=== PATIENT | male | born 1940 | race Caucasian/White ===

== ENCOUNTER → 2016-07-16 | Outpatient (CLI) | payer MEDICARE, BC ==
--- NOTE | 2016-07-16 12:25 | MR ---
MR lumbar spine wo con Low back pain Multiplanar, multiecho imaging of the lumbar spine was obtained without contrast on a 3 Nikky magnet. REFERENCE:None. FINDINGS: There is a 1 cm cystic lesion in the mid polar region of the left kidney. Paraspinal soft tissues are otherwise normal. There are mild retrolisthesis of L4 on L5 and L3 on L4. Vertebral body height and alignment are other fuller maintained. Cord signal is maintained. The conus ends normally at the level of the mid body of L1. There is hypertrophic spondylosis at L1-2 and L4-5. At T12-L1, no definite abnormality is seen. At L1-2, the intervertebral foramina are well maintained. There is a diffuse disc displacement. There is minimal capsulitis within the left facet. At L2-3, the intervertebral foramina are well maintained. There is a diffuse disc displacement. There is hypertrophic change and capsulitis in the facets. At L3-4, there is disc space loss and disc desiccation. There is a broad-based disc protrusion extend ing into both intervertebral foramina causing bilateral intervertebral foraminal narrowing. There is fairly marked hypertrophic change and capsulitis within the facets. There is mild true following of t he thecal sac. At L4-5, there is disc space loss and disc desiccation. There is a broad-based disc protrusion extend ing into both intervertebral foramina causing bilateral intervertebral foraminal narrowing. There are fairly marked hypertrophic changes within the facets. There is moderate to severe central canal sten osis as well as bilateral lateral recess stenosis. At L5-S1, there is disc space loss and disc desiccation. There is a broad-based disc protrusion exten ding into both intervertebral foramina causing bilateral intervertebral foraminal narrowing. There ar e hypertrophic changes in the facets. IMPRESSION: 1. DIFFUSE DEGENERATIVE DISC DISEASE AND FACET ARTHROPATHY. 2. BILATERAL INTERVERTEBRAL FORAMINAL NARROWING AT L3-4, L4-5 AND L5-S1. 3. VARYING DEGREES OF CENTRAL CANAL COMPROMISE MOST MARKED AT L4-5.
== END | disposition home or self-care (01) ==
LOC: RADMRIMAIN 11:40
PROVIDERS: ATTEND Family Medicine
DX: M51.16 Intervertebral disc disorders with radiculopathy, lumbar region (principal); M99.74 Connective tissue and disc stenosis of intervertebral foramina of sacral region
CPT/HCPCS: 72148

== ENCOUNTER 2016-09-02 04:12 | Emergency (ER) | payer MEDICARE, BC ==
[2016-09-02] MEDS ORDERED: KETOROLAC 30 MG/ML 1 ML VIAL IVP STA (04:30)
[2016-09-02] MEDS ORDERED: SODIUM CHLORIDE 0.9% 1,000 ML IV STA (04:30)
--- NOTE | 2016-09-02 04:33 | ED ---
General Adult HPI - General Chief complaint: Abdominal Pain Stated complaint: Flank/Back Pain Time Seen by Provider: 09/02/16 04:27 Source: patient, RN notes reviewed Mode of arrival: ambulatory Limitations: no limitations - History of Present Illness Initial comments: Patient is a pleasant 76-year-old male presenting to the emergency department complaining of right flank pain. Onset of symptoms was a minute. Some onset of symptoms are similar to previous kidney stones. Patient was nauseated however that has resolved. Discomfort is right flank. No dysuria or hematuria. Discomfort still remains severe. - Related Data Home Medications Medication Instructions Recorded Confirmed Albuterol Inhaler [Ventolin Hfa 1 - 2 puff INHALATION Q6HR PRN 09/02/16 09/02/16 Inhaler] Aspirin 81 mg PO DAILY 09/02/16 09/02/16 Atorvastatin [Lipitor] 40 mg PO DAILY 09/02/16 09/02/16 Ergocalciferol [Vitamin D2] 50,000 unit PO Q7D 09/02/16 09/02/16 Lisinopril [Zestril] 5 mg PO DAILY 09/02/16 09/02/16 Tamsulosin HCl [Flomax] 0.4 mg PO DAILY 09/02/16 09/02/16 amLODIPine BESYLATE [Norvasc] 5 mg PO DAILY 09/02/16 09/02/16 metFORMIN HCL [metFORMIN HCL ER] 1,000 mg PO AC-SUPPER 09/02/16 09/02/16 Previous Rx's Medication Instructions Recorded Ketorolac [Toradol] 10 mg PO Q6HR PRN #15 tab 09/02/16 Allergies Allergy/AdvReac Type Severity Reaction Status Date / Time No Known Allergies Allergy Verified 09/02/16 04:18 Review of Systems ROS Statement: Those systems with pertinent positive or pertinent negative responses have been documented in the HPI. ROS Other: All systems not noted in ROS Statement are negative. Constitutional: Denies: fever Eyes: Denies: eye pain ENT: Denies: ear pain Respiratory: Denies: cough Cardiovascular: Denies: chest pain Endocrine: Denies: fatigue Gastrointestinal: Reports: abdominal pain (Right flank), nausea (Resolved). Denies: vomiting, diarrhea, constipation Genitourinary: Denies: dysuria, hematuria Musculoskeletal: Denies: back pain Skin: Denies: rash Neurological: Denies: headache Past Medical History Past Medical History: Diabetes Mellitus History of Any Multi-Drug Resistant Organisms: None Reported Additional Past Surgical History / Comment(s): Shoulder, kidney Past Psychological History: No Psychological Hx Reported Smoking Status: Current some day smoker Past Alcohol Use History: Occasional Past Drug Use History: None Reported General Exam Limitations: no limitations General appearance: alert, in no apparent distress Head exam: Present: atraumatic Eye exam: Present: normal appearance ENT exam: Present: normal oropharynx Neck exam: Present: normal inspection Respiratory exam: Present: normal lung sounds bilaterally Cardiovascular Exam: Present: regular rate, normal rhythm GI/Abdominal exam: Present: soft, normal bowel sounds. Absent: distended, tenderness, guarding, rebound, rigid Extremities exam: Present: normal inspection Back exam: Present: normal inspection. Absent: tenderness, CVA tenderness (R) Neurological exam: Present: alert Psychiatric exam: Present: normal affect, normal mood Skin exam: Absent: rash Course Vital Signs 09/02/16 04:16 Temperature 97.3 F L Pulse Rate 78 Respiratory 20 Rate Blood Pressure 180/84 O2 Sat by Pulse 99 Oximetry Medical Decision Making - Medical Decision Making Patient reexamined and symptom-free. Patient and family updated on results and need for follow-up. - Lab Data Result diagrams: 09/02/16 04:30 09/02/16 04:30 Lab Results 09/02/16 09/02/16 09/02/16 Range/Units 04:30 04:30 04:30 WBC 8.1 (3.8-10.6) k/uL RBC 4.89 (4.30-5.90) m/uL Hgb 15.4 (13.0-17.5) gm/dL Hct 46.1 (39.0-53.0) % MCV 94.4 (80.0-100.0) fL MCH 31.6 (25.0-35.0) pg MCHC 33.5 (31.0-37.0) g/dL RDW 13.1 (11.5-15.5) % Plt Count 288 (150-450) k/uL Neutrophils % 70 % Lymphocytes % 18 % Monocytes % 5 % Eosinophils % 3 % Basophils % 1 % Neutrophils # 5.6 (1.3-7.7) k/uL Lymphocytes # 1.4 (1.0-4.8) k/uL Monocytes # 0.4 (0-1.0) k/uL Eosinophils # 0.3 (0-0.7) k/uL Basophils # 0.0 (0-0.2) k/uL PT 11.4 (9.0-12.0) sec INR 1.1 (<1.1) APTT 25.6 (22.0-30.0) sec Sodium 140 (137-145) mmol/L Potassium 4.5 (3.5-5.1) mmol/L Chloride 105 (98-107) mmol/L Carbon Dioxide 23 (22-30) mmol/L Anion Gap 12 mmol/L BUN 20 (9-20) mg/dL Creatinine 1.30 H (0.66-1.25) mg/dL Est GFR (MDRD) Af Amer >60 (>60 ml/min/1.73 sqM) Est GFR (MDRD) Non-Af 53 (>60 ml/min/1.73 sqM) Glucose 171 H (74-99) mg/dL Calcium 9.4 (8.4-10.2) mg/dL Total Bilirubin 1.0 (0.2-1.3) mg/dL AST 16 L (17-59) U/L ALT 38 (21-72) U/L Alkaline Phosphatase 87 (38-126) U/L Total Protein 6.8 (6.3-8.2) g/dL Albumin 4.1 (3.5-5.0) g/dL Amylase 33 (30-110) U/L Lipase 69 (23-300) U/L Urine Color Urine Appearance (Clear) Urine pH (5.0-8.0) Ur Specific [place] (1.001-1.035) Urine Protein (Negative) Urine Glucose (UA) (Negative) Urine Ketones (Negative) Urine Blood (Negative) Urine Nitrate (Negative) Urine Bilirubin (Negative) Urine Urobilinogen (<2.0) mg/dL Ur Leukocyte Esterase (Negative) Urine RBC (0-5) /hpf Urine WBC (0-5) /hpf Urine Mucus (None) /hpf 09/02/16 Range/Units 04:50 WBC (3.8-10.6) k/uL RBC (4.30-5.90) m/uL Hgb (13.0-17.5) gm/dL Hct (39.0-53.0) % MCV (80.0-100.0) fL MCH (25.0-35.0) pg MCHC (31.0-37.0) g/dL RDW (11.5-15.5) % Plt Count (150-450) k/uL Neutrophils % % Lymphocytes % % Monocytes % % Eosinophils % % Basophils % % Neutrophils # (1.3-7.7) k/uL Lymphocytes # (1.0-4.8) k/uL Monocytes # (0-1.0) k/uL Eosinophils # (0-0.7) k/uL Basophils # (0-0.2) k/uL PT (9.0-12.0) sec INR (<1.1) APTT (22.0-30.0) sec Sodium (137-145) mmol/L Potassium (3.5-5.1) mmol/L Chloride (98-107) mmol/L Carbon Dioxide (22-30) mmol/L Anion Gap mmol/L BUN (9-20) mg/dL Creatinine (0.66-1.25) mg/dL Est GFR (MDRD) Af Amer (>60 ml/min/1.73 sqM) Est GFR (MDRD) Non-Af (>60 ml/min/1.73 sqM) Glucose (74-99) mg/dL Calcium (8.4-10.2) mg/dL Total Bilirubin (0.2-1.3) mg/dL AST (17-59) U/L ALT (21-72) U/L Alkaline Phosphatase (38-126) U/L Total Protein (6.3-8.2) g/dL Albumin (3.5-5.0) g/dL Amylase (30-110) U/L Lipase (23-300) U/L Urine Color Yellow Urine Appearance Clear (Clear) Urine pH 6.5 (5.0-8.0) Ur Specific [place] 1.013 (1.001-1.035) Urine Protein 1+ H (Negative) Urine Glucose (UA) Negative (Negative) Urine Ketones Negative (Negative) Urine Blood Small H (Negative) Urine Nitrate Negative (Negative) Urine Bilirubin Negative (Negative) Urine Urobilinogen <2.0 (<2.0) mg/dL Ur Leukocyte Esterase Small H (Negative) Urine RBC 15 H (0-5) /hpf Urine WBC 7 H (0-5) /hpf Urine Mucus Rare H (None) /hpf - Radiology Data Radiology results: image reviewed (Computed tomography scan of the abdomen and pelvis shows multiple calculi in the posterior urinary bladder/UVJ. On the right 8.5 mm and left 5.5 mm. Additional nonobstructing calculi both kidneys.) Disposition Clinical Impression: Ureterolithiasis Disposition: HOME SELF-CARE Condition: Stable Instructions: Kidney Stones (ED) Additional Instructions: Please follow-up with primary care physician and urologist this week. Return for uncontrolled pain, fevers, vomiting, worsening symptoms or other concerns. Prescriptions: Ketorolac [Toradol] 10 mg PO Q6HR PRN #15 tab PRN Reason: Pain Referrals: Chris Lynn Jr, DO [Primary Care Provider] - 1-2 days Douglas Foss MD [STAFF PHYSICIAN] - 1-2 days
[2016-09-02 04:42] LABS: Basophils % (A) 1 %; CHCM 35.1; Eosinophils # (A) 0.3 k/uL (0-0.7); Eosinophils % (A) 3 %; HCT 46.1 % (39.0-53.0); HDW 2.58; HGB 15.4 gm/dL (13.0-17.5); Luc # (Auto) 0.31; Luc % (Auto) 4; Lymphocytes # (A) 1.4 k/uL (1.0-4.8); Lymphocytes % (A) 18 %; MCH 31.6 pg (25.0-35.0); MCHC 33.5 g/dL (31.0-37.0); MCV 94.4 fL (80.0-100.0); Monocytes # (A) 0.4 k/uL (0-1.0); Monocytes % (A) 5 %; Neutrophils # (A) 5.6 k/uL (1.3-7.7); Neutrophils % (A) 70 %; RBC 4.89 m/uL (4.30-5.90); RDW 13.1 % (11.5-15.5); WBC 8.1 k/uL (3.8-10.6); WBC (Perox) 7.75
[2016-09-02 04:52] LABS: ALT 38 U/L (21-72); AST 16 U/L (17-59); Alkaline Phosphatase 87 U/L (38-126); Amylase 33 U/L (30-110); Anion Gap 12 mmol/L; Blood Urea Nitrogen 20 mg/dL (9-20); Calcium 9.4 mg/dL (8.4-10.2); Carbon Dioxide 23 mmol/L (22-30); Chloride 105 mmol/L (98-107); Glucose 171 mg/dL (74-99); INR 1.1 (<1.1); Non-African American GFR(MDRD) 53 (>60 ml/min/1.73 sqM); Partial Thromboplastin Time 25.6 sec (22.0-30.0); Potassium 4.5 mmol/L (3.5-5.1); Prothrombin Time 11.4 sec (9.0-12.0); Sodium 140 mmol/L (137-145); Total Protein 6.8 g/dL (6.3-8.2)
[2016-09-02 05:05] LABS: Appearance,Urine Clear (Clear); Bilirubin,Urine Negative (Negative); Glucose,Urine (UA) Negative (Negative); Ketones,Urine Negative (Negative); Leukocyte Esterase,Urine Small (Negative); Mucus,Urine Rare /hpf; Nitrite,Urine Negative (Negative); PH, Urine 6.5 (5.0-8.0); Particle Count 1360; Protein,Urine 1+ (Negative); RBC,Urine 15 /hpf (0-5); Specific Gravity,Urine 1.013 (1.001-1.035); UA Billing (MACRO vs. MICRO) MICRO; Urobilinogen,Urine <2.0 mg/dL (<2.0); WBC,Urine 7 /hpf (0-5)
[2016-09-02 06:03] VITALS: BP 168/77; PULSE 71; RESP 18; TEMP 97.7
--- NOTE | 2016-09-02 14:18 | CT ---
EXAM: CT Abdomen and Pelvis Without Intravenous Contrast. CLINICAL HISTORY: Reason: abdominal pain TECHNIQUE: Axial computed tomography images of the abdomen and pelvis without intravenous contrast. CTDI is 15.8 mGy and DLP is 835.8 mGy-cm COMPARISON: No relevant prior studies available. FINDINGS: Lower thorax: Probable scarring within the lingula. Small hiatal hernia. ABDOMEN: Liver: Unremarkable. Gallbladder and bile ducts: Cholelithiasis without CT evidence of acute cholecystitis. Pancreas: Unremarkable. Spleen: Unremarkable. Adrenals: Unremarkable. Kidneys and ureters: Multiple large calculi seen within the posterior urinary bladder/UVJ with the one on the right measuring 8.5 mm and the largest on the left measuring up to 5.5 mm (3-145). There are additional non-obstructing calculi within both kidneys. No significant hydronephrosis. There is either perirenal senescent changes versus small amount of edema. Stomach and bowel: Noninflamed colonic diverticulosis. Appendix: The appendix is unremarkable. PELVIS: Bladder: Unremarkable. Reproductive: Unremarkable as visualized. ABDOMEN and PELVIS: Intraperitoneal space: Unremarkable. Bones/joints: Degenerative changes of the osseous structures. No acute fracture. No dislocation. Soft tissues: Small fat containing umbilical hernia. Vasculature: Vascular calcifications. Lymph nodes: Unremarkable. IMPRESSION: Multiple large calculi seen within the posterior urinary bladder/UVJ with the one on the right measuring 8.5 mm and the largest on the left measuring up to 5.5 mm (3-145). There are additional non-obstructing calculi within both kidneys. No significant hydronephrosis. There is either perirenal senescent changes versus small amount of edema.
== END 2016-09-02 06:02 | disposition home or self-care (01) ==
LOC: EC 04:12
DX: N20.2 Calculus of kidney with calculus of ureter (principal); E11.9 Type 2 diabetes mellitus without complications; F17.200 Nicotine dependence, unspecified, uncomplicated; Z79.82 Long term (current) use of aspirin; Z79.84 Long term (current) use of oral hypoglycemic drugs; Z79.899 Other long term (current) drug therapy
CPT/HCPCS: 99284; 96374; 96361; 36415; 80053; 82150; 83690; 85025; 85610; 85730; 81001; 74176; J1885

== ENCOUNTER 2016-09-05 19:07 | Emergency (ER) | payer MEDICARE, BC ==
[2016-09-05] MEDS ORDERED: SODIUM CHLORIDE 0.9% 1,000 ML IV ONE (19:43)
[2016-09-05] MEDS ORDERED: KETOROLAC 30 MG/ML 1 ML VIAL IVP STA (19:52)
[2016-09-05] MEDS ORDERED: ONDANSETRON 4 MG/2 ML VIAL IVP STA (19:53)
--- NOTE | 2016-09-05 19:58 | ED ---
General Adult HPI - General Chief complaint: Abdominal Pain Stated complaint: Abd Pain/Poss kidney stone Time Seen by Provider: 09/05/16 19:25 Source: patient, RN notes reviewed Mode of arrival: wheelchair Limitations: no limitations - History of Present Illness Initial comments: Patient is a 76-year-old male presents to the emergency room for evaluation of right flank pain. Patient states he was here a few days ago for the same issue. Patient states he was told he had multiple kidney stones. Patient states he can'y get an appointment with Dr. Hernandez until next week. Patient states he has a history of kidney stones. Patient states he has a history of lithotripsy and stent placement. Patient states he was sent home with Toradol. Patient states he's been having worsening pain over the last few hours. Patient states the Toradol is no longer helping. Patient states he has had blood in his urine. Patient denies fevers or chills. Denies chest pain or shortness of breath. - Related Data Home Medications Medication Instructions Recorded Confirmed Albuterol Inhaler [Ventolin Hfa 1 - 2 puff INHALATION RT-Q6H PRN 09/02/16 Inhaler] Aspirin 81 mg PO DAILY 09/02/16 09/05/16 Atorvastatin [Lipitor] 40 mg PO HS 09/02/16 09/05/16 Ergocalciferol [Vitamin D2] 50,000 unit PO Q14D 09/02/16 09/05/16 Lisinopril [Zestril] 5 mg PO DAILY 09/02/16 09/05/16 Tamsulosin HCl [Flomax] 0.4 mg PO DAILY 09/02/16 09/05/16 amLODIPine BESYLATE [Norvasc] 5 mg PO DAILY 09/02/16 09/05/16 Cholecalciferol [Vitamin D3] 1,000 unit PO DAILY 09/05/16 09/05/16 metFORMIN HCL 1,000 mg PO DAILY 09/05/16 09/05/16 Previous Rx's Medication Instructions Recorded Ketorolac [Toradol] 10 mg PO Q6HR PRN #15 tab 09/02/16 HYDROcodone/APAP 5-325MG [[place] 1 tab PO Q6HR PRN #15 tab 09/05/16 5-325] Ondansetron Odt [Zofran Odt] 4 mg PO Q8HR PRN #12 tab 09/05/16 Allergies Allergy/AdvReac Type Severity Reaction Status Date / Time No Known Allergies Allergy Verified 09/05/16 19:55 Review of Systems ROS Statement: Those systems with pertinent positive or pertinent negative responses have been documented in the HPI. ROS Other: All systems not noted in ROS Statement are negative. Past Medical History Past Medical History: Diabetes Mellitus, Hyperlipidemia, Hypertension History of Any Multi-Drug Resistant Organisms: None Reported Additional Past Surgical History / Comment(s): Shoulder, kidney Past Psychological History: No Psychological Hx Reported Smoking Status: Current some day smoker Past Alcohol Use History: Rare Past Drug Use History: None Reported General Exam - General Exam Comments Initial Comments: Pacing around in exam room, uncomfortable secondary to pain Limitations: no limitations General appearance: alert, in no apparent distress Head exam: Present: atraumatic, normocephalic, normal inspection Eye exam: Present: normal appearance ENT exam: Present: normal exam Neck exam: Present: normal inspection Respiratory exam: Present: normal lung sounds bilaterally. Absent: respiratory distress Cardiovascular Exam: Present: regular rate, normal rhythm, normal heart sounds GI/Abdominal exam: Present: soft, normal bowel sounds. Absent: distended, tenderness, guarding, rebound, rigid Extremities exam: Present: normal inspection Back exam: Present: normal inspection, CVA tenderness (R). Absent: CVA tenderness (L) Neurological exam: Present: alert, oriented X3, CN II-XII intact, normal gait Psychiatric exam: Present: normal affect, normal mood Skin exam: Present: warm, dry, intact, normal color. Absent: rash Course Vital Signs 09/05/16 09/05/16 19:12 21:48 Temperature 98.4 F 98.2 F Pulse Rate 81 77 Respiratory 16 18 Rate Blood Pressure 165/84 146/67 O2 Sat by Pulse 98 94 L Oximetry Medical Decision Making - Medical Decision Making Patient is a 76-year-old male presents emergency room for evaluation of flank pain. Patient was diagnosed with kidney stones a few days ago. Patient states he is feeling better after medications given. Will add [place] and Zofran onto his home medications. Patient states he'll follow up with urologist next week. Patient states he understands everything that was discussed with him. Return parameters discussed. Case discussed Dr. Johnson. - Lab Data Result diagrams: 09/05/16 19:45 02/24/17 19:45 Lab Results 09/05/16 09/05/16 09/05/16 Range/Units 19:45 19:45 20:10 WBC 7.7 (3.8-10.6) k/uL RBC 4.48 (4.30-5.90) m/uL Hgb 14.6 (13.0-17.5) gm/dL Hct 41.8 (39.0-53.0) % MCV 93.3 (80.0-100.0) fL MCH 32.5 (25.0-35.0) pg MCHC 34.8 (31.0-37.0) g/dL RDW 12.9 (11.5-15.5) % Plt Count 247 (150-450) k/uL Neutrophils % 68 % Lymphocytes % 16 % Monocytes % 8 % Eosinophils % 4 % Basophils % 1 % Neutrophils # 5.2 (1.3-7.7) k/uL Lymphocytes # 1.2 (1.0-4.8) k/uL Monocytes # 0.6 (0-1.0) k/uL Eosinophils # 0.3 (0-0.7) k/uL Basophils # 0.1 (0-0.2) k/uL Sodium 141 (137-145) mmol/L Potassium 4.4 (3.5-5.1) mmol/L Chloride 104 (98-107) mmol/L Carbon Dioxide 25 (22-30) mmol/L Anion Gap 12 mmol/L BUN 30 H (9-20) mg/dL Creatinine 1.67 H (0.66-1.25) mg/dL Est GFR (MDRD) Af Amer 48 (>60 ml/min/1.73 sqM) Est GFR (MDRD) Non-Af 40 (>60 ml/min/1.73 sqM) Glucose 160 H (74-99) mg/dL Calcium 9.3 (8.4-10.2) mg/dL Total Bilirubin 0.9 (0.2-1.3) mg/dL AST 12 L (17-59) U/L ALT 21 (21-72) U/L Alkaline Phosphatase 81 (38-126) U/L Total Protein 6.5 (6.3-8.2) g/dL Albumin 3.9 (3.5-5.0) g/dL Urine Color Yellow Urine Appearance Clear (Clear) Urine pH 6.5 (5.0-8.0) Ur Specific [place] 1.015 (1.001-1.035) Urine Protein 1+ H (Negative) Urine Glucose (UA) Negative (Negative) Urine Ketones Negative (Negative) Urine Blood Large H (Negative) Urine Nitrate Negative (Negative) Urine Bilirubin Negative (Negative) Urine Urobilinogen <2.0 (<2.0) mg/dL Ur Leukocyte Esterase Small H (Negative) Urine RBC 52 H (0-5) /hpf Urine WBC 12 H (0-5) /hpf Amorphous Sediment Rare H (None) /hpf Urine Bacteria Rare H (None) /hpf Urine Mucus Rare H (None) /hpf - Radiology Data Radiology results: report reviewed, image reviewed Disposition Clinical Impression: Flank pain, Hematuria, Kidney stones Disposition: HOME SELF-CARE Condition: Good Instructions: Flank Pain (ED), Kidney Stones (ED) Additional Instructions: Drink plenty of water. Continue taking ketorolac as needed for pain. Take [place] as needed for severe pain. Take Zofran as needed for nausea. Please follow-up with urologist. If any new symptom arises or symptoms worsen, return to ER as soon as possible. Prescriptions: HYDROcodone/APAP 5-325MG [[place] 5-325] 1 tab PO Q6HR PRN #15 tab PRN Reason: Pain Ondansetron Odt [Zofran Odt] 4 mg PO Q8HR PRN #12 tab PRN Reason: Nausea Referrals: Chris Lynn Jr, DO [Primary Care Provider] - 1-2 days Noe Hernandez MD [STAFF PHYSICIAN] - 1-2 days Time of Disposition: 21:48
[2016-09-05 19:59] LABS: Basophils # (A) 0.1 k/uL (0-0.2); Basophils % (A) 1 %; CH 32.7; CHCM 35.2; Eosinophils # (A) 0.3 k/uL (0-0.7); Eosinophils % (A) 4 %; HCT 41.8 % (39.0-53.0); HGB 14.6 gm/dL (13.0-17.5); Luc # (Auto) 0.28; Luc % (Auto) 4; Lymphocytes # (A) 1.2 k/uL (1.0-4.8); Lymphocytes % (A) 16 %; MCH 32.5 pg (25.0-35.0); MCHC 34.8 g/dL (31.0-37.0); MCV 93.3 fL (80.0-100.0); Mean Platelet Volume 8.6; Monocytes # (A) 0.6 k/uL (0-1.0); Monocytes % (A) 8 %; Neutrophils # (A) 5.2 k/uL (1.3-7.7); Neutrophils % (A) 68 %; RBC 4.48 m/uL (4.30-5.90); RDW 12.9 % (11.5-15.5); WBC 7.7 k/uL (3.8-10.6); WBC (Perox) 7.56
[2016-09-05 20:09] LABS: Calcium 9.3 mg/dL (8.4-10.2); Potassium 4.4 mmol/L (3.5-5.1); Total Bilirubin 0.9 mg/dL (0.2-1.3); Total Protein 6.5 g/dL (6.3-8.2)
[2016-09-05 20:44] LABS: Amorphous Sediment,Urine Rare /hpf; Appearance,Urine Clear (Clear); Bacteria,Urine Rare /hpf; Bilirubin,Urine Negative (Negative); Glucose,Urine (UA) Negative (Negative); Ketones,Urine Negative (Negative); Leukocyte Esterase,Urine Small (Negative); Mucus,Urine Rare /hpf; Nitrite,Urine Negative (Negative); PH, Urine 6.5 (5.0-8.0); Particle Count 2205; Protein,Urine 1+ (Negative); RBC,Urine 52 /hpf (0-5); Specific Gravity,Urine 1.015 (1.001-1.035); UA Billing (MACRO vs. MICRO) MICRO; Urobilinogen,Urine <2.0 mg/dL (<2.0); WBC,Urine 12 /hpf (0-5)
--- NOTE | 2016-09-05 20:53 | XR ---
EXAMINATION TYPE: XR KUB DATE OF EXAM: 09/05/2016 8:40 PM COMPARISON: 02/25/2013 HISTORY: Right flank pain TECHNIQUE: 2 views FINDINGS: Bowel gas pattern is normal. There is no sign of intestinal obstruction or pneumoperitoneum . Fecal pattern is normal. There is no evidence of a mass. There are faint calcifications over the le ft kidney. Lung bases are clear. There is spurring in the lumbar spine. IMPRESSION: There are probably small left renal calculi. Nonacute abdomen. There is clearing of a 1 c m calcification over the left renal pelvis compared to old exam.
[2016-09-05] MEDS ORDERED: HYDROmorphone 1 MG/ML 1 ML SYRINGE IVP STA ×2 (20:55→22:03)
[2016-09-05 21:49] VITALS: BP 146/67; PULSE 77; RESP 18; TEMP 98.2
== END 2016-09-05 22:41 | disposition home or self-care (01) ==
LOC: EC 19:07
DX: N20.0 Calculus of kidney (principal); E78.5 Hyperlipidemia, unspecified; I10 Essential (primary) hypertension; E11.9 Type 2 diabetes mellitus without complications; F17.200 Nicotine dependence, unspecified, uncomplicated; Z79.84 Long term (current) use of oral hypoglycemic drugs; Z79.82 Long term (current) use of aspirin; Z79.899 Other long term (current) drug therapy
CPT/HCPCS: 36415; 80053; 85025; 81001; 74000; 99284; 96374; 96375 ×2; 96376; 96361; J2405; J1885; J1170

== ENCOUNTER → 2017-05-18 | Outpatient (CLI) | payer MEDICARE, BC ==
--- NOTE | 2017-05-18 08:21 | US ---
EXAMINATION TYPE: US carotid duplex BILAT DATE OF EXAM: 05/18/2017 COMPARISON: US CLINICAL HISTORY: R55 syncope. Pt states headaches EXAM MEASUREMENTS: RIGHT: Peak Systolic Velocity (PSV) cm/sec ----- Right CCA: 60.3 ----- Right ICA: 73.0 ----- Right ECA: 81.7 ICA/CCA ratio: 1.2 RIGHT: End Diastole cm/sec ----- Right CCA: 15.4 ----- Right ICA: 24.1 ----- Right ECA: 12.7 LEFT: Peak Systolic Velocity (PSV) cm/sec ----- Left CCA: 63.4 ----- Left ICA: 58.9 ----- Left ECA: 80.8 ICA/CCA ratio: 0.9 LEFT: End Diastole cm/sec ----- Left CCA: 13.6 ----- Left ICA: 18.2 ----- Left ECA: 11.9 VERTEBRALS (direction of flow): Right Vertebral: Antegrade Left Vertebral: Antegrade IMPRESSION: No significant stenosis seen Criteria for Assigning % of Stenosis / Diameter reduction (Estimation based on the indirect measurements of the internal carotid artery velocities (ICA PSV). 1. Normal (no stenosis)=ICA PSV < 125 cm/s: ratio < 2.0: ICA EDV<40 cm/s. 2. Less than 50% stenosis=ICA PSV < 125 cm/s: ratio < 2.0: ICA EDV<40 cm/s. 3. 50 to 69% stenosis=ICA PSV of 125 to 230 cm/s: ration 2.0 ? 4.0: ICA EDV 40-100 cm/s. 4. Greater than 70% stenosis to near occlusion= ICA PSV > 230 cm/s: ratio > 4.0: ICA EDV > 100 cm/s. 5. Near occlusion= ICA PSV velocities may be low or undetectable: variable ratio and ICA EDV. 6. Total occlusion=unable to detect flow.
--- NOTE | 2017-05-18 08:29 | CT ---
EXAMINATION TYPE: CT brain wo con DATE OF EXAM: 05/18/2017 COMPARISON: NONE HISTORY: Near syncopal episodes, stenosis of neck CT DLP: 1017.9 mGycm. Automated Exposure Control for Dose Reduction was Utilized. TECHNIQUE: CT scan of the head is performed without contrast. FINDINGS: Old lacunar injury of the right external capsule and likely of the left chencho are seen in a ddition to multiple patchy areas of hypoattenuation within the subcortical and periventricular white matter. Ventricles and peripheral sulci are prominent compatible with age-related volume loss and wit hin normal limits for the patient's age. Dystrophic calcifications of the left basal ganglia are note d. No suspicious extra-axial fluid collection is seen. Small amount of mucosal thickening is seen wit hin the right posterior ethmoid sinuses. Remaining paranasal sinuses and mastoid air cells are well a erated. Globes are intact. IMPRESSION: 1. No acute intracranial hemorrhage, mass effect, or midline shift is seen. 2. Old lacunar injuries of the right external capsule and likely of the left chencho. 2. 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
== END | disposition home or self-care (01) ==
LOC: RADCTMAIN 07:30
PROVIDERS: ATTEND Family Medicine
DX: R90.82 White matter disease, unspecified (principal); G93.9 Disorder of brain, unspecified; R51 Headache; R55 Syncope and collapse
CPT/HCPCS: 70450; 93880

== ENCOUNTER 2017-07-15 00:36 | Observation (INO) | payer MEDICARE, BC ==
[2017-07-15] MEDS ORDERED: FAMOTIDINE 20 MG/2 ML VIAL IV STA (01:18)
[2017-07-15 01:31] LABS: Basophils # (A) 0.1 k/uL (0-0.2); Basophils % (A) 1 %; Eosinophils # (A) 0.3 k/uL (0-0.7); Eosinophils % (A) 4 %; HCT 46.5 % (39.0-53.0); HGB 15.1 gm/dL (13.0-17.5); Lymphocytes # (A) 1.9 k/uL (1.0-4.8); Lymphocytes % (A) 24 %; MCH 31.7 pg (25.0-35.0); MCHC 32.5 g/dL (31.0-37.0); MCV 97.5 fL (80.0-100.0); Mean Platelet Volume 8.4; Monocytes # (A) 0.5 k/uL (0-1.0); Monocytes % (A) 6 %; Neutrophils % (A) 62 %; Platelet Count 282 k/uL (150-450); RBC 4.77 m/uL (4.30-5.90); RDW 14.5 % (11.5-15.5)
--- NOTE | 2017-07-15 01:34 | ED ---
General Adult HPI - General Chief complaint: Chest Pain Stated complaint: acid reflux Time Seen by Provider: 07/15/17 00:50 Source: patient, RN notes reviewed Mode of arrival: ambulatory Limitations: no limitations - History of Present Illness Initial comments: 76-year-old male presents for evaluation of burning chest pain and throat pain. 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 Patient states that today he had several comedones , ate some peanut M&Ms prior to going to bed. He had an episode where he awoke with pain and burning sensation in his throat and an episode of nausea and vomiting. Vomiting was very low volume. He does feel like he may have got some of the fluid into his lungs. Symptoms are resolving prior to presenting to the emergency department. They occurred approximately 90 minutes before my evaluation. Patient has no history of coronary artery disease. He denies any central substernal chest pain. Denies any radiating chest pain. No shortness of breath associated with the incident. Patient is very confident this was gastric reflux. He is not currently on any medication for reflux. He does complain of a mild sore throat at this time. - Related Data Home Medications Medication Instructions Recorded Confirmed Albuterol Inhaler [Ventolin Hfa 1 - 2 puff INHALATION RT-Q6H PRN 09/02/16 Inhaler] Aspirin 81 mg PO DAILY 09/02/16 07/15/17 Atorvastatin [Lipitor] 40 mg PO HS 09/02/16 07/15/17 Ergocalciferol [Vitamin D2] 50,000 unit PO Q14D 09/02/16 07/15/17 Lisinopril [Zestril] 5 mg PO DAILY 09/02/16 07/15/17 Tamsulosin HCl [Flomax] 0.4 mg PO DAILY 09/02/16 07/15/17 amLODIPine BESYLATE [Norvasc] 5 mg PO DAILY 09/02/16 07/15/17 Cholecalciferol [Vitamin D3] 1,000 unit PO DAILY 09/05/16 07/15/17 metFORMIN HCL 1,000 mg PO DAILY 09/05/16 07/15/17 Previous Rx's Medication Instructions Recorded Ketorolac [Toradol] 10 mg PO Q6HR PRN #15 tab 09/02/16 HYDROcodone/APAP 5-325MG [[place] 1 tab PO Q6HR PRN #15 tab 09/05/16 5-325] Ondansetron Odt [Zofran Odt] 4 mg PO Q8HR PRN #12 tab 09/05/16 Allergies Allergy/AdvReac Type Severity Reaction Status Date / Time No Known Allergies Allergy Verified 07/15/17 00:45 Review of Systems ROS Statement: Those systems with pertinent positive or pertinent negative responses have been documented in the HPI. ROS Other: All systems not noted in ROS Statement are negative. Past Medical History Past Medical History: Cancer, Diabetes Mellitus, Hyperlipidemia, Hypertension Additional Past Medical History / Comment(s): CA of the larynyx History of Any Multi-Drug Resistant Organisms: None Reported Additional Past Surgical History / Comment(s): Shoulder, kidney Past Psychological History: No Psychological Hx Reported Smoking Status: Current some day smoker Past Alcohol Use History: Rare Past Drug Use History: None Reported General Exam Limitations: no limitations General appearance: alert, in no apparent distress Head exam: Present: atraumatic, normocephalic Eye exam: Present: normal appearance, PERRL ENT exam: Present: normal exam Neck exam: Present: normal inspection. Absent: tenderness, meningismus Respiratory exam: Present: normal lung sounds bilaterally. Absent: respiratory distress, wheezes, rales, rhonchi Cardiovascular Exam: Present: regular rate, normal rhythm GI/Abdominal exam: Present: soft. Absent: distended, tenderness, guarding, rebound Extremities exam: Present: normal inspection, normal capillary refill. Absent: pedal edema Back exam: Present: normal inspection, full ROM. Absent: tenderness Neurological exam: Present: alert, oriented X3, CN II-XII intact. Absent: motor sensory deficit Psychiatric exam: Present: normal affect, normal mood Skin exam: Present: warm, dry, intact. Absent: cyanosis, diaphoretic Course Vital Signs 07/15/17 00:40 Temperature 97.8 F Pulse Rate 83 Respiratory 20 Rate Blood Pressure 155/82 O2 Sat by Pulse 95 Oximetry EKG Findings - EKG Comments: EKG Findings:: EKG obtained at 0103 sinus rhythm with occasional PVC rate 77, MS interval 174, castration 92, QTC 441, no ST segment elevation or depression. Repeat EKG obtained at 0232 shows normal sinus rhythm with occasional PVC, ventricular rate 78, MS interval 180, QRS duration 88, QTC 444 no signs of ischemia Medical Decision Making - Medical Decision Making 76 old male presenting for evaluation of burning chest pain and reflux with nausea vomiting. Patient's symptoms are more consistent with gastric reflux. Although patient did have a component of chest pain. He has no known history of coronary artery disease. EKG is obtained, no signs of acute ischemia. Patient remains chest pain-free while in the emergency department. Repeat EKG is unchanged. He is given Pepcid. Laboratory studies reveal white blood cell count normal, hemoglobin stable 15.1, creatinine 1.3 which is baseline. Magnesium 1.5 which is replaced. Troponin is negative. Patient will be continued on Pepcid. I had a long discussion with the patient and his regarding the low risk for cardiac causes of his pain and the likelihood that this is gastric reflux. Although I cannot be 100% certain without serial cardiac enzymes. The decision to be placed in observation for serial cardiac enzymes and cardiology evaluation is made. Diagnosis: Chest pain, gastric reflux - Lab Data Result diagrams: 07/15/17 01:11 07/15/17 01:11 Lab Results 07/15/17 07/15/17 07/15/17 Range/Units 01:11 01:11 01:11 WBC 8.0 (3.8-10.6) k/uL RBC 4.77 (4.30-5.90) m/uL Hgb 15.1 (13.0-17.5) gm/dL Hct 46.5 (39.0-53.0) % MCV 97.5 (80.0-100.0) fL MCH 31.7 (25.0-35.0) pg MCHC 32.5 (31.0-37.0) g/dL RDW 14.5 (11.5-15.5) % Plt Count 282 (150-450) k/uL Neutrophils % 62 % Lymphocytes % 24 % Monocytes % 6 % Eosinophils % 4 % Basophils % 1 % Neutrophils # 5.0 (1.3-7.7) k/uL Lymphocytes # 1.9 (1.0-4.8) k/uL Monocytes # 0.5 (0-1.0) k/uL Eosinophils # 0.3 (0-0.7) k/uL Basophils # 0.1 (0-0.2) k/uL PT (9.0-12.0) sec INR (<1.2) APTT (22.0-30.0) sec Sodium 139 (137-145) mmol/L Potassium 3.9 (3.5-5.1) mmol/L Chloride 102 (98-107) mmol/L Carbon Dioxide 28 (22-30) mmol/L Anion Gap 9 mmol/L BUN 21 H (9-20) mg/dL Creatinine 1.30 H (0.66-1.25) mg/dL Est GFR (MDRD) Af Amer >60 (>60 ml/min/1.73 sqM) Est GFR (MDRD) Non-Af 53 (>60 ml/min/1.73 sqM) Glucose 129 H (74-99) mg/dL Calcium 9.6 (8.4-10.2) mg/dL Magnesium 1.5 L (1.6-2.3) mg/dL Total Bilirubin 0.5 (0.2-1.3) mg/dL AST 14 L (17-59) U/L ALT 32 (21-72) U/L Alkaline Phosphatase 82 (38-126) U/L Total Creatine Kinase 45 L (55-170) U/L CK-MB (CK-2) 0.9 (0.0-2.4) ng/mL CK-MB (CK-2) Rel Index 2.0 Troponin I <0.012 (0.000-0.034) ng/mL NT-Pro-B Natriuret Pep pg/mL Total Protein 6.4 (6.3-8.2) g/dL Albumin 3.9 (3.5-5.0) g/dL 07/15/17 07/15/17 Range/Units 01:11 01:11 WBC (3.8-10.6) k/uL RBC (4.30-5.90) m/uL Hgb (13.0-17.5) gm/dL Hct (39.0-53.0) % MCV (80.0-100.0) fL MCH (25.0-35.0) pg MCHC (31.0-37.0) g/dL RDW (11.5-15.5) % Plt Count (150-450) k/uL Neutrophils % % Lymphocytes % % Monocytes % % Eosinophils % % Basophils % % Neutrophils # (1.3-7.7) k/uL Lymphocytes # (1.0-4.8) k/uL Monocytes # (0-1.0) k/uL Eosinophils # (0-0.7) k/uL Basophils # (0-0.2) k/uL PT 10.8 (9.0-12.0) sec INR 1.1 (<1.2) APTT 24.7 (22.0-30.0) sec Sodium (137-145) mmol/L Potassium (3.5-5.1) mmol/L Chloride (98-107) mmol/L Carbon Dioxide (22-30) mmol/L Anion Gap mmol/L BUN (9-20) mg/dL Creatinine (0.66-1.25) mg/dL Est GFR (MDRD) Af Amer (>60 ml/min/1.73 sqM) Est GFR (MDRD) Non-Af (>60 ml/min/1.73 sqM) Glucose (74-99) mg/dL Calcium (8.4-10.2) mg/dL Magnesium (1.6-2.3) mg/dL Total Bilirubin (0.2-1.3) mg/dL AST (17-59) U/L ALT (21-72) U/L Alkaline Phosphatase (38-126) U/L Total Creatine Kinase (55-170) U/L CK-MB (CK-2) (0.0-2.4) ng/mL CK-MB (CK-2) Rel Index Troponin I (0.000-0.034) ng/mL NT-Pro-B Natriuret Pep 64 pg/mL Total Protein (6.3-8.2) g/dL Albumin (3.5-5.0) g/dL Disposition Clinical Impression: Chest pain, Gastric reflux Disposition: ADMITTED IP TO THIS [facility] Condition: Stable Referrals: Chris Lynn Jr, [Primary Care Provider] - 1-2 days Decision to Admit Reason: Admit from EC Decision Date: 07/15/17 Decision Time: 03:06
[2017-07-15 01:39] LABS: ALT 32 U/L (21-72); AST 14 U/L (17-59); Albumin 3.9 g/dL (3.5-5.0); Alkaline Phosphatase 82 U/L (38-126); Anion Gap 9 mmol/L; Blood Urea Nitrogen 21 mg/dL (9-20); Calcium 9.6 mg/dL (8.4-10.2); Carbon Dioxide 28 mmol/L (22-30); Chloride 102 mmol/L (98-107); Glucose 129 mg/dL (74-99); Magnesium 1.5 mg/dL (1.6-2.3); Potassium 3.9 mmol/L (3.5-5.1); Sodium 139 mmol/L (137-145); Total Bilirubin 0.5 mg/dL (0.2-1.3); Total Protein 6.4 g/dL (6.3-8.2)
[2017-07-15 01:41] LABS: Partial Thromboplastin Time 24.7 sec (22.0-30.0)
--- NOTE | 2017-07-15 01:42 | XR ---
EXAMINATION TYPE: XR chest 2V DATE OF EXAM: 07/15/2017 COMPARISON: 05/06/2011 HISTORY: Vomiting chest pain TECHNIQUE: Frontal and lateral views of the chest are obtained. FINDINGS: There is some mild linear density at the left lung base. There is no heart failure. Heart size is normal. Thoracic aorta is atheromatous. There is spurring in the thoracic spine. There are ch est leads. IMPRESSION: No heart failure. There is new mild infiltrate and atelectasis at the left lung base com pared to last exam.
[2017-07-15 01:44] LABS: INR 1.1 (<1.2); Prothrombin Time 10.8 sec (9.0-12.0)
[2017-07-15 01:50] LABS: Creatine Kinase 45 U/L (55-170)
[2017-07-15 02:03] LABS: Creatine Kinase MB 0.9 ng/mL (0.0-2.4); Troponin I <0.012 ng/mL (0.000-0.034)
[2017-07-15] MEDS ORDERED: MAGNESIUM SULFATE-D5W PMX 1 GM in DEXTROSE/WATER 1 100ML.BAG IVPB ONE ×2 (02:18→11:00)
[2017-07-15] MEDS ORDERED: NALOXONE 0.4 MG/ML 1 ML VIAL IV PRN (03:06)
[2017-07-15] MEDS ORDERED: ACETAMINOPHEN TAB 325 MG TAB PO PRN (03:06)
[2017-07-15] MEDS ORDERED: ONDANSETRON 4 MG/2 ML VIAL IVP PRN (03:06)
[2017-07-15] MEDS ORDERED: HYDROcodone/APAP 5-325MG 1 EACH TAB PO PRN (03:08)
[2017-07-15] MEDS ORDERED: SODIUM CHLORIDE 0.9% 1,000 ML IV SCH (03:15)
[2017-07-15 06:46] LABS: Glucose,Whole Blood 119 mg/dL (75-99)
[2017-07-15 07:17] LABS: Creatine Kinase 37 U/L (55-170)
[2017-07-15 07:28] LABS: Creatine Kinase MB 0.7 ng/mL (0.0-2.4); Troponin I <0.012 ng/mL (0.000-0.034)
[2017-07-15] MEDS ORDERED: LISINOPRIL 5 MG TAB PO SCH (09:00)
[2017-07-15] MEDS ORDERED: metFORMIN 500 MG TAB PO SCH (09:00)
[2017-07-15] MEDS ORDERED: ASPIRIN 81 MG PO SCH (09:00)
[2017-07-15] MEDS ORDERED: FAMOTIDINE 20 MG TAB PO SCH (09:00)
[2017-07-15] MEDS ORDERED: amLODIPine 5 MG TAB PO SCH (09:00)
--- NOTE | 2017-07-15 09:11 | P.CRDCN ---
History of Present Illness History of present illness: Patient interviewed and examined. Please see full dictation by nurse practitioner. 76-year-old male patient who presented with chest discomfort in association with sour eructations and reflux like symptoms with severe pain and difficulty breathing and food coming up to his throat while he was laying in bed sleeping. Cardiac enzymes are normal risk factors include diabetes and dyslipidemia and hypertension Cardiac examination reveals a murmur of mitral regurgitation, pansystolic His symptoms are related to gastroesophageal reflux and he possibly may have aspirated and has a small infiltrate in the lungs. The murmur is an incidental finding and I will perform 2-D echo and Doppler study to evaluate this and he can be evaluated as an outpatient subsequently Past Medical History Past Medical History: Cancer, Diabetes Mellitus, GERD/Reflux, Hyperlipidemia, Hypertension Additional Past Medical History / Comment(s): CA of the larynyx, wheezing caused by allergens uses rescue inhaler, kidney stones, BPH History of Any Multi-Drug Resistant Organisms: None Reported Additional Past Surgical History / Comment(s): right rotator cuff, lithotrpsy kim, right side inguinal hernia repair, kim lens implants Past Anesthesia/Blood Transfusion Reactions: No Reported Reaction Past Psychological History: No Psychological Hx Reported Smoking Status: Never smoker Past Alcohol Use History: None Reported Past Drug Use History: None Reported - Past Family History Mother Family Medical History: Dementia, Myocardial Infarction ([place]) Additional Family Medical History / Comment(s): passed at 71 Medications and Allergies Home Medications Medication Instructions Recorded Confirmed Type Albuterol Inhaler [Ventolin Hfa 1 - 2 puff INHALATION RT-Q6H PRN 09/02/16 History Inhaler] Aspirin 81 mg PO DAILY 09/02/16 07/15/17 History Atorvastatin [Lipitor] 40 mg PO HS 09/02/16 07/15/17 History Ergocalciferol [Vitamin D2] 50,000 unit PO Q14D 09/02/16 07/15/17 History Lisinopril [Zestril] 5 mg PO DAILY 09/02/16 07/15/17 History amLODIPine BESYLATE [Norvasc] 5 mg PO DAILY 09/02/16 07/15/17 History Finasteride [Proscar] 5 mg PO DAILY 07/15/17 07/15/17 History metFORMIN HCL [Glucophage] 1,000 mg PO BID 07/15/17 07/15/17 History Allergies Allergy/AdvReac Type Severity Reaction Status Date / Time No Known Allergies Allergy Verified 07/15/17 08:30 Physical Exam Vitals: Vital Signs Temp Pulse Pulse Resp BP BP Pulse Ox 07/15/17 08:00 102 H 16 07/15/17 07:28 98.2 F 16 140/77 95 07/15/17 04:10 82 18 125/68 98 07/15/17 04:00 97.6 F 102 H 18 176/85 95 07/15/17 00:40 97.8 F 83 20 155/82 95 Intake and Output 07/14/17 07/15/17 07/15/17 22:59 06:59 14:59 Other: Voiding Method Toilet Toilet # Voids 1 Weight 93.1 kg Results 07/15/17 01:11 07/15/17 01:11 Cardiac Enzymes 07/15/17 07/15/17 07/15/17 Range/Units 01:11 01:11 06:45 AST 14 L (17-59) U/L CK-MB (CK-2) 0.9 0.7 (0.0-2.4) ng/mL Troponin I <0.012 <0.012 (0.000-0.034) ng/mL Coagulation 07/15/17 Range/Units 01:11 PT 10.8 (9.0-12.0) sec APTT 24.7 (22.0-30.0) sec CBC 07/15/17 Range/Units 01:11 WBC 8.0 (3.8-10.6) k/uL RBC 4.77 (4.30-5.90) m/uL Hgb 15.1 (13.0-17.5) gm/dL Hct 46.5 (39.0-53.0) % Plt Count 282 (150-450) k/uL Comprehensive Metabolic Panel 07/15/17 Range/Units 01:11 Sodium 139 (137-145) mmol/L Potassium 3.9 (3.5-5.1) mmol/L Chloride 102 (98-107) mmol/L Carbon Dioxide 28 (22-30) mmol/L BUN 21 H (9-20) mg/dL Creatinine 1.30 H (0.66-1.25) mg/dL Glucose 129 H (74-99) mg/dL Calcium 9.6 (8.4-10.2) mg/dL AST 14 L (17-59) U/L ALT 32 (21-72) U/L Alkaline Phosphatase 82 (38-126) U/L Total Protein 6.4 (6.3-8.2) g/dL Albumin 3.9 (3.5-5.0) g/dL Current Medications Generic Name Dose Route Start Last Admin Trade Name Freq PRN Reason Stop Dose Admin Acetaminophen 650 mg 07/15/17 03:06 Tylenol Tab PO Q6HR PRN Mild Pain or Fever > 100.5 Hydrocodone Bitart/Acetaminophen 1 each 07/15/17 03:08 [place] 5-325 PO Q6HR PRN Pain Amlodipine Besylate 5 mg 07/15/17 09:00 Norvasc PO DAILY [facility] Aspirin 81 mg 07/15/17 09:00 Aspirin PO DAILY [facility] Atorvastatin Calcium 40 mg 07/15/17 21:00 Lipitor PO HS [facility] Famotidine 20 mg 07/15/17 09:00 Pepcid PO BID [facility] Sodium Chloride 1,000 mls @ 20 mls/hr 07/15/17 03:15 Saline 0.9% IV .Q24H [facility] Lisinopril 5 mg 07/15/17 09:00 Zestril PO DAILY [facility] Metformin HCl 1,000 mg 07/15/17 09:00 Glucophage PO DAILY [facility] Naloxone HCl 0.2 mg 07/15/17 03:06 Narcan IV Q2M PRN Opioid Reversal Ondansetron HCl 4 mg 07/15/17 03:06 Zofran IVP Q8HR PRN Nausea And Vomiting Intake and Output 07/14/17 07/15/17 07/15/17 22:59 06:59 14:59 Other: Voiding Method Toilet Toilet # Voids 1 Weight 93.1 kg 07/15/17 01:11 07/15/17 01:11
[2017-07-15] MEDS ORDERED: LEVOFLOXACIN 500 MG TAB PO SCH (09:30)
--- NOTE | 2017-07-15 10:15 | P.HPIM ---
History of Present Illness H&P Date: 07/15/17 Chief Complaint: Chest pain/acid reflux 76-year-old male who presented to the emergency room on 07/15/2017 with a chief complaint of a burning sensation in his chest and throat. The patient states he had went to [place] with his grandchildren earlier in the day and he had one [employer] dog. He states later at night he went to sleep and he woke up with a burning sensation in his chest. He states he had a small episode of emesis which he states went into his lungs. He drove himself to the emergency room for further evaluation. A chest x-ray was completed which revealed a new mild infiltrate and atelectasis at the left lung base when compared to a previous exam. EKG revealed sinus rhythm with PVCs. Laboratory testing revealed WBC 8.0, hemoglobin 15.1, platelet count 282, sodium 139, potassium 3.9, BUN 21, creatinine 1.30, and magnesium 1.5. Troponins have been negative 2. The patient was admitted to the observation unit under the care of Dr. Lynn. Consultations were placed to cardiology. The patient was seen and examined on rounds with Dr. Lynn. The patient states he no longer is having chest pain or pressure or shortness of breath. He denies heartburn or symptoms of GERD at this time. He is up ambulating independently in his room. Voiding without difficulty. He is anxious to be discharged home today. Review of Systems GENERAL: Patient denies fever. Denies chills. EYES: Denies blurred vision. Denies vision changes. Denies eye pain. EARS, NOSE, MOUTH, & THROAT: Denies headache. Denies sore throat. Denies ear pain. RESPIRATORY: Denies cough. Denies shortness of breath. Denies sputum production. Denies hemoptysis. CARDIOVASCULAR: Positive for isolated episode of chest pain yesterday, which has resolved. Currently denies chest pain or pressure. Denies palpitations. Denies arrhythmias. GASTROINTESTINAL: Positive for history of GERD. Positive for episode of vomiting yesterday. Denies abdominal pain. Denies diarrhea. Denies constipation. Denies nausea. Denies blood in the stool. GENITOURINARY: Denies urinary frequency. Denies burning. Denies dysuria. Denies cloudy urine. Denies blood in the urine. MUSCULOSKELETAL: Denies myalgias. Denies joint swelling. Denies decreased range of motion beyond patients baseline. INTEGUMENTARY: Denies pruitis. Denies rash. PSYCHIATRIC: Denies suicidal or homicial ideations. ENDOCRINE: Denies weight change. Denies polydipsia. Denies polyuria. HEMATOLOGIC: Denies bleeding disorders. Past Medical History Past Medical History: Cancer, Diabetes Mellitus, GERD/Reflux, Hyperlipidemia, Hypertension Additional Past Medical History / Comment(s): CA of the larynyx, wheezing caused by allergens uses rescue inhaler, kidney stones, BPH History of Any Multi-Drug Resistant Organisms: None Reported Additional Past Surgical History / Comment(s): right rotator cuff, lithotrpsy kim, right side inguinal hernia repair, kim lens implants Past Anesthesia/Blood Transfusion Reactions: No Reported Reaction Past Psychological History: No Psychological Hx Reported Smoking Status: Never smoker Past Alcohol Use History: None Reported Past Drug Use History: None Reported - Past Family History Mother Family Medical History: Dementia, Myocardial Infarction ([place]) Additional Family Medical History / Comment(s): passed at 71 Medications and Allergies Home Medications Medication Instructions Recorded Confirmed Type Albuterol Inhaler [Ventolin Hfa 1 - 2 puff INHALATION RT-Q6H PRN 09/02/16 History Inhaler] Aspirin 81 mg PO DAILY 09/02/16 07/15/17 History Atorvastatin [Lipitor] 40 mg PO HS 09/02/16 07/15/17 History Ergocalciferol [Vitamin D2] 50,000 unit PO Q14D 09/02/16 07/15/17 History Lisinopril [Zestril] 5 mg PO DAILY 09/02/16 07/15/17 History amLODIPine BESYLATE [Norvasc] 5 mg PO DAILY 09/02/16 07/15/17 History Finasteride [Proscar] 5 mg PO DAILY 07/15/17 07/15/17 History metFORMIN HCL [Glucophage] 1,000 mg PO BID 07/15/17 07/15/17 History Allergies Allergy/AdvReac Type Severity Reaction Status Date / Time No Known Allergies Allergy Verified 07/15/17 08:30 Physical Exam Vitals: Vital Signs Temp Pulse Pulse Resp BP BP Pulse Ox 07/15/17 08:00 102 H 16 07/15/17 07:28 98.2 F 16 140/77 95 07/15/17 04:10 82 18 125/68 98 07/15/17 04:00 97.6 F 102 H 18 176/85 95 07/15/17 00:40 97.8 F 83 20 155/82 95 Intake and Output 07/14/17 07/15/17 07/15/17 22:59 06:59 14:59 Other: Voiding Method Toilet Toilet # Voids 1 Weight 93.1 kg GENERAL: This is a 76-year-old in no apparent distress at the time of examination. Pleasant and cooperative. HEENT: Head is atraumatic, normocephalic. Pupils are equal, round, and reactive to light. Sclerae anicteric. Conjunctivae are clear. Mucus membranes of the mouth are moist. Neck is supple. RESPIRATORY: Clear to ausculation. No wheezes, rales, or rhonchi. No use of accessory muscles. Patient maintaining oxygen saturation greater than 92%. No chest wall tenderness is noted on palpation or with deep breathing. CARDIOVASCULAR: Regular rate and rhythm. S1 and S2 noted. systolic murmur auscultated. No JVD noted. No S3 or S4 noted. GASTROINTESTINAL: No distention noted. Abdomen soft and round. Normal active bowel sounds auscultated x 4 quadrants. No pain or tenderness noted upon palpation. INTEGUMENTARY: No cyanosis. No jaundice. No rashes noted. No cellulitis noted. EXTREMITIES: 2+ peripheral pulses. No evidence of peripheral edema. No calf tenderness noted. NEUROLOGIC: Cranial nerves II-XII intact. PSYCHIATRIC: Awake, alert, and oriented X 3. Appropriate affect. Intact judgement and insight. Results CBC & Chem 7: 07/15/17 01:11 07/15/17 01:11 Labs: Abnormal Lab Results - Last 24 Hours (Table) 07/15/17 07/15/17 07/15/17 Range/Units 01:11 01:11 06:44 BUN 21 H (9-20) mg/dL Creatinine 1.30 H (0.66-1.25) mg/dL Glucose 129 H (74-99) mg/dL POC Glucose (mg/dL) 119 H (75-99) mg/dL Magnesium 1.5 L (1.6-2.3) mg/dL AST 14 L (17-59) U/L Total Creatine Kinase 45 L (55-170) U/L 07/15/17 Range/Units 06:45 BUN (9-20) mg/dL Creatinine (0.66-1.25) mg/dL Glucose (74-99) mg/dL POC Glucose (mg/dL) (75-99) mg/dL Magnesium (1.6-2.3) mg/dL AST (17-59) U/L Total Creatine Kinase 37 L (55-170) U/L Thrombosis Risk Factor Assmnt - Choose All That Apply Each Risk Factor Represents 2 Points: Malignancy Each Risk Factor Represents 3 Points: Age 75 years or older Thrombosis Risk Factor Assessment Total Risk Factor Score: 5 Thrombosis Risk Factor Assessment Level: High Risk Assessment and Plan Plan: ASSESSMENT: Atypical chest pain, cardiac enzymes negative 2, likely related to gastroesophageal reflux Possible aspiration, chest x-ray reveals left lower lobe infiltrates History of gastroesophageal reflux disease Essential hypertension Hyperlipidemia Diabetes mellitus, type II, hemoglobin A1c pending Chronic kidney disease, stage III, GFR 53 on admission Hypomagnesemia PLAN: -Cardiology on consult. Appreciate recommendations and input -Await results of echocardiogram -Home meds as appropriate -Replace magnesium -Monitor labs -GI prophylaxis: Pepcid 20 mg by mouth twice a day -DVT prophylaxis: Encourage ambulation -Monitor vital signs and address as appropriate -Discharge planning: Patient to return home -Further recommendations pending patient's course -Anticipate discharge home this afternoon Nurse practitioner note has been reviewed by physician. Signing provider agrees with the documented findings, assessment, and plan of care.
--- NOTE | 2017-07-15 10:35 | ECHOF ---
Referral Reason:sob, murmur MEASUREMENTS -------- HEIGHT: 185.4 cm WEIGHT: 93.0 kg BP: 125/68 IVSd: 1.2 cm (0.6 - 1.1) LVIDd: 3.4 cm (3.9 - 5.3) LVPWd: 1.4 cm (0.6 - 1.1) IVSs: 1.8 cm LVIDs: 1.7 cm LVPWs: 1.9 cm Ao Diam: 3.0 cm (2.0 - 3.7) AV Cusp: 1.5 cm (1.5 - 2.6) LA Diam: 3.4 cm (2.7 - 3.8) EPSS: 0.4 cm MV E Edwin: 0.75 m/s MV DecT: 209 ms MV A Edwin: 0.98 m/s MV E/A Ratio: 0.77 RAP: 5.00 mmHg RVSP: 35.98 mmHg MV EF SLOPE: 55.66 mm/s (70 - 150) MV EXCURSION: 1.14 cm (> 18.000) FINDINGS -------- Sinus rhythm. This was a technically good study. The left ventricular size is normal. There is moderate concentric left ventricular hypertrophy. O verall left ventricular systolic function is normal with, an EF between 55 - 60 %. The right ventricle is normal in size. The left atrium is normal in size. The right atrium is normal in size. Aortic valve is trileaflet and is mildly thickened. [id number] mitral regurgitation is present. There is mild mitral valve prolapse. Mild tricuspid regurgitation present. There is mild pulmonary hypertension. The right ventricular systolic pressure, as measured by Doppler, is 35.98mmHg. Pulmonic valve appears structurally normal. The aortic root size is normal. The pericardium is normal. CONCLUSIONS -------- 1. Sinus rhythm. 2. This was a technically good study. 3. The left ventricular size is normal. 4. There is moderate concentric left ventricular hypertrophy. 5. Overall left ventricular systolic function is normal with, an EF between 55 - 60 %. 6. The right ventricle is normal in size. 7. The left atrium is normal in size. 8. The right atrium is normal in size. 9. Aortic valve is trileaflet and is mildly thickened. 10. [id number] mitral regurgitation is present. 11. There is mild mitral valve prolapse. 12. Mild tricuspid regurgitation present. 13. There is mild pulmonary hypertension. 14. The right ventricular systolic pressure, as measured by Doppler, is 35.98mmHg. 15. Pulmonic valve appears structurally normal. 16. The aortic root size is normal. 17. The pericardium is normal. PRESETTER OPERATOR: Crystal Walton RDCS
[2017-07-15] MEDS ORDERED: MAGNESIUM SULFATE-D5W PMX 1 GM in DEXTROSE/WATER 1 100ML.BAG IVPB SCH (11:00)
[2017-07-15] MEDS ORDERED: DOXYCYCLINE 50 MG CAP PO SCH (12:15)
[2017-07-15 12:17] LABS: Glucose,Whole Blood 121 mg/dL (75-99)
--- NOTE | 2017-07-15 12:40 | P.DS ---
Providers Date of admission: 07/15/17 03:06 Expected date of discharge: 07/15/17 Attending physician: Chris Lynn Consults: 07/15/17 03:07 Consult Physician Urgent Consulting Provider: Sohail Simpson Consult Reason/Comments: Chest pain Do you want consulting provider notified?: Yes, Notify in am Primary care physician: [facility] Course: 76-year-old male who presented to the emergency room on 07/15/2017 with a chief complaint of a burning sensation in his chest and throat. The patient states he had went to [place] with his grandchildren earlier in the day and he had one [employer] dog. He states later at night he went to sleep and he woke up with a burning sensation in his chest. He states he had a small episode of emesis which he states went into his lungs. He drove himself to the emergency room for further evaluation. A chest x-ray was completed which revealed a new mild infiltrate and atelectasis at the left lung base when compared to a previous exam. EKG revealed sinus rhythm with PVCs. Laboratory testing revealed WBC 8.0, hemoglobin 15.1, platelet count 282, sodium 139, potassium 3.9, BUN 21, and creatinine 1.30. Troponins have been negative 2. The patient's magnesium was low at 1.5. He did receive 2 g IV supplementation The patient was evaluated by cardiology. An echocardiogram was ordered which revealed an ejection fraction of 55-60%, moderate to severe mitral regurgitation , mild mitral valve prolapse, mild tricuspid regurgitation, and mild pulmonary hypertension with a right ventricular systolic pressure measured at 35.98mmHg. The patient is no longer experiencing chest pain or pressure. He denies shortness of breath. Denies nausea or vomiting. His vital signs have remained stable. He was cleared for discharge from a cardiac standpoint per Qian Hackett NP. He was deemed stable for discharge per Dr. Lynn. Prescription for doxycycline 100 mg by mouth twice a day for 7 days and Protonix 40 mg by mouth daily were sent to his preferred pharmacy. The patient is to schedule an appointment with Dr. Merritt for an outpatient EGD per Dr. Lynn DISCHARGE DIAGNOSIS: Atypical chest pain, cardiac enzymes negative 2, likely related to gastroesophageal reflux Likely aspiration pneumonia, chest x-ray reveals left lower lobe infiltrates History of gastroesophageal reflux disease Essential hypertension Hyperlipidemia Diabetes mellitus, type II, hemoglobin A1c pending Chronic kidney disease, stage III, GFR 53 on admission Hypomagnesemia Nurse practitioner note has been reviewed by physician. Signing provider agrees with the documented findings, assessment, and plan of care. Patient Condition at Discharge: Stable Plan - Discharge Summary New Discharge Prescriptions: New Doxycycline [Vibramycin] 100 mg PO BID #28 cap Pantoprazole [Protonix] 40 mg PO DAILY #30 tab Continue Albuterol Inhaler [Ventolin Hfa Inhaler] 1 - 2 puff INHALATION RT-Q6H PRN PRN Reason: Shortness Of Breath Ergocalciferol [Vitamin D2 (DRISDOL)] 50,000 unit PO Q14D Aspirin 81 mg PO DAILY amLODIPine BESYLATE [Norvasc] 5 mg PO DAILY Atorvastatin [Lipitor] 40 mg PO HS Lisinopril [Zestril] 5 mg PO DAILY Finasteride [Proscar] 5 mg PO DAILY metFORMIN HCL [Glucophage] 1,000 mg PO BID Discharge Medication List Albuterol Inhaler [Ventolin Hfa Inhaler] 1 - 2 puff INHALATION RT-Q6H PRN [History] Aspirin 81 mg PO DAILY 09/02/16 [History] Atorvastatin [Lipitor] 40 mg PO HS 09/02/16 [History] Ergocalciferol [Vitamin D2 (DRISDOL)] 50,000 unit PO Q14D 09/02/16 [History] Lisinopril [Zestril] 5 mg PO DAILY 09/02/16 [History] amLODIPine BESYLATE [Norvasc] 5 mg PO DAILY 09/02/16 [History] Doxycycline [Vibramycin] 100 mg PO BID #28 cap 07/15/17 [Rx] Finasteride [Proscar] 5 mg PO DAILY 07/15/17 [History] Pantoprazole [Protonix] 40 mg PO DAILY #30 tab 07/15/17 [Rx] metFORMIN HCL [Glucophage] 1,000 mg PO BID 07/15/17 [History] Follow up Appointment(s)/Referral(s): Chris Lynn Jr, DO [Primary Care Provider] - 1 Week Kimo Merritt DO [Doctor of Osteopathic Medicine] - 1 Week () Activity/Diet/Wound Care/Special Instructions: The patient is to schedule an appointment with Dr. Loring Colony for an outpatient EGD per Dr. Lynn Discharge Disposition: HOME SELF-CARE
--- NOTE | 2017-07-15 12:48 | P.CRDCN ---
History of Present Illness Consult date: 07/15/17 History of present illness: Mr. Anguiano is a pleasant 76-year-old female with past medical history significant for hypertension, diabetes mellitus, dyslipidemia and gastroesophageal reflux disease. He denies history of coronary artery disease and has never seen a openstack cloud consulting architect for any reason. We have been asked to see him in consultation for complaints of chest pain and shortness of breath. He states he had eaten at [facility] earlier in the day. Upon going to bed he began to experience burning in his chest that felt similar to previous GERD flare-ups. He then began to vomit and have shortness of breath. This lasted for approximately 20 minutes. At the time of my exam he is chest pain free and denies shortness of breath. He does state that his throat still feels "burned". EKG reveals sinus mechanism with no acute ST or T-wave abnormalities. Chest xray reveals mild infiltrate and atelectasis at the left lung base. Laboratory data reviewed, cardiac enzymes negative x2, potassium 3.9, magnesium 1.5, BUN 21, Cr 1.3. Current cardiac medications include atorvastatin 40 mg daily, aspirin 81 mg daily, amlodipine 5 mg daily and lisinopril 5 mg daily. Review of Systems At the time of my exam: CONSTITUTIONAL: Denies fever. Denies chills. EYES: Denies blurred vision. Denies vision changes. Denies eye pain. EARS, NOSE, MOUTH & THROAT: Denies headache. Complains of throat burning. Denies ear pain. CARDIOVASCULAR: Denies chest pain. Denies shortness of breath. Denies orthopnea. Denies PND. Denies palpitations. RESPIRATORY: Denies cough. GASTROINTESTINAL: Denies abdominal pain. Denies diarrhea. Denies constipation. Denies nausea. Denies vomiting. MUSCULOSKELETAL: Denies myalgias. INTEGUMENTARY: Denies pruitis. Denies rash. NEUROLOGIC: Denies numbness. Denies tingling. Denies weakness. PSYCHIATRIC: Denies anxiety. Denies depression. ENDOCRINE: Denies fatigue. Denies weight change. Denies polydipsia. Denies polyurina. GENITOURINARY: Denies burning, hematuria or urgency with micturation. HEMATOLOGIC: Denies history of anemia. Denies bleeding. Past Medical History Past Medical History: Cancer, Diabetes Mellitus, GERD/Reflux, Hyperlipidemia, Hypertension Additional Past Medical History / Comment(s): CA of the larynyx, wheezing caused by allergens uses rescue inhaler, kidney stones, BPH History of Any Multi-Drug Resistant Organisms: None Reported Additional Past Surgical History / Comment(s): right rotator cuff, lithotrpsy kim, right side inguinal hernia repair, kim lens implants Past Anesthesia/Blood Transfusion Reactions: No Reported Reaction Past Psychological History: No Psychological Hx Reported Smoking Status: Never smoker Past Alcohol Use History: None Reported Past Drug Use History: None Reported - Past Family History Mother Family Medical History: Dementia, Myocardial Infarction ([place]) Additional Family Medical History / Comment(s): passed at 71 Medications and Allergies Home Medications Medication Instructions Recorded Confirmed Type Albuterol Inhaler [Ventolin Hfa 1 - 2 puff INHALATION RT-Q6H PRN 09/02/16 History Inhaler] Aspirin 81 mg PO DAILY 09/02/16 07/15/17 History Atorvastatin [Lipitor] 40 mg PO HS 09/02/16 07/15/17 History Ergocalciferol [Vitamin D2 50,000 unit PO Q14D 09/02/16 07/15/17 History (DRISDOL)] Lisinopril [Zestril] 5 mg PO DAILY 09/02/16 07/15/17 History amLODIPine BESYLATE [Norvasc] 5 mg PO DAILY 09/02/16 07/15/17 History Finasteride [Proscar] 5 mg PO DAILY 07/15/17 07/15/17 History metFORMIN HCL [Glucophage] 1,000 mg PO BID 07/15/17 07/15/17 History Allergies Allergy/AdvReac Type Severity Reaction Status Date / Time No Known Allergies Allergy Verified 07/15/17 08:30 Physical Exam Vitals: Vital Signs Temp Pulse Pulse Resp BP BP Pulse Ox 07/15/17 12:00 84 16 07/15/17 11:47 97.7 F 84 16 117/78 94 L 07/15/17 08:00 102 H 16 07/15/17 07:28 98.2 F 16 140/77 95 07/15/17 04:10 82 18 125/68 98 07/15/17 04:00 97.6 F 102 H 18 176/85 95 07/15/17 00:40 97.8 F 83 20 155/82 95 Intake and Output 07/14/17 07/15/17 07/15/17 22:59 06:59 14:59 Other: Voiding Method Toilet Toilet # Voids 1 Weight 93.1 kg Blood pressure 140/77, heart rate 82, afebrile GENERAL: This is a 76-year-old male in no apparent distress at the time of my examination. HEENT: Head is atraumatic, normocephalic. Pupils are equal, round. Sclerae anicteric. Conjunctivae are clear. Mucous membranes of the mouth are moist. Neck is supple. There is no jugular venous distention. No carotid bruit is heard. LUNGS: Clear to auscultation no wheezes, rales or rhonchi. No chest wall tenderness is noted on palpation or with deep breathing. HEART: Regular rate and rhythm with pansystolic murmur at the apex, no rubs or gallops. S1 and S2 heard. ABDOMEN: Soft, nontender. Bowel sounds are heard. No organomegaly noted. EXTREMITIES: 2+ peripheral pulses with no evidence of peripheral edema and no calf tenderness noted. NEUROLOGIC: Patient is awake, alert and oriented x3. Results 07/15/17 01:11 07/15/17 01:11 Cardiac Enzymes 07/15/17 07/15/17 07/15/17 Range/Units 01:11 01:11 06:45 AST 14 L (17-59) U/L CK-MB (CK-2) 0.9 0.7 (0.0-2.4) ng/mL Troponin I <0.012 <0.012 (0.000-0.034) ng/mL Coagulation 07/15/17 Range/Units 01:11 PT 10.8 (9.0-12.0) sec APTT 24.7 (22.0-30.0) sec CBC 07/15/17 Range/Units 01:11 WBC 8.0 (3.8-10.6) k/uL RBC 4.77 (4.30-5.90) m/uL Hgb 15.1 (13.0-17.5) gm/dL Hct 46.5 (39.0-53.0) % Plt Count 282 (150-450) k/uL Comprehensive Metabolic Panel 07/15/17 Range/Units 01:11 Sodium 139 (137-145) mmol/L Potassium 3.9 (3.5-5.1) mmol/L Chloride 102 (98-107) mmol/L Carbon Dioxide 28 (22-30) mmol/L BUN 21 H (9-20) mg/dL Creatinine 1.30 H (0.66-1.25) mg/dL Glucose 129 H (74-99) mg/dL Calcium 9.6 (8.4-10.2) mg/dL AST 14 L (17-59) U/L ALT 32 (21-72) U/L Alkaline Phosphatase 82 (38-126) U/L Total Protein 6.4 (6.3-8.2) g/dL Albumin 3.9 (3.5-5.0) g/dL Current Medications Generic Name Dose Route Start Last Admin Trade Name Freq PRN Reason Stop Dose Admin Acetaminophen 650 mg 07/15/17 03:06 Tylenol Tab PO Q6HR PRN Mild Pain or Fever > 100.5 Hydrocodone Bitart/Acetaminophen 1 each 07/15/17 03:08 [place] 5-325 PO Q6HR PRN Pain Amlodipine Besylate 5 mg 07/15/17 09:00 07/15/17 09:18 Norvasc PO 5 mg DAILY SARAH Administration Aspirin 81 mg 07/15/17 09:00 07/15/17 09:18 Aspirin PO 81 mg DAILY SARAH Administration Atorvastatin Calcium 40 mg 07/15/17 21:00 Lipitor PO HS [facility] Doxycycline Monohydrate 100 mg 07/15/17 12:15 Vibramycin PO BID [facility] Famotidine 20 mg 07/15/17 09:00 07/15/17 09:18 Pepcid PO 20 mg BID SARAH Administration Sodium Chloride 1,000 mls @ 20 mls/hr 07/15/17 03:15 Saline 0.9% IV .Q24H SARAH Lisinopril 5 mg 07/15/17 09:00 07/15/17 09:18 Zestril PO 5 mg DAILY SARAH Administration Metformin HCl 1,000 mg 07/15/17 09:00 07/15/17 09:19 Glucophage PO 500 mg DAILY SARAH Administration Naloxone HCl 0.2 mg 07/15/17 03:06 Narcan IV Q2M PRN Opioid Reversal Ondansetron HCl 4 mg 07/15/17 03:06 Zofran IVP Q8HR PRN Nausea And Vomiting Intake and Output 07/14/17 07/15/17 07/15/17 22:59 06:59 14:59 Other: Voiding Method Toilet Toilet # Voids 1 Weight 93.1 kg 07/15/17 01:11 07/15/17 01:11 Assessment and Plan Assessment: ASSESSMENT 1. Chest pain, atypical for negative cardiac enzymes and normal EKG. Patient may have aspirated. 2. Mitral regurgitation 3. Essential hypertension 4. Dyslipidemia 5. Diabetes mellitus 6. Gastroesophageal reflux disease 7. Hypomagnesemia PLAN Obtain 2-D echocardiogram and Doppler study to assess cardiac structure and function. We will do this in light of mitral regurgitation-type pansystolic murmur. Otherwise his chest discomfort is most likely secondary to gastroesophageal reflux disease with possible aspiration. No further cardiac workup at this time. He can follow-up with Dr. Cole as an outpatient. Nurse Practitioner note has been reviewed, I agree with a documented findings and plan of care. Patient was seen and examined.
[2017-07-15 15:03] LABS: Hemoglobin A1C 6.2 % (4.0-6.0)
[2017-07-15] MEDS ORDERED: ATORVASTATIN 40 MG TAB PO SCH (21:00)
[2017-07-15 23:16] VITALS: BP 117/78; PULSE 84; RESP 16; TEMP 97.7
[2017-07-15 23:18] VITALS: BMI 25.6
== END 2017-07-15 13:39 | disposition home or self-care (01) ==
LOC: EC 00:36 → 3OBS 03:06
PROVIDERS: ADMIT Family Medicine; ATTEND Family Medicine
DX: K21.9 Gastro-esophageal reflux disease without esophagitis (principal); R06.02 Shortness of breath; R07.89 Other chest pain; I34.0 Nonrheumatic mitral (valve) insufficiency; R91.8 Other nonspecific abnormal finding of lung field; E78.5 Hyperlipidemia, unspecified; E83.42 Hypomagnesemia; F17.200 Nicotine dependence, unspecified, uncomplicated; E11.22 Type 2 diabetes mellitus with diabetic chronic kidney disease; I12.9 Hypertensive chronic kidney disease with stage 1 through stage 4 chronic kidney disease, or unspecified chronic kidney disease; N18.3 Chronic kidney disease, stage 3 (moderate); N40.0 Benign prostatic hyperplasia without lower urinary tract symptoms; Z79.82 Long term (current) use of aspirin; Z79.84 Long term (current) use of oral hypoglycemic drugs; Z79.899 Other long term (current) drug therapy; Z85.21 Personal history of malignant neoplasm of larynx; Z87.442 Personal history of urinary calculi; Z82.49 Family history of ischemic heart disease and other diseases of the circulatory system; Z81.8 Family history of other mental and behavioral disorders
CPT/HCPCS: 96375; 96365; 99285; 96366; 36415; 93005; 93306; 83880; 80053; 82550; 82553; 83735; 84484; 85025; 85610; 85730; 83036; 71046; G0378; J3475

== ENCOUNTER 2017-09-21 07:56 | Day surgery (SDC) | payer MEDICARE, BC ==
--- NOTE | 2017-09-18 19:30 | HP ---
HISTORY AND PHYSICAL Patient is coming on Thursday social research assistant for a cardiac cath. Mr. Nick Anguiano is a 77-year-old gentleman with a history of type 2 diabetes mellitus, hypertension, laryngeal cancer, gastroesophageal reflux disease, hypertension and hypercholesterolemia. He has had previous right rotator cuff surgery, lithotripsy, and inguinal hernia repair. He was doing well until July 15 when he had an episode of coughing, shortness of breath, possibly some reflux type symptoms followed by severe shortness of breath that necessitated his arrival to the hospital. He was found to be in a combination of possibly some acute bronchitis as well as CHF type symptoms. He was seen and evaluated by Dr. Cole who diagnosed him to have significant mitral regurgitation. This mitral regurgitation appears to be more or less acute since the echocardiogram does not reveal any significant enlargement of left atrium. LV size is normal. Ejection fraction is normal and there is no significant elevation of PA pressures. However, this appears to be relatively acute symptomatic mitral regurgitation requiring hospitalization with shortness of breath. He was therefore advised to have a transesophageal echo and coronary angiography prior to any intervention. I saw the patient in this regard in the office. I explained to him the rationale, risks, benefits, and options. Patient and were both present. They understand all details and wished to proceed with the procedure. Dr. Humphrey will perform the transesophageal echo and I will then perform a right and left heart catheterization. They understand all details and wished to proceed with the procedure. PAST MEDICAL HISTORY: 1. Type 2 diabetes mellitus. 2. Hypertension. 3. Hyperlipidemia. 4. Gastroesophageal reflux disease. 5. History of laryngeal CA status post therapy, cured. 6. Renal stones. 7. Benign prostatic hypertrophy. EXAMINATION: Blood pressure is 130/70, pulse rate is about 64 per minute. HEENT unremarkable. Fundus was not examined by me. Neck is supple. There is no significant JVD. Heart exam reveals S1, S2 with a holosystolic murmur at the apex, increasing on expiration radiating to the axilla and back. Lungs revealed decent air entry bilateral lung robb. Very faint rales on both bases. Abdomen is soft, nontender without organomegaly. Lower extremities reveal palpable pulses. No edema. Central nervous system is normal. IMPRESSION: 1. Symptomatic possibly acute mitral regurgitation with mitral valve prolapse. 2. Recent hospitalization. 3. Type 2 diabetes mellitus. 4. Hypertension. 5. Hyperlipidemia. 6. History of laryngeal cancer status post surgery and cure. RECOMMENDATIONS: The patient will be hydrated orally as well as intravenously. He was advised to have a transesophageal echo and right and left heart catheterization on 09/21/2017. The patient understands the rationale, risks, benefits, options and wishes to proceed. MMODL / CHRISN: [id number] /
[~2017-09-21 07:56] MED LIST: ALPRAZolam 0.25 MG TAB PO PRN; ALPRAZolam 0.5 MG TAB PO PRN; ASPIRIN 325 MG TAB PO STA; ATORVASTATIN 80 MG TAB PO STA; NITROGLYCERIN SL TABS 0.4 MG TAB SUBLINGUAL PRN
[2017-09-21] MEDS ORDERED: SODIUM CHLORIDE 0.9% 1,000 ML in EMPTY BAG 1 BAG IV ONE (08:00)
[2017-09-21 08:43] LABS: Glucose,Whole Blood 131 mg/dL (75-99)
[2017-09-21 08:47] LABS: Basophils # (A) 0.1 k/uL (0-0.2); Basophils % (A) 1 %; Eosinophils # (A) 0.3 k/uL (0-0.7); Eosinophils % (A) 4 %; HCT 44.5 % (39.0-53.0); HGB 14.8 gm/dL (13.0-17.5); Lymphocytes # (A) 1.5 k/uL (1.0-4.8); Lymphocytes % (A) 19 %; MCH 30.6 pg (25.0-35.0); MCHC 33.3 g/dL (31.0-37.0); MCV 91.9 fL (80.0-100.0); Mean Platelet Volume 8.3; Monocytes # (A) 0.5 k/uL (0-1.0); Monocytes % (A) 7 %; Neutrophils % (A) 66 %; Platelet Count 285 k/uL (150-450); RBC 4.84 m/uL (4.30-5.90); RDW 13.1 % (11.5-15.5); WBC 7.6 k/uL (3.8-10.6)
[2017-09-21] MEDS ORDERED: fentaNYL (PF) 50 MCG/ML 2 ML AMP ONE (08:48)
[2017-09-21] MEDS ORDERED: MIDAZOLAM 2 MG/2 ML VIAL ONE ×2 (08:48→12:00)
[2017-09-21 08:49] VITALS: TEMP 98.1
[2017-09-21] MEDS: BENZOCAINE SPRAY 1 SPRAY CAN TOPICAL ONE ×2 (08:58→09:02)
[2017-09-21] MEDS: MIDAZOLAM 2 MG/2 ML VIAL IVP ONE ×2 (09:04→09:07)
[2017-09-21] MEDS ORDERED: fentaNYL (PF) 50 MCG/ML 2 ML AMP IVP ONE (09:04)
[2017-09-21] MEDS ORDERED: MIDAZOLAM 2 MG/2 ML VIAL IVP ONE ×2 (09:09→12:27)
[2017-09-21 09:24] VITALS: PULSE 60
[2017-09-21] MEDS ORDERED: SODIUM CHLORIDE 0.9% 1,000 ML IV SCH (09:30)
--- NOTE | 2017-09-21 09:35 | P.PCN ---
Date of Procedure: 09/21/17 Preoperative Diagnosis: Mitral and aortic regurgitation and mitral valve prolapse. Postoperative Diagnosis: 3+ mitral and 2+ aortic regurgitation. Dilated left atrium. Procedure(s) Performed: MERA examination Description of Procedure: INDICATION: Assessment of mitral regurgitation and aortic regurgitation CONSENT: Informed consent was obtained from the patient and family PROCEDURE:. Patient was brought to the lab in a fasting state. He was prepped and draped in the usual fashion. Patient tolerated the procedure well. Patient was given conscious sedation with a 2.5 mg of Versed and 50 g of fentanyl. The throat was sprayed with Cetacaine. A lubricated Omni probe was introduced into the oropharynx and was advanced into the esophagus. Multiple views were obtained. Patient tolerated the procedure well. Color and pulse wave Doppler was a performed along with injection of the saline contrast bubbles. The aortic valve is tricuspid is mild thickening. There is 2+ aortic regurgitation. The aortic root diameter is normal. The left atrium is severely enlarged. There is about 3+ mitral regurgitation. There appears to be mild prolapse of the posterior leaflet and there is mal-coaptation of the mitral leaflets. No evidence of any ruptured chordae. The left atrial appendage is free of any clot. There is a prominent eustachian valve. There is no evidence of PFO FINDINGS: #1. 3+ mitral regurgitation #2. 2+ aortic regurgitation #3. Mild mitral valve prolapse involving the posterior leaflet #4. Mal co-optation of the mitral leaflets #4. Preserved LV function. #5. Prominent destruction valve #6. No PFO #7. No clot in the left atrial appendage IMPRESSION: Proceed with left heart catheterization. Further recommendations depend upon the findings on the cath PLAN: maximal medical therapy.
[2017-09-21 11:02] LABS: Albumin 4.1 g/dL (3.5-5.0); Calcium 9.7 mg/dL (8.4-10.2); Total Bilirubin 1.2 mg/dL (0.2-1.3)
[2017-09-21 11:10] LABS: Potassium 5.1 mmol/L (3.5-5.1)
[2017-09-21] MEDS ORDERED: LIDOCAINE 2% INJ 20 MG/ML (20 ML MDV) ONE (12:00)
[2017-09-21] MEDS ORDERED: diphenhydrAMINE 50 MG/ML 1 ML VIAL ONE (12:00)
[2017-09-21] MEDS ORDERED: diphenhydrAMINE 50 MG/ML 1 ML VIAL IVP ONE (12:21)
[2017-09-21] MEDS ORDERED: LIDOCAINE 2% INJ 20 MG/ML SQ ONE ×2 (12:27)
[2017-09-21 12:55] LABS: O2 Sat Blood Gas 96.4 %
[2017-09-21 12:57] LABS: O2 Sat Blood Gas 73.7 %
[2017-09-21 12:59] LABS: O2 Sat Blood Gas 75.7 %
[2017-09-21 13:01] LABS: O2 Sat Blood Gas 71.7 %
[2017-09-21] MEDS ORDERED: IOHEXOL 350 MG/ML 125ML BOTTLE INJ ONE (13:01)
--- NOTE | 2017-09-21 16:57 | CC ---
CARDIAC CATHETERIZATION REPORT DATE OF SERVICE: 09/21/2017 PROCEDURE: Right and left heart catheterization and coronary angiography. PERFORMED BY: Dr. Fabiola Simpson. Moderate conscious sedation time was 30 minutes with a combination of Versed and Benadryl. CLINICAL INFORMATION: Mr. Nick Anguiano is a 77-year-old gentleman who was brought in for an elective transesophageal echo and right and left heart catheterization. He was seen and evaluated by Dr. Cole, was found to have mitral valve prolapse of the posterior leaflet with moderate to severe MR, symptomatic, and therefore he was advised MERA and coronary angiography prior to his evaluation at [facility] by cardiac surgeon Dr. Romero Wren. PROCEDURE NOTE: Under local anesthesia and strict aseptic precautions, a 6-Scottish introducer was placed in the right femoral artery and an 8-Scottish introducer in the right femoral vein. Using a balloon-tipped floatation catheter, I performed right heart catheterization. The hemodynamics and saturations were obtained. Thermodilution cardiac output was also obtained. Subsequently, using standard Aleisha catheters, I performed coronary angiography and a pigtail catheter was used to check LV pressures. LV gram was not performed. Patient tolerated the procedure well. The catheters were taken out. The arterial sheath was taken out and Angio-Seal device used to secure hemostasis. The venous sheath was taken out and manual compression used to secure hemostasis. CARDIAC CATHETERIZATION FINDINGS: The right atrial pressure was 3 mmHg. Right ventricular pressure was 24/3. Pulmonary arterial pressure was 24/6 with a mean of 11. Pulmonary capillary wedge pressure was 5 mmHg. Left ventricular end-diastolic pressure was 8 mmHg. The pulmonary arterial saturation was 74% and femoral artery saturation was 96%. The Guero cardiac output was 5.8 L and thermodilution cardiac output was 4.8 L. CORONARY ANGIOGRAPHY FINDINGS: Right coronary artery. This appears to be a codominant or a nondominant vessel, large in distribution and caliber. Very proximally there is a diseased segment of anywhere from 70% to 80%, and from this diseased segment comes off a large acute marginal branch. The RCA then runs distally, gives off another acute marginal branch and distally gives off what seems to be a single branch which runs in the PLV distribution. The RCA is therefore a codominant type vessel which has significant proximal lesion of about 70% to 80% and an acute marginal also comes from that area. Distally the caliber of the vessel is fair, and this appears to be a graftable vessel. Left main coronary artery. This is a short, patent, disease-free vessel that bifurcates into LAD and circumflex. Left anterior descending coronary artery. Good-caliber vessel extends along the anterior wall. Proximally there is a 35% narrowing. It gives off 2 diagonal branches and then there is another 45% stenosis and the vessel runs all the way to the apex, supplying a sizable amount of myocardium. There is moderate non-critical disease ranging from 35% to 45% involving the LAD. The diagonal branches are free of significant disease. Left posterior circumflex coronary artery. This appears to be a dominant vessel. It gives off 2 obtuse marginals, then runs in the AV groove and distally gives off very small branches that supply a limited amount of myocardium. The first and second obtuse marginals are free of significant disease. The circumflex in the groove and the distal branches of circumflex are not very large in caliber. Left ventriculogram. This was not performed. FINAL IMPRESSION: This patient has normal filling pressures. There is no shunt. Cardiac output is normal. He has a codominant, probably a left-dominant system, but the RCA, even though nondominant, is of fair caliber and distribution. There was an 80% stenosis in the proximal one third of RCA. The left system, specifically the LAD, has 2 areas of disease, 35% to 40%, and 45%, in the proximal and mid portion. Circumflex is free of significant disease. Filling pressures are normal. RECOMMENDATIONS: This patient also had a transesophageal echo; has moderate to severe mitral regurgitation with prolapse of the posterior mitral leaflet. He is going for an opinion with Cardiac Surgery to see Dr. Fadi Wren at [facility]. This information will be sent to him. If the patient does have mitral valve repair, he should have a single vein graft to the distal RCA. This was my recommendation, and patient will be discharged later on today if he remains stable. MMODL / IJN: [id number] /
--- NOTE | 2017-09-21 17:03 | LTR ---
September 21, 2017 To: Dr. Chris Lynn Re: Nick Anguiano (1940) Dear Dr. Lynn, Thank you for the opportunity to participate in the care of Mr. Anguiano. This gentleman has normal filling pressures, no shunt, a codominant/left-dominant system with significant disease in the RCA, which is a graftable vessel. LAD has moderate, non-critical disease. Filling pressures are normal. If he does go for mitral valve repair, he should also have a single vein graft to the RCA. This patient will be discharged later on today if he remains stable, and he will see Dr. Wren in the next couple of weeks. Thank you for your referral. Please call for questions. Sincerely, Fabiola Simpson MD MMCLINTL / IJN: [id number] /
[2017-09-21 17:46] VITALS: RESP 20
[2017-09-21 18:09] VITALS: BP 134/72
== END 2017-09-21 18:37 | disposition home or self-care (01) ==
LOC: CATHCVL 07:56
PROVIDERS: ATTEND Internal Medicine Interventional Cardiology
DX: I08.0 Rheumatic disorders of both mitral and aortic valves (principal); I25.10 Atherosclerotic heart disease of native coronary artery without angina pectoris; I10 Essential (primary) hypertension; Z87.891 Personal history of nicotine dependence; I47.2 Ventricular tachycardia; E11.9 Type 2 diabetes mellitus without complications; Z79.84 Long term (current) use of oral hypoglycemic drugs; E78.5 Hyperlipidemia, unspecified; Z79.82 Long term (current) use of aspirin; Z79.899 Other long term (current) drug therapy
CPT/HCPCS: 93312; 93320; 93325; 93460; 80053; 85018; 82810; 85025; C1760; C1894 ×2; C1769 ×2; J2001; J2250; J1200; J3010; Q9967

== ENCOUNTER → 2017-10-20 | Outpatient (CLI) | payer MEDICARE, BC ==
[2017-10-20 10:08] LABS: Appearance,Urine Clear (Clear); Bilirubin,Urine Negative (Negative); Blood,Urine Trace (Negative); Color,Urine Yellow; Glucose,Urine (UA) Negative (Negative); Ketones,Urine Negative (Negative); Leukocyte Esterase,Urine Small (Negative); Mucus,Urine Rare /hpf; Nitrite,Urine Negative (Negative); PH, Urine 5.5 (5.0-8.0); Protein,Urine 1+ (Negative); RBC,Urine 3 /hpf (0-5); Specific Gravity,Urine 1.017 (1.001-1.035); Squamous Epithelial Cell,Urine <1 /hpf (0-4); Urobilinogen,Urine <2.0 mg/dL (<2.0); WBC,Urine 19 /hpf (0-5)
[2017-10-20 10:20] LABS: HCT 45.1 % (39.0-53.0); HGB 15.3 gm/dL (13.0-17.5); MCH 31.5 pg (25.0-35.0); MCHC 33.9 g/dL (31.0-37.0); MCV 92.8 fL (80.0-100.0); Mean Platelet Volume 8.9; Platelet Count 286 k/uL (150-450); RBC 4.87 m/uL (4.30-5.90); RDW 13.2 % (11.5-15.5); WBC 7.2 k/uL (3.8-10.6)
[2017-10-20 10:34] LABS: INR 1.1 (<1.2); Partial Thromboplastin Time 24.7 sec (22.0-30.0); Prothrombin Time 10.3 sec (9.0-12.0)
[2017-10-20 11:24] LABS: Calcium 9.6 mg/dL (8.4-10.2); Magnesium 1.5 mg/dL (1.6-2.3); Potassium 4.8 mmol/L (3.5-5.1); Total Bilirubin 0.9 mg/dL (0.2-1.3); Total Protein 6.7 g/dL (6.3-8.2)
--- NOTE | 2017-10-20 12:36 | XR ---
EXAMINATION TYPE: XR chest 2V DATE OF EXAM: 10/20/2017 COMPARISON: 07/15/2017 HISTORY: 77-year-old male with presurgical evaluation for open heart surgery TECHNIQUE: Frontal and lateral views FINDINGS: Heart normal size. Mild elongation of the aorta. Mild diffuse interstitial prominence with biapical p leural parenchymal scarring. Mild hyperinflation. No consolidation or pleural effusion. Bridging ante rior and plate spondylosis suggestive of DISH. IMPRESSION: Chronic changes, possible underlying COPD. No acute cardiopulmonary process.
--- NOTE | 2017-10-20 12:39 | XR ---
EXAMINATION TYPE: XR KUB DATE OF EXAM: 10/20/2017 CLINICAL DATA: 77-year-old male follow-up history of kidney stones, [facility] COMPARISON: 09/05/2016 FINDINGS: There is overall nonobstructive bowel gas pattern. Mild stool burden. Pelvic phleboliths. 6 mm and adjacent 9 mm calcification left mid abdomen suggestive of renal calculi. The larger calcifi cation may have been present on the prior. IMPRESSION: Suspect underlying left-sided nephrolithiasis measuring 9 and 6 mm. The larger calculus may have been present in 2017.
[2017-10-20 17:41] LABS: Hepatitis A Antibody IgM Non-Reactive (Non-Reactive); Hepatitis B Core IgM Non-Reactive (Non-Reactive)
[2017-10-20 18:58] LABS: Hemoglobin A1C 6.2 % (4.0-6.0)
--- NOTE | 2017-10-28 10:14 | P.ARTDOP ---
Arterial Doppler LOWER EXTREMITY ARTERIAL DOPPLER: DATE OF SERVICE: 10/20/2017 Reason for study: Pre-CABG. Doppler waveforms: Multiphasic bilaterally throughout. Pulse volume recording: []. Pressure gradients: None. Ankle-brachial indices: Greater than 1 bilaterally. Toe pressures: 124 on the right, 159 on the left Impression: Normal study.
--- NOTE | 2017-10-28 10:16 | P.VSCSTY ---
Greater Saphenous Vein Mapping This is bilateral lower extremity greater saphenous vein mapping. Date of service 10/20/2017 Vein quality and ultrasound appearance no intraluminal thrombus or wall changes are seen. Vein size groin right 6.8 x 8.1 groin left 5.8 x 6.7 High thigh right 3.0 x 3.6 high thigh left 3.0 x 4.1 Mid thigh right 2.5 x 3.4 mid thigh left 2.9 x 3.9 Above-knee right 2.1 x 2.3 above-knee left 2.7 x 3.8 Below knee right 2.5 x 2.7 below-knee left 2.3 x 3.6 Mid calf right 2.6 x 3.2 mid calf left 2.7 x 2.7 Ankle right 3.4 x 4.2 ankle left 2.9 x 3.0 Impression normal study usable bilateral greater saphenous vein.
== END | disposition home or self-care (01) ==
LOC: LABWHC1 07:40
PROVIDERS: ATTEND Thoracic Surgery (Cardiothoracic Vascular Surgery)
DX: Z01.810 Encounter for preprocedural cardiovascular examination (principal); Z01.812 Encounter for preprocedural laboratory examination; N20.0 Calculus of kidney; R93.8 Abnormal findings on diagnostic imaging of other specified body structures
CPT/HCPCS: 71046; 74018; 80053; 80061; 80074; 81001; 83036; 83735; 83880; 84443; 84484; 85027; 85610; 85730; 86850; 86900; 86901; 86920; 87070; 87077; 87086; 87186; 93005; 93922; 93970; 94150

== ENCOUNTER 2017-10-26 05:30 | Inpatient (IN) | payer MEDICARE, BC ==
[~2017-10-26 05:30] MED LIST changes: +ALBUMIN HUMAN 25% 50 ML IV PRN; +ALBUMIN HUMAN 5% 500 ML IVPB PRN; -ALPRAZolam 0.25 MG TAB PO PRN; -ALPRAZolam 0.5 MG TAB PO PRN; +ASPIRIN 325 MG TAB PO PRN; -ASPIRIN 325 MG TAB PO STA; +ATORVASTATIN 10 MG TAB PO PRN; -ATORVASTATIN 80 MG TAB PO STA; +CALCIUM CHLORIDE 100 MG/ML 10 ML SYRINGE IV PRN; +CHLORHEXIDINE GLUCONATE 15 ML CUP MUCOUS MEM PRN; +CLEVIDIPINE BUTYRATE 25 MG in EMPTY BAG 1 BAG IV PRN; +DEXTROSE 5% IN WATER 1,000 ML with POTASSIUM CHLORIDE 110 MEQ, MAGNESIUM SULFATE 16 MEQ... IV PRN; +DEXTROSE 5% IN WATER 1,000 ML with POTASSIUM CHLORIDE 25 MEQ, SODIUM CHLORIDE 2.5MEQ/ML... IV PRN; +HEPARIN SODIUM 1,000 UN/ML (10ML VL) IV PRN; +HEPARIN SODIUM,PORCINE 5,000 UNIT in SODIUM CHLORIDE 0.9% 500 ML IV PRN; +HEPARIN SODIUM,PORCINE 5,000 UNIT/ML 1 ML VIAL SQ PRN; +INSULIN REGULAR 100 UNIT in SODIUM CHLORIDE 0.9% 100 ML IV PRN; +LACTATED RINGERS 1,000 ML IV PRN; +MAGNESIUM SULFATE MG 500 MG/ML VIAL IV PRN; +MANNITOL 25% 12.5 GM/50 ML VIAL IV PRN; +METOPROLOL TARTRATE 12.5 MG TAB PO PRN; +MUPIROCIN 2% OINT 22 GM TUBE NASAL PRN; -NITROGLYCERIN SL TABS 0.4 MG TAB SUBLINGUAL PRN; +NITROGLYCERIN-D5W PMX 25 MG/250 ML BTL IV PRN; +NITROGLYCERIN-D5W PMX 50 MG in DEXTROSE/WATER 1 250ML.BAG IV PRN; +NOREPINEPHRIN 4 MG-0.9% NS PMX 4 MG/250 ML ML IV PRN; +PAPAVERINE 360 MG in SODIUM CHLORIDE 0.9% 90 ML IV PRN; +PHENYLEPHRINE 40 MG in SODIUM CHLORIDE 0.9% 250 ML IV PRN; +PHENYLEPHRINE-0.9% NACL SYG 1 MG/10 ML SYRINGE IV PRN; +PROPOFOL 1,000 MG/100 ML VIAL IV PRN; +PROTAMINE SULFATE 10 MG/ML 25 ML VIAL IV PRN; +PROTAMINE SULFATE 250 MG in EMPTY BAG 1 BAG IV PRN; +SODIUM BICARB 8.4% 50 ML SYR (1 MEQ/ML) IV PRN; +SODIUM CHLORIDE 0.9% 1,000 ML IV PRN; +TRANEXAMIC ACID 2,000 MG in SODIUM CHLORIDE 0.9% 180 ML IV PRN; +ceFAZolin 1,000 MG in SODIUM CHLORIDE 0.9% IRRIGATIO 1,000 ML IRRIGATION PRN; +ceFAZolin 2,000 MG in SODIUM CHLORIDE 0.9% 30 ML IVPB PRN
[2017-10-26 06:52] LABS: Glucose,Whole Blood 129 mg/dL (75-99)
[2017-10-26] MEDS ORDERED: HEPARIN SODIUM,PORCINE 10,000 UNIT/ML 1 ML VIAL ONE (08:25)
[2017-10-26] MEDS ORDERED: MIDAZOLAM 2 MG/2 ML VIAL ONE (08:25)
[2017-10-26] MEDS ORDERED: PROPOFOL 10 MG/ML 20 ML VIAL IV ONE (08:25)
[2017-10-26] MEDS ORDERED: LIDOCAINE 2% SYG (PF) 100 MG/5 ML ONE (08:25)
[2017-10-26] MEDS ORDERED: SODIUM CHLORIDE 0.9% 250 ML BAG ONE (08:25)
[2017-10-26] MEDS ORDERED: fentaNYL (PF) 50 MCG/ML 2 ML AMP ONE (08:25)
[2017-10-26] MEDS ORDERED: PROTAMINE SULFATE 10 MG/ML 25 ML VIAL IV ONE (08:25)
[2017-10-26] MEDS ORDERED: fentaNYL (PF) 50 MCG/ML 50 ML VIAL ONE (08:25)
[2017-10-26] MEDS ORDERED: VECURONIUM 10 MG VIAL IV ONE (08:25)
[2017-10-26] MEDS ORDERED: TRANEXAMIC ACID 1,000 MG/10 ML VIAL ONE (08:25)
[2017-10-26] MEDS ORDERED: MAGNESIUM SULFATE 4 MEQ/ML 2 ML VIAL ONE (08:25)
[2017-10-26 09:05] LABS: ABG Base Excess 1.3 mmol/L; ABG HCO3 25 mmol/L (21-25); ABG PCO2 37 mmHg (35-45); ABG PH 7.44 (7.35-7.45); ABG PO2 408 mmHg (83-108); ABG Potassium Whole Blood 4.1 mmol/L (3.4-4.5); ABG Sodium Whole Blood 138 mmol/L (135-146); ABG TCO2 27 mmol/L (19-24)
[2017-10-26 10:15] LABS: ABG Base Excess 0.6 mmol/L; ABG HCO3 26 mmol/L (21-25); ABG PCO2 42 mmHg (35-45); ABG Potassium Whole Blood 4.3 mmol/L (3.4-4.5); ABG Sodium Whole Blood 138 mmol/L (135-146); ABG TCO2 27 mmol/L (19-24)
[2017-10-26 11:02] LABS: ABG Base Excess 0.6 mmol/L; ABG HCO3 25 mmol/L (21-25); ABG PCO2 38 mmHg (35-45); ABG PH 7.42 (7.35-7.45); ABG PO2 334 mmHg (83-108); ABG Potassium Whole Blood 5.3 mmol/L (3.4-4.5); ABG Sodium Whole Blood 132 mmol/L (135-146); ABG TCO2 26 mmol/L (19-24)
[2017-10-26 11:33] LABS: ABG Base Excess 0.1 mmol/L; ABG HCO3 25 mmol/L (21-25); ABG PCO2 43 mmHg (35-45); ABG PH 7.38 (7.35-7.45); ABG PO2 235 mmHg (83-108); ABG Potassium Whole Blood 5.2 mmol/L (3.4-4.5); ABG Sodium Whole Blood 133 mmol/L (135-146); ABG TCO2 27 mmol/L (19-24)
[2017-10-26 12:10] LABS: ABG Base Excess 0.1 mmol/L; ABG HCO3 26 mmol/L (21-25); ABG PCO2 49 mmHg (35-45); ABG PH 7.34 (7.35-7.45); ABG PO2 307 mmHg (83-108); ABG Sodium Whole Blood 134 mmol/L (135-146); ABG TCO2 28 mmol/L (19-24)
[2017-10-26 12:46] LABS: ABG Base Excess 0.6 mmol/L; ABG HCO3 25 mmol/L (21-25); ABG PCO2 37 mmHg (35-45); ABG PH 7.44 (7.35-7.45); ABG PO2 288 mmHg (83-108); ABG Potassium Whole Blood 4.6 mmol/L (3.4-4.5); ABG Sodium Whole Blood 134 mmol/L (135-146); ABG TCO2 26 mmol/L (19-24)
[2017-10-26] MEDS ORDERED: SODIUM CHLORIDE 0.9% 1,000 ML IV ONE (13:24)
[2017-10-26 13:43] LABS: ABG HCO3 26 mmol/L (21-25); ABG Oxygen Saturation 99.9 % (94-97); ABG PCO2 55 mmHg (35-45); ABG PH 7.28 (7.35-7.45); ABG PO2 311 mmHg (83-108); ABG Sodium Whole Blood 137 mmol/L (135-146); ABG TCO2 28 mmol/L (19-24)
[2017-10-26 14:12] LABS: ABG PO2 >420 mmHg (83-108)
[2017-10-26] MEDS ORDERED: METOCLOPRAMIDE 5 MG/ML 2 ML VIAL IVP PRN (14:25)
[2017-10-26] MEDS ORDERED: BENZOCAINE/MENTHOL LOZENG 1 EACH LOZENGE MUCOUS MEM PRN (14:25)
[2017-10-26] MEDS ORDERED: Magnesium Replacement Protocol 1 EACH MISC MISCELLANE PRN (14:25)
[2017-10-26] MEDS ORDERED: ONDANSETRON 4 MG/2 ML VIAL IVP PRN (14:25)
[2017-10-26] MEDS ORDERED: ALBUMIN HUMAN 5% 250 ML in EMPTY BAG 1 BAG IVPB PRN (14:25)
[2017-10-26] MEDS ORDERED: Phosphorus Replacement Protoco 1 EACH MISC MISCELLANE PRN (14:25)
[2017-10-26] MEDS ORDERED: NITROGLYCERIN-D5W PMX 50 MG in DEXTROSE/WATER 1 250ML.BAG IV SCH (14:25)
[2017-10-26] MEDS ORDERED: Potassium Replacement Protocol 1 EACH MISC MISCELLANE PRN (14:25)
[2017-10-26] MEDS ORDERED: fentaNYL (PF) 50 MCG/ML 2 ML AMP IVP PRN (14:25)
[2017-10-26] MEDS ORDERED: CALCIUM GLUCONATE 2,000 MG in SODIUM CHLORIDE 0.9% 100 ML IVPB PRN (14:25)
[2017-10-26] MEDS ORDERED: DEXTROSE 5% IN WATER 100 ML with AMIODARONE 150 MG IV PRN (14:25)
[2017-10-26] MEDS ORDERED: AMIODARONE 450 MG in DEXTROSE 5% IN WATER 250 ML IV PRN ×2 (14:25)
[2017-10-26] MEDS ORDERED: PROPOFOL 1,000 MG in EMPTY BAG 1 BAG IV SCH (14:25)
[2017-10-26] MEDS ORDERED: INSULIN REGULAR 100 UNIT in SODIUM CHLORIDE 0.9% 100 ML IV SCH (14:30)
[2017-10-26] MEDS: CLEVIDIPINE BUTYRATE 25 MG in EMPTY BAG 1 BAG IV SCH ×4 (14:55→23:02)
[2017-10-26 15:13] LABS: Glucose,Whole Blood 79 mg/dL (75-99)
[2017-10-26 15:50] LABS: ABG Base Excess 0.4 mmol/L; ABG HCO3 26 mmol/L (21-25); ABG PCO2 45 mmHg (35-45); ABG PH 7.37 (7.35-7.45); ABG PO2 214 mmHg (83-108); ABG TCO2 27 mmol/L (19-24)
--- NOTE | 2017-10-26 15:58 | XR ---
EXAMINATION TYPE: XR chest 1V portable DATE OF EXAM: 10/26/2017 COMPARISON: Prior chest 10/20/2017 HISTORY: Postop cardiac surgery TECHNIQUE: Single frontal view of the chest is obtained. FINDINGS: Patient is rotated and post median sternotomy. Endotracheal tube, NG tube, left and right c hest tubes, right jugular central venous sheath with coaxial [place]-Yuly catheter, median sternal drain are overlying appropriate positions. There is no pneumothorax or pleural effusion evident. Some mini mal basilar atelectatic changes are present. Heart size is somewhat accentuated although the patient is rotated. Aorta is thought to be tortuous and ectatic. No sizable pneumothorax. IMPRESSION: Satisfactory postoperative chest x-ray, rotated exam with additional findings above.
[2017-10-26] MEDS: IPRATROPIUM-ALBUTEROL 3 ML NEB INHALATION SCH ×2 (15:59→19:25)
[2017-10-26 16:06] LABS: Glucose,Whole Blood 90 mg/dL (75-99)
[2017-10-26] MEDS: LACTATED RINGERS 1,000 ML IV SCH (16:06)
[2017-10-26] MEDS: ceFAZolin IN SWFI 2 GM/20 ML SYRINGE IVP SCH ×2 (16:08→23:04)
--- NOTE | 2017-10-26 16:33 | P.CNPUL ---
History of Present Illness Consult date: 10/26/17 Chief complaint: Ventilator management, post cardiac surgery History of present illness: A 77-year-old male patient who is being seen today following cardiac surgery. The patient underwent two-vessel bypass surgery and the mitral valve replacement. The patient was having exertional dyspnea on outpatient basis. He was diagnosed having significant mitral regurgitation and the MERA preoperatively showed a prostate regurgitation along with +2 aortic regurgitation and mitral valve prolapse involving the posterior leaflet. The LV was preserved. 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 The patient was seen by cardiothoracic surgery and the patient underwent his surgery today. The patient underwent a mitral valve replacement and two-vessel bypass surgery with MICHEL to LAD and saphenous finger after RCA. Currently the patient is in the intensive care unit sedated with Diprivan running at 25 mics. The patient is hypertensive currently on Plavix drip running at 20 mg/h. Patient is also on nitroglycerin drip at 5 mcg/m. The patient is on a mechanical ventilator. I switched him to an assist-control mode at the rate of 12, tidal volume of 650, FiO2 has been cut down to 50% and the patient is a PEEP of 5. The blood gases earlier showed a pH of 7.36 with a pCO2 of 44 and pO2 of 214. The chest x-ray postop showed no acute abnormalities. Hemodynamically, the patient is producing adequate amount of urine output. The patient has a cardiac index of 2.4 and a PA diastolic of 21. The patient has a right and the left pleural chest tube. The right pleural chest tube is quite dry. The mediastinal and the left pleural chest tube has put out approximately 45 mL the patient arrived from the operating room. The patient remains intubated on a mechanical ventilator. Orogastric tube is in place. No agitation. He is quite comfortable and was sedated. His preoperative FEV1 was in the order of 2.53 L which is 74% of predicted. The patient is currently atrially paced at the rate of 70. Review of Systems ROS unobtainable: due to endotracheal tube 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, coronary artery disease, mitral valve regurgitation severe, COPD mild with an FEV1 of 74% of predicted at baseline, diabetes mellitus, hyperlipidemia, hypertension, BPH, small hiatal hernia, history of nephrolithiasis, history of [place] medical ALLERGIES History of Any Multi-Drug Resistant Organisms: None Reported Past Surgical History: Heart Catheterization, Hernia Repair, Orthopedic Surgery Additional Past Surgical History / Comment(s): right rotator cuff, lithotripsy kim, right side inguinal hernia repair, kim lens implants Past Anesthesia/Blood Transfusion Reactions: No Reported Reaction Smoking Status: Former smoker - Past Family History Mother Family Medical History: Dementia, Myocardial Infarction ([place]) Additional Family Medical History / Comment(s): passed at 71 Medications and Allergies Home Medications Medication Instructions Recorded Confirmed Type Albuterol Inhaler [Ventolin Hfa 1 - 2 puff INHALATION RT-Q6H PRN 09/02/16 History Inhaler] Aspirin 81 mg PO DAILY 09/02/16 10/26/17 History Atorvastatin [Lipitor] 40 mg PO HS 09/02/16 10/26/17 History Ergocalciferol [Vitamin D2 50,000 unit PO Q14D 09/02/16 10/26/17 History (DRISDOL)] Lisinopril [Zestril] 5 mg PO DAILY 09/02/16 10/26/17 History amLODIPine BESYLATE [Norvasc] 5 mg PO DAILY 09/02/16 10/26/17 History Finasteride [Proscar] 5 mg PO DAILY 07/15/17 10/26/17 History Pantoprazole [Protonix] 40 mg PO DAILY #30 tab 07/15/17 10/26/17 Rx metFORMIN HCL [Glucophage] 500 mg PO BID 07/15/17 10/26/17 History Metoprolol Succinate (ER) [Toprol 50 mg PO DAILY 09/21/17 10/26/17 History Xl] Aspirin 364 mg PO ONCE 10/26/17 10/26/17 History Allergies Allergy/AdvReac Type Severity Reaction Status Date / Time No Known Allergies Allergy Verified 10/26/17 14:46 Physical Exam Vitals: Vital Signs Temp Pulse Pulse Resp BP BP Pulse Ox 10/26/17 15:59 69 10/26/17 06:25 98.1 F 65 16 148/86 138/80 95 Intake and Output 10/26/17 10/26/17 10/26/17 06:59 14:59 22:59 Intake Total 33 21.433 Output Total 1800 Balance -1767 21.433 Intake: IV 33 Intake, IV Titration 21.433 Amount Clevidipine Butyrate 25 21.433 mg In Empty Bag 1 bag @ 1 MG/HR 2 mls/hr IV .Q24H [facility] Rx#:[id number] Output: Urine 600 Estimated Blood Loss 1200 Other: Weight 91 kg The patient is currently intubated on a mechanical ventilator. The patient was sedated with Diprivan and is calm and comfortable. Orogastric and orotracheal tube are both in place.Head exam was generally normal. There was no scleral icterus or corneal arcus. Mucous membranes were moist.Neck was supple and without jugular venous distension, thyromegaly, or carotid bruits. Carotids were easily palpable bilaterally. There was no adenopathy. The patient has a right IJ [place]-Yuly catheter in place. Lung sounds are equal and symmetrical bilaterally without any wheezes or rhonchi. Sternum stable clean and intact. The patient has a right pleural and left pleural chest tube and mediastinal chest tube.Cardiac exam revealed the PMI to be normally situated and sized. The rhythm was regular and no extrasystoles were noted during several minutes of auscultation. The first and second heart sounds were normal and physiologic splitting of the second heart sound was noted. There were no murmurs, rubs, clicks, or gallops. The patient is atrially paced at the rate of 70. Abdominal exam revealed normal bowel sounds. The abdomen was soft, non-tender, and without masses, organomegaly, or appreciable enlargement of the abdominal aorta.Examination of the extremities revealed easily palpable radial, femoral and pedal pulses. There was no cyanosis, clubbing or edema. Results - Laboratory Findings ABG ABG pH 7.37 (7.35-7.45) 10/26/17 15:46 ABG pCO2 45 mmHg (35-45) 10/26/17 15:46 ABG pO2 214 mmHg (83-108) H 10/26/17 15:46 ABG O2 Saturation 100.0 % (94-97) H 10/26/17 15:46 Abnormal lab findings: Abnormal Labs 10/20/17 10/26/17 10/26/17 09:05 06:22 09:04 ABG pH ABG pCO2 ABG pO2 408 H ABG HCO3 ABG Total CO2 27 H ABG O2 Saturation 100.0 H ABG Hematocrit ABG Sodium ABG Potassium ABG Ionized Calcium ABG Glucose 127 H ABG Lactic Acid Hemoglobin 12.9 L POC Glucose (mg/dL) 129 H Arterial Blood Potassium Arterial Blood Glucose 127 H Crossmatch See Detail 10/26/17 10/26/17 10/26/17 10:15 11:01 11:30 ABG pH ABG pCO2 ABG pO2 >420 H 334 H 235 H ABG HCO3 26 H ABG Total CO2 27 H 26 H 27 H ABG O2 Saturation 100.0 H 100.0 H 100.0 H ABG Hematocrit 29 L 29 L ABG Sodium 132 L 133 L ABG Potassium 5.3 H 5.2 H ABG Ionized Calcium 4.1 L 4.2 L ABG Glucose 134 H 197 H 199 H ABG Lactic Acid Hemoglobin 12.5 L 9.5 L 9.5 L POC Glucose (mg/dL) Arterial Blood Potassium 5.3 H 5.2 H Arterial Blood Glucose 134 H 197 H 199 H Crossmatch 10/26/17 10/26/17 10/26/17 12:09 12:45 13:43 ABG pH 7.34 L 7.28 L ABG pCO2 49 H 55 H ABG pO2 307 H 288 H 311 H ABG HCO3 26 H 26 H ABG Total CO2 28 H 26 H 28 H ABG O2 Saturation 100.0 H 100.0 H 99.9 H ABG Hematocrit 30 L 28 L 30 L ABG Sodium 134 L 134 L ABG Potassium 5.0 H 4.6 H ABG Ionized Calcium 4.3 L 4.1 L 4.4 L ABG Glucose 185 H 165 H 112 H ABG Lactic Acid 1.9 H Hemoglobin 9.9 L 9.3 L 9.7 L POC Glucose (mg/dL) Arterial Blood Potassium 5.0 H 4.6 H Arterial Blood Glucose 185 H 165 H 112 H Crossmatch 10/26/17 15:46 ABG pH ABG pCO2 ABG pO2 214 H ABG HCO3 26 H ABG Total CO2 27 H ABG O2 Saturation 100.0 H ABG Hematocrit ABG Sodium ABG Potassium ABG Ionized Calcium ABG Glucose ABG Lactic Acid Hemoglobin POC Glucose (mg/dL) Arterial Blood Potassium Arterial Blood Glucose Crossmatch - Diagnostic Findings Chest x-ray: image reviewed Assessment and Plan Plan: Assessment 1 mitral valve replacement for severe mitral regurgitation and two-vessel bypass surgery with MICHEL to LAD and saphenous vein graft to RCA. The patient is postop day #0. Remains intubated on a mechanical ventilator. The patient is hypertensive currently on a combination of Cleviprex and nitroglycerin drip. The patient is also a atrialy paced at the rate of 70. Underlying rhythm is junctional 2 mechanical ventilation post thoracotomy bypass surgery and valve replacement 3 junctional underlying rhythm currently paced at the rate of 70 4 moderate to severe mitral regurgitation, post mitral valve replacement, and coronary artery bypass surgery. postop day #0 5 diabetes mellitus type 2 6 hypertension artery on a combination of Cleviprex nitroglycerin drip for blood pressure control 7 hyperlipidemia 8 mild COPD with a baseline FEV1 of 74% of predicted 9 BPH 10 laryngeal cancer postradiation therapy back in 2009 11 acid reflux Plan Keep the patient sedated for now. Wean down the FiO2 as tolerated to maintain a saturation above 90%. Monitored hemodynamics. Monitor the blood pressure and wean down the antihypertensive drips as tolerated to maintain a systolic blood pressure less than 140. Overall condition is stable. Chest x-ray was reviewed. Output from the chest tube is minimal. We'll continue to follow and anticipate extubation within the next 4-6 hours. We'll continue to follow.
[2017-10-26 16:38] LABS: Basophils % (A) 0 %; Eosinophils # (A) 0.1 k/uL (0-0.7); Eosinophils % (A) 1 %; HCT 31.2 % (39.0-53.0); Lymphocytes # (A) 1.1 k/uL (1.0-4.8); Lymphocytes % (A) 11 %; MCH 31.1 pg (25.0-35.0); MCHC 33.8 g/dL (31.0-37.0); MCV 91.8 fL (80.0-100.0); Mean Platelet Volume 9.2; Monocytes # (A) 0.6 k/uL (0-1.0); Monocytes % (A) 6 %; Neutrophils # (A) 7.7 k/uL (1.3-7.7); Neutrophils % (A) 81 %; Platelet Count 170 k/uL (150-450); RDW 13.2 % (11.5-15.5); WBC 9.5 k/uL (3.8-10.6)
[2017-10-26 16:39] LABS: Ionized Calcium 4.9 mg/dL (4.5-5.3)
[2017-10-26 16:43] LABS: HGB 10.6 gm/dL (13.0-17.5)
[2017-10-26 16:46] LABS: INR 1.3 (<1.2); Partial Thromboplastin Time 29.3 sec (22.0-30.0)
[2017-10-26 16:51] LABS: Albumin 2.3 g/dL (3.5-5.0); Calcium 7.8 mg/dL (8.4-10.2); Magnesium 2.2 mg/dL (1.6-2.3); Potassium 4.5 mmol/L (3.5-5.1); Total Bilirubin 0.8 mg/dL (0.2-1.3); Total Protein 4.2 g/dL (6.3-8.2)
[2017-10-26 17:12] LABS: Glucose,Whole Blood 148 mg/dL (75-99)
[2017-10-26] MEDS: ACETAMINOPHEN IV (For NPO) 1,000 MG in EMPTY BAG 1 BAG IVPB SCH ×2 (17:17→23:05)
[2017-10-26] MEDS ORDERED: hydrALAZINE HCL 20 MG/ML 1 ML VIAL IVP PRN (17:21)
[2017-10-26 18:04] LABS: Glucose,Whole Blood 154 mg/dL (75-99)
[2017-10-26 18:15] LABS: Basophils % (A) 0 %; Eosinophils # (A) 0.1 k/uL (0-0.7); Eosinophils % (A) 0 %; HCT 35.5 % (39.0-53.0); HGB 13.1 gm/dL (13.0-17.5); Lymphocytes # (A) 1.2 k/uL (1.0-4.8); Lymphocytes % (A) 7 %; MCH 33.6 pg (25.0-35.0); MCHC 36.9 g/dL (31.0-37.0); MCV 91.1 fL (80.0-100.0); Mean Platelet Volume 8.1; Monocytes # (A) 1.2 k/uL (0-1.0); Monocytes % (A) 7 %; Neutrophils # (A) 14.3 k/uL (1.3-7.7); Neutrophils % (A) 83 %; Platelet Count 242 k/uL (150-450); RBC 3.89 m/uL (4.30-5.90); RDW 13.3 % (11.5-15.5); WBC 17.3 k/uL (3.8-10.6)
[2017-10-26 18:56] LABS: Glucose,Whole Blood 158 mg/dL (75-99)
--- NOTE | 2017-10-26 19:04 | OP ---
OPERATIVE REPORT DATE OF OPERATION: 10/26/2017. ATTENDING SURGEON: Dr. Ryan Wall. ASSIST: Mindy Sarabia, Angel No. PREOPERATIVE DIAGNOSES: 1. Severe mitral regurgitation. 2. Two vessel coronary artery disease. POSTOPERATIVE DIAGNOSES: 1. Severe mitral regurgitation. 2. Two vessel coronary artery disease. PROCEDURES: 1. Complex mitral valve repair with liana chords x2 pair to P2 the posterior leaflet, closure of P1, P2 cleft, ring annuloplasty with a #30 mm [employer] AnnuloFlex band, clip ligation of left atrial appendage with a #35 mm AtriClip. 2. Coronary bypass grafting x2 with left internal mammary to the left anterior descending artery, reverse saphenous vein graft off the aorta to the right coronary artery with endoscopic vein harvesting. 3. An intraoperative MERA. ANESTHESIA: General. BLOOD LOSS: 500 mL. PROCEDURE IN DETAIL: The patient taken the operating placed supine position. After administration of general endotracheal anesthetic, midline incision of chest made and sternum divided. Pericardium was opened. Heart size was normal caliber. There was soft left pleural space and left internal mammary artery harvested of the pedicle from the xiphoid to the subclavian vein. It was of 2 mm calmly with excellent flow. The patient was heparinized. The aorta and 2 single stage venous cannulas were placed and retrograde cardioplegic catheters positioned in the ascending aorta and the coronary sinus. The patient was placed on bypass, cross-clamp placed. The heart arrested with antegrade following 500 mL retrograde cardioplegia. Retrograde cardioplegia was delivered 3-500 mL at the end of each 20 minute interval. Distal anastomoses were constructed. Reverse saphenous vein graft anastomosis to the distal right coronary artery was constructed using 7-0 Prolene running suture with 1.75 to 2 mm. Next, the left internal mammary was beveled and distal anastomosis to the proximal mid left anterior descending artery constructed using an 8-0 Prolene running suture. Caliber of this vessel was 1.75-2 mm. Next, the base of the left atrial appendage was measured and measured to a 35 mm AtriClip. The clip was brought into the field, opened, secured at the base officially obliterating the left atrial appendage. Next left atrium was entered at the junction of the right superior pulmonary vein. A handheld retractor was placed. Mitral valve was identified. The subvalvular apparatus for the most part was within normal limits. There was elongated chords to the P2 area of the posterior leaflet. At this point, 250 [place] liana chords were created to the appropriate papillary muscle head to the leaflet edge of P2 creating new chordae at the normal length. Also a cleft between P1 and P2 was closed using a couple of interrupted 5-0 Prolene vertical mattress sutures. We also sized to a 30 mm [employer] AnnuloFlex band. 2-0 Tycron non pledgeted sutures were placed from trigone to trigone along the posterior anulus. These were then passed through the band, which was then seated and seated well. All sutures were secured using the core knot ligature system. It was then tested with a handheld test and tested very well with no evidence of further regurgitation or leakage. The atrium was then closed in a double layered pledgeted 4-0 Prolene vertical mattress followed by an vdpe-aeu-rofe stitch from both sides. At this point, a single proximal anastomosis was constructed in the ascending artery using 6-0 Prolene running suture. The patient was placed head down. The aortic root was vented warm blood retrograde cardioplegia was run. Cross-clamp was removed. Six vein grafts de-aired. Once beating normal sinus rhythm, patient was brought off bypass scale. Bypass uneventfully with good hemodynamics. Protamine delivered and patient decannulated. Atrial ventricular pacing wires were placed. Mediastinal left pleural chest tubes were placed. At this point, the sternum was closed with 7 #6 sternal wires. Skin, subcutaneous tissue and fascia closed in 3 layers. No complications. Patient the procedure well, was taken to the cardiovascular intensive care unit in stable condition. Postoperative MERA showed excellent left ventricular function. A perfect result of the mitral repair. No leakage at all and the patient was transported in stable condition. MMODL / IJN: [id number] /
[2017-10-26 19:54] LABS: ABG Base Excess -1.3 mmol/L; ABG HCO3 25 mmol/L (21-25); ABG PCO2 46 mmHg (35-45); ABG PH 7.33 (7.35-7.45); ABG PO2 89 mmHg (83-108); ABG TCO2 26 mmol/L (19-24)
[2017-10-26 20:05] LABS: Glucose,Whole Blood 167 mg/dL (75-99)
[2017-10-26 20:12] LABS: Basophils % (A) 0 %; Eosinophils % (A) 0 %; HCT 35.5 % (39.0-53.0); HGB 12.7 gm/dL (13.0-17.5); Lymphocytes # (A) 1.1 k/uL (1.0-4.8); Lymphocytes % (A) 6 %; MCH 32.6 pg (25.0-35.0); MCHC 35.7 g/dL (31.0-37.0); MCV 91.4 fL (80.0-100.0); Mean Platelet Volume 8.3; Monocytes # (A) 1.1 k/uL (0-1.0); Monocytes % (A) 6 %; Neutrophils # (A) 16.6 k/uL (1.3-7.7); Neutrophils % (A) 86 %; Platelet Count 256 k/uL (150-450); RBC 3.88 m/uL (4.30-5.90); RDW 13.3 % (11.5-15.5); WBC 19.4 k/uL (3.8-10.6)
[2017-10-26] MEDS: CHLORHEXIDINE GLUCONATE 15 ML CUP MUCOUS MEM SCH (20:20)
[2017-10-26] MEDS: MUPIROCIN 2% OINT 22 GM TUBE NASAL SCH (20:20)
[2017-10-26 20:23] LABS: Ionized Calcium 4.9 mg/dL (4.5-5.3)
[2017-10-26 20:33] LABS: Calcium 8.3 mg/dL (8.4-10.2); Magnesium 1.9 mg/dL (1.6-2.3); Phosphorus 3.7 mg/dL (2.5-4.5); Potassium 4.8 mmol/L (3.5-5.1)
[2017-10-26 21:01] LABS: Glucose,Whole Blood 160 mg/dL (75-99)
[2017-10-26 21:56] LABS: Glucose,Whole Blood 197 mg/dL (75-99)
[2017-10-26 23:01] LABS: Glucose,Whole Blood 166 mg/dL (75-99)
[2017-10-26] MEDS: HEPARIN SODIUM,PORCINE 5,000 UNIT/ML 1 ML VIAL SQ SCH (23:04)
[2017-10-27 00:06] LABS: Glucose,Whole Blood 149 mg/dL (75-99)
[2017-10-27 01:03] LABS: Glucose,Whole Blood 117 mg/dL (75-99)
[2017-10-27 02:03] LABS: Glucose,Whole Blood 136 mg/dL (75-99)
[2017-10-27 03:13] LABS: Glucose,Whole Blood 106 mg/dL (75-99)
[2017-10-27 04:03] LABS: Glucose,Whole Blood 142 mg/dL (75-99)
[2017-10-27 04:16] LABS: Basophils % (A) 0 %; Eosinophils % (A) 0 %; HCT 36.2 % (39.0-53.0); HGB 12.4 gm/dL (13.0-17.5); Lymphocytes # (A) 0.6 k/uL (1.0-4.8); Lymphocytes % (A) 4 %; MCH 31.4 pg (25.0-35.0); MCHC 34.2 g/dL (31.0-37.0); MCV 91.8 fL (80.0-100.0); Mean Platelet Volume 9.3; Monocytes % (A) 7 %; Neutrophils # (A) 13.1 k/uL (1.3-7.7); Neutrophils % (A) 87 %; Platelet Count 212 k/uL (150-450); RBC 3.95 m/uL (4.30-5.90); RDW 13.5 % (11.5-15.5); WBC 15.2 k/uL (3.8-10.6)
[2017-10-27 04:31] LABS: INR 1.2 (<1.2); Partial Thromboplastin Time 24.2 sec (22.0-30.0); Prothrombin Time 11.3 sec (9.0-12.0)
[2017-10-27 04:37] LABS: Ionized Calcium 4.9 mg/dL (4.5-5.3)
[2017-10-27 04:46] LABS: Albumin 2.9 g/dL (3.5-5.0); Calcium 8.5 mg/dL (8.4-10.2); Magnesium 1.9 mg/dL (1.6-2.3); Potassium 4.7 mmol/L (3.5-5.1); Total Bilirubin 0.5 mg/dL (0.2-1.3)
[2017-10-27 04:57] LABS: Glucose,Whole Blood 154 mg/dL (75-99)
[2017-10-27] MEDS: ACETAMINOPHEN IV (For NPO) 1,000 MG in EMPTY BAG 1 BAG IVPB SCH ×3 (05:01→18:42)
[2017-10-27] MEDS ORDERED: fentaNYL (PF) 50 MCG/ML 2 ML AMP IVP PRN (07:22)
[2017-10-27] MEDS ORDERED: Magnesium Replacement Protocol 1 EACH MISC MISCELLANE PRN (07:31)
[2017-10-27 07:34] LABS: Glucose,Whole Blood 147 mg/dL (75-99)
--- NOTE | 2017-10-27 07:37 | XR ---
EXAMINATION TYPE: XR chest 1V portable DATE OF EXAM: 10/27/2017 CLINICAL HISTORY: Difficulty breathing progress study. Post open cardiac surgery. TECHNIQUE: Single AP portable semiupright view of the chest is obtained. COMPARISON: Chest x-ray from one day earlier and older studies. FINDINGS: There is interval extubation with removal of endotracheal and orogastric tubes. Bilateral chest tubes and mediastinal drainage catheter are redemonstrated. There is stable right internal jugu lar [place]-Yuly catheter. Mediastinal clips and sternal wires are present. There is cardiac closure dev ice left superior aspect of heart. There is persistent mild cardiomegaly. There is chronic emphysematous change with central vascular co ngestion and patchy basilar atelectatic change. No large pleural effusion or sizable pneumothorax is seen. Osseous structures are intact. IMPRESSION: Interval extubation, other findings fairly stable as there is cardiomegaly and chronic pa renchymal change with central vascular congestion and patchy bibasilar atelectatic change noted.
[2017-10-27] MEDS: KETOROLAC 30 MG/ML 1 ML VIAL IVP SCH ×3 (08:11→18:18)
[2017-10-27] MEDS: HEPARIN SODIUM,PORCINE 5,000 UNIT/ML 1 ML VIAL SQ SCH ×2 (08:25→15:49)
[2017-10-27] MEDS: MAGNESIUM SULFATE-D5W PMX 1 GM in DEXTROSE/WATER 1 100ML.BAG IVPB SCH ×2 (08:25→10:16)
[2017-10-27] MEDS: ATORVASTATIN 40 MG TAB PO SCH (08:26)
[2017-10-27] MEDS: ASPIRIN 325 MG TAB PO SCH (08:26)
[2017-10-27] MEDS: CHLORHEXIDINE GLUCONATE 15 ML CUP MUCOUS MEM SCH (08:26)
[2017-10-27] MEDS: MUPIROCIN 2% OINT 22 GM TUBE NASAL SCH ×2 (08:27→21:50)
[2017-10-27] MEDS: PANTOPRAZOLE 40 MG/10 ML VIAL IVP SCH (08:28)
[2017-10-27] MEDS: ceFAZolin IN SWFI 2 GM/20 ML SYRINGE IVP SCH (08:29)
[2017-10-27] MEDS ORDERED: METOPROLOL TARTRATE 12.5 MG TAB PO SCH (09:00)
[2017-10-27 09:02] LABS: Glucose,Whole Blood 126 mg/dL (75-99)
--- NOTE | 2017-10-27 09:20 | CONS ---
CONSULTATION DATE OF SERVICE: 10/27/2017. HISTORY: Mr. Anguiano is a 77-year-old male who underwent coronary bypass grafting yesterday by Dr. Wall with MICHEL to LAD, saphenous vein graft to the right coronary artery, and repair of severe mitral valve prolapse and severe mitral regurgitation. He is extubated, sitting up in the chair. Denies any symptoms of chest pain. His breathing is stable. His history started in July when he presented to the hospital with symptoms of chest discomfort and findings consistent with severe mitral regurgitation on echocardiography. He was evaluated by Dr. Simpson and underwent cardiac catheterization that revealed a severe mitral regurgitation with severe prolapse as well as evidence of coronary artery disease. Prior to this, the patient has been active physically without any difficulty. He denies any peripheral edema. No PND, no orthopnea. He left ventricular systolic function was normal. His coronary risk factors are positive for diabetes, hypertension, hyperlipidemia. He is a nonsmoker. MEDICATIONS: Prior to admission included aspirin, Lipitor 4 mg daily, amlodipine 5 mg daily, metformin 500 mg twice a day, metoprolol succinate 50 mg daily, lisinopril 5 mg daily in addition to Proscar. REVIEW OF SYSTEMS: RESPIRATORY SYSTEM: He has the dyspnea on exertion recently. No history of obstructive lung disease. GI SYSTEM: No recent GI bleeding. No peptic ulcer disease. SYSTEM: No dysuria or hematuria. NERVOUS SYSTEM: No stroke or seizure. PHYSICAL EXAMINATION: He is a 77-year-old male, alert, oriented, in no apparent distress. Blood pressure 117/60 with a heart rate in 60s. HEAD: Normocephalic. Eyes sclerae anicteric. NECK: [place]-Yuly catheter noted on the right internal jugular. LUNGS: No wheezes or rales. HEART: Regular rhythm S1, S2. No rub appreciated. ABDOMEN: Soft, nontender. Positive bowel sounds. No megaly. EXTREMITIES: No edema. LAB DATA: Lab data revealed a hemoglobin of 12.4, BUN and creatinine 19 and 1.1. The chest x-ray revealed no evidence of infiltrate. IMPRESSION: 1. Status post a mitral valve repair and coronary bypass grafting, stable. 2. History of hypertension. 3. Hyperlipidemia. 4. Diabetes mellitus. RECOMMENDATIONS: From the cardiac standpoint, he is stable. He will be restarted on his beta dexter and statin. He is in junctional rhythm at this time and being paced. We will follow his rhythm closely. Depending on that, further recommendations will be made. Thank you for this consult. MMODL / IJN: [id number] /
[2017-10-27] MEDS: FINASTERIDE 5 MG TAB PO SCH (10:17)
[2017-10-27] MEDS: hydrALAZINE HCL 25 MG TAB PO SCH ×2 (10:18→15:48)
[2017-10-27 10:28] LABS: Glucose,Whole Blood 133 mg/dL (75-99)
[2017-10-27 11:11] VITALS: BMI 25.7
[2017-10-27] MEDS: IPRATROPIUM-ALBUTEROL 3 ML NEB INHALATION SCH ×3 (11:11→19:59)
[2017-10-27 11:18] LABS: Glucose,Whole Blood 125 mg/dL (75-99)
[2017-10-27] MEDS: CLOPIDOGREL 75 MG TAB PO SCH (11:39)
--- NOTE | 2017-10-27 12:10 | P.PN ---
Subjective Progress Note Date: 10/27/17 Principal diagnosis: Severe mitral valve regurgitation. Coronary artery disease. Previous medical history of laryngeal cancer with radiation, kidney stones, diabetes mellitus with preoperative hemoglobin A1c 6.2%, hypertension, hyperlipidemia, family history of heart disease. Preoperative urinary tract infection with enterococcus faecalis, treated with oral antibiotics. POD #1 complex mitral valve repair with liana-cords 2 pair to P2 the posterior leaflet, closure of P1, P2 cleft, ring annuloplasty with a #30 mm [employer] AnnuloFlex band, clip ligation of the left atrial appendage with a #35 mm Atriclip. Coronary bypass grafting 2 with the left internal mammary artery to the left anterior descending artery, reverse saphenous vein graft off the aorta to the right coronary artery with endoscopic vein harvesting of the left greater saphenous vein. Intraoperative transesophageal echocardiogram. The patient's currently sitting up in the recliner in no acute distress. Was successfully extubated last night at 20:25. Does complain of some postoperative pain but overall no complaints. Objective - Vital Signs Vital signs: Vital Signs Temp 98.1 F 10/27/17 06:00 Pulse 69 10/27/17 11:27 Resp 10 L 10/27/17 11:00 BP 128/66 10/27/17 11:00 Pulse Ox 98 10/27/17 11:00 Intake & Output 10/26/17 10/27/17 10/27/17 18:59 06:59 18:59 Intake Total 344.259 0989.468 1164.863 Output Total 2510 1040 475 Balance -1874.293 68.468 689.863 Weight 91 kg 91 kg Intake: IV 499 1058 594 0.9 Normal Saline for 130 100 40 cardiac output 0.9 normal saline for 36 108 54 pressure bag ACETAMINOPHEN IV (For NPO 100 200 ) 1,000 mg In Empty Bag 1 bag @ 400 mls/hr IVPB Q6HR [facility] Rx#:[id number] Dextrose 5% in Water 1, 0 000 ml @ Per Protocol IV .Q0M PRN with Potassium Chloride 25 meq with Sodium Chloride 2.5MEQ/ml Vial 27 meq with Magnesium Sulfate 16 meq with Sodium Bicarb (1 Meq /ml) 40 ml with Lidocaine 1% Inj 10 ml Rx#: [id number] Lactated Ringers 1,000 ml 200 650 200 @ 20 mls/hr IV .Q24H [facility] Rx#:[id number] Magnesium Sulfate-D5w Pmx 300 1 gm In Dextrose/Water 1 100ml.bag @ 100 mls/hr IVPB Q1H [facility] Rx#: [id number] Intake, IV Titration 136.707 50.468 70.863 Amount Clevidipine Butyrate 25 103.267 17.033 50 mg In Empty Bag 1 bag @ 1 MG/HR 2 mls/hr IV .Q24H [facility] Rx#:[id number] Insulin Regular 100 unit 31.693 20.863 In Sodium Chloride 0.9% 100 ml @ Per Protocol IV .Q0M [facility] Rx#:[id number] Propofol 1,000 mg In 33.440 1.742 Empty Bag 1 bag @ Titrate IV .Q0M [facility] Rx#: [id number] Oral 500 Output: Chest Tube Drainage 115 295 145 Left Pleural/mediastinal 115 290 110 Right Pleural 0 5 35 Urine 1195 745 330 Estimated Blood Loss 1200 Other: Voiding Method Indwelling Catheter Indwelling Catheter Indwelling Catheter ABP, PAP, CO, CI - Last Documented Arterial Blood Pressure 124/53 Pulmonary Artery Pressure 22/8 Cardiac Output 5.8 Cardiac Index 2.7 - Constitutional General appearance: Present: cooperative, no acute distress - Respiratory Details: Lungs sounds diminished bilaterally. Respirations even, nonlabored. Currently on 4 L nasal cannula with oxygen saturation 98%. Able to achieve 750 mL on his incentive spirometry. Mediastinal/left pleural chest tube to continuous wall suction, 150 mL serosanguineous drainage overnight, 150 mL since surgery. Right pleural chest tube to continuous wall suction, 5 mL serosanguineous drainage overnight, 35 mL since surgery. No air leaks present. - Cardiovascular Details: S1, S2 present. Regular rate and rhythm, atrial paced on telemetry with underlying rhythm junctional. A/V epicardial pacemaker wires present, connected to generator, AAI mode with backup rate 70 bpm. Sternum stable. Palpable peripheral pulses bilaterally. No edema present. Right internal jugular Cordis/[place], right radial arterial line present. Last CO/CI 5.8/2.7 on no inotropes. Heart hugger in place with patient demonstrating appropriate use. Antiembolism stockings, SCDs present. - Gastrointestinal Gastrointestinal Comment(s): Abdomen soft, nontender, nondistended. Hypoactive bowel sounds 4 quadrants. Tolerating diet. Denies flatus. - Genitourinary Genitourinary Comment(s): Grig[place] present draining clear, yellow urine. Output 50-80 mL/h overnight. - Integumentary Integumentary Comment(s): Skin is warm and dry with evidence of good perfusion. Anterior chest incision well approximated and covered with dry intact dressing. Left lower extremity EVH site well approximated. - Neurologic Neurologic: Present: CNII-XII intact - Musculoskeletal Musculoskeletal: Present: strength equal bilaterally - Psychiatric Psychiatric: Present: A&O x's 3, appropriate affect, intact judgment & insight - Allied health notes Allied health notes reviewed: nursing - Labs CBC & Chem 7: 10/27/17 04:00 10/27/17 04:00 Labs: Abnormal Lab Results - Last 24 Hours (Table) 10/20/17 10/26/17 10/26/17 Range/Units 09:05 09:04 10:15 WBC (3.8-10.6) k/uL RBC (4.30-5.90) m/uL Hgb (13.0-17.5) gm/dL Hct (39.0-53.0) % Neutrophils # (1.3-7.7) k/uL Lymphocytes # (1.0-4.8) k/uL Monocytes # (0-1.0) k/uL INR (<1.2) ABG pH (7.35-7.45) ABG pCO2 (35-45) mmHg ABG pO2 408 H >420 H (83-108) mmHg ABG HCO3 26 H (21-25) mmol/L ABG Total CO2 27 H 27 H (19-24) mmol/L ABG O2 Saturation 100.0 H 100.0 H (94-97) % ABG Hematocrit (34.0-46.0) % ABG Sodium (135-146) mmol/L ABG Potassium (3.4-4.5) mmol/L ABG Ionized Calcium (4.5-5.3) mg/dL ABG Glucose 127 H 134 H (75-99) mg/dL ABG Lactic Acid (0.5-1.6) mmol/L Hemoglobin 12.9 L 12.5 L (13.0-17.5) gm/dL Sodium (137-145) mmol/L Glucose (74-99) mg/dL POC Glucose (mg/dL) (75-99) mg/dL Calcium (8.4-10.2) mg/dL Total Protein (6.3-8.2) g/dL Albumin (3.5-5.0) g/dL Arterial Blood Potassium (3.4-4.5) mmol/L Arterial Blood Glucose 127 H 134 H (75-99) mg/dL Crossmatch See Detail 10/26/17 10/26/17 10/26/17 Range/Units 11:01 11:30 12:09 WBC (3.8-10.6) k/uL RBC (4.30-5.90) m/uL Hgb (13.0-17.5) gm/dL Hct (39.0-53.0) % Neutrophils # (1.3-7.7) k/uL Lymphocytes # (1.0-4.8) k/uL Monocytes # (0-1.0) k/uL INR (<1.2) ABG pH 7.34 L (7.35-7.45) ABG pCO2 49 H (35-45) mmHg ABG pO2 334 H 235 H 307 H (83-108) mmHg ABG HCO3 26 H (21-25) mmol/L ABG Total CO2 26 H 27 H 28 H (19-24) mmol/L ABG O2 Saturation 100.0 H 100.0 H 100.0 H (94-97) % ABG Hematocrit 29 L 29 L 30 L (34.0-46.0) % ABG Sodium 132 L 133 L 134 L (135-146) mmol/L ABG Potassium 5.3 H 5.2 H 5.0 H (3.4-4.5) mmol/L ABG Ionized Calcium 4.1 L 4.2 L 4.3 L (4.5-5.3) mg/dL ABG Glucose 197 H 199 H 185 H (75-99) mg/dL ABG Lactic Acid (0.5-1.6) mmol/L Hemoglobin 9.5 L 9.5 L 9.9 L (13.0-17.5) gm/dL Sodium (137-145) mmol/L Glucose (74-99) mg/dL POC Glucose (mg/dL) (75-99) mg/dL Calcium (8.4-10.2) mg/dL Total Protein (6.3-8.2) g/dL Albumin (3.5-5.0) g/dL Arterial Blood Potassium 5.3 H 5.2 H 5.0 H (3.4-4.5) mmol/L Arterial Blood Glucose 197 H 199 H 185 H (75-99) mg/dL Crossmatch 10/26/17 10/26/17 10/26/17 Range/Units 12:45 13:43 15:19 WBC (3.8-10.6) k/uL RBC 3.40 L (4.30-5.90) m/uL Hgb 10.6 L D (13.0-17.5) gm/dL Hct 31.2 L (39.0-53.0) % Neutrophils # (1.3-7.7) k/uL Lymphocytes # (1.0-4.8) k/uL Monocytes # (0-1.0) k/uL INR (<1.2) ABG pH 7.28 L (7.35-7.45) ABG pCO2 55 H (35-45) mmHg ABG pO2 288 H 311 H (83-108) mmHg ABG HCO3 26 H (21-25) mmol/L ABG Total CO2 26 H 28 H (19-24) mmol/L ABG O2 Saturation 100.0 H 99.9 H (94-97) % ABG Hematocrit 28 L 30 L (34.0-46.0) % ABG Sodium 134 L (135-146) mmol/L ABG Potassium 4.6 H (3.4-4.5) mmol/L ABG Ionized Calcium 4.1 L 4.4 L (4.5-5.3) mg/dL ABG Glucose 165 H 112 H (75-99) mg/dL ABG Lactic Acid 1.9 H (0.5-1.6) mmol/L Hemoglobin 9.3 L 9.7 L (13.0-17.5) gm/dL Sodium (137-145) mmol/L Glucose (74-99) mg/dL POC Glucose (mg/dL) (75-99) mg/dL Calcium (8.4-10.2) mg/dL Total Protein (6.3-8.2) g/dL Albumin (3.5-5.0) g/dL Arterial Blood Potassium 4.6 H (3.4-4.5) mmol/L Arterial Blood Glucose 165 H 112 H (75-99) mg/dL Crossmatch 10/26/17 10/26/17 10/26/17 Range/Units 15:19 15:19 15:46 WBC (3.8-10.6) k/uL RBC (4.30-5.90) m/uL Hgb (13.0-17.5) gm/dL Hct (39.0-53.0) % Neutrophils # (1.3-7.7) k/uL Lymphocytes # (1.0-4.8) k/uL Monocytes # (0-1.0) k/uL INR 1.3 H (<1.2) ABG pH (7.35-7.45) ABG pCO2 (35-45) mmHg ABG pO2 214 H (83-108) mmHg ABG HCO3 26 H (21-25) mmol/L ABG Total CO2 27 H (19-24) mmol/L ABG O2 Saturation 100.0 H (94-97) % ABG Hematocrit (34.0-46.0) % ABG Sodium (135-146) mmol/L ABG Potassium (3.4-4.5) mmol/L ABG Ionized Calcium (4.5-5.3) mg/dL ABG Glucose (75-99) mg/dL ABG Lactic Acid (0.5-1.6) mmol/L Hemoglobin (13.0-17.5) gm/dL Sodium (137-145) mmol/L Glucose (74-99) mg/dL POC Glucose (mg/dL) (75-99) mg/dL Calcium 7.8 L (8.4-10.2) mg/dL Total Protein 4.2 L (6.3-8.2) g/dL Albumin 2.3 L (3.5-5.0) g/dL Arterial Blood Potassium (3.4-4.5) mmol/L Arterial Blood Glucose (75-99) mg/dL Crossmatch 10/26/17 10/26/17 10/26/17 Range/Units 17:11 18:00 18:02 WBC 17.3 H (3.8-10.6) k/uL RBC 3.89 L (4.30-5.90) m/uL Hgb (13.0-17.5) gm/dL Hct 35.5 L (39.0-53.0) % Neutrophils # 14.3 H (1.3-7.7) k/uL Lymphocytes # (1.0-4.8) k/uL Monocytes # 1.2 H (0-1.0) k/uL INR (<1.2) ABG pH (7.35-7.45) ABG pCO2 (35-45) mmHg ABG pO2 (83-108) mmHg ABG HCO3 (21-25) mmol/L ABG Total CO2 (19-24) mmol/L ABG O2 Saturation (94-97) % ABG Hematocrit (34.0-46.0) % ABG Sodium (135-146) mmol/L ABG Potassium (3.4-4.5) mmol/L ABG Ionized Calcium (4.5-5.3) mg/dL ABG Glucose (75-99) mg/dL ABG Lactic Acid (0.5-1.6) mmol/L Hemoglobin (13.0-17.5) gm/dL Sodium (137-145) mmol/L Glucose (74-99) mg/dL POC Glucose (mg/dL) 148 H 154 H (75-99) mg/dL Calcium (8.4-10.2) mg/dL Total Protein (6.3-8.2) g/dL Albumin (3.5-5.0) g/dL Arterial Blood Potassium (3.4-4.5) mmol/L Arterial Blood Glucose (75-99) mg/dL Crossmatch 10/26/17 10/26/17 10/26/17 Range/Units 18:53 19:50 19:52 WBC (3.8-10.6) k/uL RBC (4.30-5.90) m/uL Hgb (13.0-17.5) gm/dL Hct (39.0-53.0) % Neutrophils # (1.3-7.7) k/uL Lymphocytes # (1.0-4.8) k/uL Monocytes # (0-1.0) k/uL INR (<1.2) ABG pH 7.33 L (7.35-7.45) ABG pCO2 46 H (35-45) mmHg ABG pO2 (83-108) mmHg ABG HCO3 (21-25) mmol/L ABG Total CO2 26 H (19-24) mmol/L ABG O2 Saturation (94-97) % ABG Hematocrit (34.0-46.0) % ABG Sodium (135-146) mmol/L ABG Potassium (3.4-4.5) mmol/L ABG Ionized Calcium (4.5-5.3) mg/dL ABG Glucose (75-99) mg/dL ABG Lactic Acid (0.5-1.6) mmol/L Hemoglobin (13.0-17.5) gm/dL Sodium (137-145) mmol/L Glucose (74-99) mg/dL POC Glucose (mg/dL) 158 H 167 H (75-99) mg/dL Calcium (8.4-10.2) mg/dL Total Protein (6.3-8.2) g/dL Albumin (3.5-5.0) g/dL Arterial Blood Potassium (3.4-4.5) mmol/L Arterial Blood Glucose (75-99) mg/dL Crossmatch 10/26/17 10/26/17 10/26/17 Range/Units 20:00 20:00 21:00 WBC 19.4 H (3.8-10.6) k/uL RBC 3.88 L (4.30-5.90) m/uL Hgb 12.7 L (13.0-17.5) gm/dL Hct 35.5 L (39.0-53.0) % Neutrophils # 16.6 H (1.3-7.7) k/uL Lymphocytes # (1.0-4.8) k/uL Monocytes # 1.1 H (0-1.0) k/uL INR (<1.2) ABG pH (7.35-7.45) ABG pCO2 (35-45) mmHg ABG pO2 (83-108) mmHg ABG HCO3 (21-25) mmol/L ABG Total CO2 (19-24) mmol/L ABG O2 Saturation (94-97) % ABG Hematocrit (34.0-46.0) % ABG Sodium (135-146) mmol/L ABG Potassium (3.4-4.5) mmol/L ABG Ionized Calcium (4.5-5.3) mg/dL ABG Glucose (75-99) mg/dL ABG Lactic Acid (0.5-1.6) mmol/L Hemoglobin (13.0-17.5) gm/dL Sodium 136 L (137-145) mmol/L Glucose 157 H (74-99) mg/dL POC Glucose (mg/dL) 160 H (75-99) mg/dL Calcium 8.3 L (8.4-10.2) mg/dL Total Protein (6.3-8.2) g/dL Albumin (3.5-5.0) g/dL Arterial Blood Potassium (3.4-4.5) mmol/L Arterial Blood Glucose (75-99) mg/dL Crossmatch 10/26/17 10/26/17 10/27/17 Range/Units 21:55 23:00 00:04 WBC (3.8-10.6) k/uL RBC (4.30-5.90) m/uL Hgb (13.0-17.5) gm/dL Hct (39.0-53.0) % Neutrophils # (1.3-7.7) k/uL Lymphocytes # (1.0-4.8) k/uL Monocytes # (0-1.0) k/uL INR (<1.2) ABG pH (7.35-7.45) ABG pCO2 (35-45) mmHg ABG pO2 (83-108) mmHg ABG HCO3 (21-25) mmol/L ABG Total CO2 (19-24) mmol/L ABG O2 Saturation (94-97) % ABG Hematocrit (34.0-46.0) % ABG Sodium (135-146) mmol/L ABG Potassium (3.4-4.5) mmol/L ABG Ionized Calcium (4.5-5.3) mg/dL ABG Glucose (75-99) mg/dL ABG Lactic Acid (0.5-1.6) mmol/L Hemoglobin (13.0-17.5) gm/dL Sodium (137-145) mmol/L Glucose (74-99) mg/dL POC Glucose (mg/dL) 197 H 166 H 149 H (75-99) mg/dL Calcium (8.4-10.2) mg/dL Total Protein (6.3-8.2) g/dL Albumin (3.5-5.0) g/dL Arterial Blood Potassium (3.4-4.5) mmol/L Arterial Blood Glucose (75-99) mg/dL Crossmatch 10/27/17 10/27/17 10/27/17 Range/Units 01:02 02:01 03:01 WBC (3.8-10.6) k/uL RBC (4.30-5.90) m/uL Hgb (13.0-17.5) gm/dL Hct (39.0-53.0) % Neutrophils # (1.3-7.7) k/uL Lymphocytes # (1.0-4.8) k/uL Monocytes # (0-1.0) k/uL INR (<1.2) ABG pH (7.35-7.45) ABG pCO2 (35-45) mmHg ABG pO2 (83-108) mmHg ABG HCO3 (21-25) mmol/L ABG Total CO2 (19-24) mmol/L ABG O2 Saturation (94-97) % ABG Hematocrit (34.0-46.0) % ABG Sodium (135-146) mmol/L ABG Potassium (3.4-4.5) mmol/L ABG Ionized Calcium (4.5-5.3) mg/dL ABG Glucose (75-99) mg/dL ABG Lactic Acid (0.5-1.6) mmol/L Hemoglobin (13.0-17.5) gm/dL Sodium (137-145) mmol/L Glucose (74-99) mg/dL POC Glucose (mg/dL) 117 H 136 H 106 H (75-99) mg/dL Calcium (8.4-10.2) mg/dL Total Protein (6.3-8.2) g/dL Albumin (3.5-5.0) g/dL Arterial Blood Potassium (3.4-4.5) mmol/L Arterial Blood Glucose (75-99) mg/dL Crossmatch 10/27/17 10/27/17 10/27/17 Range/Units 04:00 04:00 04:00 WBC 15.2 H (3.8-10.6) k/uL RBC 3.95 L (4.30-5.90) m/uL Hgb 12.4 L (13.0-17.5) gm/dL Hct 36.2 L (39.0-53.0) % Neutrophils # 13.1 H (1.3-7.7) k/uL Lymphocytes # 0.6 L (1.0-4.8) k/uL Monocytes # (0-1.0) k/uL INR 1.2 H (<1.2) ABG pH (7.35-7.45) ABG pCO2 (35-45) mmHg ABG pO2 (83-108) mmHg ABG HCO3 (21-25) mmol/L ABG Total CO2 (19-24) mmol/L ABG O2 Saturation (94-97) % ABG Hematocrit (34.0-46.0) % ABG Sodium (135-146) mmol/L ABG Potassium (3.4-4.5) mmol/L ABG Ionized Calcium (4.5-5.3) mg/dL ABG Glucose (75-99) mg/dL ABG Lactic Acid (0.5-1.6) mmol/L Hemoglobin (13.0-17.5) gm/dL Sodium 136 L (137-145) mmol/L Glucose 130 H (74-99) mg/dL POC Glucose (mg/dL) (75-99) mg/dL Calcium (8.4-10.2) mg/dL Total Protein 5.0 L (6.3-8.2) g/dL Albumin 2.9 L (3.5-5.0) g/dL Arterial Blood Potassium (3.4-4.5) mmol/L Arterial Blood Glucose (75-99) mg/dL Crossmatch 10/27/17 10/27/17 10/27/17 Range/Units 04:01 04:55 07:33 WBC (3.8-10.6) k/uL RBC (4.30-5.90) m/uL Hgb (13.0-17.5) gm/dL Hct (39.0-53.0) % Neutrophils # (1.3-7.7) k/uL Lymphocytes # (1.0-4.8) k/uL Monocytes # (0-1.0) k/uL INR (<1.2) ABG pH (7.35-7.45) ABG pCO2 (35-45) mmHg ABG pO2 (83-108) mmHg ABG HCO3 (21-25) mmol/L ABG Total CO2 (19-24) mmol/L ABG O2 Saturation (94-97) % ABG Hematocrit (34.0-46.0) % ABG Sodium (135-146) mmol/L ABG Potassium (3.4-4.5) mmol/L ABG Ionized Calcium (4.5-5.3) mg/dL ABG Glucose (75-99) mg/dL ABG Lactic Acid (0.5-1.6) mmol/L Hemoglobin (13.0-17.5) gm/dL Sodium (137-145) mmol/L Glucose (74-99) mg/dL POC Glucose (mg/dL) 142 H 154 H 147 H (75-99) mg/dL Calcium (8.4-10.2) mg/dL Total Protein (6.3-8.2) g/dL Albumin (3.5-5.0) g/dL Arterial Blood Potassium (3.4-4.5) mmol/L Arterial Blood Glucose (75-99) mg/dL Crossmatch 10/27/17 10/27/17 10/27/17 Range/Units 09:01 10:21 11:18 WBC (3.8-10.6) k/uL RBC (4.30-5.90) m/uL Hgb (13.0-17.5) gm/dL Hct (39.0-53.0) % Neutrophils # (1.3-7.7) k/uL Lymphocytes # (1.0-4.8) k/uL Monocytes # (0-1.0) k/uL INR (<1.2) ABG pH (7.35-7.45) ABG pCO2 (35-45) mmHg ABG pO2 (83-108) mmHg ABG HCO3 (21-25) mmol/L ABG Total CO2 (19-24) mmol/L ABG O2 Saturation (94-97) % ABG Hematocrit (34.0-46.0) % ABG Sodium (135-146) mmol/L ABG Potassium (3.4-4.5) mmol/L ABG Ionized Calcium (4.5-5.3) mg/dL ABG Glucose (75-99) mg/dL ABG Lactic Acid (0.5-1.6) mmol/L Hemoglobin (13.0-17.5) gm/dL Sodium (137-145) mmol/L Glucose (74-99) mg/dL POC Glucose (mg/dL) 126 H 133 H 125 H (75-99) mg/dL Calcium (8.4-10.2) mg/dL Total Protein (6.3-8.2) g/dL Albumin (3.5-5.0) g/dL Arterial Blood Potassium (3.4-4.5) mmol/L Arterial Blood Glucose (75-99) mg/dL Crossmatch - Imaging and Cardiology Chest x-ray: report reviewed, image reviewed Assessment and Plan (1) Family history of heart disease Current Visit: Yes Status: Chronic Code(s): Z82.49 - FAMILY HX OF ISCHEM HEART DIS AND OTH DIS OF THE CIRC SYS SNOMED Code(s): 519166131 (2) Coronary artery disease Current Visit: Yes Status: Chronic Code(s): I25.10 - ATHSCL HEART DISEASE OF [place] CORONARY ARTERY W/O ANG PCTRS SNOMED Code(s): 44070867 (3) Hyperlipidemia Current Visit: Yes Status: Chronic Code(s): E78.5 - HYPERLIPIDEMIA, UNSPECIFIED SNOMED Code(s): 78558536 (4) Hypertension Current Visit: Yes Status: Chronic Code(s): I10 - ESSENTIAL (PRIMARY) HYPERTENSION SNOMED Code(s): 05074398 (5) Mitral valve regurgitation Current Visit: Yes Status: Chronic Code(s): I34.0 - NONRHEUMATIC MITRAL ( VALVE) INSUFFICIENCY SNOMED Code(s): 08265567 (6) Type 2 diabetes mellitus Current Visit: Yes Status: Chronic Code(s): E11.9 - TYPE 2 DIABETES MELLITUS WITHOUT COMPLICATIONS SNOMED Code(s): 74255175 (7) Hx of laryngeal cancer Current Visit: No Status: Resolved Code(s): Z85.21 - PERSONAL HISTORY OF MALIGNANT NEOPLASM OF [place] SNOMED Code(s): 152577223 (8) History of prostate disorder Current Visit: Yes Status: Chronic Code(s): Z87.438 - PERSONAL HISTORY OF OTHER DISEASES OF MALE GENITAL ORGANS SNOMED Code(s): 734993814 Plan: 1. Continue aspirin, statin, Plavix, subcu heparin. Will hold off on beta dexter for now secondary to heart rate, rhythm. 2. Will add hydralazine. Wean Cleviprex as tolerated. Discontinue IV nitro. 3. Wean O2 as tolerated. Encourage incentive spirometry use 10 times every hour. Bronchodilators per pulmonology. 4. Increase activity, out of bed to chair, ambulate as tolerated. PT/OT/ cardiac rehab following. 5. GI/DVT prophylaxis. 6. Pain control with ordered medications. Toradol added. 7. All oral meds to be crushed as patient has difficulty swallowing which was present preoperatively. 8. Will monitor daily labs, chest x-rays. 9. Discontinue [place]. 10. IV insulin/diabetic management per primary care service. 11. More recommendations to follow. Time with Patient: Greater than 30
--- NOTE | 2017-10-27 13:00 | P.PN ---
Subjective Progress Note Date: 10/27/17 Principal diagnosis: Vent management, status post 2 vessel bypass surgery and mitral valve replacement A 77-year-old male patient who is being seen today following cardiac surgery. The patient underwent two-vessel bypass surgery and the mitral valve replacement. The patient was having exertional dyspnea on outpatient basis. He was diagnosed having significant mitral regurgitation and the MERA preoperatively showed a prostate regurgitation along with +2 aortic regurgitation and mitral valve prolapse involving the posterior leaflet. The LV was preserved. 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 The patient was seen by cardiothoracic surgery and the patient underwent his surgery today. The patient underwent a mitral valve replacement and two-vessel bypass surgery with MICHEL to LAD and saphenous finger after RCA. Currently the patient is in the intensive care unit sedated with Diprivan running at 25 mics. The patient is hypertensive currently on Plavix drip running at 20 mg/h. Patient is also on nitroglycerin drip at 5 mcg/m. The patient is on a mechanical ventilator. I switched him to an assist-control mode at the rate of 12, tidal volume of 650, FiO2 has been cut down to 50% and the patient is a PEEP of 5. The blood gases earlier showed a pH of 7.36 with a pCO2 of 44 and pO2 of 214. The chest x-ray postop showed no acute abnormalities. Hemodynamically, the patient is producing adequate amount of urine output. The patient has a cardiac index of 2.4 and a PA diastolic of 21. The patient has a right and the left pleural chest tube. The right pleural chest tube is quite dry. The mediastinal and the left pleural chest tube has put out approximately 45 mL the patient arrived from the operating room. The patient remains intubated on a mechanical ventilator. Orogastric tube is in place. No agitation. He is quite comfortable and was sedated. His preoperative FEV1 was in the order of 2.53 L which is 74% of predicted. The patient is currently atrially paced at the rate of 70. On 10/27/2017 patient seen in follow-up in intensive care unit. He is awake, alert, he was successfully extubated last night at 20:25. Currently on 4 L per nasal cannula with O2 sat at 90%. Afebrile, hemodynamically stable, currently on maintenance IV fluid and LR at the rate of 20 ML per hour, Cleviprex drip has been discontinued this morning, insulin drip is currently infusing at 3 units per hour. No other drips. Patient's 100% AV paced on the monitor, underlying rhythm is atrial fibrillation. he is currently seen sitting up in the recliner, midsternal incision is clean dry and intact, well approximated, stable. Patient has a mediastinal/left pleural and right pleural chest tubes, and then serosanguineous output. Left pleural/mediastinal chest tube output is 110 mL in the last 24 hours, right pleural chest tube output is 35 ML per hour, and patient is making adequate amount of urine, ranging from 35-85 ML per hour. Patient's heparin was moderate amount of incisional pain, currently receiving pain medications. Lung sounds are clear, diminished at the bases. No rhonchi, no rales, or wheezing. His working on his incentive spirometry, which which 750 ML on his highest today. Bilateral extremities are negative for edema, eveline wrapped. Exam showed WBC 15, hemoglobin is 12.4, INR is 1.2, sodium 136, tassium 4.7, BUN 19, creatinine 1.10. Today's chest x-ray was reviewed, showed bibasilar atelectatic changes, and central vascular congestion and cardiomegaly. Objective - Vital Signs Vital signs: Vital Signs Temp 98.1 F 10/27/17 06:00 Pulse 69 10/27/17 11:27 Resp 10 L 10/27/17 11:58 BP 128/66 10/27/17 11:00 Pulse Ox 98 10/27/17 11:00 Intake & Output 10/26/17 10/27/17 10/27/17 18:59 06:59 18:59 Intake Total 770.431 0256.468 1164.863 Output Total 2510 1040 475 Balance -1874.293 68.468 689.863 Weight 91 kg 91 kg Intake: IV 499 1058 594 0.9 Normal Saline for 130 100 40 cardiac output 0.9 normal saline for 36 108 54 pressure bag ACETAMINOPHEN IV (For NPO 100 200 ) 1,000 mg In Empty Bag 1 bag @ 400 mls/hr IVPB Q6HR [facility] Rx#:[id number] Dextrose 5% in Water 1, 0 000 ml @ Per Protocol IV .Q0M PRN with Potassium Chloride 25 meq with Sodium Chloride 2.5MEQ/ml Vial 27 meq with Magnesium Sulfate 16 meq with Sodium Bicarb (1 Meq /ml) 40 ml with Lidocaine 1% Inj 10 ml Rx#: [id number] Lactated Ringers 1,000 ml 200 650 200 @ 20 mls/hr IV .Q24H [facility] Rx#:[id number] Magnesium Sulfate-D5w Pmx 300 1 gm In Dextrose/Water 1 100ml.bag @ 100 mls/hr IVPB Q1H [facility] Rx#: [id number] Intake, IV Titration 136.707 50.468 70.863 Amount Clevidipine Butyrate 25 103.267 17.033 50 mg In Empty Bag 1 bag @ 1 MG/HR 2 mls/hr IV .Q24H [facility] Rx#:[id number] Insulin Regular 100 unit 31.693 20.863 In Sodium Chloride 0.9% 100 ml @ Per Protocol IV .Q0M [facility] Rx#:[id number] Propofol 1,000 mg In 33.440 1.742 Empty Bag 1 bag @ Titrate IV .Q0M [facility] Rx#: [id number] Oral 500 Output: Chest Tube Drainage 115 295 145 Left Pleural/mediastinal 115 290 110 Right Pleural 0 5 35 Urine 1195 745 330 Estimated Blood Loss 1200 Other: Voiding Method Indwelling Catheter Indwelling Catheter Indwelling Catheter ABP, PAP, CO, CI - Last Documented Arterial Blood Pressure 124/53 Pulmonary Artery Pressure 22/8 Cardiac Output 5.8 Cardiac Index 2.7 - Exam GENERAL EXAM: Alert, pleasant, 77-year-old white female, comfortable in no apparent distress, sitting up in the recliner HEAD: Normocephalic/atraumatic. EYES: Normal reaction of pupils, equal size. Conjunctiva pink, sclera white. NOSE: Clear with pink turbinates. THROAT: No erythema or exudates. NECK: No masses, no JVD, no thyroid enlargement, no adenopathy. CHEST: No chest wall deformity. Symmetrical expansion. Midsternal incision is clean dry and intact, stable, mediastinal/left pleural and right pleural chest tubes are present with thin serosanguineous output in the pleura Vac. Epicardial AV wires are connected to a external pacemaker, and the patient is on percent AV paced on the monitor, rule out underlying rhythm of junctional bradycardia LUNGS: Equal air entry with no crackles, wheeze, rhonchi or dullness. CVS: Regular rate and rhythm, normal S1 and S2, no gallops, no murmurs, no rubs ABDOMEN: Soft, nontender. No hepatosplenomegaly, normal bowel sounds, no guarding or rigidity. EXTREMITIES: No clubbing, no edema, no cyanosis, 2+ pulses and upper and lower extremities. MUSCULOSKELETAL: Muscle strength and tone normal. Left lower leg incisions covered with surgical dressings, bilateral lower extremities are negative for edema, legs are eveline wrapped SPINE: No scoliosis or deformity SKIN: No rashes CENTRAL NERVOUS SYSTEM: Alert and oriented -3. No focal deficits, tone is normal in all 4 extremities. PSYCHIATRIC: Alert and oriented -3. Appropriate affect. Intact judgment and insight. - Labs CBC & Chem 7: 10/27/17 04:00 10/27/17 04:00 Labs: Abnormal Lab Results - Last 24 Hours (Table) 10/20/17 10/26/17 10/26/17 Range/Units 09:05 09:04 10:15 WBC (3.8-10.6) k/uL RBC (4.30-5.90) m/uL Hgb (13.0-17.5) gm/dL Hct (39.0-53.0) % Neutrophils # (1.3-7.7) k/uL Lymphocytes # (1.0-4.8) k/uL Monocytes # (0-1.0) k/uL INR (<1.2) ABG pH (7.35-7.45) ABG pCO2 (35-45) mmHg ABG pO2 408 H >420 H (83-108) mmHg ABG HCO3 26 H (21-25) mmol/L ABG Total CO2 27 H 27 H (19-24) mmol/L ABG O2 Saturation 100.0 H 100.0 H (94-97) % ABG Hematocrit (34.0-46.0) % ABG Sodium (135-146) mmol/L ABG Potassium (3.4-4.5) mmol/L ABG Ionized Calcium (4.5-5.3) mg/dL ABG Glucose 127 H 134 H (75-99) mg/dL ABG Lactic Acid (0.5-1.6) mmol/L Hemoglobin 12.9 L 12.5 L (13.0-17.5) gm/dL Sodium (137-145) mmol/L Glucose (74-99) mg/dL POC Glucose (mg/dL) (75-99) mg/dL Calcium (8.4-10.2) mg/dL Total Protein (6.3-8.2) g/dL Albumin (3.5-5.0) g/dL Arterial Blood Potassium (3.4-4.5) mmol/L Arterial Blood Glucose 127 H 134 H (75-99) mg/dL Crossmatch See Detail 10/26/17 10/26/17 10/26/17 Range/Units 11:01 11:30 12:09 WBC (3.8-10.6) k/uL RBC (4.30-5.90) m/uL Hgb (13.0-17.5) gm/dL Hct (39.0-53.0) % Neutrophils # (1.3-7.7) k/uL Lymphocytes # (1.0-4.8) k/uL Monocytes # (0-1.0) k/uL INR (<1.2) ABG pH 7.34 L (7.35-7.45) ABG pCO2 49 H (35-45) mmHg ABG pO2 334 H 235 H 307 H (83-108) mmHg ABG HCO3 26 H (21-25) mmol/L ABG Total CO2 26 H 27 H 28 H (19-24) mmol/L ABG O2 Saturation 100.0 H 100.0 H 100.0 H (94-97) % ABG Hematocrit 29 L 29 L 30 L (34.0-46.0) % ABG Sodium 132 L 133 L 134 L (135-146) mmol/L ABG Potassium 5.3 H 5.2 H 5.0 H (3.4-4.5) mmol/L ABG Ionized Calcium 4.1 L 4.2 L 4.3 L (4.5-5.3) mg/dL ABG Glucose 197 H 199 H 185 H (75-99) mg/dL ABG Lactic Acid (0.5-1.6) mmol/L Hemoglobin 9.5 L 9.5 L 9.9 L (13.0-17.5) gm/dL Sodium (137-145) mmol/L Glucose (74-99) mg/dL POC Glucose (mg/dL) (75-99) mg/dL Calcium (8.4-10.2) mg/dL Total Protein (6.3-8.2) g/dL Albumin (3.5-5.0) g/dL Arterial Blood Potassium 5.3 H 5.2 H 5.0 H (3.4-4.5) mmol/L Arterial Blood Glucose 197 H 199 H 185 H (75-99) mg/dL Crossmatch 10/26/17 10/26/17 10/26/17 Range/Units 12:45 13:43 15:19 WBC (3.8-10.6) k/uL RBC 3.40 L (4.30-5.90) m/uL Hgb 10.6 L D (13.0-17.5) gm/dL Hct 31.2 L (39.0-53.0) % Neutrophils # (1.3-7.7) k/uL Lymphocytes # (1.0-4.8) k/uL Monocytes # (0-1.0) k/uL INR (<1.2) ABG pH 7.28 L (7.35-7.45) ABG pCO2 55 H (35-45) mmHg ABG pO2 288 H 311 H (83-108) mmHg ABG HCO3 26 H (21-25) mmol/L ABG Total CO2 26 H 28 H (19-24) mmol/L ABG O2 Saturation 100.0 H 99.9 H (94-97) % ABG Hematocrit 28 L 30 L (34.0-46.0) % ABG Sodium 134 L (135-146) mmol/L ABG Potassium 4.6 H (3.4-4.5) mmol/L ABG Ionized Calcium 4.1 L 4.4 L (4.5-5.3) mg/dL ABG Glucose 165 H 112 H (75-99) mg/dL ABG Lactic Acid 1.9 H (0.5-1.6) mmol/L Hemoglobin 9.3 L 9.7 L (13.0-17.5) gm/dL Sodium (137-145) mmol/L Glucose (74-99) mg/dL POC Glucose (mg/dL) (75-99) mg/dL Calcium (8.4-10.2) mg/dL Total Protein (6.3-8.2) g/dL Albumin (3.5-5.0) g/dL Arterial Blood Potassium 4.6 H (3.4-4.5) mmol/L Arterial Blood Glucose 165 H 112 H (75-99) mg/dL Crossmatch 10/26/17 10/26/17 10/26/17 Range/Units 15:19 15:19 15:46 WBC (3.8-10.6) k/uL RBC (4.30-5.90) m/uL Hgb (13.0-17.5) gm/dL Hct (39.0-53.0) % Neutrophils # (1.3-7.7) k/uL Lymphocytes # (1.0-4.8) k/uL Monocytes # (0-1.0) k/uL INR 1.3 H (<1.2) ABG pH (7.35-7.45) ABG pCO2 (35-45) mmHg ABG pO2 214 H (83-108) mmHg ABG HCO3 26 H (21-25) mmol/L ABG Total CO2 27 H (19-24) mmol/L ABG O2 Saturation 100.0 H (94-97) % ABG Hematocrit (34.0-46.0) % ABG Sodium (135-146) mmol/L ABG Potassium (3.4-4.5) mmol/L ABG Ionized Calcium (4.5-5.3) mg/dL ABG Glucose (75-99) mg/dL ABG Lactic Acid (0.5-1.6) mmol/L Hemoglobin (13.0-17.5) gm/dL Sodium (137-145) mmol/L Glucose (74-99) mg/dL POC Glucose (mg/dL) (75-99) mg/dL Calcium 7.8 L (8.4-10.2) mg/dL Total Protein 4.2 L (6.3-8.2) g/dL Albumin 2.3 L (3.5-5.0) g/dL Arterial Blood Potassium (3.4-4.5) mmol/L Arterial Blood Glucose (75-99) mg/dL Crossmatch 10/26/17 10/26/17 10/26/17 Range/Units 17:11 18:00 18:02 WBC 17.3 H (3.8-10.6) k/uL RBC 3.89 L (4.30-5.90) m/uL Hgb (13.0-17.5) gm/dL Hct 35.5 L (39.0-53.0) % Neutrophils # 14.3 H (1.3-7.7) k/uL Lymphocytes # (1.0-4.8) k/uL Monocytes # 1.2 H (0-1.0) k/uL INR (<1.2) ABG pH (7.35-7.45) ABG pCO2 (35-45) mmHg ABG pO2 (83-108) mmHg ABG HCO3 (21-25) mmol/L ABG Total CO2 (19-24) mmol/L ABG O2 Saturation (94-97) % ABG Hematocrit (34.0-46.0) % ABG Sodium (135-146) mmol/L ABG Potassium (3.4-4.5) mmol/L ABG Ionized Calcium (4.5-5.3) mg/dL ABG Glucose (75-99) mg/dL ABG Lactic Acid (0.5-1.6) mmol/L Hemoglobin (13.0-17.5) gm/dL Sodium (137-145) mmol/L Glucose (74-99) mg/dL POC Glucose (mg/dL) 148 H 154 H (75-99) mg/dL Calcium (8.4-10.2) mg/dL Total Protein (6.3-8.2) g/dL Albumin (3.5-5.0) g/dL Arterial Blood Potassium (3.4-4.5) mmol/L Arterial Blood Glucose (75-99) mg/dL Crossmatch 10/26/17 10/26/17 10/26/17 Range/Units 18:53 19:50 19:52 WBC (3.8-10.6) k/uL RBC (4.30-5.90) m/uL Hgb (13.0-17.5) gm/dL Hct (39.0-53.0) % Neutrophils # (1.3-7.7) k/uL Lymphocytes # (1.0-4.8) k/uL Monocytes # (0-1.0) k/uL INR (<1.2) ABG pH 7.33 L (7.35-7.45) ABG pCO2 46 H (35-45) mmHg ABG pO2 (83-108) mmHg ABG HCO3 (21-25) mmol/L ABG Total CO2 26 H (19-24) mmol/L ABG O2 Saturation (94-97) % ABG Hematocrit (34.0-46.0) % ABG Sodium (135-146) mmol/L ABG Potassium (3.4-4.5) mmol/L ABG Ionized Calcium (4.5-5.3) mg/dL ABG Glucose (75-99) mg/dL ABG Lactic Acid (0.5-1.6) mmol/L Hemoglobin (13.0-17.5) gm/dL Sodium (137-145) mmol/L Glucose (74-99) mg/dL POC Glucose (mg/dL) 158 H 167 H (75-99) mg/dL Calcium (8.4-10.2) mg/dL Total Protein (6.3-8.2) g/dL Albumin (3.5-5.0) g/dL Arterial Blood Potassium (3.4-4.5) mmol/L Arterial Blood Glucose (75-99) mg/dL Crossmatch 10/26/17 10/26/17 10/26/17 Range/Units 20:00 20:00 21:00 WBC 19.4 H (3.8-10.6) k/uL RBC 3.88 L (4.30-5.90) m/uL Hgb 12.7 L (13.0-17.5) gm/dL Hct 35.5 L (39.0-53.0) % Neutrophils # 16.6 H (1.3-7.7) k/uL Lymphocytes # (1.0-4.8) k/uL Monocytes # 1.1 H (0-1.0) k/uL INR (<1.2) ABG pH (7.35-7.45) ABG pCO2 (35-45) mmHg ABG pO2 (83-108) mmHg ABG HCO3 (21-25) mmol/L ABG Total CO2 (19-24) mmol/L ABG O2 Saturation (94-97) % ABG Hematocrit (34.0-46.0) % ABG Sodium (135-146) mmol/L ABG Potassium (3.4-4.5) mmol/L ABG Ionized Calcium (4.5-5.3) mg/dL ABG Glucose (75-99) mg/dL ABG Lactic Acid (0.5-1.6) mmol/L Hemoglobin (13.0-17.5) gm/dL Sodium 136 L (137-145) mmol/L Glucose 157 H (74-99) mg/dL POC Glucose (mg/dL) 160 H (75-99) mg/dL Calcium 8.3 L (8.4-10.2) mg/dL Total Protein (6.3-8.2) g/dL Albumin (3.5-5.0) g/dL Arterial Blood Potassium (3.4-4.5) mmol/L Arterial Blood Glucose (75-99) mg/dL Crossmatch 10/26/17 10/26/17 10/27/17 Range/Units 21:55 23:00 00:04 WBC (3.8-10.6) k/uL RBC (4.30-5.90) m/uL Hgb (13.0-17.5) gm/dL Hct (39.0-53.0) % Neutrophils # (1.3-7.7) k/uL Lymphocytes # (1.0-4.8) k/uL Monocytes # (0-1.0) k/uL INR (<1.2) ABG pH (7.35-7.45) ABG pCO2 (35-45) mmHg ABG pO2 (83-108) mmHg ABG HCO3 (21-25) mmol/L ABG Total CO2 (19-24) mmol/L ABG O2 Saturation (94-97) % ABG Hematocrit (34.0-46.0) % ABG Sodium (135-146) mmol/L ABG Potassium (3.4-4.5) mmol/L ABG Ionized Calcium (4.5-5.3) mg/dL ABG Glucose (75-99) mg/dL ABG Lactic Acid (0.5-1.6) mmol/L Hemoglobin (13.0-17.5) gm/dL Sodium (137-145) mmol/L Glucose (74-99) mg/dL POC Glucose (mg/dL) 197 H 166 H 149 H (75-99) mg/dL Calcium (8.4-10.2) mg/dL Total Protein (6.3-8.2) g/dL Albumin (3.5-5.0) g/dL Arterial Blood Potassium (3.4-4.5) mmol/L Arterial Blood Glucose (75-99) mg/dL Crossmatch 10/27/17 10/27/17 10/27/17 Range/Units 01:02 02:01 03:01 WBC (3.8-10.6) k/uL RBC (4.30-5.90) m/uL Hgb (13.0-17.5) gm/dL Hct (39.0-53.0) % Neutrophils # (1.3-7.7) k/uL Lymphocytes # (1.0-4.8) k/uL Monocytes # (0-1.0) k/uL INR (<1.2) ABG pH (7.35-7.45) ABG pCO2 (35-45) mmHg ABG pO2 (83-108) mmHg ABG HCO3 (21-25) mmol/L ABG Total CO2 (19-24) mmol/L ABG O2 Saturation (94-97) % ABG Hematocrit (34.0-46.0) % ABG Sodium (135-146) mmol/L ABG Potassium (3.4-4.5) mmol/L ABG Ionized Calcium (4.5-5.3) mg/dL ABG Glucose (75-99) mg/dL ABG Lactic Acid (0.5-1.6) mmol/L Hemoglobin (13.0-17.5) gm/dL Sodium (137-145) mmol/L Glucose (74-99) mg/dL POC Glucose (mg/dL) 117 H 136 H 106 H (75-99) mg/dL Calcium (8.4-10.2) mg/dL Total Protein (6.3-8.2) g/dL Albumin (3.5-5.0) g/dL Arterial Blood Potassium (3.4-4.5) mmol/L Arterial Blood Glucose (75-99) mg/dL Crossmatch 10/27/17 10/27/17 10/27/17 Range/Units 04:00 04:00 04:00 WBC 15.2 H (3.8-10.6) k/uL RBC 3.95 L (4.30-5.90) m/uL Hgb 12.4 L (13.0-17.5) gm/dL Hct 36.2 L (39.0-53.0) % Neutrophils # 13.1 H (1.3-7.7) k/uL Lymphocytes # 0.6 L (1.0-4.8) k/uL Monocytes # (0-1.0) k/uL INR 1.2 H (<1.2) ABG pH (7.35-7.45) ABG pCO2 (35-45) mmHg ABG pO2 (83-108) mmHg ABG HCO3 (21-25) mmol/L ABG Total CO2 (19-24) mmol/L ABG O2 Saturation (94-97) % ABG Hematocrit (34.0-46.0) % ABG Sodium (135-146) mmol/L ABG Potassium (3.4-4.5) mmol/L ABG Ionized Calcium (4.5-5.3) mg/dL ABG Glucose (75-99) mg/dL ABG Lactic Acid (0.5-1.6) mmol/L Hemoglobin (13.0-17.5) gm/dL Sodium 136 L (137-145) mmol/L Glucose 130 H (74-99) mg/dL POC Glucose (mg/dL) (75-99) mg/dL Calcium (8.4-10.2) mg/dL Total Protein 5.0 L (6.3-8.2) g/dL Albumin 2.9 L (3.5-5.0) g/dL Arterial Blood Potassium (3.4-4.5) mmol/L Arterial Blood Glucose (75-99) mg/dL Crossmatch 10/27/17 10/27/17 10/27/17 Range/Units 04:01 04:55 07:33 WBC (3.8-10.6) k/uL RBC (4.30-5.90) m/uL Hgb (13.0-17.5) gm/dL Hct (39.0-53.0) % Neutrophils # (1.3-7.7) k/uL Lymphocytes # (1.0-4.8) k/uL Monocytes # (0-1.0) k/uL INR (<1.2) ABG pH (7.35-7.45) ABG pCO2 (35-45) mmHg ABG pO2 (83-108) mmHg ABG HCO3 (21-25) mmol/L ABG Total CO2 (19-24) mmol/L ABG O2 Saturation (94-97) % ABG Hematocrit (34.0-46.0) % ABG Sodium (135-146) mmol/L ABG Potassium (3.4-4.5) mmol/L ABG Ionized Calcium (4.5-5.3) mg/dL ABG Glucose (75-99) mg/dL ABG Lactic Acid (0.5-1.6) mmol/L Hemoglobin (13.0-17.5) gm/dL Sodium (137-145) mmol/L Glucose (74-99) mg/dL POC Glucose (mg/dL) 142 H 154 H 147 H (75-99) mg/dL Calcium (8.4-10.2) mg/dL Total Protein (6.3-8.2) g/dL Albumin (3.5-5.0) g/dL Arterial Blood Potassium (3.4-4.5) mmol/L Arterial Blood Glucose (75-99) mg/dL Crossmatch 10/27/17 10/27/17 10/27/17 Range/Units 09:01 10:21 11:18 WBC (3.8-10.6) k/uL RBC (4.30-5.90) m/uL Hgb (13.0-17.5) gm/dL Hct (39.0-53.0) % Neutrophils # (1.3-7.7) k/uL Lymphocytes # (1.0-4.8) k/uL Monocytes # (0-1.0) k/uL INR (<1.2) ABG pH (7.35-7.45) ABG pCO2 (35-45) mmHg ABG pO2 (83-108) mmHg ABG HCO3 (21-25) mmol/L ABG Total CO2 (19-24) mmol/L ABG O2 Saturation (94-97) % ABG Hematocrit (34.0-46.0) % ABG Sodium (135-146) mmol/L ABG Potassium (3.4-4.5) mmol/L ABG Ionized Calcium (4.5-5.3) mg/dL ABG Glucose (75-99) mg/dL ABG Lactic Acid (0.5-1.6) mmol/L Hemoglobin (13.0-17.5) gm/dL Sodium (137-145) mmol/L Glucose (74-99) mg/dL POC Glucose (mg/dL) 126 H 133 H 125 H (75-99) mg/dL Calcium (8.4-10.2) mg/dL Total Protein (6.3-8.2) g/dL Albumin (3.5-5.0) g/dL Arterial Blood Potassium (3.4-4.5) mmol/L Arterial Blood Glucose (75-99) mg/dL Crossmatch Assessment and Plan Plan: Assessment: 1 mitral valve replacement for severe mitral regurgitation and two-vessel bypass surgery with MICHEL to LAD and saphenous vein graft to RCA. The patient is postop day #1. Successfully extubated on 10/26/2017 at 20/25, is currently on 4 L per nasal cannula. The patient is currently off Cleviprex and nitroglycerin drip, not on any vasoactive drips. The patient is 100% AV paced, with underlying rhythm of junctional bradycardia. 2 mechanical ventilation post thoracotomy bypass surgery and valve replacement, he was successfully extubated 3 junctional underlying rhythm currently paced at the rate of 70 4 moderate to severe mitral regurgitation, post mitral valve replacement, and coronary artery bypass surgery. postop day #1 5 diabetes mellitus type 2 6 hypertension artery on a combination of Cleviprex nitroglycerin drip for blood pressure control 7 hyperlipidemia 8 mild COPD with a baseline FEV1 of 74% of predicted 9 BPH 10 laryngeal cancer postradiation therapy back in 2009 11 acid reflux Plan: Patient was successfully extubated, continue pulmonary toileting, continue encouraging incentive spirometry use. Continue close hemodynamic monitoring. Overall condition remains stable, continue pain control, chest x-ray has been reviewed. Continue monitoring chest tube output, electrolytes, renal profile. Continue to follow. I performed a history & physical examination of the patient and discussed their management with my nurse practitioner, Michelle Peterson. I reviewed the nurse practitioner's note and agree with the documented findings and plan of care. Lung sounds are positive for lung sounds diminished at the bases. The findings and the impression was discussed with the patient. I attest to the documentation by the nurse practitioner. Time with Patient: Greater than 30
[2017-10-27 13:36] LABS: Glucose,Whole Blood 139 mg/dL (75-99)
--- NOTE | 2017-10-27 13:48 | P.CONS ---
History of Present Illness - Reason for Consult Consult date: 10/27/17 Medical management - Chief Complaint s/p CABG - History of Present Illness 77-year-old male who underwent CABG x 2 with mitral valve replacement on 10/26/[address] Wall[address]. Soto was consulted for medical management. The patient was evaluated in the intensive care unit with Dr. Soto. Patient is sitting up in the chair. Family is at the bedside. Patient was extubated yesterday evening. He is on 2L NC with oxygen saturations greater than 92%. Patient is awake and alert. He states his pain is tolerable at this time. He denies shortness of breath. Denies chest pain. Mediastinal/left pleural and right pleural chest tubes are intact with serosanguineous drainage present. Indwelling urinary catheter is intact with clear yellow urine noted. Patient is tolerating clear liquid diet. Insulin drip is infusing at 3 units/ hour. Recent blood sugars are 125-154. He remains hemodynamically stable. Review of Systems GENERAL: Patient denies fever. Denies chills. EYES: Denies blurred vision. Denies vision changes. Denies eye pain. EARS, NOSE, MOUTH, & THROAT: Denies headache. Denies sore throat. Denies ear pain. RESPIRATORY: Denies cough. Denies shortness of breath. Denies sputum production. Denies hemoptysis. CARDIOVASCULAR: Denies chest pain or pressure. Denies palpitations. Denies arrhythmias. GASTROINTESTINAL: Denies abdominal pain. Denies diarrhea. Denies constipation. Denies nausea. Denies vomiting. Denies heartburn. Denies blood in the stool. GENITOURINARY: Denies urinary frequency. Denies burning. Denies dysuria. Denies cloudy urine. Denies blood in the urine. MUSCULOSKELETAL: Denies myalgias. Denies joint swelling. Denies decreased range of motion beyond patients baseline. INTEGUMENTARY: Denies pruitis. Denies rash. PSYCHIATRIC: Denies suicidal or homicial ideations. ENDOCRINE: Denies weight change. Denies polydipsia. Denies polyuria. HEMATOLOGIC: Denies bleeding disorders. 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, coronary artery disease, mitral valve regurgitation severe, COPD mild with an FEV1 of 74% of predicted at baseline, diabetes mellitus, hyperlipidemia, hypertension, BPH, small hiatal hernia, history of nephrolithiasis, history of OR medical ALLERGIES History of Any Multi-Drug Resistant Organisms: None Reported Past Surgical History: Heart Catheterization, Hernia Repair, Orthopedic Surgery Additional Past Surgical History / Comment(s): right rotator cuff, lithotripsy kim, right side inguinal hernia repair, kim lens implants Past Anesthesia/Blood Transfusion Reactions: No Reported Reaction Smoking Status: Former smoker - Past Family History Mother Family Medical History: Dementia, Myocardial Infarction (OR) Additional Family Medical History / Comment(s): passed at 71 Medications and Allergies Home Medications Medication Instructions Recorded Confirmed Type Albuterol Inhaler [Ventolin Hfa 1 - 2 puff INHALATION RT-Q6H PRN 09/02/16 History Inhaler] Aspirin 81 mg PO DAILY 09/02/16 10/26/17 History Atorvastatin [Lipitor] 40 mg PO HS 09/02/16 10/26/17 History Ergocalciferol [Vitamin D2 50,000 unit PO Q14D 09/02/16 10/26/17 History (DRISDOL)] Lisinopril [Zestril] 5 mg PO DAILY 09/02/16 10/26/17 History amLODIPine BESYLATE [Norvasc] 5 mg PO DAILY 09/02/16 10/26/17 History Finasteride [Proscar] 5 mg PO DAILY 07/15/17 10/26/17 History Pantoprazole [Protonix] 40 mg PO DAILY #30 tab 07/15/17 10/26/17 Rx metFORMIN HCL [Glucophage] 500 mg PO BID 07/15/17 10/26/17 History Metoprolol Succinate (ER) [Toprol 50 mg PO DAILY 09/21/17 10/26/17 History Xl] Aspirin 364 mg PO ONCE 10/26/17 10/26/17 History Allergies Allergy/AdvReac Type Severity Reaction Status Date / Time No Known Allergies Allergy Verified 10/26/17 14:46 Physical Exam Vitals: Vital Signs Temp Pulse Resp BP Pulse Ox 10/27/17 12:00 69 14 124/63 97 10/27/17 11:58 10 L 10/27/17 11:27 69 10/27/17 11:12 69 04/17/18 11:00 69 10 L 128/66 98 17/18 10:00 69 25 H 132/69 97 10/27/18 09:00 69 13 111/64 98 10/27/18 08:00 69 13 110/62 98 17/18 07:00 69 16 117/68 95 10/27/18 06:00 98.1 F 69 9 L 111/63 95 10/27/18 05:00 69 12 116/64 97 18 04:00 98.3 F 69 19 113/71 96 10/27/18 03:00 69 10 L 112/69 97 10/27/18 02:00 69 18 113/70 95 18 01:00 69 17 110/71 94 L 10/27/18 00:00 97.9 F 69 11 L 117/66 94 L 16/18 23:00 69 12 109/61 95 10/26/18 22:02 69 10 L 127/66 94 L 18 22:00 71 14 127/66 93 L 18 21:00 98.2 F 69 16 123/67 94 L 16/18 20:45 69 9 L 123/67 93 L 16/18 20:30 69 14 123/67 92 L 16/18 20:15 69 11 L 123/67 96 16/18 20:00 98.2 F 69 9 L 121/68 96 10/26/18 19:45 69 9 L 116/66 96 16/18 19:30 69 17 103/66 97 16/18 19:15 69 14 101/59 96 16/18 19:00 69 15 91/59 96 16/18 18:45 69 14 102/59 96 16/18 18:30 69 17 97/60 95 16/18 18:15 69 14 94/59 94 L 16/18 18:10 69 13 94/59 94 L 16/18 18:00 69 21 97/62 94 L 16/18 17:50 69 15 104/66 94 L 16/18 17:40 69 15 104/66 94 L 16/18 17:30 69 12 105/63 93 L 16/18 17:20 69 15 107/64 94 L 04/16/18 17:10 69 14 107/64 95 10/26/17 17:00 69 12 109/67 93 L 10/26/17 16:50 71 12 112/65 94 L 10/26/17 16:40 69 12 112/65 94 L 10/26/17 16:31 100 10/26/17 16:30 69 14 121/76 95 10/26/17 16:21 69 10/26/17 16:20 69 14 105/70 97 10/26/17 16:10 69 12 105/70 97 10/26/17 16:00 69 12 121/74 98 10/26/17 15:59 69 10/26/17 15:50 69 12 108/72 100 10/26/17 15:40 69 14 108/72 100 10/26/17 15:30 69 15 112/75 100 10/26/17 15:20 69 12 100 10/26/17 15:10 69 12 134/85 100 10/26/17 15:00 69 12 100 Intake and Output 10/26/17 10/27/17 10/27/17 22:59 06:59 14:59 Intake Total 929.040 614.013 5717.863 Output Total 1020 730 571 Balance -90.960 52.135 622.863 Intake: IV 762 762 623 0.9 Normal Saline for 190 40 40 cardiac output 0.9 normal saline for 72 72 63 pressure bag ACETAMINOPHEN IV (For NPO 100 200 ) 1,000 mg In Empty Bag 1 bag @ 400 mls/hr IVPB Q6HR [facility] Rx#:[id number] Dextrose 5% in Water 1, 0 000 ml @ Per Protocol IV .Q0M PRN with Potassium Chloride 25 meq with Sodium Chloride 2.5MEQ/ml Vial 27 meq with Magnesium Sulfate 16 meq with Sodium Bicarb (1 Meq /ml) 40 ml with Lidocaine 1% Inj 10 ml Rx#: [id number] Lactated Ringers 1,000 ml 400 450 220 @ 20 mls/hr IV .Q24H [facility] Rx#:[id number] Magnesium Sulfate-D5w Pmx 300 1 gm In Dextrose/Water 1 100ml.bag @ 100 mls/hr IVPB Q1H [facility] Rx#: [id number] Intake, IV Titration 167.040 20.135 70.863 Amount Clevidipine Butyrate 25 120.300 50 mg In Empty Bag 1 bag @ 1 MG/HR 2 mls/hr IV .Q24H [facility] Rx#:[id number] Insulin Regular 100 unit 11.558 20.135 20.863 In Sodium Chloride 0.9% 100 ml @ Per Protocol IV .Q0M [facility] Rx#:[id number] Propofol 1,000 mg In 35.182 Empty Bag 1 bag @ Titrate IV .Q0M [facility] Rx#: [id number] Oral 500 Output: Chest Tube Drainage 215 195 155 Left Pleural/mediastinal 215 190 120 Right Pleural 0 5 35 Urine 805 535 416 Other: Voiding Method Indwelling Catheter Indwelling Catheter Indwelling Catheter Weight 91 kg 91 kg ABP, PAP, CO, CI - Last 8 Hours Arterial Blood Pressure 130/47 Arterial Blood Pressure 124/53 Arterial Blood Pressure 146/56 Arterial Blood Pressure 144/55 Arterial Blood Pressure 122/52 Arterial Blood Pressure 123/52 Arterial Blood Pressure 124/55 Pulmonary Artery Pressure 22/8 Pulmonary Artery Pressure 25/8 Pulmonary Artery Pressure 25/10 Pulmonary Artery Pressure 22/9 Pulmonary Artery Pressure 23/9 Pulmonary Artery Pressure 31/13 Cardiac Output 5.8 Cardiac Output 5.8 Cardiac Output 6.1 Cardiac Index 2.7 GENERAL: This is a 77-year-old male in no apparent distress at the time of examination. Sitting up in the chair in the ICU. Pleasant and cooperative. HEENT: Head is atraumatic, normocephalic. Pupils are equal, round, and reactive to light. Sclerae anicteric. Conjunctivae are clear. Mucus membranes of the mouth are moist. Neck is supple. RESPIRATORY: Clear to ausculation, diminished at the bases. No use of accessory muscles. Patient maintaining oxygen saturation greater than 92%. No chest wall tenderness is noted on palpation or with deep breathing. CARDIOVASCULAR: AV pacemaker wires present and connected to external pacemaker. Mediastinal and pleural chest tubes are noted with serosanguineous drainage. S1 and S2 noted. No systolic or diastolic murmur auscultated. No JVD noted. No S3 or S4 noted. GASTROINTESTINAL: No distention noted. Abdomen soft and round. Normal active bowel sounds auscultated x 4 quadrants. No pain or tenderness noted upon palpation. INTEGUMENTARY: Midline chest incision is clean, dry, and intact. No cyanosis. No jaundice. No rashes noted. No cellulitis noted. EXTREMITIES: 2+ peripheral pulses. No evidence of peripheral edema. No calf tenderness noted. NEUROLOGIC: Cranial nerves II-XII intact. PSYCHIATRIC: Awake, alert, and oriented X 3. Appropriate affect. Intact judgement and insight. Results CBC & Chem 7: 10/27/17 04:00 10/27/17 04:00 Labs: Abnormal Lab Results - Last 24 Hours (Table) 10/20/17 10/26/17 10/26/17 Range/Units 09:05 09:04 10:15 WBC (3.8-10.6) k/uL RBC (4.30-5.90) m/uL Hgb (13.0-17.5) gm/dL Hct (39.0-53.0) % Neutrophils # (1.3-7.7) k/uL Lymphocytes # (1.0-4.8) k/uL Monocytes # (0-1.0) k/uL INR (<1.2) ABG pH (7.35-7.45) ABG pCO2 (35-45) mmHg ABG pO2 408 H >420 H (83-108) mmHg ABG HCO3 26 H (21-25) mmol/L ABG Total CO2 27 H 27 H (19-24) mmol/L ABG O2 Saturation 100.0 H 100.0 H (94-97) % ABG Hematocrit (34.0-46.0) % ABG Sodium (135-146) mmol/L ABG Potassium (3.4-4.5) mmol/L ABG Ionized Calcium (4.5-5.3) mg/dL ABG Glucose 127 H 134 H (75-99) mg/dL ABG Lactic Acid (0.5-1.6) mmol/L Hemoglobin 12.9 L 12.5 L (13.0-17.5) gm/dL Sodium (137-145) mmol/L Glucose (74-99) mg/dL POC Glucose (mg/dL) (75-99) mg/dL Calcium (8.4-10.2) mg/dL Total Protein (6.3-8.2) g/dL Albumin (3.5-5.0) g/dL Arterial Blood Potassium (3.4-4.5) mmol/L Arterial Blood Glucose 127 H 134 H (75-99) mg/dL Crossmatch See Detail 10/26/17 10/26/17 10/26/17 Range/Units 11:01 11:30 12:09 WBC (3.8-10.6) k/uL RBC (4.30-5.90) m/uL Hgb (13.0-17.5) gm/dL Hct (39.0-53.0) % Neutrophils # (1.3-7.7) k/uL Lymphocytes # (1.0-4.8) k/uL Monocytes # (0-1.0) k/uL INR (<1.2) ABG pH 7.34 L (7.35-7.45) ABG pCO2 49 H (35-45) mmHg ABG pO2 334 H 235 H 307 H (83-108) mmHg ABG HCO3 26 H (21-25) mmol/L ABG Total CO2 26 H 27 H 28 H (19-24) mmol/L ABG O2 Saturation 100.0 H 100.0 H 100.0 H (94-97) % ABG Hematocrit 29 L 29 L 30 L (34.0-46.0) % ABG Sodium 132 L 133 L 134 L (135-146) mmol/L ABG Potassium 5.3 H 5.2 H 5.0 H (3.4-4.5) mmol/L ABG Ionized Calcium 4.1 L 4.2 L 4.3 L (4.5-5.3) mg/dL ABG Glucose 197 H 199 H 185 H (75-99) mg/dL ABG Lactic Acid (0.5-1.6) mmol/L Hemoglobin 9.5 L 9.5 L 9.9 L (13.0-17.5) gm/dL Sodium (137-145) mmol/L Glucose (74-99) mg/dL POC Glucose (mg/dL) (75-99) mg/dL Calcium (8.4-10.2) mg/dL Total Protein (6.3-8.2) g/dL Albumin (3.5-5.0) g/dL Arterial Blood Potassium 5.3 H 5.2 H 5.0 H (3.4-4.5) mmol/L Arterial Blood Glucose 197 H 199 H 185 H (75-99) mg/dL Crossmatch 10/26/17 10/26/17 10/26/17 Range/Units 12:45 13:43 15:19 WBC (3.8-10.6) k/uL RBC 3.40 L (4.30-5.90) m/uL Hgb 10.6 L D (13.0-17.5) gm/dL Hct 31.2 L (39.0-53.0) % Neutrophils # (1.3-7.7) k/uL Lymphocytes # (1.0-4.8) k/uL Monocytes # (0-1.0) k/uL INR (<1.2) ABG pH 7.28 L (7.35-7.45) ABG pCO2 55 H (35-45) mmHg ABG pO2 288 H 311 H (83-108) mmHg ABG HCO3 26 H (21-25) mmol/L ABG Total CO2 26 H 28 H (19-24) mmol/L ABG O2 Saturation 100.0 H 99.9 H (94-97) % ABG Hematocrit 28 L 30 L (34.0-46.0) % ABG Sodium 134 L (135-146) mmol/L ABG Potassium 4.6 H (3.4-4.5) mmol/L ABG Ionized Calcium 4.1 L 4.4 L (4.5-5.3) mg/dL ABG Glucose 165 H 112 H (75-99) mg/dL ABG Lactic Acid 1.9 H (0.5-1.6) mmol/L Hemoglobin 9.3 L 9.7 L (13.0-17.5) gm/dL Sodium (137-145) mmol/L Glucose (74-99) mg/dL POC Glucose (mg/dL) (75-99) mg/dL Calcium (8.4-10.2) mg/dL Total Protein (6.3-8.2) g/dL Albumin (3.5-5.0) g/dL Arterial Blood Potassium 4.6 H (3.4-4.5) mmol/L Arterial Blood Glucose 165 H 112 H (75-99) mg/dL Crossmatch 10/26/17 10/26/17 10/26/17 Range/Units 15:19 15:19 15:46 WBC (3.8-10.6) k/uL RBC (4.30-5.90) m/uL Hgb (13.0-17.5) gm/dL Hct (39.0-53.0) % Neutrophils # (1.3-7.7) k/uL Lymphocytes # (1.0-4.8) k/uL Monocytes # (0-1.0) k/uL INR 1.3 H (<1.2) ABG pH (7.35-7.45) ABG pCO2 (35-45) mmHg ABG pO2 214 H (83-108) mmHg ABG HCO3 26 H (21-25) mmol/L ABG Total CO2 27 H (19-24) mmol/L ABG O2 Saturation 100.0 H (94-97) % ABG Hematocrit (34.0-46.0) % ABG Sodium (135-146) mmol/L ABG Potassium (3.4-4.5) mmol/L ABG Ionized Calcium (4.5-5.3) mg/dL ABG Glucose (75-99) mg/dL ABG Lactic Acid (0.5-1.6) mmol/L Hemoglobin (13.0-17.5) gm/dL Sodium (137-145) mmol/L Glucose (74-99) mg/dL POC Glucose (mg/dL) (75-99) mg/dL Calcium 7.8 L (8.4-10.2) mg/dL Total Protein 4.2 L (6.3-8.2) g/dL Albumin 2.3 L (3.5-5.0) g/dL Arterial Blood Potassium (3.4-4.5) mmol/L Arterial Blood Glucose (75-99) mg/dL Crossmatch 10/26/17 10/26/17 10/26/17 Range/Units 17:11 18:00 18:02 WBC 17.3 H (3.8-10.6) k/uL RBC 3.89 L (4.30-5.90) m/uL Hgb (13.0-17.5) gm/dL Hct 35.5 L (39.0-53.0) % Neutrophils # 14.3 H (1.3-7.7) k/uL Lymphocytes # (1.0-4.8) k/uL Monocytes # 1.2 H (0-1.0) k/uL INR (<1.2) ABG pH (7.35-7.45) ABG pCO2 (35-45) mmHg ABG pO2 (83-108) mmHg ABG HCO3 (21-25) mmol/L ABG Total CO2 (19-24) mmol/L ABG O2 Saturation (94-97) % ABG Hematocrit (34.0-46.0) % ABG Sodium (135-146) mmol/L ABG Potassium (3.4-4.5) mmol/L ABG Ionized Calcium (4.5-5.3) mg/dL ABG Glucose (75-99) mg/dL ABG Lactic Acid (0.5-1.6) mmol/L Hemoglobin (13.0-17.5) gm/dL Sodium (137-145) mmol/L Glucose (74-99) mg/dL POC Glucose (mg/dL) 148 H 154 H (75-99) mg/dL Calcium (8.4-10.2) mg/dL Total Protein (6.3-8.2) g/dL Albumin (3.5-5.0) g/dL Arterial Blood Potassium (3.4-4.5) mmol/L Arterial Blood Glucose (75-99) mg/dL Crossmatch 10/26/17 10/26/17 10/26/17 Range/Units 18:53 19:50 19:52 WBC (3.8-10.6) k/uL RBC (4.30-5.90) m/uL Hgb (13.0-17.5) gm/dL Hct (39.0-53.0) % Neutrophils # (1.3-7.7) k/uL Lymphocytes # (1.0-4.8) k/uL Monocytes # (0-1.0) k/uL INR (<1.2) ABG pH 7.33 L (7.35-7.45) ABG pCO2 46 H (35-45) mmHg ABG pO2 (83-108) mmHg ABG HCO3 (21-25) mmol/L ABG Total CO2 26 H (19-24) mmol/L ABG O2 Saturation (94-97) % ABG Hematocrit (34.0-46.0) % ABG Sodium (135-146) mmol/L ABG Potassium (3.4-4.5) mmol/L ABG Ionized Calcium (4.5-5.3) mg/dL ABG Glucose (75-99) mg/dL ABG Lactic Acid (0.5-1.6) mmol/L Hemoglobin (13.0-17.5) gm/dL Sodium (137-145) mmol/L Glucose (74-99) mg/dL POC Glucose (mg/dL) 158 H 167 H (75-99) mg/dL Calcium (8.4-10.2) mg/dL Total Protein (6.3-8.2) g/dL Albumin (3.5-5.0) g/dL Arterial Blood Potassium (3.4-4.5) mmol/L Arterial Blood Glucose (75-99) mg/dL Crossmatch 10/26/17 10/26/17 10/26/17 Range/Units 20:00 20:00 21:00 WBC 19.4 H (3.8-10.6) k/uL RBC 3.88 L (4.30-5.90) m/uL Hgb 12.7 L (13.0-17.5) gm/dL Hct 35.5 L (39.0-53.0) % Neutrophils # 16.6 H (1.3-7.7) k/uL Lymphocytes # (1.0-4.8) k/uL Monocytes # 1.1 H (0-1.0) k/uL INR (<1.2) ABG pH (7.35-7.45) ABG pCO2 (35-45) mmHg ABG pO2 (83-108) mmHg ABG HCO3 (21-25) mmol/L ABG Total CO2 (19-24) mmol/L ABG O2 Saturation (94-97) % ABG Hematocrit (34.0-46.0) % ABG Sodium (135-146) mmol/L ABG Potassium (3.4-4.5) mmol/L ABG Ionized Calcium (4.5-5.3) mg/dL ABG Glucose (75-99) mg/dL ABG Lactic Acid (0.5-1.6) mmol/L Hemoglobin (13.0-17.5) gm/dL Sodium 136 L (137-145) mmol/L Glucose 157 H (74-99) mg/dL POC Glucose (mg/dL) 160 H (75-99) mg/dL Calcium 8.3 L (8.4-10.2) mg/dL Total Protein (6.3-8.2) g/dL Albumin (3.5-5.0) g/dL Arterial Blood Potassium (3.4-4.5) mmol/L Arterial Blood Glucose (75-99) mg/dL Crossmatch 10/26/17 10/26/17 10/27/17 Range/Units 21:55 23:00 00:04 WBC (3.8-10.6) k/uL RBC (4.30-5.90) m/uL Hgb (13.0-17.5) gm/dL Hct (39.0-53.0) % Neutrophils # (1.3-7.7) k/uL Lymphocytes # (1.0-4.8) k/uL Monocytes # (0-1.0) k/uL INR (<1.2) ABG pH (7.35-7.45) ABG pCO2 (35-45) mmHg ABG pO2 (83-108) mmHg ABG HCO3 (21-25) mmol/L ABG Total CO2 (19-24) mmol/L ABG O2 Saturation (94-97) % ABG Hematocrit (34.0-46.0) % ABG Sodium (135-146) mmol/L ABG Potassium (3.4-4.5) mmol/L ABG Ionized Calcium (4.5-5.3) mg/dL ABG Glucose (75-99) mg/dL ABG Lactic Acid (0.5-1.6) mmol/L Hemoglobin (13.0-17.5) gm/dL Sodium (137-145) mmol/L Glucose (74-99) mg/dL POC Glucose (mg/dL) 197 H 166 H 149 H (75-99) mg/dL Calcium (8.4-10.2) mg/dL Total Protein (6.3-8.2) g/dL Albumin (3.5-5.0) g/dL Arterial Blood Potassium (3.4-4.5) mmol/L Arterial Blood Glucose (75-99) mg/dL Crossmatch 10/27/17 10/27/17 10/27/17 Range/Units 01:02 02:01 03:01 WBC (3.8-10.6) k/uL RBC (4.30-5.90) m/uL Hgb (13.0-17.5) gm/dL Hct (39.0-53.0) % Neutrophils # (1.3-7.7) k/uL Lymphocytes # (1.0-4.8) k/uL Monocytes # (0-1.0) k/uL INR (<1.2) ABG pH (7.35-7.45) ABG pCO2 (35-45) mmHg ABG pO2 (83-108) mmHg ABG HCO3 (21-25) mmol/L ABG Total CO2 (19-24) mmol/L ABG O2 Saturation (94-97) % ABG Hematocrit (34.0-46.0) % ABG Sodium (135-146) mmol/L ABG Potassium (3.4-4.5) mmol/L ABG Ionized Calcium (4.5-5.3) mg/dL ABG Glucose (75-99) mg/dL ABG Lactic Acid (0.5-1.6) mmol/L Hemoglobin (13.0-17.5) gm/dL Sodium (137-145) mmol/L Glucose (74-99) mg/dL POC Glucose (mg/dL) 117 H 136 H 106 H (75-99) mg/dL Calcium (8.4-10.2) mg/dL Total Protein (6.3-8.2) g/dL Albumin (3.5-5.0) g/dL Arterial Blood Potassium (3.4-4.5) mmol/L Arterial Blood Glucose (75-99) mg/dL Crossmatch 10/27/17 10/27/17 10/27/17 Range/Units 04:00 04:00 04:00 WBC 15.2 H (3.8-10.6) k/uL RBC 3.95 L (4.30-5.90) m/uL Hgb 12.4 L (13.0-17.5) gm/dL Hct 36.2 L (39.0-53.0) % Neutrophils # 13.1 H (1.3-7.7) k/uL Lymphocytes # 0.6 L (1.0-4.8) k/uL Monocytes # (0-1.0) k/uL INR 1.2 H (<1.2) ABG pH (7.35-7.45) ABG pCO2 (35-45) mmHg ABG pO2 (83-108) mmHg ABG HCO3 (21-25) mmol/L ABG Total CO2 (19-24) mmol/L ABG O2 Saturation (94-97) % ABG Hematocrit (34.0-46.0) % ABG Sodium (135-146) mmol/L ABG Potassium (3.4-4.5) mmol/L ABG Ionized Calcium (4.5-5.3) mg/dL ABG Glucose (75-99) mg/dL ABG Lactic Acid (0.5-1.6) mmol/L Hemoglobin (13.0-17.5) gm/dL Sodium 136 L (137-145) mmol/L Glucose 130 H (74-99) mg/dL POC Glucose (mg/dL) (75-99) mg/dL Calcium (8.4-10.2) mg/dL Total Protein 5.0 L (6.3-8.2) g/dL Albumin 2.9 L (3.5-5.0) g/dL Arterial Blood Potassium (3.4-4.5) mmol/L Arterial Blood Glucose (75-99) mg/dL Crossmatch 10/27/17 10/27/17 10/27/17 Range/Units 04:01 04:55 07:33 WBC (3.8-10.6) k/uL RBC (4.30-5.90) m/uL Hgb (13.0-17.5) gm/dL Hct (39.0-53.0) % Neutrophils # (1.3-7.7) k/uL Lymphocytes # (1.0-4.8) k/uL Monocytes # (0-1.0) k/uL INR (<1.2) ABG pH (7.35-7.45) ABG pCO2 (35-45) mmHg ABG pO2 (83-108) mmHg ABG HCO3 (21-25) mmol/L ABG Total CO2 (19-24) mmol/L ABG O2 Saturation (94-97) % ABG Hematocrit (34.0-46.0) % ABG Sodium (135-146) mmol/L ABG Potassium (3.4-4.5) mmol/L ABG Ionized Calcium (4.5-5.3) mg/dL ABG Glucose (75-99) mg/dL ABG Lactic Acid (0.5-1.6) mmol/L Hemoglobin (13.0-17.5) gm/dL Sodium (137-145) mmol/L Glucose (74-99) mg/dL POC Glucose (mg/dL) 142 H 154 H 147 H (75-99) mg/dL Calcium (8.4-10.2) mg/dL Total Protein (6.3-8.2) g/dL Albumin (3.5-5.0) g/dL Arterial Blood Potassium (3.4-4.5) mmol/L Arterial Blood Glucose (75-99) mg/dL Crossmatch 10/27/17 10/27/17 10/27/17 Range/Units 09:01 10:21 11:18 WBC (3.8-10.6) k/uL RBC (4.30-5.90) m/uL Hgb (13.0-17.5) gm/dL Hct (39.0-53.0) % Neutrophils # (1.3-7.7) k/uL Lymphocytes # (1.0-4.8) k/uL Monocytes # (0-1.0) k/uL INR (<1.2) ABG pH (7.35-7.45) ABG pCO2 (35-45) mmHg ABG pO2 (83-108) mmHg ABG HCO3 (21-25) mmol/L ABG Total CO2 (19-24) mmol/L ABG O2 Saturation (94-97) % ABG Hematocrit (34.0-46.0) % ABG Sodium (135-146) mmol/L ABG Potassium (3.4-4.5) mmol/L ABG Ionized Calcium (4.5-5.3) mg/dL ABG Glucose (75-99) mg/dL ABG Lactic Acid (0.5-1.6) mmol/L Hemoglobin (13.0-17.5) gm/dL Sodium (137-145) mmol/L Glucose (74-99) mg/dL POC Glucose (mg/dL) 126 H 133 H 125 H (75-99) mg/dL Calcium (8.4-10.2) mg/dL Total Protein (6.3-8.2) g/dL Albumin (3.5-5.0) g/dL Arterial Blood Potassium (3.4-4.5) mmol/L Arterial Blood Glucose (75-99) mg/dL Crossmatch Assessment and Plan Plan: ASSESSMENT: Moderate to severe mitral regurgitation, s/p mitral valve replacement and CABG x 2 with MICHEL to LAD and saphenous vein graft to RCA, POD #1 Diabetes Mellitus, type II, hemoglobin A1C pending Essential hypertension Hyperlipidemia Gastroesophageal reflux disease History of laryngeal cancer with radiation therapy in 2010 History of BPH PLAN: Continue postoperative management per Dr. Wall Discontinue insulin drip Begin novolog sliding scale and levemir at HS Pain control IS 10x an hour while awake Advance diet as tolerated Home meds as appropriate Monitor labs Monitor vital signs and address as appropriate Further recommendations pending patient's course Nurse practitioner note has been reviewed by physician. Signing provider agrees with the documented findings, assessment, and plan of care.
[2017-10-27] MEDS ORDERED: INSULIN REGULAR 100 UNIT in SODIUM CHLORIDE 0.9% 100 ML IV SCH (14:00)
[2017-10-27] MEDS ORDERED: HYDROcodone/APAP 5-325MG 1 EACH TAB PO PRN (14:18)
[2017-10-27] MEDS ORDERED: BISACODYL 10 MG SUPP RECTAL PRN (14:20)
[2017-10-27] MEDS ORDERED: MAGNESIUM HYDROXIDE 2,400 MG/10 ML CUP PO PRN (14:20)
[2017-10-27] MEDS ORDERED: IPRATROPIUM-ALBUTEROL 3 ML NEB INHALATION PRN (14:20)
[2017-10-27 15:50] LABS: Glucose,Whole Blood 116 mg/dL (75-99)
[2017-10-27] MEDS: HYDROcodone/APAP 5-325MG 1 EACH TAB PO PRN ×2 (16:16→21:51)
[2017-10-27 17:13] LABS: Glucose,Whole Blood 112 mg/dL (75-99)
[2017-10-27] MEDS: INSULIN ASPART 100 UNIT/ML 1 ML 10 ML VIAL SQ SCH ×2 (17:55→21:46)
[2017-10-27 19:59] LABS: Glucose,Whole Blood 176 mg/dL (75-99)
[2017-10-27] MEDS: LACTATED RINGERS 1,000 ML IV SCH (20:27)
[2017-10-27] MEDS: SENNOSIDES-DOCUSATE SODIUM 1 EACH TAB PO SCH (21:46)
[2017-10-27] MEDS: INSULIN DETEMIR 100 UNIT/ML 10 ML VIAL SQ SCH (21:46)
[2017-10-28] MEDS ORDERED: HYDROcodone/APAP 5-325MG 1 EACH TAB ONE
[2017-10-28] MEDS ORDERED: KETOROLAC 30 MG/ML 1 ML VIAL ONE
[2017-10-28] MEDS ORDERED: HEPARIN SODIUM,PORCINE 5,000 UNIT/ML 1 ML VIAL ONE
[2017-10-28] MEDS: KETOROLAC 30 MG/ML 1 ML VIAL IVP SCH ×4 (07:01→17:39)
[2017-10-28 07:32] LABS: Glucose,Whole Blood 142 mg/dL (75-99)
[2017-10-28 07:33] LABS: Ionized Calcium 4.8 mg/dL (4.5-5.3)
[2017-10-28 07:34] LABS: Basophils % (A) 0 %; Eosinophils # (A) 0.1 k/uL (0-0.7); Eosinophils % (A) 1 %; HCT 32.9 % (39.0-53.0); HGB 11.4 gm/dL (13.0-17.5); Lymphocytes # (A) 1.1 k/uL (1.0-4.8); Lymphocytes % (A) 9 %; MCHC 34.5 g/dL (31.0-37.0); MCV 92.5 fL (80.0-100.0); Mean Platelet Volume 9.2; Monocytes # (A) 0.7 k/uL (0-1.0); Monocytes % (A) 6 %; Neutrophils # (A) 10.2 k/uL (1.3-7.7); Neutrophils % (A) 82 %; Platelet Count 172 k/uL (150-450); RBC 3.56 m/uL (4.30-5.90); RDW 13.4 % (11.5-15.5); WBC 12.4 k/uL (3.8-10.6)
[2017-10-28 08:03] LABS: Calcium 8.4 mg/dL (8.4-10.2); Magnesium 2.2 mg/dL (1.6-2.3); Potassium 4.4 mmol/L (3.5-5.1); Total Bilirubin 1.1 mg/dL (0.2-1.3); Total Protein 5.2 g/dL (6.3-8.2)
--- NOTE | 2017-10-28 08:26 | XR ---
EXAMINATION TYPE: XR chest 1V portable DATE OF EXAM: 10/28/2017 COMPARISON: 10/27/2017 INDICATION: Post cardiac surgery TECHNIQUE: Single frontal view of the chest is obtained. FINDINGS: The heart size is normal. The pulmonary vasculature is normal. There is mild infiltrate at the left base. Bilateral chest tubes are present. Minimal left apical pneumothorax is present a sheath is present on the right. The Stockwell-Yuly catheter is been removed. IMPRESSION: 1. Minimal developing left apical pneumothorax less than 10%. 2. Bilateral chest tubes. 3. Mild infiltrate at the left base.
[2017-10-28] MEDS: IPRATROPIUM-ALBUTEROL 3 ML NEB INHALATION SCH ×4 (08:28→20:45)
[2017-10-28] MEDS: HEPARIN SODIUM,PORCINE 5,000 UNIT/ML 1 ML VIAL SQ SCH ×3 (08:30→15:41)
[2017-10-28] MEDS: hydrALAZINE HCL 25 MG TAB PO SCH ×2 (08:54→17:22)
[2017-10-28] MEDS: MUPIROCIN 2% OINT 22 GM TUBE NASAL SCH ×2 (09:00→20:08)
--- NOTE | 2017-10-28 09:11 | PN ---
PROGRESS NOTE Mr. Anguiano is a 77-year-old male, status post mitral valve repair and coronary artery bypass grafting. He is doing well this morning, sitting up in the chair. He is in sinus mechanism. He denies any chest pain. No dizziness. He denies any palpitation. Hemodynamically, he has been stable. He continues to be at this time on aspirin once a day, Lipitor 40 mg daily, Plavix 75 mg daily, hydralazine 25 mg q.8 hours, metoprolol tartrate 12.5 mg twice a day. PHYSICAL EXAMINATION: Blood pressure 126/39 with a heart rate in the 70s. LUNGS: With mild decrease in breath sounds. No wheezes. HEART: Regular rate and rhythm S1, S2. No S3. No rub. ABDOMEN: Soft and nontender. EXTREMITIES: No significant edema. LAB DATA: The labs data revealed BUN and creatinine 29 and 1.38, potassium 4.4, hemoglobin of 11.4. Chest x-ray revealed a small left apical pneumothorax. IMPRESSION: 1. Status post coronary artery bypass grafting and mitral valve repair. 2. Hypertension. 3. Hyperlipidemia. 4. Renal function abnormalities. RECOMMENDATION: We will continue present therapy. Follow the renal function closely. His rhythm strip shows ST-segment elevation consistent with pericarditis. We will review the repeat EKG and depending on his progress, further recommendation will be made. MMODL / IJN: [id number] /
[2017-10-28] MEDS ORDERED: FUROSEMIDE 10 MG/ML 4 ML VIAL IV STA (09:52)
[2017-10-28] MEDS: INSULIN ASPART 100 UNIT/ML 1 ML 10 ML VIAL SQ SCH ×4 (11:06→20:27)
[2017-10-28] MEDS: CLOPIDOGREL 75 MG TAB PO SCH (11:10)
[2017-10-28] MEDS: ASPIRIN 325 MG TAB PO SCH (11:10)
[2017-10-28] MEDS: ATORVASTATIN 40 MG TAB PO SCH (11:10)
[2017-10-28] MEDS: FINASTERIDE 5 MG TAB PO SCH (11:11)
[2017-10-28] MEDS: METOPROLOL TARTRATE 12.5 MG TAB PO SCH ×2 (11:14→20:09)
--- NOTE | 2017-10-28 11:35 | P.PN ---
Subjective Progress Note Date: 10/28/17 Principal diagnosis: Severe mitral valve regurgitation. Coronary artery disease. Previous medical history of laryngeal cancer with radiation, kidney stones, diabetes mellitus with preoperative hemoglobin A1c 6.2%, hypertension, hyperlipidemia, family history of heart disease. Preoperative urinary tract infection with enterococcus faecalis, treated with oral antibiotics. POD #2 complex mitral valve repair with liana-cords 2 pair to P2 the posterior leaflet, closure of P1, P2 cleft, ring annuloplasty with a #30 mm [employer] AnnuloFlex band, clip ligation of the left atrial appendage with a #35 mm Atriclip. Coronary bypass grafting 2 with the left internal mammary artery to the left anterior descending artery, a reverse greater saphenous vein graft off the aorta to the right coronary artery with endoscopic vein harvesting of the left greater saphenous vein. Intraoperative transesophageal echocardiogram. Patient is sitting up to bedside chair. He is in no acute distress. He is complaining of chest tube site pain 8 out of 10 on the pain scale. Bedside telemetry showing normal sinus rhythm heart rate 76. He reports that he ambulated 1 this a.m. in the ICU hallway. Objective - Vital Signs Vital signs: Vital Signs Temp 97.9 F 10/28/17 04:00 Pulse 75 10/28/17 07:00 Resp 25 H 10/28/17 07:00 BP 103/54 10/27/17 15:00 Pulse Ox 89 L 10/28/17 07:00 Intake & Output 10/27/17 10/28/17 10/28/17 18:59 06:59 18:59 Intake Total 1757.006 596 Output Total 985 414 Balance 772.006 182 Weight 91 kg Intake: IV 922 506 0.9 Normal Saline for 40 cardiac output 0.9 normal saline for 102 36 pressure bag ACETAMINOPHEN IV (For NPO 100 ) 1,000 mg In Empty Bag 1 bag @ 400 mls/hr IVPB Q6HR [facility] Rx#:[id number] Albumin Human 5% 250 ml 250 In Empty Bag 1 bag @ 250 mls/hr IVPB Q1HR PRN Rx#: [id number] Dextrose 5% in Water 1, 0 000 ml @ Per Protocol IV .Q0M PRN with Potassium Chloride 25 meq with Sodium Chloride 2.5MEQ/ml Vial 27 meq with Magnesium Sulfate 16 meq with Sodium Bicarb (1 Meq /ml) 40 ml with Lidocaine 1% Inj 10 ml Rx#: [id number] Lactated Ringers 1,000 ml 380 220 @ 20 mls/hr IV .Q24H [facility] Rx#:[id number] Magnesium Sulfate-D5w Pmx 300 1 gm In Dextrose/Water 1 100ml.bag @ 100 mls/hr IVPB Q1H [facility] Rx#: [id number] Intake, IV Titration 85.006 Amount Clevidipine Butyrate 25 50 mg In Empty Bag 1 bag @ 1 MG/HR 2 mls/hr IV .Q24H [facility] Rx#:[id number] Insulin Regular 100 unit 35.006 In Sodium Chloride 0.9% 100 ml @ Per Protocol IV .Q0M [facility] Rx#:[id number] Oral 750 90 Output: Chest Tube Drainage 340 89 Left Pleural/mediastinal 240 70 Right Pleural 100 19 Urine 645 325 Other: Voiding Method Indwelling Catheter Indwelling Catheter ABP, PAP, CO, CI - Last Documented Arterial Blood Pressure 176/58 Pulmonary Artery Pressure 22/8 Cardiac Output 5.8 Cardiac Index 2.7 - Constitutional General appearance: Present: cooperative, no acute distress - EENT ENT: Present: hearing grossly normal - Neck Details: Neck is supple, no JVD, no lymphadenopathy. Right IJ Cordis and Camby-Yuly catheter in place and functioning. - Respiratory Details: Lungs sounds are essentially clear throughout, diminished bilateral bases. Respirations are symmetrical and nonlabored. Oxygen saturation are 92% on 4 L nasal cannula. He is achieving 1000 mL on his incentive spirometry. Mediastinal /left pleural chest tube to continuous wall suction, 120 mL thin serosanguineous drainage in the last 8 hours, 320 mL in the last 24 hours. Right pleural chest tube to continuous wall suction, 55 mL thin serosanguineous drainage in the last 8 hours, 120 mL in the last 24 hours. No air leaks present. - Cardiovascular Details: Regular rhythm and rate. S1 and S2 present, negative for S3, gallop or murmur. Sternum is stable. Bedside telemetry showing normal sinus rhythm heart rate 76. Heart hugger is in place and he is demonstrating appropriate use. No edema present. Knee-high LEANNA hose and sequential compression devices in place to his bilateral lower extremities. Right internal jugular cordis and Camby- Yuly catheter in place and functioning current cardiac output 4.9, cardiac index 2.6, CVP 5, PA pressures 34/14. Atrial and ventricular epicardial pacemaker wires intact and to pacemaker generator, AAI mode with backup rate of 70 bpm. - Gastrointestinal Gastrointestinal Comment(s): Abdomen is soft, nontender and nondistended. Active bowel sounds all 4 abdominal quadrants. Tolerating oral intake. Not passing flatus. - Genitourinary Genitourinary Comment(s): Griggs catheter for accurate I&O. Clear yellow urine draining. Adequate urine output 310 mL output in the last 8 hours. - Integumentary Integumentary Comment(s): Skin is warm and dry. No clubbing or cyanosis present. Midline sternal incision clean dry and approximated. No drainage or redness present. Dermabond dressing clean and dry. Left leg EVH sites clean dry and approximated. No drainage or redness present. - Neurologic Neurologic: Present: CNII-XII intact - Musculoskeletal Musculoskeletal: Present: gait normal, strength equal bilaterally - Psychiatric Psychiatric: Present: A&O x's 3, appropriate affect, intact judgment & insight - Allied health notes Allied health notes reviewed: nursing - Labs CBC & Chem 7: 10/28/17 07:05 10/28/17 07:05 Labs: Abnormal Lab Results - Last 24 Hours (Table) 10/27/17 10/27/17 10/27/17 Range/Units 04:00 09:01 10:21 WBC (3.8-10.6) k/uL RBC (4.30-5.90) m/uL Hgb (13.0-17.5) gm/dL Hct (39.0-53.0) % Neutrophils # (1.3-7.7) k/uL POC Glucose (mg/dL) 126 H 133 H (75-99) mg/dL Prealbumin 14.0 L (18.0-42.0) mg/dL 10/27/17 10/27/17 10/27/17 Range/Units 11:18 13:35 15:48 WBC (3.8-10.6) k/uL RBC (4.30-5.90) m/uL Hgb (13.0-17.5) gm/dL Hct (39.0-53.0) % Neutrophils # (1.3-7.7) k/uL POC Glucose (mg/dL) 125 H 139 H 116 H (75-99) mg/dL Prealbumin (18.0-42.0) mg/dL 10/27/17 10/27/17 10/28/17 Range/Units 17:10 19:57 07:05 WBC 12.4 H (3.8-10.6) k/uL RBC 3.56 L (4.30-5.90) m/uL Hgb 11.4 L (13.0-17.5) gm/dL Hct 32.9 L (39.0-53.0) % Neutrophils # 10.2 H (1.3-7.7) k/uL POC Glucose (mg/dL) 112 H 176 H (75-99) mg/dL Prealbumin (18.0-42.0) mg/dL 10/28/17 Range/Units 07:31 WBC (3.8-10.6) k/uL RBC (4.30-5.90) m/uL Hgb (13.0-17.5) gm/dL Hct (39.0-53.0) % Neutrophils # (1.3-7.7) k/uL POC Glucose (mg/dL) 142 H (75-99) mg/dL Prealbumin (18.0-42.0) mg/dL - Imaging and Cardiology Chest x-ray: report reviewed, image reviewed Assessment and Plan (1) Coronary artery disease Current Visit: Yes Status: Chronic Code(s): I25.10 - ATHSCL HEART DISEASE OF CIRCLE CORONARY ARTERY W/O ANG PCTRS SNOMED Code(s): 15612909 (2) Family history of heart disease Current Visit: Yes Status: Chronic Code(s): Z82.49 - FAMILY HX OF ISCHEM HEART DIS AND OTH DIS OF [facility] SNOMED Code(s): 253219853 (3) History of prostate disorder Current Visit: Yes Status: Chronic Code(s): Z87.438 - PERSONAL HISTORY OF OTHER DISEASES OF MALE GENITAL ORGANS SNOMED Code(s): 099111337 (4) Hyperlipidemia Current Visit: Yes Status: Chronic Code(s): E78.5 - HYPERLIPIDEMIA, UNSPECIFIED SNOMED Code(s): 03808799 (5) Hypertension Current Visit: Yes Status: Chronic Code(s): I10 - ESSENTIAL (PRIMARY) HYPERTENSION SNOMED Code(s): 05360291 (6) Mitral valve regurgitation Current Visit: Yes Status: Chronic Code(s): I34.0 - NONRHEUMATIC MITRAL ( VALVE) INSUFFICIENCY SNOMED Code(s): 21665207 (7) Type 2 diabetes mellitus Current Visit: Yes Status: Chronic Code(s): E11.9 - TYPE 2 DIABETES MELLITUS WITHOUT COMPLICATIONS SNOMED Code(s): 86720896 (8) Gastric reflux Current Visit: No Status: Chronic Code(s): K21.9 - GASTRO-ESOPHAGEAL REFLUX DISEASE WITHOUT ESOPHAGITIS SNOMED Code(s): 227563967 (9) Hx of laryngeal cancer Current Visit: No Status: Resolved Code(s): Z85.21 - PERSONAL HISTORY OF MALIGNANT NEOPLASM OF LARYNX SNOMED Code(s): 577533945 Plan: 1. Continue aspirin, statin, Plavix, subcu heparin. We will start metoprolol tartrate 12.5 mg by mouth twice a day. 2. Will give IV lasix. Restart norvasc, low dose lisinopril. Discontinue hydralize. 3. Continue finasteride 5 mg by mouth daily. History of prostate disorder. 4. Wean O2 as tolerated. Encourage incentive spirometry use 10 times every hour. Bronchodilators per pulmonology. 5. Increase activity, out of bed to chair, ambulate as tolerated. PT/OT/ cardiac rehab following. 6. GI/DVT prophylaxis. 7. Pain control with ordered medications. Continue Toradol. 8. All oral meds to be crushed as patient has difficulty swallowing which was present preoperatively. History of laryngeal cancer 9. Will monitor daily labs, chest x-rays. 10. Will discontinue atrial epicardial pacemaker wires. Patient to remain on bedrest for 1 hour post removal. 11. Will discontinue his right pleural and mediastinal chest tubes. Continue his left pleural chest tube to low continuous wall suction -20 cm H2O. 12. Insulin management per primary care service. 13. More recommendations to follow based on patient's clinical course. Time with Patient: Greater than 30
[2017-10-28 11:51] LABS: Glucose,Whole Blood 147 mg/dL (75-99)
[2017-10-28] MEDS: LISINOPRIL 2.5 MG TAB PO SCH (12:03)
--- NOTE | 2017-10-28 13:47 | P.PN ---
Subjective Progress Note Date: 10/28/17 77-year-old male who underwent CABG x 2 with mitral valve replacement on 10/26/[address] Soto was consulted for medical management. 10/27/2017 The patient was evaluated in the intensive care unit with Dr. Soto. Patient is sitting up in the chair. Family is at the bedside. Patient was extubated yesterday evening. He is on 2L NC with oxygen saturations greater than 92%. Patient is awake and alert. He states his pain is tolerable at this time. He denies shortness of breath. Denies chest pain. Mediastinal/left pleural and right pleural chest tubes are intact with serosanguineous drainage present. Indwelling urinary catheter is intact with clear yellow urine noted. Patient is tolerating clear liquid diet. Insulin drip is infusing at 3 units/ hour. Recent blood sugars are 125-154. He remains hemodynamically stable. 10/28/2017 Patient evaluated at the bedside on rounds with Dr. Soto. Patient remains in the ICU. He is POD #2 Mitral valve replacement and CABG x 2. He is sitting up in bed eating lunch. Right pleural and mediastinal chest tubes were discontinued this morning. Left pleural chest pain tube intact to low continuous wall suction with serosanguineous drainage noted in the chest tube atrium. Insulin drip was discontinued yesterday. Patient remains on novolog sliding scale ACHS and Levemir 15 units at HS. However, patient refused his Levemir last night. Importance of tight glycemic control discussed with patient. Objective - Vital Signs Vital signs: Vital Signs Temp 98.7 F 10/28/17 08:00 Pulse 87 10/28/17 13:00 Resp 23 10/28/17 13:00 BP 106/62 10/28/17 13:00 Pulse Ox 93 L 10/28/17 13:00 Intake & Output 10/27/17 10/28/17 10/28/17 18:59 06:59 18:59 Intake Total 1757.006 619 421 Output Total 721 600 6718 Balance 772.006 160 -584 Weight 91 kg 91 kg Intake: IV 922 529 141 0.9 Normal Saline for 40 cardiac output 0.9 normal saline for 102 39 21 pressure bag ACETAMINOPHEN IV (For NPO 100 ) 1,000 mg In Empty Bag 1 bag @ 400 mls/hr IVPB Q6HR [facility] Rx#:[id number] Albumin Human 5% 250 ml 250 In Empty Bag 1 bag @ 250 mls/hr IVPB Q1HR PRN Rx#: [id number] Dextrose 5% in Water 1, 0 000 ml @ Per Protocol IV .Q0M PRN with Potassium Chloride 25 meq with Sodium Chloride 2.5MEQ/ml Vial 27 meq with Magnesium Sulfate 16 meq with Sodium Bicarb (1 Meq /ml) 40 ml with Lidocaine 1% Inj 10 ml Rx#: [id number] Lactated Ringers 1,000 ml 380 240 120 @ 20 mls/hr IV .Q24H [facility] Rx#:[id number] Magnesium Sulfate-D5w Pmx 300 1 gm In Dextrose/Water 1 100ml.bag @ 100 mls/hr IVPB Q1H [facility] Rx#: [id number] Intake, IV Titration 85.006 Amount Clevidipine Butyrate 25 50 mg In Empty Bag 1 bag @ 1 MG/HR 2 mls/hr IV .Q24H [facility] Rx#:[id number] Insulin Regular 100 unit 35.006 In Sodium Chloride 0.9% 100 ml @ Per Protocol IV .Q0M [facility] Rx#:[id number] Oral 750 90 280 Output: Chest Tube Drainage 340 89 240 Left Pleural/mediastinal 240 70 160 Right Pleural 100 19 80 Urine 645 370 765 Other: Voiding Method Indwelling Catheter Indwelling Catheter Indwelling Catheter ABP, PAP, CO, CI - Last Documented Arterial Blood Pressure 155/53 Pulmonary Artery Pressure 22/8 Cardiac Output 5.8 Cardiac Index 2.7 - Exam GENERAL: This is a 77-year-old male in no apparent distress at the time of examination. Sitting up in the chair in the ICU. Pleasant and cooperative. HEENT: Head is atraumatic, normocephalic. Pupils are equal, round, and reactive to light. Sclerae anicteric. Conjunctivae are clear. Mucus membranes of the mouth are moist. Neck is supple. RESPIRATORY: Clear to ausculation, diminished at the bases. No use of accessory muscles. Patient maintaining oxygen saturation greater than 92%. No chest wall tenderness is noted on palpation or with deep breathing. CARDIOVASCULAR: Left pleural chest pain remains intact to continuous wall suction. Right mediastinal and pleural chest tube sites without signs or symptoms of infection. No drainage noted. S1 and S2 noted. No JVD noted. No S3 or S4 noted. GASTROINTESTINAL: No distention noted. Abdomen soft and round. Normal active bowel sounds auscultated x 4 quadrants. No pain or tenderness noted upon palpation. INTEGUMENTARY: Midline chest incision is clean, dry, and intact. No cyanosis. No jaundice. No rashes noted. No cellulitis noted. EXTREMITIES: 2+ peripheral pulses. No evidence of peripheral edema. No calf tenderness noted. NEUROLOGIC: Cranial nerves II-XII intact. PSYCHIATRIC: Awake, alert, and oriented X 3. Appropriate affect. Intact judgement and insight. - Labs CBC & Chem 7: 10/28/17 07:05 10/28/17 07:05 Labs: Abnormal Lab Results - Last 24 Hours (Table) 10/27/17 10/27/17 10/27/17 Range/Units 04:00 13:35 15:48 WBC (3.8-10.6) k/uL RBC (4.30-5.90) m/uL Hgb (13.0-17.5) gm/dL Hct (39.0-53.0) % Neutrophils # (1.3-7.7) k/uL Sodium (137-145) mmol/L BUN (9-20) mg/dL Creatinine (0.66-1.25) mg/dL Glucose (74-99) mg/dL POC Glucose (mg/dL) 139 H 116 H (75-99) mg/dL ALT (21-72) U/L Total Protein (6.3-8.2) g/dL Albumin (3.5-5.0) g/dL Prealbumin 14.0 L (18.0-42.0) mg/dL 10/27/17 10/27/17 10/28/17 Range/Units 17:10 19:57 07:05 WBC (3.8-10.6) k/uL RBC (4.30-5.90) m/uL Hgb (13.0-17.5) gm/dL Hct (39.0-53.0) % Neutrophils # (1.3-7.7) k/uL Sodium 136 L (137-145) mmol/L BUN 29 H (9-20) mg/dL Creatinine 1.38 H (0.66-1.25) mg/dL Glucose 138 H (74-99) mg/dL POC Glucose (mg/dL) 112 H 176 H (75-99) mg/dL ALT 17 L (21-72) U/L Total Protein 5.2 L (6.3-8.2) g/dL Albumin 3.0 L (3.5-5.0) g/dL Prealbumin (18.0-42.0) mg/dL 10/28/17 10/28/17 10/28/17 Range/Units 07:05 07:31 11:47 WBC 12.4 H (3.8-10.6) k/uL RBC 3.56 L (4.30-5.90) m/uL Hgb 11.4 L (13.0-17.5) gm/dL Hct 32.9 L (39.0-53.0) % Neutrophils # 10.2 H (1.3-7.7) k/uL Sodium (137-145) mmol/L BUN (9-20) mg/dL Creatinine (0.66-1.25) mg/dL Glucose (74-99) mg/dL POC Glucose (mg/dL) 142 H 147 H (75-99) mg/dL ALT (21-72) U/L Total Protein (6.3-8.2) g/dL Albumin (3.5-5.0) g/dL Prealbumin (18.0-42.0) mg/dL Assessment and Plan Plan: ASSESSMENT: Moderate to severe mitral regurgitation, s/p mitral valve replacement and CABG x 2 with MICHEL to LAD and saphenous vein graft to RCA, POD #2 Diabetes Mellitus, type II Essential hypertension Hyperlipidemia Gastroesophageal reflux disease History of laryngeal cancer with radiation therapy in 2010 History of BPH Hypoalbuminemia, prealbumin 14.0 PLAN: Continue postoperative management per Dr. Wall Continue novolog sliding scale Contnue levemir at HS. Patient refused dose last night. Encourage patient to take insulin as ordered as tight glycemic control is important postoperatively Encourage increased protein intake due to decreased prealbumin. Dietary on consult. Pain control IS 10x an hour while awake Advance diet as tolerated Home meds as appropriate Monitor labs Monitor vital signs and address as appropriate Further recommendations pending patient's course Nurse practitioner note has been reviewed by physician. Signing provider agrees with the documented findings, assessment, and plan of care.
[2017-10-28] MEDS: HYDROcodone/APAP 5-325MG 1 EACH TAB PO PRN (14:51)
--- NOTE | 2017-10-28 16:59 | P.PN ---
Subjective Progress Note Date: 10/28/17 A 77-year-old male patient who is being seen today following cardiac surgery. The patient underwent two-vessel bypass surgery and the mitral valve replacement. The patient was having exertional dyspnea on outpatient basis. He was diagnosed having significant mitral regurgitation and the MERA preoperatively showed a prostate regurgitation along with +2 aortic regurgitation and mitral valve prolapse involving the posterior leaflet. The LV was preserved. 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 The patient was seen by cardiothoracic surgery and the patient underwent his surgery today. The patient underwent a mitral valve replacement and two-vessel bypass surgery with MICHEL to LAD and saphenous finger after RCA. Currently the patient is in the intensive care unit sedated with Diprivan running at 25 mics. The patient is hypertensive currently on Plavix drip running at 20 mg/h. Patient is also on nitroglycerin drip at 5 mcg/m. The patient is on a mechanical ventilator. I switched him to an assist-control mode at the rate of 12, tidal volume of 650, FiO2 has been cut down to 50% and the patient is a PEEP of 5. The blood gases earlier showed a pH of 7.36 with a pCO2 of 44 and pO2 of 214. The chest x-ray postop showed no acute abnormalities. Hemodynamically, the patient is producing adequate amount of urine output. The patient has a cardiac index of 2.4 and a PA diastolic of 21. The patient has a right and the left pleural chest tube. The right pleural chest tube is quite dry. The mediastinal and the left pleural chest tube has put out approximately 45 mL the patient arrived from the operating room. The patient remains intubated on a mechanical ventilator. Orogastric tube is in place. No agitation. He is quite comfortable and was sedated. His preoperative FEV1 was in the order of 2.53 L which is 74% of predicted. The patient is currently atrially paced at the rate of 70. On 10/27/2017 patient seen in follow-up in intensive care unit. He is awake, alert, he was successfully extubated last night at 20:25. Currently on 4 L per nasal cannula with O2 sat at 90%. Afebrile, hemodynamically stable, currently on maintenance IV fluid and LR at the rate of 20 ML per hour, Cleviprex drip has been discontinued this morning, insulin drip is currently infusing at 3 units per hour. No other drips. Patient's 100% AV paced on the monitor, underlying rhythm is atrial fibrillation. he is currently seen sitting up in the recliner, midsternal incision is clean dry and intact, well approximated, stable. Patient has a mediastinal/left pleural and right pleural chest tubes, and then serosanguineous output. Left pleural/mediastinal chest tube output is 110 mL in the last 24 hours, right pleural chest tube output is 35 ML per hour, and patient is making adequate amount of urine, ranging from 35-85 ML per hour. Patient's heparin was moderate amount of incisional pain, currently receiving pain medications. Lung sounds are clear, diminished at the bases. No rhonchi, no rales, or wheezing. His working on his incentive spirometry, which which 750 ML on his highest today. Bilateral extremities are negative for edema, eveline wrapped. Exam showed WBC 15, hemoglobin is 12.4, INR is 1.2, sodium 136, tassium 4.7, BUN 19, creatinine 1.10. Today's chest x-ray was reviewed, showed bibasilar atelectatic changes, and central vascular congestion and cardiomegaly. On 10/28/2017 the patient is being seen in follow-up in the intensive care unit. The patient has no specific complaints. The patient is hemodynamic is stable. Chest x-ray from today shows no evidence of any pneumothorax. The right pleural chest tube will be removed today. The patient is off insulin drip. The patient is off the pacer and his underlying rhythm is sinus. The patient will be started on beta blockers at a lower dose. The mediastinal and the left pleural chest tube will be kept in place for another 24 hours. The patient utilizing incentive spirometer and is still pulling more than 700. No chest pain. No respiratory distress. Blood work shows a hemoglobin of 11.4. Creatinine is stable at 1.3. The surgical wound is dry clean and intact. The patient is postop day #2 for now. Earlier the pain was around 5 out of 10 in severity and currently is under better control. He did ambulate this morning in the intensive care units. Right internal jugular cordis and [place]-Yuly catheter in place and functioning current cardiac output 4.9, cardiac index 2.6 , CVP 5, PA pressures 34/14. Atrial and ventricular epicardial pacemaker wires intact and to pacemaker generator, AAI mode with backup rate of 70 bpm. nevertheless, his current rhythm is sinus Objective - Vital Signs Vital signs: Vital Signs Temp 98.6 F 10/28/17 16:00 Pulse 92 10/28/17 16:00 Resp 22 10/28/17 16:00 BP 118/56 10/28/17 16:00 Pulse Ox 93 L 10/28/17 16:00 Intake & Output 10/27/17 10/28/17 10/28/17 18:59 06:59 18:59 Intake Total 1757.006 619 481 Output Total 579 961 5565 Balance 772.006 160 -794 Weight 91 kg 91 kg Intake: IV 922 529 201 0.9 Normal Saline for 40 cardiac output 0.9 normal saline for 102 39 21 pressure bag ACETAMINOPHEN IV (For NPO 100 ) 1,000 mg In Empty Bag 1 bag @ 400 mls/hr IVPB Q6HR [facility] Rx#:[id number] Albumin Human 5% 250 ml 250 In Empty Bag 1 bag @ 250 mls/hr IVPB Q1HR PRN Rx#: [id number] Dextrose 5% in Water 1, 0 000 ml @ Per Protocol IV .Q0M PRN with Potassium Chloride 25 meq with Sodium Chloride 2.5MEQ/ml Vial 27 meq with Magnesium Sulfate 16 meq with Sodium Bicarb (1 Meq /ml) 40 ml with Lidocaine 1% Inj 10 ml Rx#: [id number] Lactated Ringers 1,000 ml 380 240 180 @ 20 mls/hr IV .Q24H [facility] Rx#:[id number] Magnesium Sulfate-D5w Pmx 300 1 gm In Dextrose/Water 1 100ml.bag @ 100 mls/hr IVPB Q1H [facility] Rx#: [id number] Intake, IV Titration 85.006 Amount Clevidipine Butyrate 25 50 mg In Empty Bag 1 bag @ 1 MG/HR 2 mls/hr IV .Q24H [facility] Rx#:[id number] Insulin Regular 100 unit 35.006 In Sodium Chloride 0.9% 100 ml @ Per Protocol IV .Q0M [facility] Rx#:[id number] Oral 750 90 280 Output: Chest Tube Drainage 340 89 260 Left Pleural 20 Left Pleural/mediastinal 240 70 160 Right Pleural 100 19 80 Urine 426 498 1259 Other: Voiding Method Indwelling Catheter Indwelling Catheter Indwelling Catheter ABP, PAP, CO, CI - Last Documented Arterial Blood Pressure 155/53 Pulmonary Artery Pressure 22/8 Cardiac Output 5.8 Cardiac Index 2.7 - Exam - Constitutional General appearance: Present: cooperative, no acute distress - EENT ENT: Present: hearing grossly normal - Neck Details: Neck is supple, no JVD, no lymphadenopathy. Right IJ Cordis and [place]-Yuly catheter in place and functioning. - Respiratory Details: Lungs sounds are essentially clear throughout, diminished bilateral bases. Respirations are symmetrical and nonlabored. Oxygen saturation are 92% on 4 L nasal cannula. He is achieving 1000 mL on his incentive spirometry. Mediastinal /left pleural chest tube to continuous wall suction, 120 mL thin serosanguineous drainage in the last 8 hours, 320 mL in the last 24 hours. Right pleural chest tube to continuous wall suction, 55 mL thin serosanguineous drainage in the last 8 hours, 120 mL in the last 24 hours. No air leaks present. - Cardiovascular Details: Regular rhythm and rate. S1 and S2 present, negative for S3, gallop or murmur. Sternum is stable. Bedside telemetry showing normal sinus rhythm heart rate 76. Heart hugger is in place and he is demonstrating appropriate use. No edema present. Knee-high LEANNA hose and sequential compression devices in place to his bilateral lower extremities. - Gastrointestinal Gastrointestinal Comment(s): Abdomen is soft, nontender and nondistended. Active bowel sounds all 4 abdominal quadrants. Tolerating oral intake. Not passing flatus. - Genitourinary Genitourinary Comment(s): Griggs catheter for accurate I&O. Clear yellow urine draining. Adequate urine output 310 mL output in the last 8 hours. - Integumentary Integumentary Comment(s): Skin is warm and dry. No clubbing or cyanosis present. Midline sternal incision clean dry and approximated. No drainage or redness present. Dermabond dressing clean and dry. Left leg EVH sites clean dry and approximated. No drainage or redness present. - Neurologic Neurologic: Present: CNII-XII intact - Musculoskeletal Musculoskeletal: Present: gait normal, strength equal bilaterally - Psychiatric Psychiatric: Present: A&O x's 3, appropriate affect, intact judgment & insight - Labs CBC & Chem 7: 10/28/17 07:05 10/28/17 07:05 Labs: Abnormal Lab Results - Last 24 Hours (Table) 10/27/17 10/27/17 10/27/17 Range/Units 04:00 17:10 19:57 WBC (3.8-10.6) k/uL RBC (4.30-5.90) m/uL Hgb (13.0-17.5) gm/dL Hct (39.0-53.0) % Neutrophils # (1.3-7.7) k/uL Sodium (137-145) mmol/L BUN (9-20) mg/dL Creatinine (0.66-1.25) mg/dL Glucose (74-99) mg/dL POC Glucose (mg/dL) 112 H 176 H (75-99) mg/dL ALT (21-72) U/L Total Protein (6.3-8.2) g/dL Albumin (3.5-5.0) g/dL Prealbumin 14.0 L (18.0-42.0) mg/dL 10/28/17 10/28/17 10/28/17 Range/Units 07:05 07:05 07:31 WBC 12.4 H (3.8-10.6) k/uL RBC 3.56 L (4.30-5.90) m/uL Hgb 11.4 L (13.0-17.5) gm/dL Hct 32.9 L (39.0-53.0) % Neutrophils # 10.2 H (1.3-7.7) k/uL Sodium 136 L (137-145) mmol/L BUN 29 H (9-20) mg/dL Creatinine 1.38 H (0.66-1.25) mg/dL Glucose 138 H (74-99) mg/dL POC Glucose (mg/dL) 142 H (75-99) mg/dL ALT 17 L (21-72) U/L Total Protein 5.2 L (6.3-8.2) g/dL Albumin 3.0 L (3.5-5.0) g/dL Prealbumin (18.0-42.0) mg/dL 10/28/17 Range/Units 11:47 WBC (3.8-10.6) k/uL RBC (4.30-5.90) m/uL Hgb (13.0-17.5) gm/dL Hct (39.0-53.0) % Neutrophils # (1.3-7.7) k/uL Sodium (137-145) mmol/L BUN (9-20) mg/dL Creatinine (0.66-1.25) mg/dL Glucose (74-99) mg/dL POC Glucose (mg/dL) 147 H (75-99) mg/dL ALT (21-72) U/L Total Protein (6.3-8.2) g/dL Albumin (3.5-5.0) g/dL Prealbumin (18.0-42.0) mg/dL Assessment and Plan Plan: Assessment 1 mitral valve replacement for severe mitral regurgitation and two-vessel bypass surgery with MICHEL to LAD and saphenous vein graft to RCA. The patient is postop day #2. 3 junctional underlying rhythm postop which essentially recovered and the patient is back to his sinus rhythm. Note that the pacemaker generator is still in place as a backup. 4 moderate to severe mitral regurgitation, post mitral valve replacement, and coronary artery bypass surgery. postop day #2 5 diabetes mellitus type 2, currently off the insulin drip 6 hypertension , with improved blood pressure control. The patient currently is on lisinopril 2.5 mg by mouth daily, metoprolol obese also started on metoprolol at a dose of 12.5 mg by mouth twice a and the patient is off the Cleviprex. 7 hyperlipidemia 8 mild COPD with a baseline FEV1 of 74% of predicted 9 BPH 10 laryngeal cancer postradiation therapy back in 2009 11 acid reflux Plan Remove the right-sided pleural chest tube. Encourage ambulation. Keep the mediastinal and the left pleural chest tube in place. Monitor the blood pressure. The patient is currently on a combination of metoprolol and lisinopril. The patient is also on a combination of aspirin and Plavix. We will be given IV Lasix dose. Continue using incentive spirometer. Adequate pain control. We'll discontinue atrial epicardial pacemaker was a later stage. We'll continue to follow and the patient can be potentially moved out of the intensive care unit knowing that his condition has been stable.
[2017-10-28] MEDS: PANTOPRAZOLE 40 MG/10 ML VIAL IVP SCH (17:23)
[2017-10-28 17:37] LABS: Glucose,Whole Blood 166 mg/dL (75-99)
[2017-10-28] MEDS ORDERED: HALOPERIDOL LACTATE 5 MG/ML 1 ML VIAL IM PRN (19:42)
[2017-10-28] MEDS: SENNOSIDES-DOCUSATE SODIUM 1 EACH TAB PO SCH (20:13)
[2017-10-28 20:23] LABS: Glucose,Whole Blood 161 mg/dL (75-99)
[2017-10-28] MEDS ORDERED: ACETAMINOPHEN TAB 325 MG TAB PO PRN (21:24)
[2017-10-28] MEDS: INSULIN DETEMIR 100 UNIT/ML 10 ML VIAL SQ SCH (22:05)
[2017-10-29] MEDS: HEPARIN SODIUM,PORCINE 5,000 UNIT/ML 1 ML VIAL SQ SCH ×4 (00:50→22:48)
[2017-10-29] MEDS: KETOROLAC 30 MG/ML 1 ML VIAL IVP SCH ×5 (00:51→22:48)
[2017-10-29 02:09] LABS: Glucose,Whole Blood 134 mg/dL (75-99)
[2017-10-29 06:09] LABS: Glucose,Whole Blood 121 mg/dL (75-99)
[2017-10-29] MEDS: INSULIN ASPART 100 UNIT/ML 1 ML 10 ML VIAL SQ SCH ×4 (06:31→21:27)
[2017-10-29 06:50] LABS: Albumin 2.6 g/dL (3.5-5.0); Calcium 8.2 mg/dL (8.4-10.2); Magnesium 2.2 mg/dL (1.6-2.3); Potassium 4.4 mmol/L (3.5-5.1); Total Bilirubin 0.9 mg/dL (0.2-1.3); Total Protein 4.5 g/dL (6.3-8.2)
[2017-10-29 06:51] LABS: HCT 27.8 % (39.0-53.0); MCH 31.7 pg (25.0-35.0); MCHC 34.3 g/dL (31.0-37.0); MCV 92.4 fL (80.0-100.0); Mean Platelet Volume 8.5; Platelet Count 163 k/uL (150-450); RBC 3.01 m/uL (4.30-5.90); RDW 13.3 % (11.5-15.5); WBC 8.5 k/uL (3.8-10.6)
[2017-10-29 06:53] LABS: HGB 9.6 gm/dL (13.0-17.5)
[2017-10-29] MEDS: PANTOPRAZOLE 40 MG TABLET PO SCH (06:58)
[2017-10-29] MEDS: IPRATROPIUM-ALBUTEROL 3 ML NEB INHALATION SCH ×4 (07:00→20:32)
--- NOTE | 2017-10-29 07:19 | XR ---
EXAMINATION TYPE: XR chest 1V portable DATE OF EXAM: 10/29/2017 HISTORY: Shortness of breath. COMPARISON: 10/28/2017 TECHNIQUE: Single view of the chest is submitted. FINDINGS: Demonstrated are scattered senescent parenchymal change. Left-sided chest tube is unchanged in position. Previously noted pneumothorax is not reproduced at th is time. Right-sided chest tube has been removed. Removal of right IJ sheath. Scattered pleural-parenchymal opacities at the lung bases. The heart is stable. Hilar and mediastinal structures are within normal limits. Degenerative changes are seen of the dorsal spine. IMPRESSION: 1. Left-sided chest tube without visible left-sided pneumothorax at this time. 2. Removal of right-sided chest tube without pneumothorax. 3. Scattered pleural-parenchymal opacities of the lung bases.
--- NOTE | 2017-10-29 08:38 | P.PN ---
Subjective Progress Note Date: 10/29/17 Principal diagnosis: Severe mitral valve regurgitation. Coronary artery disease. Previous medical history of laryngeal cancer with radiation, kidney stones, diabetes mellitus with preoperative hemoglobin A1c 6.2%, hypertension, hyperlipidemia, family history of heart disease. Preoperative urinary tract infection with enterococcus faecalis, treated with oral antibiotics. POD #3 complex mitral valve repair with liana-cords 2 pair to P2 the posterior leaflet, closure of P1, P2 cleft, ring annuloplasty with a #30 mm [employer] AnnuloFlex band, clip ligation of the left atrial appendage with a #35 mm Atriclip. Coronary bypass grafting 2 with the left internal mammary artery to the left anterior descending artery, a reverse greater saphenous vein graft off the aorta to the right coronary artery with endoscopic vein harvesting of the left greater saphenous vein. Intraoperative transesophageal echocardiogram. Patient is lying in bed with his head elevated. He is in no acute distress. He reports that he had some episodes of confusion throughout the night. Currently he is alert and oriented 3. Denies any complaints of pain or shortness of breath at this time. Objective - Vital Signs Vital signs: Vital Signs Temp 97.1 F L 10/29/17 04:59 Pulse 84 10/29/17 07:14 Resp 18 10/29/17 04:59 BP 136/65 10/29/17 04:59 Pulse Ox 95 10/29/17 07:03 Intake & Output 10/28/17 10/29/17 10/29/17 18:59 06:59 18:59 Intake Total 481 240 Output Total 1275 130 Balance -794 -130 240 Weight 91 kg 97.7 kg Intake: IV 201 0.9 normal saline for 21 pressure bag Lactated Ringers 1,000 ml 180 @ 20 mls/hr IV .Q24H [facility] Rx#:[id number] Oral 280 240 Output: Chest Tube Drainage 260 130 Left Pleural 20 Left Pleural/mediastinal 160 130 Right Pleural 80 Urine 1015 Other: Voiding Method Indwelling Catheter Toilet # Voids 1 ABP, PAP, CO, CI - Last Documented Arterial Blood Pressure 155/53 Pulmonary Artery Pressure 22/8 Cardiac Output 5.8 Cardiac Index 2.7 - Constitutional General appearance: Present: cooperative, no acute distress - EENT ENT: Present: hearing grossly normal - Neck Details: No JVD, neck is supple, no lymphadenopathy. - Respiratory Details: Lungs sounds are essentially clear throughout, diminished to his bilateral bases. Respirations are symmetrical and nonlabored. Oxygen saturation are 93% on 3 L nasal cannula. He is achieving 1250 mL on his incentive spirometry. Left pleural chest tube remains in place to low continuous wall suction -20 cm H2O. No air leak present. Draining thin serosanguineous drainage. 80 mL output in the last 8 hours, 150 mL output in the last 24 hours. - Cardiovascular Details: Regular rhythm and rate. S1-S2 present, positive for systolic murmur 2/6 heard best to his left sternal border fifth intercostal space. Sternum is stable. Remote telemetry showing normal sinus rhythm with global ST elevation heart rate 88. No edema present. Heart hugger is in place and he is demonstrating appropriate use. Knee-high LEANNA hose and sequential compression devices in place to his bilateral lower extremities. Ventricular epicardial pacemaker wires are intact and grounded. - Gastrointestinal Gastrointestinal Comment(s): Abdomen is soft, nontender and nondistended. Hypoactive bowel sounds present in all 4 abdominal quadrants. Tolerating oral intake. No flatus. - Genitourinary Genitourinary Comment(s): Voiding clear yellow urine. Adequate urine output. - Integumentary Integumentary Comment(s): Skin is warm and dry. No clubbing or cyanosis present. Midline sternal incision clean dry and approximated. No drainage or redness present. Dermabond dressing clean and dry. Left leg EVH sites clean and dry and approximated. No drainage or redness present. - Neurologic Neurologic: Present: CNII-XII intact - Musculoskeletal Musculoskeletal: Present: gait normal, strength equal bilaterally - Psychiatric Psychiatric: Present: A&O x's 3, appropriate affect, intact judgment & insight - Allied health notes Allied health notes reviewed: nursing - Labs CBC & Chem 7: 10/29/17 05:54 10/29/17 05:54 Labs: Abnormal Lab Results - Last 24 Hours (Table) 10/28/17 10/28/17 10/28/17 Range/Units 11:47 17:36 20:21 RBC (4.30-5.90) m/uL Hgb (13.0-17.5) gm/dL Hct (39.0-53.0) % Sodium (137-145) mmol/L BUN (9-20) mg/dL Creatinine (0.66-1.25) mg/dL Glucose (74-99) mg/dL POC Glucose (mg/dL) 147 H 166 H 161 H (75-99) mg/dL Calcium (8.4-10.2) mg/dL ALT (21-72) U/L Total Protein (6.3-8.2) g/dL Albumin (3.5-5.0) g/dL 10/29/17 10/29/17 10/29/17 Range/Units 02:08 05:54 05:54 RBC 3.01 L (4.30-5.90) m/uL Hgb 9.6 L D (13.0-17.5) gm/dL Hct 27.8 L (39.0-53.0) % Sodium 136 L (137-145) mmol/L BUN 35 H (9-20) mg/dL Creatinine 1.30 H (0.66-1.25) mg/dL Glucose 116 H (74-99) mg/dL POC Glucose (mg/dL) 134 H (75-99) mg/dL Calcium 8.2 L (8.4-10.2) mg/dL ALT 14 L (21-72) U/L Total Protein 4.5 L (6.3-8.2) g/dL Albumin 2.6 L (3.5-5.0) g/dL 10/29/17 Range/Units 05:58 RBC (4.30-5.90) m/uL Hgb (13.0-17.5) gm/dL Hct (39.0-53.0) % Sodium (137-145) mmol/L BUN (9-20) mg/dL Creatinine (0.66-1.25) mg/dL Glucose (74-99) mg/dL POC Glucose (mg/dL) 121 H (75-99) mg/dL Calcium (8.4-10.2) mg/dL ALT (21-72) U/L Total Protein (6.3-8.2) g/dL Albumin (3.5-5.0) g/dL - Imaging and Cardiology Chest x-ray: report reviewed, image reviewed Assessment and Plan (1) Coronary artery disease Current Visit: Yes Status: Chronic Code(s): I25.10 - ATHSCL HEART DISEASE OF [place] CORONARY ARTERY W/O ANG PCTRS SNOMED Code(s): 84135191 (2) Family history of heart disease Current Visit: Yes Status: Chronic Code(s): Z82.49 - FAMILY HX OF ISCHEM HEART DIS AND OTH DIS OF THE CIRC SYS SNOMED Code(s): 872892704 (3) History of prostate disorder Current Visit: Yes Status: Chronic Code(s): Z87.438 - PERSONAL HISTORY OF OTHER DISEASES OF MALE GENITAL ORGANS SNOMED Code(s): 621460446 (4) Hyperlipidemia Current Visit: Yes Status: Chronic Code(s): E78.5 - HYPERLIPIDEMIA, UNSPECIFIED SNOMED Code(s): 64761028 (5) Hypertension Current Visit: Yes Status: Chronic Code(s): I10 - ESSENTIAL (PRIMARY) HYPERTENSION SNOMED Code(s): 40557984 (6) Mitral valve regurgitation Current Visit: Yes Status: Chronic Code(s): I34.0 - NONRHEUMATIC MITRAL ( VALVE) INSUFFICIENCY SNOMED Code(s): 35913101 (7) Type 2 diabetes mellitus Current Visit: Yes Status: Chronic Code(s): E11.9 - TYPE 2 DIABETES MELLITUS WITHOUT COMPLICATIONS SNOMED Code(s): 64086099 (8) Gastric reflux Current Visit: No Status: Chronic Code(s): K21.9 - GASTRO-ESOPHAGEAL REFLUX DISEASE WITHOUT ESOPHAGITIS SNOMED Code(s): 464491824 (9) Hx of laryngeal cancer Current Visit: No Status: Resolved Code(s): Z85.21 - PERSONAL HISTORY OF MALIGNANT NEOPLASM OF [place] SNOMED Code(s): 210549635 Plan: 1. Continue aspirin, statin, Plavix, subcu heparin, Keenan inhibitor and beta dexter. We will increase his metoprolol tartrate 25 mg by mouth twice a day. 2. We will start Lasix 40 mg by mouth daily. 3. Continue finasteride 5 mg by mouth daily. History of prostate disorder. 4. Wean O2 as tolerated. Encourage incentive spirometry use 10 times every hour. Bronchodilators per pulmonology. 5. Increase activity, out of bed to chair, ambulate as tolerated. PT/OT/ cardiac rehab following. 6. GI/DVT prophylaxis. 7. Pain control with ordered medications. Continue Toradol. 8. All oral meds to be crushed as patient has difficulty swallowing which was present preoperatively. History of laryngeal cancer 9. Will monitor daily labs, chest x-rays. 10. Discontinue ventricular epicardial pacemaker wires. Patient to remain on bedrest for 1 hour post removal. 11. Discontinue his left pleural chest tube. 12. Insulin management per primary care service. 13. More recommendations to follow based on patient's clinical course. Ventricular epicardial pacemaker wires removed without incident at 8 AM today. He will. remain on bed rest for 1 hour post pacemaker wire removal. Time with Patient: Greater than 30
[2017-10-29] MEDS: METOPROLOL TARTRATE 25 MG TAB PO SCH ×2 (10:00→21:26)
[2017-10-29] MEDS: ASPIRIN 325 MG TAB PO SCH (10:00)
[2017-10-29] MEDS: CLOPIDOGREL 75 MG TAB PO SCH (10:00)
[2017-10-29] MEDS: FINASTERIDE 5 MG TAB PO SCH (10:00)
[2017-10-29] MEDS: ATORVASTATIN 40 MG TAB PO SCH (10:00)
[2017-10-29] MEDS: FUROSEMIDE 40 MG TAB PO SCH (10:00)
[2017-10-29] MEDS: MUPIROCIN 2% OINT 22 GM TUBE NASAL SCH ×2 (10:01→21:27)
--- NOTE | 2017-10-29 11:25 | P.PN ---
Subjective Progress Note Date: 10/29/17 77-year-old male who underwent CABG x 2 with mitral valve replacement on 10/26/[address] Soto was consulted for medical management. 10/27/2017 The patient was evaluated in the intensive care unit with Dr. Soto. Patient is sitting up in the chair. Family is at the bedside. Patient was extubated yesterday evening. He is on 2L NC with oxygen saturations greater than 92%. Patient is awake and alert. He states his pain is tolerable at this time. He denies shortness of breath. Denies chest pain. Mediastinal/left pleural and right pleural chest tubes are intact with serosanguineous drainage present. Indwelling urinary catheter is intact with clear yellow urine noted. Patient is tolerating clear liquid diet. Insulin drip is infusing at 3 units/ hour. Recent blood sugars are 125-154. He remains hemodynamically stable. 10/28/2017 Patient evaluated at the bedside on rounds with Dr. Soto. Patient remains in the ICU. He is POD #2 Mitral valve replacement and CABG x 2. He is sitting up in bed eating lunch. Right pleural and mediastinal chest tubes were discontinued this morning. Left pleural chest pain tube intact to low continuous wall suction with serosanguineous drainage noted in the chest tube atrium. Insulin drip was discontinued yesterday. Patient remains on novolog sliding scale ACHS and Levemir 15 units at HS. However, patient refused his Levemir last night. Importance of tight glycemic control discussed with patient. 10/29/2017 Patient evaluated at the bedside on rounds with Dr. Soto. Patient has been transferred out of the ICU to the selective care unit. Patient is awake and alert. Sitting up in bed. He is POD #3 Mitral valve replacement and CABG x 2. Patient states he is getting his remaining chest tube pulled today. Patient is on 3L nasal cannula with oxygen saturation greater than 92%. Last document blood pressure 136/65. Heart rate in the 70s. Patient is afebrile with a temperature of 97.1. Hemoglobin 9.6. BUN 35. Creatinine 1.30. Creatinine on admission was 1.00. Patient did receive 40 mg Lasix IV yesterday and was started on 40 mg by mouth daily today. Patient states he has been urinating frequently and was up approximately 6 times during the night to urinate. Patient remains on Proscar. Objective - Vital Signs Vital signs: Vital Signs Temp 97.1 F L 10/29/17 04:59 Pulse 80 10/29/17 11:07 Resp 18 10/29/17 04:59 BP 136/65 10/29/17 04:59 Pulse Ox 95 10/29/17 07:03 Intake & Output 10/28/17 10/29/17 10/29/17 18:59 06:59 18:59 Intake Total 481 240 Output Total 1275 130 Balance -794 -130 240 Weight 91 kg 97.7 kg Intake: IV 201 0.9 normal saline for 21 pressure bag Lactated Ringers 1,000 ml 180 @ 20 mls/hr IV .Q24H [facility] Rx#:[id number] Oral 280 240 Output: Chest Tube Drainage 260 130 Left Pleural 20 Left Pleural/mediastinal 160 130 Right Pleural 80 Urine 1015 Other: Voiding Method Indwelling Catheter Toilet # Voids 1 ABP, PAP, CO, CI - Last Documented Arterial Blood Pressure 155/53 Pulmonary Artery Pressure 22/8 Cardiac Output 5.8 Cardiac Index 2.7 - Exam GENERAL: This is a 77-year-old male in no apparent distress at the time of examination. Sitting up in the chair in the ICU. Pleasant and cooperative. HEENT: Head is atraumatic, normocephalic. Pupils are equal, round, and reactive to light. Sclerae anicteric. Conjunctivae are clear. Mucus membranes of the mouth are moist. Neck is supple. RESPIRATORY: Clear to ausculation, diminished at the bases. No use of accessory muscles. Patient maintaining oxygen saturation greater than 92%. No chest wall tenderness is noted on palpation or with deep breathing. CARDIOVASCULAR: Left pleural chest pain remains intact. Right mediastinal and pleural chest tube sites without signs or symptoms of infection. No drainage noted. Systolic murmur auscultated. S1 and S2 noted. No JVD noted. No S3 or S4 noted. GASTROINTESTINAL: No distention noted. Abdomen soft and round. Normal active bowel sounds auscultated x 4 quadrants. No pain or tenderness noted upon palpation. INTEGUMENTARY: Midline chest incision is clean, dry, and intact. No cyanosis. No jaundice. No rashes noted. No cellulitis noted. EXTREMITIES: 2+ peripheral pulses. No evidence of peripheral edema. No calf tenderness noted. NEUROLOGIC: Cranial nerves II-XII intact. PSYCHIATRIC: Awake, alert, and oriented X 3. Appropriate affect. Intact judgement and insight. - Labs CBC & Chem 7: 10/29/17 05:54 10/29/17 05:54 Labs: Abnormal Lab Results - Last 24 Hours (Table) 10/28/17 10/28/17 10/28/17 Range/Units 11:47 17:36 20:21 RBC (4.30-5.90) m/uL Hgb (13.0-17.5) gm/dL Hct (39.0-53.0) % Sodium (137-145) mmol/L BUN (9-20) mg/dL Creatinine (0.66-1.25) mg/dL Glucose (74-99) mg/dL POC Glucose (mg/dL) 147 H 166 H 161 H (75-99) mg/dL Calcium (8.4-10.2) mg/dL ALT (21-72) U/L Total Protein (6.3-8.2) g/dL Albumin (3.5-5.0) g/dL 10/29/17 10/29/17 10/29/17 Range/Units 02:08 05:54 05:54 RBC 3.01 L (4.30-5.90) m/uL Hgb 9.6 L D (13.0-17.5) gm/dL Hct 27.8 L (39.0-53.0) % Sodium 136 L (137-145) mmol/L BUN 35 H (9-20) mg/dL Creatinine 1.30 H (0.66-1.25) mg/dL Glucose 116 H (74-99) mg/dL POC Glucose (mg/dL) 134 H (75-99) mg/dL Calcium 8.2 L (8.4-10.2) mg/dL ALT 14 L (21-72) U/L Total Protein 4.5 L (6.3-8.2) g/dL Albumin 2.6 L (3.5-5.0) g/dL 10/29/17 Range/Units 05:58 RBC (4.30-5.90) m/uL Hgb (13.0-17.5) gm/dL Hct (39.0-53.0) % Sodium (137-145) mmol/L BUN (9-20) mg/dL Creatinine (0.66-1.25) mg/dL Glucose (74-99) mg/dL POC Glucose (mg/dL) 121 H (75-99) mg/dL Calcium (8.4-10.2) mg/dL ALT (21-72) U/L Total Protein (6.3-8.2) g/dL Albumin (3.5-5.0) g/dL Assessment and Plan Plan: ASSESSMENT: Moderate to severe mitral regurgitation, s/p mitral valve replacement and CABG x 2 with MICHEL to LAD and saphenous vein graft to RCA, POD #3 Diabetes Mellitus, type II Essential hypertension Hyperlipidemia Gastroesophageal reflux disease History of laryngeal cancer with radiation therapy in 2010 History of BPH, maintained on Proscar History of nephrolithiasis requiring lithotripsy Hypoalbuminemia, prealbumin 14.0 Acute kidney injury, creatinine 1.30, creatinine on admission 1.0, likely due to decreased oral intake and diuretics PLAN: Continue postoperative management per Dr. Wall Continue novolog sliding scale Continue levemir at HS. Patient refused dose two nights ago. Insulin was not given by nursing last night and charted "patient asleep" Encourage patient to take insulin as ordered as tight glycemic control is important postoperatively Encourage increased protein intake due to decreased prealbumin. Dietary on consult. Monitor kidney function. Recheck BUN/Creatinine in AM Pain control IS 10x an hour while awake Home meds as appropriate Monitor labs Monitor vital signs and address as appropriate Further recommendations pending patient's course Nurse practitioner note has been reviewed by physician. Signing provider agrees with the documented findings, assessment, and plan of care.
[2017-10-29 11:42] LABS: Glucose,Whole Blood 134 mg/dL (75-99)
--- NOTE | 2017-10-29 12:00 | P.CONS ---
History of Present Illness - Chief Complaint Cardiac debility - History of Present Illness I had the op to see patient for inpatient rehab consultation with regard to cardiac debility. He was admitted to [facility] October 26 with known cardiac disease. Underwent mitral valve replacement and two-vessel coronary bypass on 418. Seen in ICU by Dr. Perez. Chest x-rays followed and no left-sided pneumothorax, chested. No pneumothorax and right. PT reports moderate assistance for bed mobility minimal assistance for transfers and gait 50 feet with hand-held assist. OT reports minimal assistance for upper and lower dressing and transfers and moderate assistance for bathing and toileting. Previous functional history as elicited from patient: 77-year-old right-handed white male who is lives and 2 floor home with . Retired. They share the cooking and laundry. Patient independent with driving, standing shower and gait without device. History of smoking in the past but doesn't smoke currently. Rare drink. Dr. Lynn is regular doctor. Family history of mild diabetes in father. Review of Systems Review of systems: ENT: Denies sneezes or discharge. Eyes: Denies discharge or photophobia. Cardiac: Denies chest pain or palpitation. Pulmonary: Perhaps mild shortness of breath. Gastrointestinal: Denies nausea, emesis, constipation, diarrhea. Genitourinary: Denies discharge or frequency. Musculoskeletal: Denies muscle or bone aches. Neurologic: Mild generalized weakness. Endocrine: Denies shakes or sweats. Oncology: Denies cancers. Dermatologic: Denies rash, itching, pruritus. ALLERGY/immunology: Denies sneezes, rashes. 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, coronary artery disease, mitral valve regurgitation severe, COPD mild with an FEV1 of 74% of predicted at baseline, diabetes mellitus, hyperlipidemia, hypertension, BPH, small hiatal hernia, history of nephrolithiasis, history of [place] medical ALLERGIES History of Any Multi-Drug Resistant Organisms: None Reported Past Surgical History: Heart Catheterization, Hernia Repair, Orthopedic Surgery Additional Past Surgical History / Comment(s): right rotator cuff, lithotripsy kim, right side inguinal hernia repair, kim lens implants Past Anesthesia/Blood Transfusion Reactions: No Reported Reaction Smoking Status: Former smoker - Past Family History Mother Family Medical History: Dementia, Myocardial Infarction ([place]) Additional Family Medical History / Comment(s): passed at 71 Medications and Allergies Home Medications Medication Instructions Recorded Confirmed Type Albuterol Inhaler [Ventolin Hfa 1 - 2 puff INHALATION RT-Q6H PRN 09/02/16 History Inhaler] Aspirin 81 mg PO DAILY 09/02/16 10/26/17 History Atorvastatin [Lipitor] 40 mg PO HS 09/02/16 10/26/17 History Ergocalciferol [Vitamin D2 50,000 unit PO Q14D 09/02/16 10/26/17 History (DRISDOL)] Lisinopril [Zestril] 5 mg PO DAILY 09/02/16 10/26/17 History amLODIPine BESYLATE [Norvasc] 5 mg PO DAILY 09/02/16 10/26/17 History Finasteride [Proscar] 5 mg PO DAILY 07/15/17 10/26/17 History Pantoprazole [Protonix] 40 mg PO DAILY #30 tab 07/15/17 10/26/17 Rx metFORMIN HCL [Glucophage] 500 mg PO BID 07/15/17 10/26/17 History Metoprolol Succinate (ER) [Toprol 50 mg PO DAILY 09/21/17 10/26/17 History Xl] Aspirin 364 mg PO ONCE 10/26/17 10/26/17 History Allergies Allergy/AdvReac Type Severity Reaction Status Date / Time No Known Allergies Allergy Verified 10/26/17 14:46 Physical Exam Vitals: Vital Signs Temp Pulse Pulse Resp BP BP BP 10/29/17 11:16 86 10/29/17 11:07 80 10/29/17 07:14 84 10/29/17 07:03 80 10/29/17 04:59 97.1 F L 77 18 136/65 10/29/17 00:00 70 18 115/58 10/28/17 20:28 97.4 F L 85 18 123/58 10/28/17 17:05 97.6 F 89 18 130/59 10/28/17 16:00 98.6 F 92 22 118/56 10/28/17 15:38 92 10/28/17 15:25 85 10/28/17 15:00 88 25 H 112/57 10/28/17 14:00 84 18 112/57 10/28/17 13:00 87 23 106/62 10/28/17 12:12 86 10/28/17 12:02 84 10/28/17 12:00 86 17 138/75 Pulse Ox 10/29/17 11:16 10/29/17 11:07 10/29/17 07:14 10/29/17 07:03 95 10/29/17 04:59 93 L 10/29/17 00:00 94 L 10/28/17 20:28 94 L 10/28/17 17:05 95 10/28/17 16:00 93 L 10/28/17 15:38 10/28/17 15:25 93 L 10/28/17 15:00 93 L 10/28/17 14:00 93 L 10/28/17 13:00 93 L 10/28/17 12:12 10/28/17 12:02 10/28/17 12:00 95 Intake and Output 10/28/17 10/29/17 10/29/17 22:59 06:59 14:59 Intake Total 40 240 Output Total 324 76 Balance -284 -76 240 Intake: IV 40 Lactated Ringers 1,000 ml 40 @ 20 mls/hr IV .Q24H [facility] Rx#:[id number] Oral 0 240 Output: Chest Tube Drainage 74 76 Left Pleural 20 Left Pleural/mediastinal 54 76 Urine 250 Other: Voiding Method Toilet Toilet # Voids 1 Weight 91 kg 97.7 kg Skin: Good color, texture, turgor. General: Medium build and comfortable appearance. Head: Normocephalic, atraumatic. Eyes: Symmetric. Pupils equal round. Ears: Symmetric. Hearing within normal limits. Mouth: Clear. Neck: Supple. Carotid without bruit. Cardiac: Regular rate and rhythm. Clean and dressed. Wearing harness. Lungs: Clear anteriorly and posteriorly. Abdomen: Soft active nontender. Extremities: Normal tone. Neurological: Mental status: Alert, cooperative, pleasant. Cranial nerves: Symmetric facial tone and trapezius. Motor: Normal strength and isolation all 4 limbs. Sensation: Intact throughout. DTRs: Symmetric and equal throughout. Mobility: Stands with minimal assistance and wobbles and would fall on own. Reports receiving physical assistance for mobility in room including to bathroom. Results CBC & Chem 7: 10/29/17 05:54 10/29/17 05:54 Labs: Abnormal Lab Results - Last 24 Hours (Table) 10/28/17 10/28/17 10/29/17 Range/Units 17:36 20:21 02:08 RBC (4.30-5.90) m/uL Hgb (13.0-17.5) gm/dL Hct (39.0-53.0) % Sodium (137-145) mmol/L BUN (9-20) mg/dL Creatinine (0.66-1.25) mg/dL Glucose (74-99) mg/dL POC Glucose (mg/dL) 166 H 161 H 134 H (75-99) mg/dL Calcium (8.4-10.2) mg/dL ALT (21-72) U/L Total Protein (6.3-8.2) g/dL Albumin (3.5-5.0) g/dL 10/29/17 10/29/17 10/29/17 Range/Units 05:54 05:54 05:58 RBC 3.01 L (4.30-5.90) m/uL Hgb 9.6 L D (13.0-17.5) gm/dL Hct 27.8 L (39.0-53.0) % Sodium 136 L (137-145) mmol/L BUN 35 H (9-20) mg/dL Creatinine 1.30 H (0.66-1.25) mg/dL Glucose 116 H (74-99) mg/dL POC Glucose (mg/dL) 121 H (75-99) mg/dL Calcium 8.2 L (8.4-10.2) mg/dL ALT 14 L (21-72) U/L Total Protein 4.5 L (6.3-8.2) g/dL Albumin 2.6 L (3.5-5.0) g/dL 10/29/17 Range/Units 11:40 RBC (4.30-5.90) m/uL Hgb (13.0-17.5) gm/dL Hct (39.0-53.0) % Sodium (137-145) mmol/L BUN (9-20) mg/dL Creatinine (0.66-1.25) mg/dL Glucose (74-99) mg/dL POC Glucose (mg/dL) 134 H (75-99) mg/dL Calcium (8.4-10.2) mg/dL ALT (21-72) U/L Total Protein (6.3-8.2) g/dL Albumin (3.5-5.0) g/dL Chest x-ray: report reviewed (Serial chest x-rays followed.) Assessment and Plan (1) Mitral valve regurgitation Current Visit: Yes Status: Chronic Code(s): I34.0 - NONRHEUMATIC MITRAL ( VALVE) INSUFFICIENCY SNOMED Code(s): 85736936 Plan: Impression: 1. Cardiac debility. 2. Status post 2 vessel coronary bypass and mitral valve replacement October 28. 3. Diabetes. 4. Hypertension. 5. Dyslipidemia. 6. COPD with asthma. 7. History of cancer. Comments and plan: At this time PT and OT are ongoing. Safety concerns noted. Patient reports that concerned about patient returning home currently. Have discussed possible benefit of inpatient rehab and patient seems agreeable.
[2017-10-29] MEDS: LISINOPRIL 2.5 MG TAB PO SCH (12:27)
--- NOTE | 2017-10-29 13:35 | P.PN ---
Subjective Progress Note Date: 10/29/17 Principal diagnosis: Vent management, status post 2 vessel bypass surgery and mitral valve replacement A 77-year-old male patient who is being seen today following cardiac surgery. The patient underwent two-vessel bypass surgery and the mitral valve replacement. The patient was having exertional dyspnea on outpatient basis. He was diagnosed having significant mitral regurgitation and the MERA preoperatively showed a prostate regurgitation along with +2 aortic regurgitation and mitral valve prolapse involving the posterior leaflet. The LV was preserved. 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 The patient was seen by cardiothoracic surgery and the patient underwent his surgery today. The patient underwent a mitral valve replacement and two-vessel bypass surgery with MICHEL to LAD and saphenous finger after RCA. Currently the patient is in the intensive care unit sedated with Diprivan running at 25 mics. The patient is hypertensive currently on Plavix drip running at 20 mg/h. Patient is also on nitroglycerin drip at 5 mcg/m. The patient is on a mechanical ventilator. I switched him to an assist-control mode at the rate of 12, tidal volume of 650, FiO2 has been cut down to 50% and the patient is a PEEP of 5. The blood gases earlier showed a pH of 7.36 with a pCO2 of 44 and pO2 of 214. The chest x-ray postop showed no acute abnormalities. Hemodynamically, the patient is producing adequate amount of urine output. The patient has a cardiac index of 2.4 and a PA diastolic of 21. The patient has a right and the left pleural chest tube. The right pleural chest tube is quite dry. The mediastinal and the left pleural chest tube has put out approximately 45 mL the patient arrived from the operating room. The patient remains intubated on a mechanical ventilator. Orogastric tube is in place. No agitation. He is quite comfortable and was sedated. His preoperative FEV1 was in the order of 2.53 L which is 74% of predicted. The patient is currently atrially paced at the rate of 70. On 10/27/2017 patient seen in follow-up in intensive care unit. He is awake, alert, he was successfully extubated last night at 20:25. Currently on 4 L per nasal cannula with O2 sat at 90%. Afebrile, hemodynamically stable, currently on maintenance IV fluid and LR at the rate of 20 ML per hour, Cleviprex drip has been discontinued this morning, insulin drip is currently infusing at 3 units per hour. No other drips. Patient's 100% AV paced on the monitor, underlying rhythm is atrial fibrillation. he is currently seen sitting up in the recliner, midsternal incision is clean dry and intact, well approximated, stable. Patient has a mediastinal/left pleural and right pleural chest tubes, and then serosanguineous output. Left pleural/mediastinal chest tube output is 110 mL in the last 24 hours, right pleural chest tube output is 35 ML per hour, and patient is making adequate amount of urine, ranging from 35-85 ML per hour. Patient's heparin was moderate amount of incisional pain, currently receiving pain medications. Lung sounds are clear, diminished at the bases. No rhonchi, no rales, or wheezing. His working on his incentive spirometry, which which 750 ML on his highest today. Bilateral extremities are negative for edema, eveline wrapped. Exam showed WBC 15, hemoglobin is 12.4, INR is 1.2, sodium 136, tassium 4.7, BUN 19, creatinine 1.10. Today's chest x-ray was reviewed, showed bibasilar atelectatic changes, and central vascular congestion and cardiomegaly. On 10/28/2017 the patient is being seen in follow-up in the intensive care unit. The patient has no specific complaints. The patient is hemodynamic is stable. Chest x-ray from today shows no evidence of any pneumothorax. The right pleural chest tube will be removed today. The patient is off insulin drip. The patient is off the pacer and his underlying rhythm is sinus. The patient will be started on beta blockers at a lower dose. The mediastinal and the left pleural chest tube will be kept in place for another 24 hours. The patient utilizing incentive spirometer and is still pulling more than 700. No chest pain. No respiratory distress. Blood work shows a hemoglobin of 11.4. Creatinine is stable at 1.3. The surgical wound is dry clean and intact. The patient is postop day #2 for now. Earlier the pain was around 5 out of 10 in severity and currently is under better control. He did ambulate this morning in the intensive care units. Right internal jugular cordis and [place] catheter in place and functioning current cardiac output 4.9, cardiac index 2.6 , CVP 5, PA pressures 34/14. Atrial and ventricular epicardial pacemaker wires intact and to pacemaker generator, AAI mode with backup rate of 70 bpm. nevertheless, his current rhythm is sinus. On 10/29/2017 patient seen in follow-up on selective care unit. Last night he was noted to have some confusion and disorientation after she was transferred out of the intensive care. His mentation is improved today, he is alert, awake , oriented 3. No evidence of confusion or delirium on today's exam. Vital signs are stable, patient is afebrile, denies any dyspnea currently his pain is controlled. Last night patient was also noted to have ST elevation, likely related to recent sternotomy, and pericarditis. Compliant with his incentive spirometry, able to achieve thousand ml today. Lung sounds are clear, respirations are even and nonlabored, left pleural chest tube remains in place to low continuous wall suction -20 cm of water. No air leak noted. Patient remains in sinus rhythm with controlled rate. Surgical pain is controlled, denies any chest, denies any dyspnea. Epicardial wires remain in place, however they are not connected to a pacemaker generator. Objective - Vital Signs Vital signs: Vital Signs Temp 97.1 F L 10/29/17 04:59 Pulse 86 10/29/17 11:16 Resp 18 10/29/17 04:59 BP 136/65 10/29/17 04:59 Pulse Ox 95 10/29/17 07:03 Intake & Output 10/28/17 10/29/17 10/29/17 18:59 06:59 18:59 Intake Total 481 240 Output Total 1275 130 200 Balance -794 -130 40 Weight 91 kg 97.7 kg Intake: IV 201 0.9 normal saline for 21 pressure bag Lactated Ringers 1,000 ml 180 @ 20 mls/hr IV .Q24H [facility] Rx#:[id number] Oral 280 240 Output: Chest Tube Drainage 260 130 Left Pleural 20 Left Pleural/mediastinal 160 130 Right Pleural 80 Urine 1015 200 Other: Voiding Method Indwelling Catheter Toilet # Voids 1 1 # Bowel Movements 0 ABP, PAP, CO, CI - Last Documented Arterial Blood Pressure 155/53 Pulmonary Artery Pressure 22/8 Cardiac Output 5.8 Cardiac Index 2.7 - Exam GENERAL EXAM: Alert, pleasant, 77-year-old white female, comfortable in no apparent distress, sitting up in the recliner HEAD: Normocephalic/atraumatic. EYES: Normal reaction of pupils, equal size. Conjunctiva pink, sclera white. NOSE: Clear with pink turbinates. THROAT: No erythema or exudates. NECK: No masses, no JVD, no thyroid enlargement, no adenopathy. CHEST: No chest wall deformity. Symmetrical expansion. Midsternal incision is clean dry and intact, stable, left pleural chest tube is present with thin serosanguineous output in the pleura Vac. Epicardial wires of grounded LUNGS: Equal air entry with no crackles, wheeze, rhonchi or dullness. CVS: Regular rate and rhythm, normal S1 and S2, no gallops, no murmurs, no rubs ABDOMEN: Soft, nontender. No hepatosplenomegaly, normal bowel sounds, no guarding or rigidity. EXTREMITIES: No clubbing, no edema, no cyanosis, 2+ pulses and upper and lower extremities. MUSCULOSKELETAL: Muscle strength and tone normal. Left lower leg incisions covered with surgical dressings, bilateral lower extremities are negative for edema, legs are eveline wrapped SPINE: No scoliosis or deformity SKIN: No rashes CENTRAL NERVOUS SYSTEM: Alert and oriented -3. No focal deficits, tone is normal in all 4 extremities. PSYCHIATRIC: Alert and oriented -3. Appropriate affect. Intact judgment and insight. - Labs CBC & Chem 7: 10/29/17 05:54 10/29/17 05:54 Labs: Abnormal Lab Results - Last 24 Hours (Table) 10/28/17 10/28/17 10/29/17 Range/Units 17:36 20:21 02:08 RBC (4.30-5.90) m/uL Hgb (13.0-17.5) gm/dL Hct (39.0-53.0) % Sodium (137-145) mmol/L BUN (9-20) mg/dL Creatinine (0.66-1.25) mg/dL Glucose (74-99) mg/dL POC Glucose (mg/dL) 166 H 161 H 134 H (75-99) mg/dL Calcium (8.4-10.2) mg/dL ALT (21-72) U/L Total Protein (6.3-8.2) g/dL Albumin (3.5-5.0) g/dL 10/29/17 10/29/17 10/29/17 Range/Units 05:54 05:54 05:58 RBC 3.01 L (4.30-5.90) m/uL Hgb 9.6 L D (13.0-17.5) gm/dL Hct 27.8 L (39.0-53.0) % Sodium 136 L (137-145) mmol/L BUN 35 H (9-20) mg/dL Creatinine 1.30 H (0.66-1.25) mg/dL Glucose 116 H (74-99) mg/dL POC Glucose (mg/dL) 121 H (75-99) mg/dL Calcium 8.2 L (8.4-10.2) mg/dL ALT 14 L (21-72) U/L Total Protein 4.5 L (6.3-8.2) g/dL Albumin 2.6 L (3.5-5.0) g/dL 10/29/17 Range/Units 11:40 RBC (4.30-5.90) m/uL Hgb (13.0-17.5) gm/dL Hct (39.0-53.0) % Sodium (137-145) mmol/L BUN (9-20) mg/dL Creatinine (0.66-1.25) mg/dL Glucose (74-99) mg/dL POC Glucose (mg/dL) 134 H (75-99) mg/dL Calcium (8.4-10.2) mg/dL ALT (21-72) U/L Total Protein (6.3-8.2) g/dL Albumin (3.5-5.0) g/dL Assessment and Plan Plan: Assessment: 1 mitral valve replacement for severe mitral regurgitation and two-vessel bypass surgery with MICHEL to LAD and saphenous vein graft to RCA. The patient is postop day #3. Successfully extubated on 10/26/2017 at 20/25, is currently on 2 L per nasal cannula 2 mechanical ventilation post thoracotomy bypass surgery and valve replacement, he was successfully extubated she remains in a dyspnea, FiO2 down to 2 L per nasal cannula 3 moderate to severe mitral regurgitation, post mitral valve replacement, and coronary artery bypass surgery. postop day #3 4 diabetes mellitus type 2 5 hypertension artery on a combination of Cleviprex nitroglycerin drip for blood pressure control 6 hyperlipidemia 7 mild COPD with a baseline FEV1 of 74% of predicted 8 BPH 9 laryngeal cancer postradiation therapy back in 2009 10 acid reflux Plan: Patient's mentation is improved today, did have some confusion last night, she has resolved. Hemodynamically stable, sinus rhythm on the monitor, continue incentive spirometry, ambulation, continue monitoring labs, vital signs. Today' s chest x-ray was reviewed, showed scattered pleural parenchymal opacities of the lung bases, consistent with bilateral pleural effusions. Diuretics of being started by cardiothoracic surgery today. I performed a history & physical examination of the patient and discussed their management with my nurse practitioner, Michelle Peterson. I reviewed the nurse practitioner's note and agree with the documented findings and plan of care. Lung sounds are positive for lung sounds diminished at the bases. The findings and the impression was discussed with the patient. I attest to the documentation by the nurse practitioner. Time with Patient: Less than 30
--- NOTE | 2017-10-29 14:34 | PN ---
PROGRESS NOTE Mr. Anguiano is a 77-year-old male status post coronary artery bypass grafting. He is doing well this morning. His breathing is stable. He denies any symptoms of chest pain. He has had a good night's sleep. He continues to be on amlodipine 5 mg daily, aspirin, Lipitor 40 mg daily, Plavix 75 mg daily, Lasix 40 mg daily, lisinopril 2.5 mg daily, metoprolol tartrate 25 mg twice a day. PHYSICAL EXAMINATION: Blood pressure 136/60 with a heart in 70. LUNGS: With mild decrease in breath sound at bases. No wheezes. HEART: Regular rate and rhythm. S1, S2. No S3. No rub. ABDOMEN: Soft and nontender. EXTREMITIES: No significant edema. LAB DATA: BUN and creatinine 35 and 1.3, potassium 4.4, hemoglobin 9.6. IMPRESSION: 1. Status post coronary artery bypass grafting, stable. 2. Hypertension. 3. Hyperlipidemia. 4. Abnormal renal function. RECOMMENDATION: He will continue current therapy. Increase his level of activity. Continue incentive spirometry. MMODL / IJN: [id number] /
[2017-10-29] MEDS: amLODIPine 5 MG TAB PO SCH (14:36)
[2017-10-29 16:33] LABS: Glucose,Whole Blood 106 mg/dL (75-99)
[2017-10-29 20:41] LABS: Glucose,Whole Blood 135 mg/dL (75-99)
[2017-10-29] MEDS ORDERED: INSULIN DETEMIR 100 UNIT/ML 10 ML VIAL SQ SCH (21:00)
[2017-10-29] MEDS: SENNOSIDES-DOCUSATE SODIUM 1 EACH TAB PO SCH (21:27)
[2017-10-30 02:33] LABS: Glucose,Whole Blood 98 mg/dL (75-99)
[2017-10-30 05:24] LABS: Glucose,Whole Blood 99 mg/dL (75-99)
[2017-10-30] MEDS: INSULIN ASPART 100 UNIT/ML 1 ML 10 ML VIAL SQ SCH ×2 (05:35→11:54)
[2017-10-30] MEDS: KETOROLAC 30 MG/ML 1 ML VIAL IVP SCH (05:39)
[2017-10-30] MEDS: PANTOPRAZOLE 40 MG TABLET PO SCH (06:29)
--- NOTE | 2017-10-30 06:51 | XR ---
EXAMINATION TYPE: XR chest 2V DATE OF EXAM: 10/30/2017 COMPARISON: Chest x-ray from yesterday and older studies. HISTORY: Post open cardiac surgery progress study TECHNIQUE: Frontal and lateral views of the chest are obtained. FINDINGS: Sternal wires and mediastinal clips are redemonstrated. There is interval removal of left-s ided chest tube. Cardiac silhouette size is stable and upper limits of normal atherosclerotic thoraci c aorta with suspected mild central vascular congestion. Background chronic parenchymal changes noted . There is persistent right basilar opacity. There is moderate biapical pleural/parenchymal scarring. No pneumothorax is evident. There are prominent spurs in the thoracic spine. IMPRESSION: Chronic parenchymal change and cardiomegaly with suspected mild central vascular congest ion and persistent patchy right basilar atelectasis and/or infiltrate all redemonstrated. No evidence of significant pneumothorax status post left chest tube removal.
[2017-10-30 07:10] LABS: HCT 30.5 % (39.0-53.0); HGB 10.3 gm/dL (13.0-17.5); MCH 31.7 pg (25.0-35.0); MCHC 33.9 g/dL (31.0-37.0); MCV 93.7 fL (80.0-100.0); Platelet Count 193 k/uL (150-450); RBC 3.26 m/uL (4.30-5.90); RDW 13.2 % (11.5-15.5); WBC 7.8 k/uL (3.8-10.6)
[2017-10-30 07:25] LABS: Albumin 2.7 g/dL (3.5-5.0); Calcium 8.3 mg/dL (8.4-10.2); Magnesium 2.1 mg/dL (1.6-2.3); Potassium 4.1 mmol/L (3.5-5.1); Total Protein 4.7 g/dL (6.3-8.2)
[2017-10-30] MEDS: ASPIRIN 325 MG TAB PO SCH (08:51)
[2017-10-30] MEDS: HEPARIN SODIUM,PORCINE 5,000 UNIT/ML 1 ML VIAL SQ SCH (08:51)
[2017-10-30] MEDS: amLODIPine 5 MG TAB PO SCH (08:51)
[2017-10-30] MEDS: ATORVASTATIN 40 MG TAB PO SCH (08:51)
[2017-10-30] MEDS: CLOPIDOGREL 75 MG TAB PO SCH (08:52)
[2017-10-30] MEDS: FUROSEMIDE 40 MG TAB PO SCH (08:52)
[2017-10-30] MEDS: FINASTERIDE 5 MG TAB PO SCH (08:52)
[2017-10-30] MEDS: METOPROLOL TARTRATE 25 MG TAB PO SCH (08:53)
[2017-10-30] MEDS: IPRATROPIUM-ALBUTEROL 3 ML NEB INHALATION SCH ×2 (09:08→12:04)
[2017-10-30 10:45] VITALS: RESP 16
[2017-10-30 11:45] LABS: Glucose,Whole Blood 92 mg/dL (75-99)
[2017-10-30] MEDS: LISINOPRIL 2.5 MG TAB PO SCH (11:51)
--- NOTE | 2017-10-30 12:04 | P.DS ---
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 [employer] Consult: post cardiac surgery Do you want consulting provider notified?: Yes 10/27/17 09:48 Consult Physician Routine Consulting Provider: Theodore Perez Consult Reason/Comments: icu management Do you want consulting provider notified?: Already Contacted 10/29/17 09:15 Consult Physician Routine Consulting Provider: Hari Sutherland Consult Reason/Comments: inpatient rehab Do you want consulting provider notified?: Yes Primary care physician: Stated None - Discharge Diagnosis(es) (1) Family history of heart disease Current Visit: Yes Status: Chronic (2) Coronary artery disease Current Visit: Yes Status: Chronic (3) Hyperlipidemia Current Visit: Yes Status: Chronic (4) Hypertension Current Visit: Yes Status: Chronic (5) Mitral valve regurgitation Current Visit: Yes Status: Chronic (6) Type 2 diabetes mellitus Current Visit: Yes Status: Chronic (7) Hx of laryngeal cancer Current Visit: No Status: Resolved (8) History of prostate disorder Current Visit: Yes Status: Chronic Hospital Course: FINAL DIAGNOSIS: 1. Severe mitral valve regurgitation 2. Coronary artery disease 3. Previous medical history of laryngeal cancer with radiation 4. Kidney stones 5. Diabetes mellitus preoperative hemoglobin A1c 6.2% 6. Hypertension 7. Hyperlipidemia 8. Family history of heart disease 9. Preoperative urinary tract infection with enterococcus faecalis PRINCIPAL PROCEDURE: 1. Elective complex mitral valve repair with liana-cords 2. 2 pair to P2, the posterior leaflet, closure of P1, P2 cleft, ring annuloplasty with a #38 mm [employer] AnnuloFlex band 2. Clip ligation of the left atrial appendage with a #35 mm AtriClip 3. Coronary bypass grafting 2 with the left internal mammary artery to the left anterior descending artery, reverse saphenous vein graft off the aorta to the right coronary artery 4. Endoscopic vein harvesting of the left greater saphenous vein 5. Intraoperative transesophageal echocardiogram HISTORY OF PRESENT ILLNESS: This is an active 77-year-old gentleman who follows with Dr. Lynn in an outpatient basis who presented to the hospital July 2017 with symptoms of coughing, shortness of breath, and some reflux type symptoms and was found to have acute bronchitis as well as CHF type symptoms. He was evaluated and diagnosed as having significant mitral valve regurgitation. He was recommended to undergo transesophageal echocardiogram and cardiac catheterization. Transesophageal echocardiogram demonstrated 3+ mitral regurgitation, 2+ aortic regurgitation, mild mitral valve prolapse involving the posterior leaflet, mild coaptation of the mitral leaflets, and preserved LV function. His heart catheterization demonstrated RCA stenosis of 70-80% with a large acute marginal branch with 70-80% stenosis, and moderate noncritical disease of the LAD. The patient was referred to Dr. Wall for recommendations regarding mitral valve surgery. Mitral valve repair as well as bypass graft surgery were recommended. An extensive discussion was had with the patient and his family, risks and benefits were explained, and consent was obtained to proceed with surgery. HOSPITAL COURSE: The patient was brought to the hospital on 10/26/2017, taken to the preoperative area, prepared in the usual fashion, and subsequently taken to the operating room where Dr. Malhotra performed an elective complex mitral valve repair with liana-cords 2. 2 pair to P2, the posterior leaflet, closure of P1, P2 cleft, ring annuloplasty with a #38 mm [employer] AnnuloFlex band, clip ligation of the left atrial appendage with a #35 mm AtriClip, coronary bypass grafting 2 with the left internal mammary artery to the left anterior descending artery, reverse saphenous vein graft off the aorta to the right coronary artery, endoscopic vein harvesting of the left greater saphenous vein, and intraoperative transesophageal echocardiogram. Upon completion of surgery the patient was transferred to the cardiovascular intensive care unit where he was recovered, monitored hemodynamically, and where he progressed to cardiac rehabilitation phase 1. He was extubated, all lines, tubes, and drips were discontinued when appropriate, and was transferred to [address] [place] [address] for further monitoring and rehabilitation. His oxygen was titrated down, he continued to work with physical therapy, and was ready to be discharged to inpatient rehab on postoperative day #4 with cardiology, pulmonology, and primary care to follow. He received written and verbal instruction regarding his medications, activity restrictions, signs and symptoms requiring physician notification, and follow-up appointments. COMPLICATIONS: The patient experienced no postoperative complications. Patient Condition at Discharge: Stable Plan - Discharge Summary Discharge Rx Participant: Yes New Discharge Prescriptions: New Acetaminophen Tab [Tylenol] 650 mg PO Q4HR PRN tab PRN Reason: Moderate Pain Aspirin 325 mg PO DAILY tab Benzocaine/Menthol Lozeng [Cepacol lozenge] 1 each MUCOUS MEM Q2H PRN lozenge PRN Reason: Sore Throat Bisacodyl [Dulcolax] 10 mg RECTAL DAILY PRN supp PRN Reason: Constipation Clopidogrel [Plavix] 75 mg PO DAILY tab Heparin Sodium,Porcine [Heparin Sodium] 5,000 unit SQ Q8HR vial Ipratropium-Albuterol Nebulize [Duoneb 0.5 mg-3 mg/3 ml Soln] 3 ml INHALATION RT-Q2H PRN ampul.neb PRN Reason: Shortness Of Breath Or Wheezing Ipratropium-Albuterol Nebulize [Duoneb 0.5 mg-3 mg/3 ml Soln] 3 ml INHALATION RT-QID ampul.neb Magnesium Hydroxide [Milk of Magnesia Concentrate] 2,400 mg PO BID PRN ml PRN Reason: Constipation Metoprolol Tartrate [Lopressor] 25 mg PO BID tab Sennosides-Docusate Sodium [Senokot-S] 1 each PO HS tab Continue Ergocalciferol [Vitamin D2 (DRISDOL)] 50,000 unit PO Q14D Atorvastatin [Lipitor] 40 mg PO HS Lisinopril [Zestril] 5 mg PO DAILY Finasteride [Proscar] 5 mg PO DAILY metFORMIN HCL [Glucophage] 500 mg PO BID Pantoprazole [Protonix] 40 mg PO DAILY #30 tab Discontinued Albuterol Inhaler [Ventolin Hfa Inhaler] 1 - 2 puff INHALATION RT-Q6H PRN PRN Reason: Shortness Of Breath Aspirin 81 mg PO DAILY amLODIPine BESYLATE [Norvasc] 5 mg PO DAILY Metoprolol Succinate (ER) [Toprol Xl] 50 mg PO DAILY Aspirin 364 mg PO ONCE Discharge Medication List Atorvastatin [Lipitor] 40 mg PO HS 09/02/16 [History] Ergocalciferol [Vitamin D2 (DRISDOL)] 50,000 unit PO Q14D 09/02/16 [History] Lisinopril [Zestril] 5 mg PO DAILY 09/02/16 [History] Finasteride [Proscar] 5 mg PO DAILY 07/15/17 [History] Pantoprazole [Protonix] 40 mg PO DAILY #30 tab 07/15/17 [Rx] metFORMIN HCL [Glucophage] 500 mg PO BID 07/15/17 [History] Acetaminophen Tab [Tylenol] 650 mg PO Q4HR PRN tab 10/30/17 [Rx] Aspirin 325 mg PO DAILY tab 10/30/17 [Rx] Benzocaine/Menthol Lozeng [Cepacol lozenge] 1 each MUCOUS MEM Q2H PRN lozenge 10/30/17 [Rx] Bisacodyl [Dulcolax] 10 mg RECTAL DAILY PRN supp 10/30/17 [Rx] Clopidogrel [Plavix] 75 mg PO DAILY tab 10/30/17 [Rx] Heparin Sodium,Porcine [Heparin Sodium] 5,000 unit SQ Q8HR vial 10/30/17 [Rx] Ipratropium-Albuterol Nebulize [Duoneb 0.5 mg-3 mg/3 ml Soln] 3 ml INHALATION RT -Q2H PRN ampul.neb 10/30/17 [Rx] Ipratropium-Albuterol Nebulize [Duoneb 0.5 mg-3 mg/3 ml Soln] 3 ml INHALATION RT -QID ampul.neb 10/30/17 [Rx] Magnesium Hydroxide [Milk of Magnesia Concentrate] 2,400 mg PO BID PRN ml 10/30 [Rx] Metoprolol Tartrate [Lopressor] 25 mg PO BID tab 10/30/17 [Rx] Sennosides-Docusate Sodium [Senokot-S] 1 each PO HS tab 10/30/17 [Rx] Follow up Appointment(s)/Referral(s): Sohail Simpson MD [STAFF PHYSICIAN] - 11/10/17 10:00 am ([facility] follow at [facility] Chris Lynn Jr, DO [Doctor of Osteopathic Medicine] - 11/13/17 10:15 am () Ryan Wall MD [STAFF PHYSICIAN] - 11/24/17 3:30 pm Theodore Perez MD [STAFF PHYSICIAN] - 11/11/17 1:15 pm (Pulmonology to follow at [facility] Activity/Diet/Wound Care/Special Instructions: Consults to be placed at [facility]: Dr. Simpson from [facility] Dr. Perez from pulmonology Dr. Lynn for medical management DISCHARGE INSTRUCTIONS: 1. No driving for 4 weeks, or until physician gives their ok. 2. The patient should sleep in their own bed, no medical bed needed. 3. Stairs are not an issue. If the bedroom is upstairs, it is advised that the patient go up at night and down in the morning for the first week. Go slowly, using handrail and take 1 step at a time. 4. LEANNA hose are to be worn for 30 days or until physician discontinues. 5. Heart hugger is to be worn 100% of the time until physician discontinues.( except when showering) 6. No lifting, pushing, or pulling more than 10 pounds for 12 weeks. The physician will advise of any restriction changes. 7. The patient is expected to continue the prescribed walking program. 8. Continue pain control per as needed orders. 9. Continue with incentive spirometry and splinting/heart hugger until otherwise directed by the physician. 10. Must shower daily using liquid antibacterial soap and a separate white washcloth for each individual incision. 11. Routine sternal incision care. No powders, lotions, ointments on incisions. 12. Please call surgeon/GIG TENDER for temp greater than 101 F or purulent drainage from incisions. 13. All prescriptions given by surgeon for 30 days. Refills need to be filled through immigration coordinator/primary care physician. Rehab/HOME HEALTH SERVICES TO PROVIDE: RN SKILLED HOME CARE SERVICES FOR POST-OP SURGICAL PATIENTS WITH THE FOLLOWING: Coronary Artery Bypass Surgery (CABG), Mitral Valve Replacement/ Repair ( MVR), Aortic Valve Replacement/Repair (AVR) RN TO CONTINUE EDUCATION FROM ``ROAD TO A HEALTH HEART PATIENT EDUCATION MANUAL (GIVEN TO PATIENT IN THE HOSPITAL) MEDICATION RECONCILIATION WITH EDUCATION NEEDED ON FIRST HOME VISIT EMPHASIZE IMPORTANCE OF WEARING BREAST SUPPORT/HEART HUGGER ENCOURAGE USE OF INCENTIVE SPIROMETER 10 X EVERY HOUR WHILE AWAKE ENCOURAGE UTILIZATION OF LOWER EXTREMITY COMPRESSION STOCKINGS/ELANNA HOSE and ELEVATE LEGS ABOVE LEVEL OF HEART WHILE AT REST. ENCOURAGE AMBULATION 3-5x/day INCREASING TOLERATES, WHILE AVOID EXTREMES IN TEMPERATURE FREQUENCY: RN TO OPEN THE PATIENT WITHIN 24 HOURS OF DISCHARGE FROM THE HOSPITAL WITH TELEHEALTH INSTALLED AT SOC, RN TO VISIT 2-3 X A WEEK FOR 4 WEEKS ESTABLISHED BY PATIENT NEEDS. LABORATORY: CBC, CMP TO BE DRAWN DAILY AT [facility]. TELEHEALTH PARAMETERS: WEIGHT: NOTIFY MD OF WEIGHT GAIN OF 2 LBS IN 24 HOURS OR 5 LBS IN ONE WEEK HR: NOTIFY MD OF HR <55 BPM OR HR>100 BPM BP: NOTIFY MD IF BP <90/55 OR BP>140/100 O2 SAT: NOTIFY MD IF PO2<93% ON ROOM AIR SEND TELEHEALTH REPORT TO TROUBLE LOCATOR TEST DESK AND CARDIOVASCULAR SURGEON THE FIRST WEEK OF CARE AND THEN BI-WEEKLY. PLEASE ADDITIONALLY COMMUNICATE ANY ABNORMALS AND NEW FINDINGS TO THE SURGEONS OFFICE. A Red armband has been placed on the patient. It should be worn for 30 days post surgery and will be removed by the cardiac surgeons. If an ER visit is necessary, please make sure the number on the Red armband is called. Discharge Disposition: DC/TRNS INTERMEDIATE CARE FAC
--- NOTE | 2017-10-30 12:36 | P.PN ---
Subjective Progress Note Date: 10/30/17 A 77-year-old male patient who is being seen today following cardiac surgery. The patient underwent two-vessel bypass surgery and the mitral valve replacement. The patient was having exertional dyspnea on outpatient basis. He was diagnosed having significant mitral regurgitation and the MERA preoperatively showed a prostate regurgitation along with +2 aortic regurgitation and mitral valve prolapse involving the posterior leaflet. The LV was preserved. 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 The patient was seen by cardiothoracic surgery and the patient underwent his surgery today. The patient underwent a mitral valve replacement and two-vessel bypass surgery with MICHEL to LAD and saphenous finger after RCA. Currently the patient is in the intensive care unit sedated with Diprivan running at 25 mics. The patient is hypertensive currently on Plavix drip running at 20 mg/h. Patient is also on nitroglycerin drip at 5 mcg/m. The patient is on a mechanical ventilator. I switched him to an assist-control mode at the rate of 12, tidal volume of 650, FiO2 has been cut down to 50% and the patient is a PEEP of 5. The blood gases earlier showed a pH of 7.36 with a pCO2 of 44 and pO2 of 214. The chest x-ray postop showed no acute abnormalities. Hemodynamically, the patient is producing adequate amount of urine output. The patient has a cardiac index of 2.4 and a PA diastolic of 21. The patient has a right and the left pleural chest tube. The right pleural chest tube is quite dry. The mediastinal and the left pleural chest tube has put out approximately 45 mL the patient arrived from the operating room. The patient remains intubated on a mechanical ventilator. Orogastric tube is in place. No agitation. He is quite comfortable and was sedated. His preoperative FEV1 was in the order of 2.53 L which is 74% of predicted. The patient is currently atrially paced at the rate of 70. On 10/27/2017 patient seen in follow-up in intensive care unit. He is awake, alert, he was successfully extubated last night at 20:25. Currently on 4 L per nasal cannula with O2 sat at 90%. Afebrile, hemodynamically stable, currently on maintenance IV fluid and LR at the rate of 20 ML per hour, Cleviprex drip has been discontinued this morning, insulin drip is currently infusing at 3 units per hour. No other drips. Patient's 100% AV paced on the monitor, underlying rhythm is atrial fibrillation. he is currently seen sitting up in the recliner, midsternal incision is clean dry and intact, well approximated, stable. Patient has a mediastinal/left pleural and right pleural chest tubes, and then serosanguineous output. Left pleural/mediastinal chest tube output is 110 mL in the last 24 hours, right pleural chest tube output is 35 ML per hour, and patient is making adequate amount of urine, ranging from 35-85 ML per hour. Patient's heparin was moderate amount of incisional pain, currently receiving pain medications. Lung sounds are clear, diminished at the bases. No rhonchi, no rales, or wheezing. His working on his incentive spirometry, which which 750 ML on his highest today. Bilateral extremities are negative for edema, eveline wrapped. Exam showed WBC 15, hemoglobin is 12.4, INR is 1.2, sodium 136, tassium 4.7, BUN 19, creatinine 1.10. Today's chest x-ray was reviewed, showed bibasilar atelectatic changes, and central vascular congestion and cardiomegaly. On 10/28/2017 the patient is being seen in follow-up in the intensive care unit. The patient has no specific complaints. The patient is hemodynamic is stable. Chest x-ray from today shows no evidence of any pneumothorax. The right pleural chest tube will be removed today. The patient is off insulin drip. The patient is off the pacer and his underlying rhythm is sinus. The patient will be started on beta blockers at a lower dose. The mediastinal and the left pleural chest tube will be kept in place for another 24 hours. The patient utilizing incentive spirometer and is still pulling more than 700. No chest pain. No respiratory distress. Blood work shows a hemoglobin of 11.4. Creatinine is stable at 1.3. The surgical wound is dry clean and intact. The patient is postop day #2 for now. Earlier the pain was around 5 out of 10 in severity and currently is under better control. He did ambulate this morning in the intensive care units. Right internal jugular cordis and [place] catheter in place and functioning current cardiac output 4.9, cardiac index 2.6 , CVP 5, PA pressures 34/14. Atrial and ventricular epicardial pacemaker wires intact and to pacemaker generator, AAI mode with backup rate of 70 bpm. nevertheless, his current rhythm is sinus. On 10/29/2017 patient seen in follow-up on selective care unit. Last night he was noted to have some confusion and disorientation after she was transferred out of the intensive care. His mentation is improved today, he is alert, awake , oriented 3. No evidence of confusion or delirium on today's exam. Vital signs are stable, patient is afebrile, denies any dyspnea currently his pain is controlled. Last night patient was also noted to have ST elevation, likely related to recent sternotomy, and pericarditis. Compliant with his incentive spirometry, able to achieve thousand ml today. Lung sounds are clear, respirations are even and nonlabored, left pleural chest tube remains in place to low continuous wall suction -20 cm of water. No air leak noted. Patient remains in sinus rhythm with controlled rate. Surgical pain is controlled, denies any chest, denies any dyspnea. Epicardial wires remain in place, however they are not connected to a pacemaker generator. On 10/30/2017 the patient is back on a medical floor/telemetry. He is looking well. He is using incentive spirometer and he is pulling approximately 1500 mL on his incentive spirometer. He is having no respiratory difficulties. No cough or sputum production. Sternum stable clean and intact. Chest x-ray shows a small right-sided pleural effusion. All of the chest tubes have been removed. Cardiac rhythm is sinus. Hemoglobin is stable. Producing adequate amount of urine output and he has nocturia related to his underlying BPH. No confusion. No altered mentation. No other complains over the past 24 hours on this patient. He was dynamically stable. Objective - Vital Signs Vital signs: Vital Signs Temp 97.1 F L 10/30/17 09:00 Pulse 80 10/30/17 12:26 Resp 16 10/30/17 09:00 BP 139/77 10/30/17 09:00 Pulse Ox 95 10/30/17 09:00 Intake & Output 10/29/17 10/30/17 10/30/17 18:59 06:59 18:59 Intake Total 720 480 240 Output Total 232 Balance 488 480 240 Weight 97 kg Intake: Oral 720 480 240 Output: Chest Tube Drainage 32 Left Pleural/mediastinal 32 Urine 200 Other: Voiding Method Toilet Toilet # Voids 2 4 # Bowel Movements 0 ABP, PAP, CO, CI - Last Documented Arterial Blood Pressure 155/53 Pulmonary Artery Pressure 22/8 Cardiac Output 5.8 Cardiac Index 2.7 - Exam GENERAL EXAM: Alert, pleasant, 77-year-old white female, comfortable in no apparent distress, sitting up in the recliner HEAD: Normocephalic/atraumatic. EYES: Normal reaction of pupils, equal size. Conjunctiva pink, sclera white. NOSE: Clear with pink turbinates. THROAT: No erythema or exudates. NECK: No masses, no JVD, no thyroid enlargement, no adenopathy. CHEST: No chest wall deformity. Symmetrical expansion. Midsternal incision is clean dry and intact, stable, left pleural chest tube was removed yesterday and the patient has a clean chest tube site with the appropriate dressing being placed. LUNGS: Equal air entry with no crackles, wheeze, rhonchi or dullness. CVS: Regular rate and rhythm, normal S1 and S2, no gallops, no murmurs, no rubs ABDOMEN: Soft, nontender. No hepatosplenomegaly, normal bowel sounds, no guarding or rigidity. EXTREMITIES: No clubbing, no edema, no cyanosis, 2+ pulses and upper and lower extremities. MUSCULOSKELETAL: Muscle strength and tone normal. Left lower leg incisions covered with surgical dressings, bilateral lower extremities are negative for edema, legs are eveline wrapped SPINE: No scoliosis or deformity SKIN: No rashes CENTRAL NERVOUS SYSTEM: Alert and oriented -3. No focal deficits, tone is normal in all 4 extremities. PSYCHIATRIC: Alert and oriented -3. Appropriate affect. Intact judgment and insight. - Labs CBC & Chem 7: 10/30/17 06:34 10/30/17 06:34 Labs: Abnormal Lab Results - Last 24 Hours (Table) 10/29/17 10/29/17 10/30/17 Range/Units 16:31 20:40 06:34 RBC 3.26 L (4.30-5.90) m/uL Hgb 10.3 L (13.0-17.5) gm/dL Hct 30.5 L (39.0-53.0) % BUN (9-20) mg/dL Creatinine (0.66-1.25) mg/dL POC Glucose (mg/dL) 106 H 135 H (75-99) mg/dL Calcium (8.4-10.2) mg/dL ALT (21-72) U/L Total Protein (6.3-8.2) g/dL Albumin (3.5-5.0) g/dL 10/30/ Range/Units 06:34 RBC (4.30-5.90) m/uL Hgb (13.0-17.5) gm/dL Hct (39.0-53.0) % BUN 36 H (9-20) mg/dL Creatinine 1.34 H (0.66-1.25) mg/dL POC Glucose (mg/dL) (75-99) mg/dL Calcium 8.3 L (8.4-10.2) mg/dL ALT 20 L (21-72) U/L Total Protein 4.7 L (6.3-8.2) g/dL Albumin 2.7 L (3.5-5.0) g/dL Assessment and Plan Plan: Assessment 1 mitral valve replacement for severe mitral regurgitation and two-vessel bypass surgery with MICHEL to LAD and saphenous vein graft to RCA. The patient is postop day #3 3 junctional underlying rhythm postop which essentially recovered and the patient is back to his sinus rhythm. Note that the pacemaker generator is still in place as a backup. 4 moderate to severe mitral regurgitation, post mitral valve replacement, and coronary artery bypass surgery. postop day #3 5 diabetes mellitus type 2, currently off the insulin drip 6 hypertension , with improved blood pressure control. The patient currently is on lisinopril 2.5 mg by mouth daily, metoprolol obese also started on metoprolol at a dose of 12.5 mg by mouth twice a and the patient is off the Cleviprex. 7 hyperlipidemia 8 mild COPD with a baseline FEV1 of 74% of predicted 9 BPH 10 laryngeal cancer postradiation therapy back in 2009 11 acid reflux Plan Patient has small residual right-sided pleural effusion. The patient doing extremely well. He is post mitral valve replacement and two-vessel bypass surgery. No significant complications. He is on room air. His emanating. Pain is under good control. No other significant events over the past 24 hours. The patient is on aspirin, Plavix, metoprolol and Lipitor and Zestril. Glucophage 4 diabetes mellitus. Proscar for BPH.
[2017-10-30 12:47] VITALS: BP 120/69; PULSE 69; TEMP 97
--- NOTE | 2017-11-03 09:53 | CDI ---
Last Revision, June 2017 Documentation Clarification Form Date: 11/03/2017 12:00:00 AM From: MICHELLE Ghosh; [employer] Psychologist Phone: If you have a question about this query, please contact [employer] Psychologist at [phone] between 8am and 5pm. Admit Date: 10/26/2017 5:30:00 AM Patient Name: Nick Anguiano Visit Number: [id number] Discharge Date: 10/30/2017 ATTENTION: The Clinical Documentation Specialists (CDI) and [facility] Coding Staff appreciate your assistance in clarifying documentation. Please respond to the clarification below the line at the bottom and electronically sign. The CDI & [facility] Coding staff will review the response and follow-up if needed. Please note: Queries are made part of the Legal Health Record. If you have any questions, please contact the author of this message via ITS. Dr. Ryan Wall Patient presented for CABG and mitral valve repair. In order to assign the correct codes, I need clarification on the saphenous vein harvest. In your professional opinion, can you please clarify ? Saphenous vein, right Saphenous vein, left Other, please specify MTDD
--- NOTE | 2017-11-06 14:53 | P.PN ---
Progress Note - Text Progress Note Date: 10/26/17 5 meter walk test done pre-operatively the morning of surgery: #1 3.32 sec #2 3.35 sec #3 3.66 sec
== END 2017-10-30 14:17 | DRG 220 ==
LOC: 2ORMAIN 05:30 → 6ICU 14:25 → 6SEL 10-28 16:42
PROVIDERS: ADMIT Thoracic Surgery (Cardiothoracic Vascular Surgery); ATTEND Thoracic Surgery (Cardiothoracic Vascular Surgery)
PROC: 021009W Bypass Coronary Artery, One Artery from Aorta with Autologous Venous Tissue, Open Approach (ICD-10-PCS; principal; 2017-10-26 08:00)
PROC: 02UG0JZ Supplement Mitral Valve with Synthetic Substitute, Open Approach (ICD-10-PCS; principal; 2017-10-26 08:00)
PROC: 02100Z9 Bypass Coronary Artery, One Artery from Left Internal Mammary, Open Approach (ICD-10-PCS; principal; 2017-10-26 08:00)
PROC: 02L70CK Occlusion of Left Atrial Appendage with Extraluminal Device, Open Approach (ICD-10-PCS; principal; 2017-10-26 08:00)
PROC: 06BQ4ZZ Excision of Left Saphenous Vein, Percutaneous Endoscopic Approach (ICD-10-PCS; principal; 2017-10-26 08:00)
PROC: B246ZZ4 Ultrasonography of Right and Left Heart, Transesophageal (ICD-10-PCS; principal; 2017-10-26 08:00)
DX: I25.10 Atherosclerotic heart disease of native coronary artery without angina pectoris (principal); N17.9 Acute kidney failure, unspecified; J90 Pleural effusion, not elsewhere classified; I31.9 Disease of pericardium, unspecified; I48.91 Unspecified atrial fibrillation; J44.9 Chronic obstructive pulmonary disease, unspecified; E11.9 Type 2 diabetes mellitus without complications; I08.0 Rheumatic disorders of both mitral and aortic valves; E78.5 Hyperlipidemia, unspecified; I25.2 Old myocardial infarction; K21.9 Gastro-esophageal reflux disease without esophagitis; Z79.02 Long term (current) use of antithrombotics/antiplatelets; Z79.82 Long term (current) use of aspirin; Z79.899 Other long term (current) drug therapy; Z82.49 Family history of ischemic heart disease and other diseases of the circulatory system; Z83.3 Family history of diabetes mellitus; Z85.21 Personal history of malignant neoplasm of larynx; Z87.442 Personal history of urinary calculi; Z87.891 Personal history of nicotine dependence; Z92.3 Personal history of irradiation; Z96.1 Presence of intraocular lens; I10 Essential (primary) hypertension; Z87.440 Personal history of urinary (tract) infections; Z98.42 Cataract extraction status, left eye; Z98.41 Cataract extraction status, right eye; Z79.84 Long term (current) use of oral hypoglycemic drugs; N40.1 Benign prostatic hyperplasia with lower urinary tract symptoms; R35.1 Nocturia
CPT/HCPCS: 71045; 71046; 80048; 80053; 82330; 82805; 83735; 84100; 84134; 85025; 85027; 85520; 85610; 85730; 86850; 86891; 86900; 86901; 86920; 94002; 94640; 94760

== ENCOUNTER 2017-12-09 11:25 | Observation (INO) | payer MEDICARE, BC ==
--- NOTE | 2017-12-09 12:06 | ED ---
General Adult HPI - General Chief complaint: Fall Stated complaint: poss seizure/fall Time Seen by Provider: 12/09/17 11:33 Source: patient, EMS, RN notes reviewed, old records reviewed Mode of arrival: EMS Limitations: no limitations - History of Present Illness Initial comments: 77-year-old male presents status post fall with head injury. Patient is on sure of the medications he is taking. He is approximately 2 months postop open- heart surgery with valve replacement and two-vessel bypass. He's been doing quite well postoperatively. He states that his blood pressure medications have been being adjusted by his eviction specialist since that time. He states his blood pressure has been running low. Prior to arrival patient got up suddenly from the couch to answer the door, he felt very lightheaded and then passed out striking the left side of his head. He believes he was unconscious for approximately 1 minute. Only complaint at the time my evaluation his headache at the site of injury. Denies any vision changes. Denies any neck pain. Denies chest pain or dyspnea. Denies abdominal pain. No nausea vomiting or diarrhea. No fever or chills. - Related Data Home Medications Medication Instructions Recorded Confirmed Atorvastatin [Lipitor] 40 mg PO HS 09/02/16 12/09/17 Ergocalciferol [Vitamin D2 50,000 unit PO Q14D 09/02/16 12/09/17 (DRISDOL)] Lisinopril [Zestril] 5 mg PO DAILY 09/02/16 12/09/17 Finasteride [Proscar] 5 mg PO DAILY 07/15/17 12/09/17 metFORMIN HCL [Glucophage] 500 mg PO BID 07/15/17 12/09/17 Albuterol Inhaler [Ventolin Hfa 1 - 2 puff INHALATION RT-Q6H PRN 12/09/17 Inhaler] Aspirin EC [Ecotrin Low Dose] 81 mg PO DAILY 12/09/17 12/09/17 Cholecalciferol [Vitamin D3] 1,000 unit PO DAILY 12/09/17 12/09/17 Doxazosin [Cardura] 2 mg PO HS 12/09/17 12/09/17 Metoprolol Succinate (ER) [Toprol 75 mg PO DAILY 12/09/17 12/09/17 Xl] Sertraline HCl [Zoloft] 50 mg PO DAILY 12/09/17 12/09/17 Previous Rx's Medication Instructions Recorded Pantoprazole [Protonix] 40 mg PO DAILY #30 tab 07/15/17 Acetaminophen Tab [Tylenol] 650 mg PO Q4HR PRN tab 10/30/17 Allergies Allergy/AdvReac Type Severity Reaction Status Date / Time No Known Allergies Allergy Verified 12/09/17 12:22 Review of Systems ROS Statement: Those systems with pertinent positive or pertinent negative responses have been documented in the HPI. ROS Other: All systems not noted in ROS Statement are negative. 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% of predicted at baseline, diabetes mellitus, hyperlipidemia, hypertension, BPH, small hiatal hernia, history of nephrolithiasis, history of [place] medical ALLERGIES History of Any Multi-Drug Resistant Organisms: None Reported Past Surgical History: Hernia Repair, Orthopedic Surgery Additional Past Surgical History / Comment(s): right rotator cuff, lithotrpsy kim, right side inguinal hernia repair, kim lens implants Past Anesthesia/Blood Transfusion Reactions: No Reported Reaction Past Psychological History: No Psychological Hx Reported Smoking Status: Never smoker Past Alcohol Use History: None Reported Past Drug Use History: None Reported - Past Family History Mother Family Medical History: Dementia, Myocardial Infarction ([place]) Additional Family Medical History / Comment(s): passed at 71 General Exam Limitations: no limitations General appearance: alert, in no apparent distress Head exam: Present: normocephalic, other (Left-sided frontal hematoma) Eye exam: Present: normal appearance, PERRL, EOMI Neck exam: Present: normal inspection, full ROM. Absent: tenderness, meningismus Respiratory exam: Present: normal lung sounds bilaterally. Absent: respiratory distress, wheezes Cardiovascular Exam: Present: regular rate, normal rhythm Extremities exam: Present: normal inspection, full ROM, normal capillary refill. Absent: tenderness, pedal edema Neurological exam: Present: alert, oriented X3, CN II-XII intact. Absent: motor sensory deficit Psychiatric exam: Present: normal affect, normal mood Course Vital Signs 12/09/17 12/09/17 12/09/17 11:35 13:24 15:00 Temperature 98.1 F Pulse Rate 80 77 77 Respiratory 18 18 20 Rate Blood Pressure 176/90 140/82 147/80 O2 Sat by Pulse 98 96 97 Oximetry - Reevaluation(s) Reevaluation #1: 12/09/17 12:05 Patient states his tetanus is up-to-date. EKG Findings - EKG Comments: EKG Findings:: EKG normal sinus rhythm, no ST segment elevation, rate of 78, [place] interval 166, QRS duration 80, QTc 442 Medical Decision Making - Medical Decision Making 77-year-old male presenting status post fall. Patient is currently on aspirin. He is postop open-heart surgery with valve replacement. He has been monitoring his blood pressure as needed rather than on a certain scheduled. Had a single episode with head trauma. Head CT is obtained this is negative for intracranial hemorrhage or mass effect. CT of the cervical spine is negative for fracture or subluxation. Chest x-ray shows small posterior effusion which is chronic. Workup reveals normal white blood cell count, stable hemoglobin, magnesium is 1.2 which is replaced. Troponin is negative. Case discussed with his primary care physician Dr. Lynn, who will accept admission. - Lab Data Result diagrams: 12/09/17 11:45 12/09/17 11:45 Lab Results 12/09/17 12/09/17 12/09/17 Range/Units 11:45 11:45 11:45 WBC 8.5 (3.8-10.6) k/uL RBC 4.08 L (4.30-5.90) m/uL Hgb 13.0 (13.0-17.5) gm/dL Hct 38.2 L (39.0-53.0) % MCV 93.6 (80.0-100.0) fL MCH 31.7 (25.0-35.0) pg MCHC 33.9 (31.0-37.0) g/dL RDW 13.7 (11.5-15.5) % Plt Count 385 (150-450) k/uL Neutrophils % 74 % Lymphocytes % 14 % Monocytes % 6 % Eosinophils % 4 % Basophils % 1 % Neutrophils # 6.3 (1.3-7.7) k/uL Lymphocytes # 1.2 (1.0-4.8) k/uL Monocytes # 0.5 (0-1.0) k/uL Eosinophils # 0.3 (0-0.7) k/uL Basophils # 0.0 (0-0.2) k/uL PT (9.0-12.0) sec INR (<1.2) APTT (22.0-30.0) sec Sodium 140 (137-145) mmol/L Potassium 4.6 (3.5-5.1) mmol/L Chloride 104 (98-107) mmol/L Carbon Dioxide 23 (22-30) mmol/L Anion Gap 13 mmol/L BUN 19 (9-20) mg/dL Creatinine 1.06 (0.66-1.25) mg/dL Est GFR (CKD-EPI)AfAm 77 (>60 ml/min/1.73 sqM) Est GFR (CKD-EPI)NonAf 67 (>60 ml/min/1.73 sqM) Glucose 101 H (74-99) mg/dL Calcium 8.9 (8.4-10.2) mg/dL Magnesium 1.2 L (1.6-2.3) mg/dL Total Bilirubin 0.5 (0.2-1.3) mg/dL AST 18 (17-59) U/L ALT 26 (21-72) U/L Alkaline Phosphatase 81 (38-126) U/L Total Creatine Kinase 38 L (55-170) U/L CK-MB (CK-2) 0.7 (0.0-2.4) ng/mL CK-MB (CK-2) Rel Index 1.8 Troponin I <0.012 (0.000-0.034) ng/mL Total Protein 5.9 L (6.3-8.2) g/dL Albumin 3.5 (3.5-5.0) g/dL 12/09/17 Range/Units 11:45 WBC (3.8-10.6) k/uL RBC (4.30-5.90) m/uL Hgb (13.0-17.5) gm/dL Hct (39.0-53.0) % MCV (80.0-100.0) fL MCH (25.0-35.0) pg MCHC (31.0-37.0) g/dL RDW (11.5-15.5) % Plt Count (150-450) k/uL Neutrophils % % Lymphocytes % % Monocytes % % Eosinophils % % Basophils % % Neutrophils # (1.3-7.7) k/uL Lymphocytes # (1.0-4.8) k/uL Monocytes # (0-1.0) k/uL Eosinophils # (0-0.7) k/uL Basophils # (0-0.2) k/uL PT 10.8 (9.0-12.0) sec INR 1.1 (<1.2) APTT 22.6 (22.0-30.0) sec Sodium (137-145) mmol/L Potassium (3.5-5.1) mmol/L Chloride (98-107) mmol/L Carbon Dioxide (22-30) mmol/L Anion Gap mmol/L BUN (9-20) mg/dL Creatinine (0.66-1.25) mg/dL Est GFR (CKD-EPI)AfAm (>60 ml/min/1.73 sqM) Est GFR (CKD-EPI)NonAf (>60 ml/min/1.73 sqM) Glucose (74-99) mg/dL Calcium (8.4-10.2) mg/dL Magnesium (1.6-2.3) mg/dL Total Bilirubin (0.2-1.3) mg/dL AST (17-59) U/L ALT (21-72) U/L Alkaline Phosphatase (38-126) U/L Total Creatine Kinase (55-170) U/L CK-MB (CK-2) (0.0-2.4) ng/mL CK-MB (CK-2) Rel Index Troponin I (0.000-0.034) ng/mL Total Protein (6.3-8.2) g/dL Albumin (3.5-5.0) g/dL Disposition Clinical Impression: Syncope, Hypomagnesemia Disposition[facility] Condition: Stable Is patient prescribed a controlled substance at d/c from ED?: No Referrals: Chris Lynn Jr, [Primary Care Provider] - 1-2 days Decision to Admit Reason: Admit from EC Decision Date: 12/09/17 Decision Time: 15:26
[2017-12-09 12:24] LABS: Basophils % (A) 1 %; Eosinophils # (A) 0.3 k/uL (0-0.7); Eosinophils % (A) 4 %; HCT 38.2 % (39.0-53.0); Lymphocytes # (A) 1.2 k/uL (1.0-4.8); Lymphocytes % (A) 14 %; MCH 31.7 pg (25.0-35.0); MCHC 33.9 g/dL (31.0-37.0); MCV 93.6 fL (80.0-100.0); Monocytes # (A) 0.5 k/uL (0-1.0); Monocytes % (A) 6 %; Neutrophils # (A) 6.3 k/uL (1.3-7.7); Neutrophils % (A) 74 %; Platelet Count 385 k/uL (150-450); RBC 4.08 m/uL (4.30-5.90); RDW 13.7 % (11.5-15.5); WBC 8.5 k/uL (3.8-10.6)
[2017-12-09 12:35] LABS: Albumin 3.5 g/dL (3.5-5.0); Calcium 8.9 mg/dL (8.4-10.2); Magnesium 1.2 mg/dL (1.6-2.3); Potassium 4.6 mmol/L (3.5-5.1); Total Bilirubin 0.5 mg/dL (0.2-1.3); Total Protein 5.9 g/dL (6.3-8.2)
[2017-12-09 12:37] LABS: INR 1.1 (<1.2); Partial Thromboplastin Time 22.6 sec (22.0-30.0); Prothrombin Time 10.8 sec (9.0-12.0)
--- NOTE | 2017-12-09 12:40 | CT ---
EXAMINATION TYPE: CT brain shey juarez con DATE OF EXAM: 12/09/2017 COMPARISON: 05/18/2017 HISTORY: Pt had dizziness and fell. Contusion to Lt temporal region. CT DLP: 1157.[address] of the brain was performed. The ventricles, basal cisterns and sulci overlying the cerebral convexities demonstrate mild enlargem ent. There is no evidence for intracranial hemorrhage or sulcal effacement. There is decreased attenuatio n about the periventricular white matter and deep white matter of both cerebral hemispheres, compatib le with chronic small vessel ischemia. No mass effects are seen. If symptoms persist consider MRI. Osseous calvarium is intact. Left frontal scalp hematoma. IMPRESSION: 1. Age related atrophic and chronic small vessel ischemic change without acute intracranial process seen at this time. CT Cervical Spine: Unenhanced CT of the cervical spine was performed with bone and soft tissue window settings submitted . Coronal and sagittal reconstruction is obtained. There is normal alignment and prevertebral soft tissues. No evidence for acute cervical fracture . Scattered degenerative disc disease and spondylosis. Biapical scarring. IMPRESSION: 1. No evidence for acute fracture or subluxation of the cervical spine.
[2017-12-09 12:48] LABS: Creatine Kinase 38 U/L (55-170)
[2017-12-09 13:01] LABS: Creatine Kinase MB 0.7 ng/mL (0.0-2.4); Troponin I <0.012 ng/mL (0.000-0.034)
--- NOTE | 2017-12-09 13:21 | XR ---
EXAMINATION TYPE: XR chest 2V DATE OF EXAM: 12/09/2017 COMPARISON: NONE INDICATION: Small posterior pleural effusions. TECHNIQUE: Frontal and lateral views of the chest are obtained. FINDINGS: The heart size is normal. The pulmonary vasculature is normal. Posterior pleural effusions are present. This may be slightly increased from comparison.. Sternotomy wires are present from previous cardiac surgery. IMPRESSION: 1. Small posterior pleural effusions.
[2017-12-09] MEDS: MAGNESIUM SULFATE-D5W PMX 1 GM in DEXTROSE/WATER 1 100ML.BAG IVPB SCH ×2 (14:05→15:15)
[2017-12-09] MEDS ORDERED: NALOXONE 0.4 MG/ML 1 ML VIAL IV PRN (15:23)
[2017-12-09] MEDS ORDERED: ACETAMINOPHEN TAB 325 MG TAB PO PRN (16:17)
[2017-12-09] MEDS ORDERED: ALBUTEROL NEBULIZED 2.5 MG/3 ML INHALATION PRN (16:17)
[2017-12-09 16:21] LABS: Appearance,Urine Cloudy (Clear); Bacteria,Urine Rare /hpf; Bilirubin,Urine Negative (Negative); Blood,Urine Negative (Negative); Color,Urine Yellow; Glucose,Urine (UA) Negative (Negative); Hyaline Casts,Urine 4 /lpf (0-2); Ketones,Urine Negative (Negative); Leukocyte Esterase,Urine Large (Negative); Mucus,Urine Moderate /hpf; Nitrite,Urine Negative (Negative); PH, Urine 5.5 (5.0-8.0); Protein,Urine 1+ (Negative); RBC,Urine 10 /hpf (0-5); Specific Gravity,Urine 1.017 (1.001-1.035); Squamous Epithelial Cell,Urine <1 /hpf (0-4); Urobilinogen,Urine <2.0 mg/dL (<2.0); WBC,Urine 44 /hpf (0-5)
--- NOTE | 2017-12-09 16:56 | P.GSCN ---
History of Present Illness Consult date: 12/09/17 Reason for Consult: Recent complex mitral valve repair and coronary artery bypass grafting [address] Wall on 10/26/2017. Requesting physician: Chris Lynn Jr History of present illness: This is 77-year-old gentleman who is followed by Dr. Chris Lynn on an outpatient basis. He has a past medical history significant for cancer of his larynx with radiation, diabetes mellitus, hypertension, history of kidney stones , hyperlipidemia and a family history of heart disease. On 10/26/2017 the patient underwent an elective mitral valve repair with needle cords 2 pair to P2 the posterior leaflet, closure of P1, P2 cleft, ring annuloplasty with a #30 mm [employer] AnnuloFlex band, clip ligation of the left atrial appendage with a #35 mm Atriclip, and a coronary artery bypass grafting 2 with his left internal mammary artery to his left anterior coronary artery and a reverse greater saphenous vein graft off the aorta to the right coronary artery. The patient had a good postoperative recovery with no postoperative complications. He was subsequently discharged to inpatient rehab on postop day #4. The patient has been at home and doing quite well although reports that he has been having episodes of low blood pressure in the 80s systolic. His primary care physician and founder ceo & president have been adjusting his blood pressure medications accordingly. Today he was sitting at home on the couch and he went to answer the door and subsequently had an episode of dizziness. When he entered the door he reports that he became lightheaded and passed out hitting his left fore head. His and daughter report that a neighbor and lawn director pharmacy services witnessed the fall and report that he was alert after striking his head but his extremities were shaking. Currently he denies any pain, shortness of breath, dizziness, headache, nausea or vomiting. A computed tomography scan of his brain and C-spine were completed which demonstrated no evidence for acute fracture or subluxation of the cervical spine, and age-related atrophic and chronic small vessel ischemic changes without acute intracranial process seen. A chest x-ray was also completed which demonstrated a small posterior pleural effusion. Due to the patient's recent open heart surgery, Dr. Wall from cardiothoracic surgery was asked to evaluate the patient. Review of Systems A 14 point review of systems was completed and was negative except as mentioned in HPI. 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 Mitral valve repair and left atrial appendage clip ligation on 10/26/2017. Past Anesthesia/Blood Transfusion Reactions: No Reported Reaction Past Psychological History: No Psychological Hx Reported Smoking Status: Never smoker Past Alcohol Use History: None Reported Past Drug Use History: None Reported - Past Family History Mother Family Medical History: Dementia, Myocardial Infarction ([place]) Additional Family Medical History / Comment(s): passed at 71 Medications and Allergies Home Medications Medication Instructions Recorded Confirmed Type Atorvastatin [Lipitor] 40 mg PO HS 09/02/16 12/09/17 History Ergocalciferol [Vitamin D2 50,000 unit PO Q14D 09/02/16 12/09/17 History (DRISDOL)] Lisinopril [Zestril] 5 mg PO DAILY 09/02/16 12/09/17 History Finasteride [Proscar] 5 mg PO DAILY 07/15/17 12/09/17 History Pantoprazole [Protonix] 40 mg PO DAILY #30 tab 07/15/17 12/09/17 Rx metFORMIN HCL [Glucophage] 500 mg PO BID 07/15/17 12/09/17 History Acetaminophen Tab [Tylenol] 650 mg PO Q4HR PRN tab 10/30/17 12/09/17 Rx Albuterol Inhaler [Ventolin Hfa 1 - 2 puff INHALATION RT-Q6H PRN 12/09/17 History Inhaler] Aspirin EC [Ecotrin Low Dose] 81 mg PO DAILY 12/09/17 12/09/17 History Cholecalciferol [Vitamin D3] 1,000 unit PO DAILY 12/09/17 12/09/17 History Doxazosin [Cardura] 2 mg PO HS 12/09/17 12/09/17 History Metoprolol Succinate (ER) [Toprol 75 mg PO DAILY 12/09/17 12/09/17 History Xl] Sertraline HCl [Zoloft] 50 mg PO DAILY 12/09/17 12/09/17 History Allergies Allergy/AdvReac Type Severity Reaction Status Date / Time No Known Allergies Allergy Verified 12/09/17 12:22 Surgical - Exam Vital Signs Temp Pulse Resp BP Pulse Ox 98.1 F 80 18 176/90 98 12/09/17 11:35 12/09/17 11:35 12/09/17 11:35 12/09/17 11:35 12/09/17 11:35 - General well developed, well nourished, no distress, no pain - Eyes PERRL, normal ocular movement - ENT normal pinna, normal nares, normal mucosa, decreased hearing (Bilateral hearing aides.) - Neck No lymphadenopathy. no masses, no bruits, trachea midline, no venous distension - Respiratory Lung sounds essentially clear throughout. Respirations are symmetrical and nonlabored. - Cardiovascular Regular rhythm and rate. S1 and S2 present, negative for S3, gallop or murmur. Bedside telemetry showing normal sinus rhythm heart rate 79. No edema present. Sternum is stable. - Abdomen Abdomen is soft, nontender and nondistended. Active bowel sounds all 4 abdominal quadrants. No guarding or rigidity. No organomegaly. - Genitourinary Deferred - Rectum Deferred - Integumentary Left-sided frontal hematoma. no rash, no growths, no abnormal pigmentation - Neurologic normal coordination, normal sensation - Musculoskeletal normal gait, normal posture - Psychiatric oriented to time, oriented to person, oriented to place, speech is normal, memory intact Results - Labs 12/09/17 11:45 12/09/17 11:45 Abnormal Lab Results - Last 24 Hours (Table) 12/09/17 12/09/17 12/09/17 Range/Units 11:45 11:45 11:45 RBC 4.08 L (4.30-5.90) m/uL Hct 38.2 L (39.0-53.0) % Glucose 101 H (74-99) mg/dL Magnesium 1.2 L (1.6-2.3) mg/dL Total Creatine Kinase 38 L (55-170) U/L Total Protein 5.9 L (6.3-8.2) g/dL Urine Protein (Negative) Ur Leukocyte Esterase (Negative) Urine RBC (0-5) /hpf Urine WBC (0-5) /hpf Urine Bacteria (None) /hpf Hyaline Casts (0-2) /lpf Urine Mucus (None) /hpf 12/09/17 Range/Units 16:07 RBC (4.30-5.90) m/uL Hct (39.0-53.0) % Glucose (74-99) mg/dL Magnesium (1.6-2.3) mg/dL Total Creatine Kinase (55-170) U/L Total Protein (6.3-8.2) g/dL Urine Protein 1+ H (Negative) Ur Leukocyte Esterase Large H (Negative) Urine RBC 10 H (0-5) /hpf Urine WBC 44 H (0-5) /hpf Urine Bacteria Rare H (None) /hpf Hyaline Casts 4 H (0-2) /lpf Urine Mucus Moderate H (None) /hpf Diabetes panel 12/09/17 Range/Units 11:45 Sodium 140 (137-145) mmol/L Potassium 4.6 (3.5-5.1) mmol/L Chloride 104 (98-107) mmol/L Carbon Dioxide 23 (22-30) mmol/L BUN 19 (9-20) mg/dL Creatinine 1.06 (0.66-1.25) mg/dL Glucose 101 H (74-99) mg/dL Calcium 8.9 (8.4-10.2) mg/dL AST 18 (17-59) U/L ALT 26 (21-72) U/L Alkaline Phosphatase 81 (38-126) U/L Total Protein 5.9 L (6.3-8.2) g/dL Albumin 3.5 (3.5-5.0) g/dL Calcium panel 12/09/17 Range/Units 11:45 Calcium 8.9 (8.4-10.2) mg/dL Albumin 3.5 (3.5-5.0) g/dL Pituitary panel 12/09/17 Range/Units 11:45 Sodium 140 (137-145) mmol/L Potassium 4.6 (3.5-5.1) mmol/L Chloride 104 (98-107) mmol/L Carbon Dioxide 23 (22-30) mmol/L BUN 19 (9-20) mg/dL Creatinine 1.06 (0.66-1.25) mg/dL Glucose 101 H (74-99) mg/dL Calcium 8.9 (8.4-10.2) mg/dL Adrenal panel 12/09/17 Range/Units 11:45 Sodium 140 (137-145) mmol/L Potassium 4.6 (3.5-5.1) mmol/L Chloride 104 (98-107) mmol/L Carbon Dioxide 23 (22-30) mmol/L BUN 19 (9-20) mg/dL Creatinine 1.06 (0.66-1.25) mg/dL Glucose 101 H (74-99) mg/dL Calcium 8.9 (8.4-10.2) mg/dL Total Bilirubin 0.5 (0.2-1.3) mg/dL AST 18 (17-59) U/L ALT 26 (21-72) U/L Alkaline Phosphatase 81 (38-126) U/L Total Protein 5.9 L (6.3-8.2) g/dL Albumin 3.5 (3.5-5.0) g/dL - Imaging Comments: CT of the brain results reviewed. Chest x-ray: report reviewed, image reviewed Assessment and Plan (1) Fall from standing Current Visit: Yes Status: Acute Code(s): W19.XXXA - UNSPECIFIED FALL, INITIAL ENCOUNTER SNOMED Code(s): 1829394 (2) History of coronary artery bypass graft x 2 Current Visit: Yes Status: Acute Code(s): Z95.1 - PRESENCE OF AORTOCORONARY BYPASS GRAFT SNOMED Code(s): 951013433 (3) History of mitral valve repair Current Visit: Yes Status: Acute Code(s): Z98.890 - OTHER SPECIFIED POSTPROCEDURAL STATES SNOMED Code(s): 277917201 (4) Coronary artery disease Current Visit: No Status: Chronic Code(s): I25.10 - ATHSCL HEART DISEASE OF THREE AFFILIATED CORONARY ARTERY W/O ANG PCTRS SNOMED Code(s): 06273824 (5) Family history of heart disease Current Visit: No Status: Chronic Code(s): Z82.49 - FAMILY HX OF ISCHEM HEART DIS AND OTH DIS OF THE CIRC SYS SNOMED Code(s): 525924619 (6) Gastric reflux Current Visit: No Status: Chronic Code(s): K21.9 - GASTRO-ESOPHAGEAL REFLUX DISEASE WITHOUT ESOPHAGITIS SNOMED Code(s): 611560716 (7) History of prostate disorder Current Visit: No Status: Chronic Code(s): Z87.438 - PERSONAL HISTORY OF OTHER DISEASES OF MALE GENITAL ORGANS SNOMED Code(s): 029971151 (8) Hx of laryngeal cancer Current Visit: No Status: Resolved Code(s): Z85.21 - PERSONAL HISTORY OF MALIGNANT NEOPLASM OF LARYNX SNOMED Code(s): 889901673 (9) Hyperlipidemia Current Visit: No Status: Chronic Code(s): E78.5 - HYPERLIPIDEMIA, UNSPECIFIED SNOMED Code(s): 13888227 (10) Hypertension Current Visit: No Status: Chronic Code(s): I10 - ESSENTIAL (PRIMARY) HYPERTENSION SNOMED Code(s): 87524933 (11) Hypomagnesemia Current Visit: Yes Status: Acute Code(s): E83.42 - HYPOMAGNESEMIA SNOMED Code(s): 585071774 (12) Mitral valve regurgitation Current Visit: No Status: Chronic Code(s): I34.0 - NONRHEUMATIC MITRAL ( VALVE) INSUFFICIENCY SNOMED Code(s): 15411374 (13) Syncope Current Visit: Yes Status: Acute Code(s): R55 - SYNCOPE AND COLLAPSE SNOMED Code(s): 241071805 (14) Type 2 diabetes mellitus Current Visit: No Status: Chronic Code(s): E11.9 - TYPE 2 DIABETES MELLITUS WITHOUT COMPLICATIONS SNOMED Code(s): 49763931 Plan: The patient was seen and examined. His chart and diagnostics reviewed. The patient was seen and examined by Dr. Benz. We will obtain a 2-D echocardiogram to assess his LV function. Medical management per Dr. Lynn. And cardiology management per Dr. SHARON Simpson. Thank you Dr. Lynn for this consult and we look forward to working with you in the care of your patient. Time with Patient: Greater than 30
[2017-12-09] MEDS: metFORMIN 500 MG TAB PO SCH (18:24)
[2017-12-09] MEDS: SODIUM CHLORIDE 0.9% 1,000 ML IV SCH (18:25)
[2017-12-09 19:04] VITALS: BMI 25.2
[2017-12-09] MEDS: ATORVASTATIN 40 MG TAB PO SCH (20:17)
--- NOTE | 2017-12-09 20:18 | P.PN ---
Progress Note - Text Progress Note Date: 12/09/17 Patient seen and examined in the ER with Dr. Lynn. and daughter at the bedside. Patient reports syncopal episode after he got up to answer the doorbell. He reports he was dizzy and then fell onto the concrete striking his head. Patient reports his blood pressure has been running low at home with systolic pressures in the 80-90s. Patient reports he was recently seen by his lean process deployment consultant and his Metoprolol was increased to 75mg daily and his plavix was discontinued. Angel Morgan NP, also at the bedside at time of evaluation and case discussed. At this time we will discontinue patients Norvasc, decrease lisinopril to 2.5mg daily, and decrease metoprolol to 50mg daily. Cardiology consult requested. Full H&P dictation to follow.
[2017-12-09] MEDS ORDERED: Magnesium Replacement Protocol 1 EACH MISC MISCELLANE PRN (20:34)
[2017-12-09] MEDS ORDERED: DOXAZOSIN 2 MG TAB PO SCH (21:00)
[2017-12-09 21:16] LABS: Glucose,Whole Blood 107 mg/dL (75-99)
[2017-12-09] MEDS: INSULIN ASPART 100 UNIT/ML 1 ML 10 ML VIAL SQ SCH (21:43)
[2017-12-09] MEDS: LEVOFLOXACIN 500 MG TAB PO SCH (22:05)
[2017-12-10] MEDS: SODIUM CHLORIDE 0.9% 1,000 ML IV SCH ×2 (06:21→22:49)
[2017-12-10 06:23] LABS: Glucose,Whole Blood 95 mg/dL (75-99)
[2017-12-10] MEDS: INSULIN ASPART 100 UNIT/ML 1 ML 10 ML VIAL SQ SCH ×4 (06:24→21:00)
[2017-12-10] MEDS: metFORMIN 500 MG TAB PO SCH ×2 (06:38→17:13)
[2017-12-10] MEDS: PANTOPRAZOLE 40 MG TABLET PO SCH (06:38)
--- NOTE | 2017-12-10 07:27 | XR ---
EXAMINATION TYPE: XR chest 2V DATE OF EXAM: 12/10/2017 COMPARISON: 12/09/2017 HISTORY: Syncope and fall TECHNIQUE: Frontal and lateral views of the chest are obtained. FINDINGS: There is redemonstration of trace pleural effusions. Left subsegmental basilar atelectasis is seen. No new focal consolidation. Moderate multilevel degenerative changes of the thoracic spine are seen. Pulmonary hyperinflation and flattening the diaphragms relates underlying COPD as well as b iapical lucency. Post CABG changes of the chest are noted with elongation of the thorax. Extensive de generative changes of the right glenohumeral joint and to a lesser degree of the left glenohumeral jamaal int are seen. IMPRESSION: Redemonstration of trace pleural effusions, left basilar atelectasis, and chronic change s of COPD.
--- NOTE | 2017-12-10 08:12 | CT ---
EXAMINATION TYPE: CT brain wo con DATE OF EXAM: 12/10/2017 COMPARISON: 12/09/2017 INDICATION: Fall up to prior CT. Fall bruising to Lt eye DLP: 1126.5 mGycm, Automated exposure control for dose reduction was used. CONTRAST: None CT of the brain is performed utilizing 3 mm thick sections through the posterior fossa and 3 mm thick sections through the remaining calvarium. Study is performed within 24 hours of arrival to the hosp ital. No abnormal hyperdensity is present to suggest an acute intracranial hemorrhage. No mass lesion is evident. No acute infarcts are evident. There is patchy periventricular white matter hypodensity, likely on th e basis of chronic white matter ischemic changes. Ventricles and sulci are appropriate for the patient age. Paranasal sinuses and mastoid air cells within the [id number] are clear. There is diffuse soft tissue swelling over the left periorbital left temporal extending towards left parietal region. Small focal area of increased density is in the temporal region compatible small sub cutaneous hematoma measuring 1.1 cm. Series 5 image 32. This is diminished from the comparison. IMPRESSIONS: 1. Atrophy with periventricular white matter ischemic changes. 2. Superficial soft tissue swelling left frontal temporal parietal regions, slightly diminished from comparison.
--- NOTE | 2017-12-10 08:32 | ECHOF ---
Referral Reason:Assess LV function, rule out pericardial effusion MEASUREMENTS -------- HEIGHT: 185.4 cm WEIGHT: 87.1 kg BP: 91/55 RVIDd: 2.6 cm (< 3.3) IVSd: 1.3 cm (0.6 - 1.1) LVIDd: 4.0 cm (3.9 - 5.3) LVPWd: 1.5 cm (0.6 - 1.1) IVSs: 1.9 cm LVIDs: 1.9 cm LVPWs: 2.4 cm Ao Diam: 3.1 cm (2.0 - 3.7) AV Cusp: 1.2 cm (1.5 - 2.6) LA Diam: 4.3 cm (2.7 - 3.8) MV EXCURSION: 11.106 mm (> 18.000) MV EF SLOPE: 31 mm/s (70 - 150) EPSS: 0.5 cm MV E Edwin: 1.45 m/s MV DecT: 195 ms MV A Edwin: 1.45 m/s MV E/A Ratio: 1.00 AV maxP.08 mmHg AV meanP.77 mmHg AR PHT: 233 ms RAP: 5.00 mmHg RVSP: 19.39 mmHg FINDINGS -------- Sinus rhythm. This was a technically adequate study. The left ventricular size is normal. There is moderate concentric left ventricular hypertrophy. O verall left ventricular systolic function is normal with, an EF between 55 - 60 %. The right ventricle is normal in size and function. The left atrium is mildly dilated. The right atrium is normal in size. Aortic valve is trileaflet and is mildly thickened. Trace amount of aortic regurgitation. There is mild aortic stenosis present. Peak/mean gradient across the Aortic Valve is 15.08mmHg / 8.77mmHg . The mitral valve leaflets are mildly thickened. No mitral regurgitation. Mild tricuspid regurgitation present. The right ventricular systolic pressure, as measured by Doppl er, is 19.39mmHg. There is no pulmonic regurgitation present. The aortic root size is normal. Normal inferior vena cava with normal inspiratory collapse consistent with estimated right atrial pre ssure of 5 mmHg. There is a small, generalized pericardial effusion present. CONCLUSIONS -------- 1. Sinus rhythm. 2. This was a technically adequate study. 3. The left ventricular size is normal. 4. There is moderate concentric left ventricular hypertrophy. 5. Overall left ventricular systolic function is normal with, an EF between 55 - 60 %. 6. The left atrium is mildly dilated. 7. Aortic valve is trileaflet and is mildly thickened. 8. Trace amount of aortic regurgitation. 9. There is mild aortic stenosis present. 10. Peak/mean gradient across the Aortic Valve is 15.08mmHg / 8.77mmHg. 11. The mitral valve leaflets are mildly thickened. 12. No mitral regurgitation. 13. Mild tricuspid regurgitation present. 14. The right ventricular systolic pressure, as measured by Doppler, is 19.39mmHg. 15. There is no pulmonic regurgitation present. 16. The aortic root size is normal. 17. Normal inferior vena cava with normal inspiratory collapse consistent with estimated right atrial pressure of 5 mmHg. 18. There is a small, generalized pericardial effusion present. [employer]: Crystal Walton RDCS
[2017-12-10] MEDS: METOPROLOL SUCCINATE (ER) 50 MG TAB.ER.24H PO SCH (08:48)
[2017-12-10] MEDS: SERTRALINE 50 MG TAB PO SCH (08:48)
[2017-12-10] MEDS: FINASTERIDE 5 MG TAB PO SCH (08:48)
[2017-12-10] MEDS: ASPIRIN 81 MG PO SCH (08:48)
[2017-12-10] MEDS ORDERED: LISINOPRIL 2.5 MG TAB PO SCH ×2 (09:00→20:00)
[2017-12-10 10:12] LABS: Calcium 8.5 mg/dL (8.4-10.2); Magnesium 1.4 mg/dL (1.6-2.3); Potassium 4.7 mmol/L (3.5-5.1); Total Bilirubin 0.5 mg/dL (0.2-1.3); Total Protein 5.2 g/dL (6.3-8.2)
--- NOTE | 2017-12-10 11:16 | P.HPIM ---
History of Present Illness H&P Date: 12/10/17 Chief Complaint: fall 77-year-old male who presented to the emergency room after sustaining a fall at home. The patient has a history of CABG 2 with mitral valve repair in October [address] Wall. The patient was doing well at home. The patient states recently his blood pressure has been low when he checks it. He reports systolic blood pressures in the 80s. The patient states he was recently seen by his balance screwhead polisher and his metoprolol was increased to 75 mg daily and his Plavix was discontinued. The patient states yesterday he was sitting at home on the couch when the doorbell rang. He states he got off the couch quickly to answer it and he became dizzy and passed out striking his head on the concrete. EMS was called and the patient was brought to the emergency room for further evaluation. The patient does report he has been walking outside at least 1 mile daily. Patient states he does not think he has been drinking enough fluid and feels dehydrated. Patient states he has only been drinking 2-3 bottles of water a day. Patients daughter reports that the patient has been slightly more confused than normal upon admission, but she states that he appears to be back to his baseline now. Chest x-ray 12/09/2017: Small posterior pleural effusions CT brain and cervical spine 12/09/2017: Age-related atrophic and chronic small vessel ischemic changes without acute intercranial process. Left frontal scalp hematoma. No evidence for acute fracture or subluxation of the cervical spine. Chest x-ray 12/10/2017: Resume's pleural effusions, left basilar atelectasis, and chronic changes of COPD. CT brain 12/10/2018: Atrophy with. Ventricular white matter ischemic changes. Superficial soft tissue swelling left frontal temporal parietal regions, slightly diminished from comparison. Echocardiogram: Ejection fraction between 55 and 60%, trace amount of aortic regurgitation, mild aortic stenosis, mild tricuspid regurgitation, small generalized pericardial effusion. Laboratory data: WBC 8.5. Hemoglobin 13.0. Platelet count 385. Sodium 140. Potassium 4.6. BUN 19. Creatinine 1.06. Glucose 101. Magnesium 1.2. Troponin negative 1. Urinalysis reveals: Cloudy yellow urine, 1+ proteinuria, large leukocyte esterase, 10 RBC, 44 WBC, rare bacteria, 4 hyaline casts, and moderate mucus. The patient was admitted to the hospital under the care of Dr. Lynn. Consultations were placed to cardiology and cardiothoracic surgery. Case was discussed with cardiothoracic REAL ESTATE UTILIZATION OFFICER, Angel Morgan, yesterday. Patient's medications were reviewed. Decision was made to discontinue patients Norvasc, decrease lisinopril to 2.5 mg daily, and decrease metoprolol to 50 mg daily. Review of Systems GENERAL: Positive for occasional dizziness at home. Patient denies fever. Denies chills. EYES: Denies blurred vision. Denies vision changes. Denies eye pain. EARS, NOSE, MOUTH, & THROAT: Denies headache. Denies sore throat. Denies ear pain. RESPIRATORY: Denies cough. Denies shortness of breath. Denies sputum production. Denies hemoptysis. CARDIOVASCULAR: Denies chest pain or pressure. Denies palpitations. Denies arrhythmias. GASTROINTESTINAL: Denies abdominal pain. Denies diarrhea. Denies constipation. Denies nausea. Denies vomiting. Denies heartburn. Denies blood in the stool. GENITOURINARY: Denies urinary frequency. Denies burning. Denies dysuria. Denies cloudy urine. Denies blood in the urine. MUSCULOSKELETAL: Denies myalgias. Denies joint swelling. Denies decreased range of motion beyond patients baseline. INTEGUMENTARY: Denies pruitis. Denies rash. PSYCHIATRIC: Denies suicidal or homicial ideations. ENDOCRINE: Denies weight change. Denies polydipsia. Denies polyuria. HEMATOLOGIC: Denies bleeding disorders. 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 Mitral valve repair and left atrial appendage clip ligation on 10/26/2017. Past Anesthesia/Blood Transfusion Reactions: No Reported Reaction Past Psychological History: No Psychological Hx Reported Smoking Status: Never smoker Past Alcohol Use History: None Reported Past Drug Use History: None Reported - Past Family History Mother Family Medical History: Dementia, Myocardial Infarction ([facility]) Additional Family Medical History / Comment(s): passed at 71 Medications and Allergies Home Medications Medication Instructions Recorded Confirmed Type Atorvastatin [Lipitor] 40 mg PO HS 09/02/16 12/09/17 History Ergocalciferol [Vitamin D2 50,000 unit PO Q14D 09/02/16 12/09/17 History (DRISDOL)] Lisinopril [Zestril] 5 mg PO DAILY 09/02/16 12/09/17 History Finasteride [Proscar] 5 mg PO DAILY 07/15/17 12/09/17 History Pantoprazole [Protonix] 40 mg PO DAILY #30 tab 07/15/17 12/09/17 Rx metFORMIN HCL [Glucophage] 500 mg PO BID 07/15/17 12/09/17 History Acetaminophen Tab [Tylenol] 650 mg PO Q4HR PRN tab 10/30/17 12/09/17 Rx Albuterol Inhaler [Ventolin Hfa 1 - 2 puff INHALATION RT-Q6H PRN 12/09/17 History Inhaler] Aspirin EC [Ecotrin Low Dose] 81 mg PO DAILY 12/09/17 12/09/17 History Cholecalciferol [Vitamin D3] 1,000 unit PO DAILY 12/09/17 12/09/17 History Doxazosin [Cardura] 2 mg PO HS 12/09/17 12/09/17 History Metoprolol Succinate (ER) [Toprol 75 mg PO DAILY 12/09/17 12/09/17 History Xl] Sertraline HCl [Zoloft] 50 mg PO DAILY 12/09/17 12/09/17 History Allergies Allergy/AdvReac Type Severity Reaction Status Date / Time No Known Allergies Allergy Verified 12/09/17 12:22 Physical Exam Vitals: Vital Signs Temp Pulse Pulse Resp BP BP Pulse Ox 12/10/17 08:30 98.1 F 78 16 105/58 96 12/10/17 07:33 96 12/10/17 04:00 98.3 F 77 14 91/55 96 12/09/17 23:45 98.0 F 80 16 109/58 95 12/09/17 23:44 83 16 12/09/17 21:10 80 12/09/17 21:02 78 12/09/17 20:00 97.6 F 83 16 112/55 96 12/09/17 16:00 97.5 F L 79 16 164/87 96 12/09/17 15:47 98.2 F 75 20 154/88 98 12/09/17 15:00 77 20 147/80 97 12/09/17 13:24 77 18 140/82 96 12/09/17 11:35 98.1 F 80 18 176/90 98 Intake and Output 12/09/17 12/10/17 12/10/17 22:59 06:59 14:59 Intake Total 120 475 125 Output Total 525 450 250 Balance -405 25 -125 Intake: Intake, IV Titration 400 Amount Magnesium Sulfate-D5w Pmx 100 1 gm In Dextrose/Water 1 100ml.bag @ 100 mls/hr IVPB Q1H SARAH Rx#: [id number] Sodium Chloride 0.9% 1, 300 000 ml @ 75 mls/hr IV . [id number] SARAH Rx#:[id number] Oral 120 75 125 Output: Urine 525 450 250 Other: # Voids 1 2 1 # Bowel Movements 0 Weight 91.626 kg 87.5 kg GENERAL: This is a 77-year-old male in no apparent distress at the time of examination. Pleasant and cooperative. HEENT: Ecchymosis to left eye. Left-sided frontal scalp hematoma present. Head is normocephalic. Pupils are equal, round, and reactive to light. Sclerae anicteric. Conjunctivae are clear. Mucus membranes of the mouth are moist. Neck is supple. RESPIRATORY: Clear to ausculation. No wheezes, rales, or rhonchi. No use of accessory muscles. Patient maintaining oxygen saturation greater than 92%. No chest wall tenderness is noted on palpation or with deep breathing. CARDIOVASCULAR: Telemetry reveals sinus rhythm. Regular rate and rhythm. S1 and S2 noted. No systolic or diastolic murmur auscultated. No JVD noted. No S3 or S4 noted. GASTROINTESTINAL: No distention noted. Abdomen soft and round. Normal active bowel sounds auscultated x 4 quadrants. No pain or tenderness noted upon palpation. INTEGUMENTARY: Left sided frontal scalp hematoma present. No cyanosis. No jaundice. No rashes noted. No cellulitis noted. EXTREMITIES: 2+ peripheral pulses. No evidence of peripheral edema. No calf tenderness noted. NEUROLOGIC: Cranial nerves II-XII intact. PSYCHIATRIC: Awake, alert, and oriented X 3. Appropriate affect. Intact judgement and insight. Results CBC & Chem 7: 12/09/17 11:45 12/10/17 08:51 Labs: Abnormal Lab Results - Last 24 Hours (Table) 12/09/17 12/09/17 12/09/17 Range/Units 11:45 11:45 11:45 RBC 4.08 L (4.30-5.90) m/uL Hct 38.2 L (39.0-53.0) % Glucose 101 H (74-99) mg/dL POC Glucose (mg/dL) (75-99) mg/dL Magnesium 1.2 L (1.6-2.3) mg/dL AST (17-59) U/L Total Creatine Kinase 38 L (55-170) U/L Total Protein 5.9 L (6.3-8.2) g/dL Albumin (3.5-5.0) g/dL Urine Protein (Negative) Ur Leukocyte Esterase (Negative) Urine RBC (0-5) /hpf Urine WBC (0-5) /hpf Urine Bacteria (None) /hpf Hyaline Casts (0-2) /lpf Urine Mucus (None) /hpf 12/09/17 12/09/17 12/10/17 Range/Units 16:07 21:15 08:51 RBC (4.30-5.90) m/uL Hct (39.0-53.0) % Glucose (74-99) mg/dL POC Glucose (mg/dL) 107 H (75-99) mg/dL Magnesium 1.4 L (1.6-2.3) mg/dL AST 13 L (17-59) U/L Total Creatine Kinase (55-170) U/L Total Protein 5.2 L (6.3-8.2) g/dL Albumin 3.0 L (3.5-5.0) g/dL Urine Protein 1+ H (Negative) Ur Leukocyte Esterase Large H (Negative) Urine RBC 10 H (0-5) /hpf Urine WBC 44 H (0-5) /hpf Urine Bacteria Rare H (None) /hpf Hyaline Casts 4 H (0-2) /lpf Urine Mucus Moderate H (None) /hpf Microbiology - Last 24 Hours (Table) 12/10/17 04:45 Urine Culture - Preliminary Urine,Clean Catch Thrombosis Risk Factor Assmnt - Choose All That Apply Each Risk Factor Represents 3 Points: Age 75 years or older Thrombosis Risk Factor Assessment Total Risk Factor Score: 3 Thrombosis Risk Factor Assessment Level: Moderate Risk Assessment and Plan Plan: ASSESSMENT: Syncope with subsequent fall, possibly due to orthostatic hypotension and dehydration, imaging negative for fractures Left frontal scalp hematoma, s/p fall from standing Pyuria, suspected urinary tract infection, present on admission, urine culture pending History of coronary artery bypass graft 2 MICHEL to the LAD and saphenous vein graft to RCA with mitral valve repair, October 2017 Diabetes mellitus, type II, hemoglobin A1c pending Hyperlipidemia Hypertension Hypomagnesemia History of laryngeal cancer with radiation therapy and 2009 COPD, no evidence of acute exacerbation History of BPH PLAN: Cardiothoracic surgery on consult. Appreciate recommendations and input Cardiology on consult. Await further recommendations and input Monitor blood pressure and heart rate Await results of urine culture Continue Levaquin daily Replace magnesium per protocol. Recheck in a.m. Home meds as appropriate Monitor labs GI prophylaxis: Protonix 40 mg PO Daily DVT prophylaxis: SCDs to bilateral lower extremities Discharge planning: Patient to return home when stable Further recommendations pending patient's course Nurse practitioner note has been reviewed by physician. Signing provider agrees with the documented findings, assessment, and plan of care.
[2017-12-10 11:51] LABS: Glucose,Whole Blood 95 mg/dL (75-99)
[2017-12-10] MEDS: MAGNESIUM SULFATE-D5W PMX 1 GM in DEXTROSE/WATER 1 100ML.BAG IVPB SCH ×3 (11:53→14:01)
[2017-12-10] MEDS: MIDODRINE 5 MG TAB PO SCH ×2 (12:57→17:13)
[2017-12-10] MEDS ORDERED: SODIUM CHLORIDE 0.9% 1,000 ML IV SCH (15:00)
--- NOTE | 2017-12-10 15:10 | P.PN ---
Subjective Progress Note Date: 12/10/17 Principal diagnosis: Status post fall. History of recent complex mitral valve repair and coronary artery bypass grafting 2 on 10/26/2017, laryngeal cancer status post radiation , diabetes mellitus, hypertension, kidney stones, hyperlipidemia, family history of heart disease. Patient is currently ambulating in the room without difficulty. Denies pain, shortness of breath. Patient/family are very concerned with patient's labile blood pressure and very frustrated because they want more clear direction as to when the patient should take his antihypertensives and when meds should be held. Objective - Vital Signs Vital signs: Vital Signs Temp 98.1 F 12/10/17 08:30 Pulse 76 12/10/17 12:00 Resp 16 12/10/17 12:00 BP 153/78 12/10/17 12:00 Pulse Ox 96 12/10/17 12:00 Intake & Output 12/09/17 12/10/17 12/10/17 18:59 06:59 18:59 Intake Total 120 475 125 Output Total 525 450 350 Balance -405 25 -225 Weight 91.626 kg 87.5 kg Intake: Intake, IV Titration 400 Amount Magnesium Sulfate-D5w Pmx 100 1 gm In Dextrose/Water 1 100ml.bag @ 100 mls/hr IVPB Q1H SARAH Rx#: [id number] Sodium Chloride 0.9% 1, 300 000 ml @ 75 mls/hr IV . [id number] SARAH Rx#:[id number] Oral 120 75 125 Output: Urine 525 450 350 Other: # Voids 1 2 1 # Bowel Movements 0 - Constitutional General appearance: Present: cooperative, no acute distress - Respiratory Details: Lungs sounds clear bilaterally. Respirations even, nonlabored. Currently on room air with oxygen saturation 96%. - Cardiovascular Details: S1, S2 present. Regular rate and rhythm, sinus rhythm on telemetry. Palpable peripheral pulses bilaterally. No edema present. No calf pain or tenderness noted. - Gastrointestinal Gastrointestinal Comment(s): Abdomen soft, nontender, nondistended. Active bowel sounds 4 quadrants. Tolerating diet. - Genitourinary Genitourinary Comment(s): Voiding clear, yellow urine. - Integumentary Integumentary Comment(s): Skin is warm and dry with evidence of good perfusion. Anterior chest incision well healed. Ecchymosis present surrounding left eye, bandage present over left frontal hematoma. - Neurologic Neurologic: Present: CNII-XII intact - Musculoskeletal Musculoskeletal: Present: gait normal, strength equal bilaterally - Psychiatric Psychiatric: Present: A&O x's 3, appropriate affect, intact judgment & insight - Allied health notes Allied health notes reviewed: nursing - Labs CBC & Chem 7: 12/09/17 11:45 12/10/17 08:51 Labs: Abnormal Lab Results - Last 24 Hours (Table) 12/09/17 12/09/17 12/10/17 Range/Units 16:07 21:15 08:51 POC Glucose (mg/dL) 107 H (75-99) mg/dL Magnesium 1.4 L (1.6-2.3) mg/dL AST 13 L (17-59) U/L Total Protein 5.2 L (6.3-8.2) g/dL Albumin 3.0 L (3.5-5.0) g/dL Urine Protein 1+ H (Negative) Ur Leukocyte Esterase Large H (Negative) Urine RBC 10 H (0-5) /hpf Urine WBC 44 H (0-5) /hpf Urine Bacteria Rare H (None) /hpf Hyaline Casts 4 H (0-2) /lpf Urine Mucus Moderate H (None) /hpf Microbiology - Last 24 Hours (Table) 12/10/17 04:45 Urine Culture - Preliminary Urine,Clean Catch - Imaging and Cardiology Chest x-ray: report reviewed, image reviewed CT Scan - head: report reviewed, image reviewed Echocardiogram results reviewed Assessment and Plan (1) Fall from standing Current Visit: Yes Status: Acute Code(s): W19.XXXA - UNSPECIFIED FALL, INITIAL ENCOUNTER SNOMED Code(s): 6004885 (2) History of coronary artery bypass graft x 2 Current Visit: Yes Status: Chronic Code(s): Z95.1 - PRESENCE OF AORTOCORONARY BYPASS GRAFT SNOMED Code(s): 803215396 (3) History of mitral valve repair Current Visit: Yes Status: Chronic Code(s): Z98.890 - OTHER SPECIFIED POSTPROCEDURAL STATES SNOMED Code(s): 641167001 (4) Hypomagnesemia Current Visit: Yes Status: Acute Code(s): E83.42 - HYPOMAGNESEMIA SNOMED Code(s): 583015024 (5) Syncope Current Visit: Yes Status: Acute Code(s): R55 - SYNCOPE AND COLLAPSE SNOMED Code(s): 685015286 (6) Family history of heart disease Current Visit: Yes Status: Chronic Code(s): Z82.49 - FAMILY HX OF ISCHEM HEART DIS AND OTH DIS OF THE CIRC SYS SNOMED Code(s): 016365097 (7) History of prostate disorder Current Visit: Yes Status: Chronic Code(s): Z87.438 - PERSONAL HISTORY OF OTHER DISEASES OF MALE GENITAL ORGANS SNOMED Code(s): 872940530 (8) Hyperlipidemia Current Visit: Yes Status: Chronic Code(s): E78.5 - HYPERLIPIDEMIA, UNSPECIFIED SNOMED Code(s): 27580545 (9) Type 2 diabetes mellitus Current Visit: Yes Status: Chronic Code(s): E11.9 - TYPE 2 DIABETES MELLITUS WITHOUT COMPLICATIONS SNOMED Code(s): 04640821 (10) Hx of laryngeal cancer Current Visit: Yes Status: Resolved Code(s): Z85.21 - PERSONAL HISTORY OF MALIGNANT NEOPLASM OF LARYNX SNOMED Code(s): 417568282 Plan: 1. Echocardiogram reviewed. No surgical intervention. 2. Blood pressure medication adjustment per Dr. Simpson. Midodrin added. 3. Medical management per Dr. Lynn. 4. Magnesium replacement per order. 5. Patient encouraged to drink fluids given his orthostatic hypotension in the recent hot, humid weather. 6. Patient encouraged to monitor blood pressure every morning and every night at home and report fluctuations, hypotension to Dr. Simpson's office. 7. Patient instructed he needs to go from laying to sitting to standing position slowly. 8. Patient may be discharged home from our standpoint when okay with other consultants. 9. Please call us with any questions. Time with Patient: Greater than 30
--- NOTE | 2017-12-10 16:14 | CONS ---
CONSULTATION DATE OF SERVICE: 12/10/2017. HISTORY: This is a 77-year-old gentleman with a known history of CAD, mitral valve prolapse with severe mitral regurgitation, type 2 diabetes mellitus, and some orthostatic hypotension. He has also mild hypertension and hypercholesterolemia. He came into the hospital after having had sustained a fall. This occurred at home when somebody knocked on the door and he quickly got out of the chair like a spring and rushed to the door and he felt everything turning dark. He fell down and hurt himself and he has a bruise over his left eye area. However, he did not lose consciousness and on looking at the ER sheet, it appears that he did not have any arrhythmia when he came in and during his stay also he has not had any arrhythmia. He is in a sinus rhythm. This gentleman underwent mitral valve repair with a 2-vessel bypass that was performed within the last 1 month or so. He spent some time in the rehab in [facility] and has gone home and I have seen him in the office since then. After arrival he was found to have a low magnesium level of 1.2 and also had some orthostatic changes. This morning when I examine him, his blood pressure lying down was 150 and on standing was about 112. It appears that he may have some volume depletion, but more importantly, I think he has some autonomic dysfunction with underlying diabetes as the cause for his hypotension. I explained to Mr. Anguiano and his that he should move from a supine to upright position very slowly, take some time to give his body to adjust to the blood pressure change prior to ambulating. However, my suggestion is to hydrate him and discontinue the lisinopril altogether. I contemplated cutting to 2.5, but we will stop it altogether, decrease metoprolol to 50 mg in the morning only, and try him on midodrine 5 mg t.i.d. and keep a close eye on his blood pressure. I am recommending that he stays back in the hospital one more day and we will continue to monitor him as well. So far, there is no tachy or bradyarrhythmia. PAST MEDICAL HISTORY: 1. Aortocoronary bypass surgery and also had a mitral valve repair that was performed about 5 weeks ago or so. 2. Type 2 diabetes mellitus. 3. Laryngeal cancer treated by radiation therapy. 4. Hyperlipidemia. 5. Gastroesophageal reflux disease. 6. Hypertension. ALLERGIES: None. MEDICATIONS: 1. Metoprolol succinate 75 mg daily. 2. Vitamin supplements. 3. Aspirin 81 mg daily. 4. Albuterol inhaler. 5. Lisinopril 5 mg daily. 6. Metformin 500 mg b.i.d. 7. Proscar 5 mg daily. 8. Lipitor 40 mg daily. 9. Vitamin D. EXAMINATION: Blood pressure is 150/80, pulse rate is about 84 per minute. On standing up, the pressure dropped to about 114 systolic. He had also about 10 to 12 beat heart rate increase. HEENT revealed a bruise over his left eye. Heart exam revealed S1, S2 heard normally. There is a very soft systolic murmur at the apex. Lungs revealed decent air entry. Abdomen is soft, nontender. Lower extremities reveal normal pulses. No edema. Central system is normal. EKG revealed sinus mechanism, no acute changes. IMPRESSION: 1. Probable dehydration. 2. Mild orthostatic hypotension. 3. Status post aortocoronary bypass surgery and mitral valve repair 4 to 5 weeks ago. 4. Hyperlipidemia. 5. Type 2 diabetes mellitus. 6. Hypertension. RECOMMENDATIONS: I am recommending hydration, midodrine, stop lisinopril, increase activity, monitor his rhythm until tomorrow and if he does well he can then be discharged. I discussed my thoughts in detail with the patient and and hopefully the patient will stay back, but if he insists on going home I will see him in the office tomorrow, but we will set him up to supplement medication and hydration and rechecking medication level. Thank you very much for the consult. TIMOTEO / FOZIA: [id number] /
[2017-12-10 16:35] LABS: Glucose,Whole Blood 119 mg/dL (75-99)
[2017-12-10 19:04] LABS: Hemoglobin A1C 5.7 % (4.0-6.0)
[2017-12-10] MEDS: ATORVASTATIN 40 MG TAB PO SCH (19:55)
[2017-12-10] MEDS: LEVOFLOXACIN 500 MG TAB PO SCH (19:55)
[2017-12-10 20:54] LABS: Glucose,Whole Blood 85 mg/dL (75-99)
--- NOTE | 2017-12-10 23:02 | PN ---
PROGRESS NOTE Mr. Anguiano was seen by me and I reviewed his echocardiogram as well. He had an episode of what seems to be a syncope, probably more related to orthostatic hypotension. He has hurt his left eye with some bruising, but no significant injuries. CT scans were negative. He has orthostatic changes which are significant. I think these are being contributed by his dehydrated/volume depleted state and also an underlying autonomic neuropathy as well. I am recommending that we discontinue lisinopril, hydrate him aggressively, supplement magnesium and potassium and recheck the electrolytes. I explained to the patient that he should spend 1 more day and we will hydrate him and recheck orthostatic changes in the evening as well and recheck his magnesium levels. I am also starting him on midodrine 5 mg t.i.d. and will discontinue lisinopril and use a small dose of beta dexter and see how he does. After some discussion, patient does agree to stay back and I will rehydrate him. After talking to the nurse, I noted that his orthostatic changes were persistent. Will give him 150 mL/hour normal saline until 6:00 am and see how he does. Mr. Angiuano is a bit distressed that he is having episodes of hypotension and I explained to him that he probably has some autonomic dysfunction and we will try midodrine, but it takes some time for this medicine to kick in and produce the desired effect. He will stay here until tomorrow. TIMOTEO / FOZIA: [id number] /
[2017-12-11] MEDS: SODIUM CHLORIDE 0.9% 1,000 ML IV SCH (05:07)
[2017-12-11 05:56] LABS: Glucose,Whole Blood 102 mg/dL (75-99)
[2017-12-11] MEDS ORDERED: SODIUM CHLORIDE 0.9% 1,000 ML IV SCH (06:00)
[2017-12-11] MEDS: metFORMIN 500 MG TAB PO SCH (06:24)
[2017-12-11] MEDS: MIDODRINE 5 MG TAB PO SCH ×2 (06:24→12:10)
[2017-12-11] MEDS: METOPROLOL SUCCINATE (ER) 50 MG TAB.ER.24H PO SCH (06:24)
[2017-12-11] MEDS: INSULIN ASPART 100 UNIT/ML 1 ML 10 ML VIAL SQ SCH ×2 (06:24→12:10)
[2017-12-11] MEDS: PANTOPRAZOLE 40 MG TABLET PO SCH (06:25)
[2017-12-11 06:29] LABS: Albumin 3.2 g/dL (3.5-5.0); Calcium 8.9 mg/dL (8.4-10.2); Magnesium 1.7 mg/dL (1.6-2.3); Potassium 4.6 mmol/L (3.5-5.1); Total Bilirubin 0.6 mg/dL (0.2-1.3); Total Protein 5.5 g/dL (6.3-8.2)
[2017-12-11 08:13] VITALS: PULSE 72; RESP 20; TEMP 96.8
[2017-12-11 08:31] VITALS: BP 104/59
[2017-12-11] MEDS: FINASTERIDE 5 MG TAB PO SCH (08:33)
[2017-12-11] MEDS: SERTRALINE 50 MG TAB PO SCH (08:33)
[2017-12-11] MEDS: ASPIRIN 81 MG PO SCH (08:33)
[2017-12-11 11:42] LABS: Glucose,Whole Blood 89 mg/dL (75-99)
--- NOTE | 2017-12-11 13:26 | P.DS ---
Providers Date of admission: 12/09/17 15:23 Expected date of discharge: 12/11/17 Attending physician: Chris Lynn Consults: 12/09/17 16:13 Consult Physician Routine Consulting Provider: Ryan Wall Consult Reason/Comments: recent CABG, hypotension Do you want consulting provider notified?: Yes Consult Physician Routine Consulting Provider: Sohail Simpson Consult Reason/Comments: hypotension, syncope Do you want consulting provider notified?: Yes Primary care physician: [facility] Course: 77-year-old male who presented to the emergency room after sustaining a fall at home. The patient has a history of CABG 2 with mitral valve repair in October [address] Wall. The patient was doing well at home. The patient states recently his blood pressure has been low when he checks it. He reports systolic blood pressures in the 80s. The patient states he was recently seen by his investment representative and his metoprolol was increased to 75 mg daily and his Plavix was discontinued. The patient states yesterday he was sitting at home on the couch when the doorbell rang. He states he got off the couch quickly to answer it and he became dizzy and passed out striking his head on the concrete. EMS was called and the patient was brought to the emergency room for further evaluation. The patient does report he has been walking outside at least 1 mile daily. Patient states he does not think he has been drinking enough fluid and feels dehydrated. Patient states he has only been drinking 2-3 bottles of water a day. Patients daughter reports that the patient has been slightly more confused than normal upon admission, but she states that he appears to be back to his baseline now. Chest x-ray 12/09/2017: Small posterior pleural effusions CT brain and cervical spine 12/09/2017: Age-related atrophic and chronic small vessel ischemic changes without acute intercranial process. Left frontal scalp hematoma. No evidence for acute fracture or subluxation of the cervical spine. Chest x-ray 12/10/2017: Resume's pleural effusions, left basilar atelectasis, and chronic changes of COPD. CT brain 12/10/2018: Atrophy with. Ventricular white matter ischemic changes. Superficial soft tissue swelling left frontal temporal parietal regions, slightly diminished from comparison. Echocardiogram: Ejection fraction between 55 and 60%, trace amount of aortic regurgitation, mild aortic stenosis, mild tricuspid regurgitation, small generalized pericardial effusion. Laboratory data: WBC 8.5. Hemoglobin 13.0. Platelet count 385. Sodium 140. Potassium 4.6. BUN 19. Creatinine 1.06. Glucose 101. Magnesium 1.2. Troponin negative 1. Urinalysis reveals: Cloudy yellow urine, 1+ proteinuria, large leukocyte esterase, 10 RBC, 44 WBC, rare bacteria, 4 hyaline casts, and moderate mucus. The patient was admitted to the hospital under the care of Dr. Lynn. Consultations were placed to cardiology and cardiothoracic surgery. Case was discussed with cardiothoracic HEALTH EDUCATION ASSISTANT, Angel Morgan, yesterday. Patient's medications were reviewed. Decision was made to discontinue patients Norvasc, decrease lisinopril to 2.5 mg daily, and decrease metoprolol to 50 mg daily. 12/11/2017 Patient seen and examined at the bedside. Follow up CT scan and chest Xray are unchanged. Patient has been cleared for discharge per cardiology. He was found to have positive orthostatic hypotension. His MULUGETA was discontinued, along with his Norvasc. He was started on Midodrine. Lopressor remains at 50mg daily. He was deemed stable for discharge per Dr. Lynn. Urine culture remains pending. Patient to be discharged home on levaquin for 7 days. DISCHARGE DIAGNOSIS: Syncope with subsequent fall, possibly due to orthostatic hypotension and dehydration, imaging negative for fractures Left frontal scalp hematoma, s/p fall from standing Pyuria, urinary tract infection, present on admission, urine culture pending History of coronary artery bypass graft 2 MICHEL to the LAD and saphenous vein graft to RCA with mitral valve repair, October 2017 Diabetes mellitus, type II, hemoglobin A1c pending Hyperlipidemia Hypertension Hypomagnesemia History of laryngeal cancer with radiation therapy and 2010 COPD, no evidence of acute exacerbation History of BPH Nurse practitioner note has been reviewed by physician. Signing provider agrees with the documented findings, assessment, and plan of care. Patient Condition at Discharge: Stable Plan - Discharge Summary New Discharge Prescriptions: New Levofloxacin [Levaquin] 500 mg PO Q24H #7 tab Metoprolol Succinate (ER) [Toprol XL] 50 mg PO DAILY #30 tab Midodrine [ProAmatine] 5 mg PO AC-TID #90 tab Continue Ergocalciferol [Vitamin D2 (DRISDOL)] 50,000 unit PO Q14D Atorvastatin [Lipitor] 40 mg PO HS Finasteride [Proscar] 5 mg PO DAILY metFORMIN HCL [Glucophage] 500 mg PO BID Pantoprazole [Protonix] 40 mg PO DAILY #30 tab Acetaminophen Tab [Tylenol] 650 mg PO Q4HR PRN tab PRN Reason: Moderate Pain Sertraline HCl [Zoloft] 50 mg PO DAILY Doxazosin [Cardura] 2 mg PO HS Cholecalciferol [Vitamin D3] 1,000 unit PO DAILY Albuterol Inhaler [Ventolin Hfa Inhaler] 1 - 2 puff INHALATION RT-Q6H PRN PRN Reason: Shortness Of Breath Aspirin EC [Ecotrin Low Dose] 81 mg PO DAILY Discontinued Lisinopril [Zestril] 5 mg PO DAILY Metoprolol Succinate (ER) [Toprol Xl] 75 mg PO DAILY Discharge Medication List Atorvastatin [Lipitor] 40 mg PO HS 09/02/16 [History] Ergocalciferol [Vitamin D2 (DRISDOL)] 50,000 unit PO Q14D 09/02/16 [History] Finasteride [Proscar] 5 mg PO DAILY 07/15/17 [History] Pantoprazole [Protonix] 40 mg PO DAILY #30 tab 07/15/17 [Rx] metFORMIN HCL [Glucophage] 500 mg PO BID 07/15/17 [History] Acetaminophen Tab [Tylenol] 650 mg PO Q4HR PRN tab 10/30/17 [Rx] Albuterol Inhaler [Ventolin Hfa Inhaler] 1 - 2 puff INHALATION RT-Q6H PRN [History] Aspirin EC [Ecotrin Low Dose] 81 mg PO DAILY 12/09/17 [History] Cholecalciferol [Vitamin D3] 1,000 unit PO DAILY 12/09/17 [History] Doxazosin [Cardura] 2 mg PO HS 12/09/17 [History] Sertraline HCl [Zoloft] 50 mg PO DAILY 12/09/17 [History] Levofloxacin [Levaquin] 500 mg PO Q24H #7 tab 12/11/17 [Rx] Metoprolol Succinate (ER) [Toprol XL] 50 mg PO DAILY #30 tab 12/11/17 [Rx] Midodrine [ProAmatine] 5 mg PO AC-TID #90 tab 12/11/17 [Rx] Follow up Appointment(s)/Referral(s): Sohail Simpson MD [STAFF PHYSICIAN] - 12/25/17 9:15 am (Thursday. Previously scheduled appointment) Chris Lynn Jr, DO [Primary Care Provider] - 12/18/17 1:15 pm (Thursday) Ryan Wall MD [STAFF PHYSICIAN] - 01/26/18 2:30 pm Patient Instructions/Handouts: Syncope (DC) Activity/Diet/Wound Care/Special Instructions: Please take blood pressure every morning and evening, report fluctuations in blood pressure or episodes of chronic low blood pressure to Dr. Simpson. Please go from laying to sitting to standing slowly, taking time between each change in position. Drink plenty of oral fluids, especially on hot humid days or when exercising Do not take Lisinopril or amlodipine/norvasc. They have been discontinued from your regimen. Discharge Disposition: HOME SELF-CARE
--- NOTE | 2017-12-11 15:48 | PN ---
PROGRESS NOTE Mr. Anguiano is doing much better today. His orthostatic changes have also improved. I have advised that he should not do any strenuous activity and not change position very quickly. We will send him home on midodrine 5 mg t.i.d., Lopressor 50 mg daily and discontinue all diuretics and also lisinopril. I will see him in the office as scheduled within 2 weeks but he will call me sooner if there is a question concern or problem. Blood pressure on lying down is 120/70, pulse on standing up is 103. S1-S2 heard normally. Short systolic murmur noted. Lungs are clear. Abdomen and lower extremity exam unchanged. This patient came in with orthostatic hypotension and related fall, but no cardiac syncope. No arrhythmia was any seen while he was here. MMODL / IJN: [id number] /
== END 2017-12-11 12:13 | disposition home or self-care (01) ==
LOC: EC 11:25 → 6SEL 15:23
PROVIDERS: ADMIT Family Medicine; ATTEND Family Medicine
DX: R55 Syncope and collapse (principal); E83.42 Hypomagnesemia; I95.9 Hypotension, unspecified; E86.0 Dehydration; S00.03XA Contusion of scalp, initial encounter; N39.0 Urinary tract infection, site not specified; E11.43 Type 2 diabetes mellitus with diabetic autonomic (poly)neuropathy; W18.30XA Fall on same level, unspecified, initial encounter; E78.5 Hyperlipidemia, unspecified; Z95.1 Presence of aortocoronary bypass graft; Z95.2 Presence of prosthetic heart valve; K21.9 Gastro-esophageal reflux disease without esophagitis; J44.9 Chronic obstructive pulmonary disease, unspecified; I25.10 Atherosclerotic heart disease of native coronary artery without angina pectoris; I10 Essential (primary) hypertension; N40.0 Benign prostatic hyperplasia without lower urinary tract symptoms; K44.9 Diaphragmatic hernia without obstruction or gangrene; J90 Pleural effusion, not elsewhere classified; I25.2 Old myocardial infarction; Z79.84 Long term (current) use of oral hypoglycemic drugs; Z79.899 Other long term (current) drug therapy; Z79.82 Long term (current) use of aspirin; Z87.442 Personal history of urinary calculi; Z85.21 Personal history of malignant neoplasm of larynx; Z92.3 Personal history of irradiation; Z82.49 Family history of ischemic heart disease and other diseases of the circulatory system; Z81.8 Family history of other mental and behavioral disorders
CPT/HCPCS: 96365 ×2; 96366 ×3; 99285 ×2; 36415; 94640; 94760; 93005; 93306; 80053 ×3; 82550; 82553; 83735 ×3; 84484; 85025; 85610; 85730; 81001; 87086; 87077; 87186; 83036; 71046 ×2; 72125; 70450 ×2; G0378 ×3; S0138 ×2; J3475 ×2

== ENCOUNTER 2018-02-27 09:01 | Emergency (ER) | payer MEDICARE, BC ==
[2018-02-27 09:13] VITALS: RESP 18; TEMP 97.6
[2018-02-27] MEDS ORDERED: Acetaminophen-Codeine 300-30mg TAB PO STA (09:44)
[2018-02-27] MEDS ORDERED: ACET/COD 300 MG/30 MG STARTER PACK 6 TAB BTL PO STA (09:44)
[2018-02-27] MEDS ORDERED: valACYclovir 500 MG TAB PO STA (09:44)
--- NOTE | 2018-02-27 09:45 | ED ---
General Adult HPI - General Chief complaint: Eye Problems Stated complaint: LEFT EYE SWELLING FROM FALL Time Seen by Provider: 02/27/18 09:10 Source: patient, RN notes reviewed, old records reviewed Mode of arrival: ambulatory Limitations: no limitations - History of Present Illness Initial comments: This is a 77-year-old male the ER for evaluation. Presents today for evaluation regarding left eye pain. Patient has left eye swelling. Patient takes maybe related to fall. Patient has pain and tenderness around left eye no change in vision. Denies any fevers denies any headache denies any trauma. - Related Data Home Medications Medication Instructions Recorded Confirmed Atorvastatin [Lipitor] 40 mg PO HS 09/02/16 12/09/17 Ergocalciferol [Vitamin D2 50,000 unit PO Q14D 09/02/16 12/09/17 (DRISDOL)] Finasteride [Proscar] 5 mg PO DAILY 07/15/17 12/09/17 metFORMIN HCL [Glucophage] 500 mg PO BID 07/15/17 12/09/17 Albuterol Inhaler [Ventolin Hfa 1 - 2 puff INHALATION RT-Q6H PRN 12/09/17 Inhaler] Aspirin EC [Ecotrin Low Dose] 81 mg PO DAILY 12/09/17 12/09/17 Cholecalciferol [Vitamin D3] 1,000 unit PO DAILY 12/09/17 12/09/17 Doxazosin [Cardura] 2 mg PO HS 12/09/17 12/09/17 Sertraline HCl [Zoloft] 50 mg PO DAILY 12/09/17 12/09/17 Previous Rx's Medication Instructions Recorded Pantoprazole [Protonix] 40 mg PO DAILY #30 tab 07/15/17 Acetaminophen Tab [Tylenol] 650 mg PO Q4HR PRN tab 10/30/17 Levofloxacin [Levaquin] 500 mg PO Q24H #7 tab 12/11/17 Metoprolol Succinate (ER) [Toprol 50 mg PO DAILY #30 tab 12/11/17 XL] Midodrine [ProAmatine] 5 mg PO AC-TID #90 tab 12/11/17 Acetaminophen Tab [Tylenol Tab] 500 mg PO Q6H #30 tablet 02/27/18 Naproxen [Naprosyn] 500 mg PO Q12HR PRN #30 tab 02/27/18 valACYclovir HCL [Valtrex] 1,000 mg PO Q8HR #30 tab 02/27/18 Acyclovir [Zovirax] 800 mg PO TID #1000 ml 02/28/18 Allergies Allergy/AdvReac Type Severity Reaction Status Date / Time No Known Allergies Allergy Verified 03/01/18 11:51 Review of Systems ROS Statement: Those systems with pertinent positive or pertinent negative responses have been documented in the HPI. ROS Other: All systems not noted in ROS Statement are negative. Past Medical History Past Medical History: Coronary Artery Disease (CAD), Cancer, Diabetes Mellitus, GERD/Reflux, Hyperlipidemia, Hypertension Additional Past Medical History / Comment(s): Laryngeal cancer treated by radiation therapy back in 2009, coronary artery disease, mitral valve regurgitation severe, COPD mild with an FEV1 of 74% of predicted at baseline, diabetes mellitus, hyperlipidemia, hypertension, BPH, small hiatal hernia, history of nephrolithiasis, history of [place] medical ALLERGIES History of Any Multi-Drug Resistant Organisms: None Reported Past Surgical History: Coronary Bypass/CABG, Hernia Repair, Orthopedic Surgery Additional Past Surgical History / Comment(s): right rotator cuff, lithotrpsy kim, right side inguinal hernia repair, kim lens implants. Mitral valve repair and left atrial appendage clip ligation on 10/26/2017. Past Anesthesia/Blood Transfusion Reactions: No Reported Reaction Past Psychological History: No Psychological Hx Reported Smoking Status: Never smoker Past Alcohol Use History: Rare Past Drug Use History: None Reported - Past Family History Mother Family Medical History: Dementia, Myocardial Infarction ([place]) Additional Family Medical History / Comment(s): passed at 71 General Exam - General Exam Comments Initial Comments: Patient does have left-sided zoster rash to anterior left forehead Limitations: no limitations General appearance: alert, in no apparent distress Head exam: Present: atraumatic, normocephalic, normal inspection Eye exam: Present: normal appearance, PERRL, EOMI. Absent: scleral icterus, conjunctival injection, periorbital swelling ENT exam: Present: normal exam, mucous membranes moist Neck exam: Present: normal inspection. Absent: tenderness, meningismus, lymphadenopathy Respiratory exam: Present: normal lung sounds bilaterally. Absent: respiratory distress, wheezes, rales, rhonchi, stridor Cardiovascular Exam: Present: regular rate, normal rhythm, normal heart sounds. Absent: systolic murmur, diastolic murmur, rubs, gallop, clicks GI/Abdominal exam: Present: soft, normal bowel sounds. Absent: distended, tenderness, guarding, rebound, rigid Extremities exam: Present: normal inspection, full ROM, normal capillary refill. Absent: tenderness, pedal edema, joint swelling, calf tenderness Back exam: Present: normal inspection Neurological exam: Present: alert, oriented X3, CN II-XII intact Psychiatric exam: Present: normal affect, normal mood Skin exam: Present: warm, dry, intact, normal color. Absent: rash Course Vital Signs 02/27/18 02/27/18 09:03 10:01 Temperature 97.6 F Pulse Rate 78 62 Respiratory 18 18 Rate Blood Pressure 156/98 156/87 O2 Sat by Pulse 98 97 Oximetry Medical Decision Making - Medical Decision Making 77 male the ER for evaluation of facial swelling left eye swelling, positive left-sided facial zoster, patient will follow-up ophthalmology as directed Disposition Clinical Impression: Herpes zoster ophthalmicus of left eye, Zoster Disposition: HOME SELF-CARE Condition: Good Instructions: Shingles (ED) Prescriptions: Acetaminophen Tab [Tylenol Tab] 500 mg PO Q6H #30 tablet Naproxen [Naprosyn] 500 mg PO Q12HR PRN #30 tab PRN Reason: Pain valACYclovir HCL [Valtrex] 1,000 mg PO Q8HR #30 tab Is patient prescribed a controlled substance at d/c from ED?: No Referrals: Chris Lynn Jr, DO [Primary Care Provider] - 1-2 days Jose Syed MD [STAFF PHYSICIAN] - 1-2 days Meera Mc MD [STAFF PHYSICIAN] - 1-2 days
[2018-02-27] MEDS ORDERED: valACYclovir HCL 1,000 MG TABLET PO STA (09:47)
[2018-02-27 10:02] VITALS: BP 156/87; PULSE 62
== END 2018-02-27 10:01 | disposition home or self-care (01) ==
LOC: EC 09:01
DX: B02.30 Zoster ocular disease, unspecified (principal); J44.9 Chronic obstructive pulmonary disease, unspecified; E78.5 Hyperlipidemia, unspecified; I10 Essential (primary) hypertension; I25.10 Atherosclerotic heart disease of native coronary artery without angina pectoris; N40.0 Benign prostatic hyperplasia without lower urinary tract symptoms; E11.9 Type 2 diabetes mellitus without complications; I25.2 Old myocardial infarction; Z79.82 Long term (current) use of aspirin; Z79.84 Long term (current) use of oral hypoglycemic drugs; Z79.899 Other long term (current) drug therapy; Z96.1 Presence of intraocular lens
CPT/HCPCS: 70544; 70551; 99284

== ENCOUNTER → 2018-02-27 | Outpatient (CLI) | payer MEDICARE, BC ==
--- NOTE | 2018-02-28 11:41 | MR ---
EXAMINATION TYPE: MR angio head wo con DATE OF EXAM: 02/27/2018 COMPARISON: NONE HISTORY: CVA /Slurred Speech followed by decrease in cognitive function per order. Recent fall injury with bilateral hearing loss per patient. TECHNIQUE: Time of flight images focusing on the [place] were performed without contrast.. 2-D and 3-D postprocessing imaging is performed on MRI scanner. FINDINGS: Tortuous course to distal vertebral arteries is present, basilar origin is not identified. There are patent bilateral posterior communicating arteries, left is smaller in caliber. No significa nt stenosis or aneurysmal change is identified in the posterior circulation. There is tortuous course to the distal internal carotid arteries bilaterally patent small caliber ant erior communicating artery is seen axial image 85. No significant stenosis or aneurysmal change in th e anterior circulation is present. IMPRESSION: No aneurysmal change at the level of the [place].
--- NOTE | 2018-02-28 11:45 | MR ---
EXAMINATION TYPE: MR brain wo con DATE OF EXAM: 02/27/2018 COMPARISON: CT brain from December 10, 2017 HISTORY: CVA /Slurred Speech followed by decrease in cognitive function per order. Recent fall injury with bilateral hearing loss per patient. TECHNIQUE: Multiplanar, multisequence imaging of the brain and brainstem is performed without IV cont rast. FINDINGS: Diffusion weighted images demonstrate no evidence of a recent infarct or other diffusion abnormality. There is no worrisome extra-axial fluid collection. There is ventricular and sulcal prominence consis tent with diffuse cerebral atrophy. There are scattered foci of T2 hyperintensity seen throughout the deep and periventricular white matter. Lesions are nonspecific in appearance and distribution but mo st likely on the basis of product of chronic small vessel ischemic change in patient of this age. The re is suspected subacute or old 4 mm lacunar infarct in the left posterior frontal white matter axial image 22. Midline structures demonstrate normal morphology. The craniocervical junction appears within normal limits. Normal vascular flow voids are present. The visualized sinuses are clear and the globes are i ntact. There is interval resolution of small left frontal scalp hematoma. IMPRESSION: 1. No evidence of a recent infarct. 2. 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
== END | disposition home or self-care (01) ==
LOC: RADMRIMAIN 12:39
PROVIDERS: ATTEND Psychiatry & Neurology Neurology
DX: G31.9 Degenerative disease of nervous system, unspecified (principal); I67.82 Cerebral ischemia
CPT/HCPCS: 70544; 70551

== ENCOUNTER 2018-02-28 10:48 | Emergency (ER) | payer MEDICARE, BC ==
[2018-02-28] MEDS ORDERED: PROPARACAINE 0.5% OPHTH DROPS 15 ML BTL LEFT EYE STA (11:48)
[2018-02-28] MEDS ORDERED: ACYCLOVIR 400 MG/10 ML CUP PO ONE (12:11)
--- NOTE | 2018-02-28 12:12 | ED ---
General Adult HPI - General Chief complaint: Eye Problems Stated complaint: left eye swelling and problem Time Seen by Provider: 02/28/18 11:08 Source: patient, RN notes reviewed, old records reviewed Mode of arrival: ambulatory Limitations: no limitations - History of Present Illness Initial comments: This is a 77-year-old male the ER for evaluation of left eye swelling and pain told that he has herpes, patient was seen her ER recently, states he does follow up with ophthalmology was still is concerned of left eye denies any vision changes denies any recurrent symptoms, states pain is actually improved - Related Data Home Medications Medication Instructions Recorded Confirmed Atorvastatin [Lipitor] 40 mg PO HS 09/02/16 12/09/17 Ergocalciferol [Vitamin D2 50,000 unit PO Q14D 09/02/16 12/09/17 (DRISDOL)] Finasteride [Proscar] 5 mg PO DAILY 07/15/17 12/09/17 metFORMIN HCL [Glucophage] 500 mg PO BID 07/15/17 12/09/17 Albuterol Inhaler [Ventolin Hfa 1 - 2 puff INHALATION RT-Q6H PRN 12/09/17 Inhaler] Aspirin EC [Ecotrin Low Dose] 81 mg PO DAILY 12/09/17 12/09/17 Cholecalciferol [Vitamin D3] 1,000 unit PO DAILY 12/09/17 12/09/17 Doxazosin [Cardura] 2 mg PO HS 12/09/17 12/09/17 Sertraline HCl [Zoloft] 50 mg PO DAILY 12/09/17 12/09/17 Previous Rx's Medication Instructions Recorded Pantoprazole [Protonix] 40 mg PO DAILY #30 tab 07/15/17 Acetaminophen Tab [Tylenol] 650 mg PO Q4HR PRN tab 10/30/17 Levofloxacin [Levaquin] 500 mg PO Q24H #7 tab 12/11/17 Metoprolol Succinate (ER) [Toprol 50 mg PO DAILY #30 tab 12/11/17 XL] Midodrine [ProAmatine] 5 mg PO AC-TID #90 tab 12/11/17 Acetaminophen Tab [Tylenol Tab] 500 mg PO Q6H #30 tablet 02/27/18 Naproxen [Naprosyn] 500 mg PO Q12HR PRN #30 tab 02/27/18 valACYclovir HCL [Valtrex] 1,000 mg PO Q8HR #30 tab 02/27/18 Acyclovir [Zovirax] 800 mg PO TID #1000 ml 02/28/18 Allergies Allergy/AdvReac Type Severity Reaction Status Date / Time No Known Allergies Allergy Verified 03/01/18 11:51 Review of Systems ROS Statement: Those systems with pertinent positive or pertinent negative responses have been documented in the HPI. ROS Other: All systems not noted in ROS Statement are negative. Past Medical History Past Medical History: Coronary Artery Disease (CAD), Cancer, Diabetes Mellitus, GERD/Reflux, Hyperlipidemia, Hypertension Additional Past Medical History / Comment(s): Laryngeal cancer treated by radiation therapy back in 2009, coronary artery disease, mitral valve regurgitation severe, COPD mild with an FEV1 of 74% of predicted at baseline, diabetes mellitus, hyperlipidemia, hypertension, BPH, small hiatal hernia, history of nephrolithiasis, history of [place] medical ALLERGIES, shingles left eye History of Any Multi-Drug Resistant Organisms: None Reported Past Surgical History: Coronary Bypass/CABG, Hernia Repair, Orthopedic Surgery Additional Past Surgical History / Comment(s): right rotator cuff, lithotrpsy kim, right side inguinal hernia repair, kim lens implants. Mitral valve repair and left atrial appendage clip ligation on 10/26/2017. Past Anesthesia/Blood Transfusion Reactions: No Reported Reaction Past Psychological History: No Psychological Hx Reported Smoking Status: Never smoker Past Alcohol Use History: Rare Past Drug Use History: None Reported - Past Family History Mother Family Medical History: Dementia, Myocardial Infarction ([place]) Additional Family Medical History / Comment(s): passed at 71 General Exam - General Exam Comments Initial Comments: Patient with left eye herpes zoster Eye evaluation shows no staining of eye, no abrasion or ulcer Limitations: no limitations General appearance: alert, in no apparent distress Head exam: Present: atraumatic, normocephalic, normal inspection Eye exam: Present: normal appearance, PERRL, EOMI. Absent: scleral icterus, conjunctival injection, periorbital swelling ENT exam: Present: normal exam, mucous membranes moist Neck exam: Present: normal inspection. Absent: tenderness, meningismus, lymphadenopathy Respiratory exam: Present: normal lung sounds bilaterally. Absent: respiratory distress, wheezes, rales, rhonchi, stridor Cardiovascular Exam: Present: regular rate, normal rhythm, normal heart sounds. Absent: systolic murmur, diastolic murmur, rubs, gallop, clicks GI/Abdominal exam: Present: soft, normal bowel sounds. Absent: distended, tenderness, guarding, rebound, rigid Extremities exam: Present: normal inspection, full ROM, normal capillary refill. Absent: tenderness, pedal edema, joint swelling, calf tenderness Back exam: Present: normal inspection Neurological exam: Present: alert, oriented X3, CN II-XII intact Psychiatric exam: Present: normal affect, normal mood Skin exam: Present: warm, dry, intact, normal color. Absent: rash Course Vital Signs 02/28/18 02/28/18 10:57 12:17 Temperature 97.6 F 97.8 F Pulse Rate 84 60 Respiratory 18 16 Rate Blood Pressure 178/101 161/90 O2 Sat by Pulse 97 97 Oximetry - Reevaluation(s) Reevaluation #1: Spoke with ophthalmology, no findings, will follow-up in office tomorrow Medical Decision Making - Medical Decision Making 37 male the ER with herpes zoster, patient has zoster of facial nerve, patient will follow-up with ophthalmology regarding possible zoster, of the eye Disposition Clinical Impression: Herpes zoster ophthalmicus of left eye Disposition: HOME SELF-CARE Condition: Good Instructions: Shingles (ED) Prescriptions: Acyclovir [Zovirax] 800 mg PO TID #1000 ml Is patient prescribed a controlled substance at d/c from ED?: No Referrals: Jose Syed MD [STAFF PHYSICIAN] - 1-2 days Meera Mc MD [STAFF PHYSICIAN] - 1-2 days
[2018-02-28 12:18] VITALS: BP 161/90; PULSE 60; RESP 16; TEMP 97.8
== END 2018-02-28 12:47 | disposition home or self-care (01) ==
LOC: EC 10:48
DX: B02.30 Zoster ocular disease, unspecified (principal); I25.10 Atherosclerotic heart disease of native coronary artery without angina pectoris; E11.9 Type 2 diabetes mellitus without complications; E78.5 Hyperlipidemia, unspecified; I10 Essential (primary) hypertension; J44.9 Chronic obstructive pulmonary disease, unspecified; N40.0 Benign prostatic hyperplasia without lower urinary tract symptoms; I25.2 Old myocardial infarction; Z85.21 Personal history of malignant neoplasm of larynx; Z95.1 Presence of aortocoronary bypass graft; Z79.84 Long term (current) use of oral hypoglycemic drugs; Z79.82 Long term (current) use of aspirin; Z79.899 Other long term (current) drug therapy
CPT/HCPCS: 99283

== ENCOUNTER 2018-03-14 12:57 | Inpatient (IN) | payer MEDICARE, BC ==
[2018-03-14] MEDS ORDERED: SODIUM CHLORIDE 0.9% 500 ML 500 ML IV ONE (13:30)
--- NOTE | 2018-03-14 13:36 | ED ---
General Adult HPI - General Chief complaint: Altered Mental Status Stated complaint: shingles Time Seen by Provider: 03/14/18 13:00 Source: patient, RN notes reviewed Mode of arrival: wheelchair Limitations: no limitations - History of Present Illness Initial comments: This is a 77-year-old male who presents emergency Department with a past medical history significant for mitral valve replacement earlier this year subsequent to that he has fallen and hit his head he had a CAT scan it was normal. In about 3 weeks ago he developed shingles of the left eye he was put on valacyclovir and steroids for the eye. Patient started having slurred speech and weak after that they did an MRI of his head at that time and he continued with the shingles treatment. Family states over the last couple of days he has been getting confused night family doctor said it may be however today he has been confused all day and hallucinating and seeing things such as spiders and then at times talking normally about relevant events. Patient did complain of a mild headache on top of his head. There is been no recent fever chills is been no recent cough the patient does not complain of any neck stiffness. There's been no chest pain or difficulty breathing or shortness of breath. There's been no nausea vomiting or abdominal pain. Patient has had an episode of diarrhea. There has been no recent trauma. Family states the patient is not getting up at all and not eating anymore nearly enough. - Related Data Home Medications Medication Instructions Recorded Confirmed Atorvastatin [Lipitor] 40 mg PO HS@209909/02/16 03/14/18 Finasteride [Proscar] 5 mg PO DAILY@89907/15/17 03/14/18 metFORMIN HCL [Glucophage] 500 mg PO BID@07/15/17 03/14/18 Cholecalciferol [Vitamin D3] 1,000 unit PO DAILY@89912/09/17 03/14/18 Doxazosin [Cardura] 2 mg PO HS@209912/09/17 03/14/18 Aspirin 162 mg PO DAILY@89903/14/18 03/14/18 Metoprolol Succinate (ER) [Toprol 50 mg PO DAILY@89903/14/18 03/14/18 XL] Allergies Allergy/AdvReac Type Severity Reaction Status Date / Time No Known Allergies Allergy Verified 03/14/18 13:42 Review of Systems ROS Statement: Those systems with pertinent positive or pertinent negative responses have been documented in the HPI. ROS Other: All systems not noted in ROS Statement are negative. 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 Mitral valve repair and left atrial appendage clip ligation on 10/26/2017. Past Anesthesia/Blood Transfusion Reactions: No Reported Reaction Past Psychological History: No Psychological Hx Reported Smoking Status: Never smoker Past Alcohol Use History: Rare Past Drug Use History: None Reported - Past Family History Mother Family Medical History: Dementia, Myocardial Infarction ([place]) Additional Family Medical History / Comment(s): passed at 71 General Exam - General Exam Comments Initial Comments: GENERAL: Patient is well-developed and well-nourished. Patient is nontoxic and well- hydrated and is in no acute distress. ENT: Neck is soft and supple. No significant lymphadenopathy is noted. Oropharynx is clear. Moist mucous membranes. Neck has full range of motion without eliciting any pain. EYES: The sclera were anicteric and conjunctiva were pink and moist. Extraocular movements were intact and pupils were equal round and reactive to light. Eyelids were unremarkable. PULMONARY: Unlabored respirations. Good breath sounds bilaterally. No audible rales rhonchi or wheezing was noted. CARDIOVASCULAR: There is a regular rate and rhythm without any murmurs gallops or rubs. ABDOMEN: Soft and nontender with normal bowel sounds. No palpable organomegaly was noted. There is no palpable pulsatile mass. SKIN: Skin is clear with no lesions or rashes and otherwise unremarkable. NEUROLOGIC: Patient is alert and oriented x3. Cranial nerves II through XII are grossly intact. Motor and sensory are also intact. Normal speech, volume and content. Symmetrical smile. MUSCULOSKELETAL: Normal extremities with adequate strength and full range of motion. No lower extremity swelling or edema. No calf tenderness. LYMPHATICS: No significant lymphadenopathy is noted PSYCHIATRIC: Normal psychiatric evaluation. Limitations: no limitations Course Vital Signs 03/14/18 03/14/18 12:58 14:34 Temperature 97.3 F L Pulse Rate 80 78 Respiratory 16 16 Rate Blood Pressure 124/78 142/78 O2 Sat by Pulse 96 98 Oximetry Medical Decision Making - Medical Decision Making EKG shows sinus rhythm with PAC at 79 bpm [place] interval is 164 QRS is 86 QT interval 394 QTC is 451. Patient's EKG shows no ST segment elevation or depression. Chest x-ray showed no acute abnormality. Computed tomography scan of the brain showed no acute abnormality. I started the patient on Rocephin 2 g[address] I spoke with Dr. Thomson he agreed to admit the patient admitted the patient wrote admitting orders. - Lab Data Result diagrams: 03/14/18 13:20 03/14/18 13:20 Lab Results 03/14/18 03/14/18 03/14/18 Range/Units 13:20 13:20 13:20 WBC 9.7 (3.8-10.6) k/uL RBC 4.62 (4.30-5.90) m/uL Hgb 14.4 (13.0-17.5) gm/dL Hct 43.1 (39.0-53.0) % MCV 93.2 (80.0-100.0) fL MCH 31.2 (25.0-35.0) pg MCHC 33.5 (31.0-37.0) g/dL RDW 14.9 (11.5-15.5) % Plt Count 298 (150-450) k/uL Neutrophils % 75 % Lymphocytes % 12 % Monocytes % 6 % Eosinophils % 2 % Basophils % 1 % Neutrophils # 7.3 (1.3-7.7) k/uL Lymphocytes # 1.2 (1.0-4.8) k/uL Monocytes # 0.6 (0-1.0) k/uL Eosinophils # 0.2 (0-0.7) k/uL Basophils # 0.0 (0-0.2) k/uL PT (9.0-12.0) sec INR (<1.2) APTT (22.0-30.0) sec Sodium 137 (137-145) mmol/L Potassium 4.4 (3.5-5.1) mmol/L Chloride 98 (98-107) mmol/L Carbon Dioxide 28 (22-30) mmol/L Anion Gap 11 mmol/L BUN 18 (9-20) mg/dL Creatinine 1.09 (0.66-1.25) mg/dL Est GFR (CKD-EPI)AfAm 74 (>60 ml/min/1.73 sqM) Est GFR (CKD-EPI)NonAf 64 (>60 ml/min/1.73 sqM) Glucose 102 H (74-99) mg/dL POC Glucose (mg/dL) (75-99) mg/dL POC Glu Dialer ID Plasma Lactic Acid N[place] (0.7-2.0) mmol/L Calcium 9.3 (8.4-10.2) mg/dL Total Bilirubin 1.3 (0.2-1.3) mg/dL AST 12 L (17-59) U/L ALT 20 L (21-72) U/L Alkaline Phosphatase 58 (38-126) U/L Total Creatine Kinase 26 L (55-170) U/L CK-MB (CK-2) 0.4 (0.0-2.4) ng/mL CK-MB (CK-2) Rel Index 1.5 Troponin I <0.012 (0.000-0.034) ng/mL Total Protein 6.3 (6.3-8.2) g/dL Albumin 3.7 (3.5-5.0) g/dL Urine Color Urine Appearance (Clear) Urine pH (5.0-8.0) Ur Specific [place] (1.001-1.035) Urine Protein (Negative) Urine Glucose (UA) (Negative) Urine Ketones (Negative) Urine Blood (Negative) Urine Nitrite (Negative) Urine Bilirubin (Negative) Urine Urobilinogen (<2.0) mg/dL Ur Leukocyte Esterase (Negative) Urine RBC (0-5) /hpf Urine WBC (0-5) /hpf Urine WBC Clumps (None) /hpf Ur Squamous Epith Cells (0-4) /hpf Urine Mucus (None) /hpf Urine Opiates Screen (NotDetected) Ur Oxycodone Screen (NotDetected) Urine Methadone Screen (NotDetected) Ur Propoxyphene Screen (NotDetected) Ur Barbiturates Screen (NotDetected) U Tricyclic Antidepress (NotDetected) Ur Phencyclidine Scrn (NotDetected) Ur Amphetamines Screen (NotDetected) U Methamphetamines Scrn (NotDetected) U Benzodiazepines Scrn (NotDetected) Urine Cocaine Screen (NotDetected) U Marijuana (THC) Screen (NotDetected) 03/14/18 03/14/18 03/14/18 Range/Units 13:20 13:20 13:50 WBC (3.8-10.6) k/uL RBC (4.30-5.90) m/uL Hgb (13.0-17.5) gm/dL Hct (39.0-53.0) % MCV (80.0-100.0) fL MCH (25.0-35.0) pg MCHC (31.0-37.0) g/dL RDW (11.5-15.5) % Plt Count (150-450) k/uL Neutrophils % % Lymphocytes % % Monocytes % % Eosinophils % % Basophils % % Neutrophils # (1.3-7.7) k/uL Lymphocytes # (1.0-4.8) k/uL Monocytes # (0-1.0) k/uL Eosinophils # (0-0.7) k/uL Basophils # (0-0.2) k/uL PT 10.6 (9.0-12.0) sec INR 1.1 (<1.2) APTT 24.0 (22.0-30.0) sec Sodium (137-145) mmol/L Potassium (3.5-5.1) mmol/L Chloride (98-107) mmol/L Carbon Dioxide (22-30) mmol/L Anion Gap mmol/L BUN (9-20) mg/dL Creatinine (0.66-1.25) mg/dL Est GFR (CKD-EPI)AfAm (>60 ml/min/1.73 sqM) Est GFR (CKD-EPI)NonAf (>60 ml/min/1.73 sqM) Glucose (74-99) mg/dL POC Glucose (mg/dL) 107 H (75-99) mg/dL POC Glu Dialer ID Estuardo, Rafael Plasma Lactic Acid Naman 1.9 (0.7-2.0) mmol/L Calcium (8.4-10.2) mg/dL Total Bilirubin (0.2-1.3) mg/dL AST (17-59) U/L ALT (21-72) U/L Alkaline Phosphatase (38-126) U/L Total Creatine Kinase (55-170) U/L CK-MB (CK-2) (0.0-2.4) ng/mL CK-MB (CK-2) Rel Index Troponin I (0.000-0.034) ng/mL Total Protein (6.3-8.2) g/dL Albumin (3.5-5.0) g/dL Urine Color Urine Appearance (Clear) Urine pH (5.0-8.0) Ur Specific [place] (1.001-1.035) Urine Protein (Negative) Urine Glucose (UA) (Negative) Urine Ketones (Negative) Urine Blood (Negative) Urine Nitrite (Negative) Urine Bilirubin (Negative) Urine Urobilinogen (<2.0) mg/dL Ur Leukocyte Esterase (Negative) Urine RBC (0-5) /hpf Urine WBC (0-5) /hpf Urine WBC Clumps (None) /hpf Ur Squamous Epith Cells (0-4) /hpf Urine Mucus (None) /hpf Urine Opiates Screen (NotDetected) Ur Oxycodone Screen (NotDetected) Urine Methadone Screen (NotDetected) Ur Propoxyphene Screen (NotDetected) Ur Barbiturates Screen (NotDetected) U Tricyclic Antidepress (NotDetected) Ur Phencyclidine Scrn (NotDetected) Ur Amphetamines Screen (NotDetected) U Methamphetamines Scrn (NotDetected) U Benzodiazepines Scrn (NotDetected) Urine Cocaine Screen (NotDetected) U Marijuana (THC) Screen (NotDetected) 03/14/18 03/14/18 Range/Units 14:43 14:43 WBC (3.8-10.6) k/uL RBC (4.30-5.90) m/uL Hgb (13.0-17.5) gm/dL Hct (39.0-53.0) % MCV (80.0-100.0) fL MCH (25.0-35.0) pg MCHC (31.0-37.0) g/dL RDW (11.5-15.5) % Plt Count (150-450) k/uL Neutrophils % % Lymphocytes % % Monocytes % % Eosinophils % % Basophils % % Neutrophils # (1.3-7.7) k/uL Lymphocytes # (1.0-4.8) k/uL Monocytes # (0-1.0) k/uL Eosinophils # (0-0.7) k/uL Basophils # (0-0.2) k/uL PT (9.0-12.0) sec INR (<1.2) APTT (22.0-30.0) sec Sodium (137-145) mmol/L Potassium (3.5-5.1) mmol/L Chloride (98-107) mmol/L Carbon Dioxide (22-30) mmol/L Anion Gap mmol/L BUN (9-20) mg/dL Creatinine (0.66-1.25) mg/dL Est GFR (CKD-EPI)AfAm (>60 ml/min/1.73 sqM) Est GFR (CKD-EPI)NonAf (>60 ml/min/1.73 sqM) Glucose (74-99) mg/dL POC Glucose (mg/dL) (75-99) mg/dL POC Glu Dialer ID Plasma Lactic Acid [place] (0.7-2.0) mmol/L Calcium (8.4-10.2) mg/dL Total Bilirubin (0.2-1.3) mg/dL AST (17-59) U/L ALT (21-72) U/L Alkaline Phosphatase (38-126) U/L Total Creatine Kinase (55-170) U/L CK-MB (CK-2) (0.0-2.4) ng/mL CK-MB (CK-2) Rel Index Troponin I (0.000-0.034) ng/mL Total Protein (6.3-8.2) g/dL Albumin (3.5-5.0) g/dL Urine Color Yellow Urine Appearance Clear (Clear) Urine pH 6.5 (5.0-8.0) Ur Specific [place] 1.017 (1.001-1.035) Urine Protein 1+ H (Negative) Urine Glucose (UA) Negative (Negative) Urine Ketones Negative (Negative) Urine Blood Negative (Negative) Urine Nitrite Negative (Negative) Urine Bilirubin Negative (Negative) Urine Urobilinogen 2.0 (<2.0) mg/dL Ur Leukocyte Esterase Large H (Negative) Urine RBC 1 (0-5) /hpf Urine WBC 83 H (0-5) /hpf Urine WBC Clumps Few H (None) /hpf Ur Squamous Epith Cells <1 (0-4) /hpf Urine Mucus Rare H (None) /hpf Urine Opiates Screen Not Detected (NotDetected) Ur Oxycodone Screen Not Detected (NotDetected) Urine Methadone Screen Not Detected (NotDetected) Ur Propoxyphene Screen Not Detected (NotDetected) Ur Barbiturates Screen Not Detected (NotDetected) U Tricyclic Antidepress Not Detected (NotDetected) Ur Phencyclidine Scrn Not Detected (NotDetected) Ur Amphetamines Screen Not Detected (NotDetected) U Methamphetamines Scrn Not Detected (NotDetected) U Benzodiazepines Scrn Not Detected (NotDetected) Urine Cocaine Screen Not Detected (NotDetected) U Marijuana (THC) Screen Not Detected (NotDetected) Disposition Clinical Impression: Altered mental status, Urinary tract infection Disposition: ADMITTED IP TO THIS [facility] Referrals: Chris Lynn Jr, DO [Primary Care Provider] - 1-2 days Time of Disposition: 15:22
[2018-03-14 13:55] LABS: Glucose,Whole Blood 107 mg/dL (75-99)
[2018-03-14 13:56] LABS: Basophils % (A) 1 %; Eosinophils # (A) 0.2 k/uL (0-0.7); Eosinophils % (A) 2 %; HCT 43.1 % (39.0-53.0); HGB 14.4 gm/dL (13.0-17.5); Lymphocytes # (A) 1.2 k/uL (1.0-4.8); Lymphocytes % (A) 12 %; MCH 31.2 pg (25.0-35.0); MCHC 33.5 g/dL (31.0-37.0); MCV 93.2 fL (80.0-100.0); Mean Platelet Volume 7.9; Monocytes # (A) 0.6 k/uL (0-1.0); Monocytes % (A) 6 %; Neutrophils # (A) 7.3 k/uL (1.3-7.7); Neutrophils % (A) 75 %; Platelet Count 298 k/uL (150-450); RBC 4.62 m/uL (4.30-5.90); RDW 14.9 % (11.5-15.5); WBC 9.7 k/uL (3.8-10.6)
[2018-03-14 14:06] LABS: INR 1.1 (<1.2); Prothrombin Time 10.6 sec (9.0-12.0)
[2018-03-14 14:11] LABS: Albumin 3.7 g/dL (3.5-5.0); Calcium 9.3 mg/dL (8.4-10.2); Potassium 4.4 mmol/L (3.5-5.1); Total Bilirubin 1.3 mg/dL (0.2-1.3); Total Protein 6.3 g/dL (6.3-8.2)
[2018-03-14 14:17] LABS: Creatine Kinase 26 U/L (55-170)
[2018-03-14 14:29] LABS: Creatine Kinase MB 0.4 ng/mL (0.0-2.4); Troponin I <0.012 ng/mL (0.000-0.034)
--- NOTE | 2018-03-14 14:44 | CT ---
EXAMINATION TYPE: CT brain wo con DATE OF EXAM: 03/14/2018 COMPARISON: 12/10/2017 HISTORY: Patient poor historian altered mental status CT DLP: 1098.8 mGycm Automated exposure control for dose reduction was used. FINDINGS: There is cerebral mild cortical atrophy. There is patchy hypodensity in the periventricular white mat ter. There is no mass effect nor midline shift. There is no sign of intracranial hemorrhage. The calv arium is intact. IMPRESSION: CEREBRAL ATROPHY AND CHRONIC SMALL VESSEL ISCHEMIA. THERE IS CLEARING OF LEFT TEMPORAL SOFT TISSUE SW ELLING COMPARED TO OLD EXAM.
--- NOTE | 2018-03-14 14:45 | XR ---
EXAMINATION TYPE: XR chest 2V DATE OF EXAM: 03/14/2018 COMPARISON: 12/10/2017 HISTORY: Altered mental status TECHNIQUE: Frontal and lateral views of the chest are obtained. FINDINGS: There is no heart failure nor confluent pneumonic infiltrate. Costophrenic angles are evens r. There is slight coarsening of interstitial markings. There are chest leads. There are sternal wire s. There is spurring in the thoracic spine. There is some chronic linear density at the left cardiac border. IMPRESSION: Pulmonary fibrotic changes. No acute lung disease. No change compared to old exam.
[2018-03-14 14:57] LABS: Appearance,Urine Clear (Clear); Bilirubin,Urine Negative (Negative); Blood,Urine Negative (Negative); Color,Urine Yellow; Glucose,Urine (UA) Negative (Negative); Ketones,Urine Negative (Negative); Leukocyte Esterase,Urine Large (Negative); Mucus,Urine Rare /hpf; Nitrite,Urine Negative (Negative); PH, Urine 6.5 (5.0-8.0); Protein,Urine 1+ (Negative); RBC,Urine 1 /hpf (0-5); Specific Gravity,Urine 1.017 (1.001-1.035); Squamous Epithelial Cell,Urine <1 /hpf (0-4); WBC,Urine 83 /hpf (0-5)
[2018-03-14 15:04] LABS: Amphetamine Screen,Urine Not Detected (NotDetected); Barbiturate Screen,Urine Not Detected (NotDetected); Benzodiazepines Screen,Urine Not Detected (NotDetected); Cocaine Screen,Urine Not Detected (NotDetected); Methadone Screen, Urine Not Detected (NotDetected); Opiate Screen,Urine Not Detected (NotDetected); Oxycodone Screen, Urine Not Detected (NotDetected); Phencyclidine Screen,Urine Not Detected (NotDetected); Tricyclic Antidepressant,Urine Not Detected (NotDetected); Urn Cannabinoid Scrn Not Detected (NotDetected)
[2018-03-14] MEDS ORDERED: cefTRIAXone 2,000 MG in SODIUM CHLORIDE 0.9% 100 ML IVPB STA (15:05)
[2018-03-14] MEDS ORDERED: cefTRIAXone IN SWFI 2,000 MG/20 ML SYRINGE IVP STA (15:06)
[2018-03-14] MEDS ORDERED: SODIUM CHLORIDE 0.9% 1,000 ML IV ONE (15:24)
[2018-03-14] MEDS: LORazepam 2 MG/ML INJ IV PRN (18:37)
[2018-03-14] MEDS: SODIUM CHLORIDE 0.9% 1,000 ML IV SCH (18:38)
[2018-03-14] MEDS ORDERED: HALOPERIDOL LACTATE 5 MG/ML 1 ML VIAL IM PRN (19:26)
[2018-03-14 21:01] LABS: Glucose,Whole Blood 103 mg/dL (75-99)
[2018-03-14] MEDS: INSULIN ASPART 100 UNIT/ML 1 ML 10 ML VIAL SQ SCH (21:03)
[2018-03-14] MEDS: ATORVASTATIN 40 MG TAB PO SCH (21:08)
[2018-03-14] MEDS: DOXAZOSIN 2 MG TAB PO SCH (21:09)
[2018-03-14] MEDS: METOPROLOL SUCCINATE (ER) 50 MG TAB.ER.24H PO SCH (21:09)
[2018-03-15] MEDS: LORazepam 2 MG/ML INJ IV PRN ×3 (00:10→16:45)
[2018-03-15 07:46] LABS: Glucose,Whole Blood 100 mg/dL (75-99)
[2018-03-15] MEDS: INSULIN ASPART 100 UNIT/ML 1 ML 10 ML VIAL SQ SCH ×4 (07:51→21:39)
[2018-03-15] MEDS: SODIUM CHLORIDE 0.9% 1,000 ML IV SCH ×2 (08:07→20:24)
[2018-03-15] MEDS: cefTRIAXone IN SWFI 1,000 MG/10 ML SYRINGE IVP SCH (08:07)
[2018-03-15] MEDS: ASPIRIN 81 MG PO SCH (08:08)
[2018-03-15] MEDS: METOPROLOL SUCCINATE (ER) 50 MG TAB.ER.24H PO SCH ×2 (08:08→20:29)
[2018-03-15] MEDS: CHOLECALCIFEROL 1,000 UNIT TAB PO SCH (08:08)
[2018-03-15] MEDS ORDERED: FINASTERIDE 5 MG TAB PO SCH (09:00)
--- NOTE | 2018-03-15 09:19 | P.HPIM ---
History of Present Illness H&P Date: 03/15/18 Chief Complaint: Altered mental status 77-year-old male presented to the emergency department at [facility] at my request. Past medical history significant for recent mitral valve replacement subsequent to that he had fallen and hit his head CT was within normal limits. About 3 weeks ago he developed shingles of the left thigh patient was placed on valacyclovir and steroids was seen by Dr. Castanon ophthalmology. Approximately 3 or 4 days ago patient started having slurred speech and became weak MRI of the head was performed at that time continued with singles treatment. Family states now over the last couple days he is beginning more confused at night it was thought he might be sundowning however upon presentation to the emergency room he was confused and hallucinating all day seeing spiders patient also complained of a mild headache. There is been no recent fever chills the recent cough no complaints of stiffness was seen in the office a urine was performed and found to be within normal limits however a urine specimen was then performed in the emergency room and patient was found to have a urinary tract infection Review of Systems Constitutional: Reports weakness Cardiovascular: Reports decreased exercise tolerance, Reports high blood pressure Respiratory: Reports as per HPI Gastrointestinal: Reports loss of appetite Genitourinary: Reports urinary frequency Musculoskeletal: Reports muscle weakness Integumentary: Reports as per HPI Neurological: Reports change in mentation, Reports memory loss Psychiatric: Reports as per HPI Endocrine: Reports high blood sugars (Patient has lost a significant amount of weight and type 2 diabetes is well controlled on no meds whatsoever) Past Medical History Past Medical History: Coronary Artery Disease (CAD), Cancer, Diabetes Mellitus, GERD/Reflux, Hyperlipidemia, Hypertension Additional Past Medical History / Comment(s): 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 Mitral valve repair and left atrial appendage clip ligation on 10/26/2017. Past Anesthesia/Blood Transfusion Reactions: Previous Problems w/ Anesthesia Additional Past Anesthesia/Blood Transfusion Reaction / Comment(s): Patient has had violence when coming out of anesthesia Past Psychological History: No Psychological Hx Reported Smoking Status: Former smoker Past Alcohol Use History: Rare Past Drug Use History: None Reported - Past Family History Mother Family Medical History: Dementia, Myocardial Infarction ([place]) Additional Family Medical History / Comment(s): passed at 71 Medications and Allergies Home Medications Medication Instructions Recorded Confirmed Type Atorvastatin [Lipitor] 40 mg PO HS@209909/02/16 03/14/18 History Finasteride [Proscar] 5 mg PO DAILY@89907/15/17 03/14/18 History metFORMIN HCL [Glucophage] 500 mg PO BID@07/15/17 03/14/18 History Cholecalciferol [Vitamin D3] 1,000 unit PO DAILY@89912/09/17 03/14/18 History Doxazosin [Cardura] 2 mg PO HS@209912/09/17 03/14/18 History Aspirin 162 mg PO DAILY@89903/14/18 03/14/18 History Metoprolol Succinate (ER) [Toprol 50 mg PO DAILY@89903/14/18 03/14/18 History XL] Allergies Allergy/AdvReac Type Severity Reaction Status Date / Time shellfish derived [Shrimp] Allergy Unknown Rash/Hives Verified 03/14/18 17:27 Physical Exam Osteopathic Statement: *. No significant issues noted on an osteopathic structural exam other than those noted in the History and Physical/Consult. Vitals: Vital Signs Temp Pulse Pulse Resp BP BP Pulse Ox 03/15/18 07:00 97.7 F 78 18 180/99 95 03/14/18 23:00 97.0 F L 81 20 97 03/14/18 17:16 98.8 F 88 18 160/94 95 03/14/18 15:45 97 16 148/91 97 03/14/18 14:34 78 16 142/78 98 03/14/18 12:58 97.3 F L 80 16 124/78 96 Intake and Output 03/14/18 03/15/18 03/15/18 22:59 06:59 14:59 Other: # Voids 2 1 General: [Patient awake, alert and oriented to person. Patient in no acute distress. Patient has received Ativan throughout the night HEENT: [PERRL. EOMI. No pharyngeal erythema or exudate.] Neck: [No adenopathy.] Cardiac: [Heart regular in rate and rhythm. No S3. No S4. No clicks, rubs. No murmur.] Healed midline incision Lungs: [Clear to auscultation bilaterally.] Abdomen: [No mass. No organomegaly. Bowel sounds presnt and normoactive in all 4 quadrants.] Extremes: [No edema no cyanosis no claudication normal pulses] : [] Musculoskeletal: [No joint erythema, edema or tenderness.] Skin: [No rash.] Neurologic: [No lateralizing deficits. CN II - XII grossly intact.] Lymphatic: [No adenopathy.] Results CBC & Chem 7: 03/14/18 13:20 03/14/18 13:20 Labs: Abnormal Lab Results - Last 24 Hours (Table) 03/14/18 03/14/18 03/14/18 Range/Units 13:20 13:20 13:50 Glucose 102 H (74-99) mg/dL POC Glucose (mg/dL) 107 H (75-99) mg/dL AST 12 L (17-59) U/L ALT 20 L (21-72) U/L Total Creatine Kinase 26 L (55-170) U/L Urine Protein (Negative) Ur Leukocyte Esterase (Negative) Urine WBC (0-5) /hpf Urine WBC Clumps (None) /hpf Urine Mucus (None) /hpf 03/14/18 03/14/18 03/15/18 Range/Units 14:43 21:00 07:36 Glucose (74-99) mg/dL POC Glucose (mg/dL) 103 H 100 H (75-99) mg/dL AST (17-59) U/L ALT (21-72) U/L Total Creatine Kinase (55-170) U/L Urine Protein 1+ H (Negative) Ur Leukocyte Esterase Large H (Negative) Urine WBC 83 H (0-5) /hpf Urine WBC Clumps Few H (None) /hpf Urine Mucus Rare H (None) /hpf Microbiology - Last 24 Hours (Table) 03/14/18 14:43 Urine Culture - Preliminary Urine,Voided Thrombosis Risk Factor Assmnt - Choose All That Apply Each Factor Represents 1 point: Abnormal pulmonary function (COPD) Each Risk Factor Represents 3 Points: Age 75 years or older Thrombosis Risk Factor Assessment Total Risk Factor Score: 4 Thrombosis Risk Factor Assessment Level: Moderate Risk Assessment and Plan (1) Altered mental status Narrative/Plan: This patient has urinary tract infection currently on IV Rocephin awaiting culture report We will hold [facility] at this time Current Visit: Yes Status: Acute Code(s): R41.82 - ALTERED MENTAL STATUS, UNSPECIFIED SNOMED Code(s): 631662178 (2) Urinary tract infection Narrative/Plan: IV antibiotic ceftriaxone 1 g IV piggyback every 24 hours Current Visit: Yes Status: Acute Code(s): N39.0 - URINARY TRACT INFECTION, SITE NOT SPECIFIED SNOMED Code(s): 82554885 (3) Herpes zoster ophthalmicus of left eye Narrative/Plan: Lesions are dry and almost completely resolved patient was treated with valacyclovir for full course Current Visit: No Status: Acute Code(s): B02.30 - ZOSTER OCULAR DISEASE, UNSPECIFIED SNOMED Code(s): 61664923 Plan: Hypertension as well patient currently on metoprolol 50 mg twice daily added hydralazine 20 mg by mouth twice daily will reevaluate blood pressure as the day goes on Time with Patient: Greater than 30
[2018-03-15] MEDS: hydrALAZINE HCL 10 MG TAB PO SCH ×2 (09:30→20:24)
[2018-03-15] MEDS: hydrALAZINE HCL 20 MG/ML 1 ML VIAL IVP PRN ×2 (10:38→14:29)
[2018-03-15 11:32] LABS: Glucose,Whole Blood 111 mg/dL (75-99)
[2018-03-15 17:17] LABS: Glucose,Whole Blood 104 mg/dL (75-99)
[2018-03-15] MEDS: DOXAZOSIN 2 MG TAB PO SCH (20:24)
[2018-03-15] MEDS: ATORVASTATIN 40 MG TAB PO SCH (20:24)
[2018-03-15 21:42] LABS: Glucose,Whole Blood 98 mg/dL (75-99)
[2018-03-16] MEDS: LORazepam 2 MG/ML INJ IV PRN (06:07)
[2018-03-16 07:36] LABS: Glucose,Whole Blood 90 mg/dL (75-99)
[2018-03-16] MEDS: INSULIN ASPART 100 UNIT/ML 1 ML 10 ML VIAL SQ SCH ×4 (07:45→20:54)
[2018-03-16] MEDS: cefTRIAXone IN SWFI 1,000 MG/10 ML SYRINGE IVP SCH (09:14)
[2018-03-16] MEDS: CHOLECALCIFEROL 1,000 UNIT TAB PO SCH (09:14)
[2018-03-16] MEDS: ASPIRIN 81 MG PO SCH (09:14)
[2018-03-16] MEDS: SODIUM CHLORIDE 0.9% 1,000 ML IV SCH ×2 (09:15→22:15)
[2018-03-16] MEDS: hydrALAZINE HCL 10 MG TAB PO SCH ×3 (09:15→20:53)
[2018-03-16] MEDS: METOPROLOL SUCCINATE (ER) 50 MG TAB.ER.24H PO SCH ×2 (09:15→20:54)
--- NOTE | 2018-03-16 10:56 | P.PN ---
Subjective Progress Note Date: 03/16/18 03/15/2018: Per Dr. Lynn 77-year-old male presented to the emergency department at [facility] at my request. Past medical history significant for recent mitral valve replacement subsequent to that he had fallen and hit his head CT was within normal limits. About 3 weeks ago he developed shingles of the left thigh patient was placed on valacyclovir and steroids was seen by Dr. Castanon ophthalmology. Approximately 3 or 4 days ago patient started having slurred speech and became weak MRI of the head was performed at that time continued with singles treatment. Family states now over the last couple days he is beginning more confused at night it was thought he might be owning however upon presentation to the emergency room he was confused and hallucinating all day seeing spiders patient also complained of a mild headache. There is been no recent fever chills the recent cough no complaints of stiffness was seen in the office a urine was performed and found to be within normal limits however a urine specimen was then performed in the emergency room and patient was found to have a urinary tract infection 03/16/2018 Patient seen and examined at the bedside. Patient is able to state the correct location, his name, and the year. Patient thinks it is November. Despite answering questions correctly, patient remains extremely confused. He appears to be hallucinating and reaching for things in mid air. Patients speech is garbled and difficult to understand. Nursing has been unable to get in touch with Dr. Larsen to notifiy him of consult. Patients at the bedside and spoke in depth with . Patients states they saw Dr. Larsen outpatient a few weeks ago. She states he had an MRI completed which showed evidence of an old stroke. EEG was also completed by unsure of results but does state it was negative for seizures. states she does not want to see Dr. Larsen anymore and would like a different neurologist to evaluate patient. Urine culture is positive for group D enterococcus. Patient remains on Rocephin daily. Sensitivity is currently pending. Objective - Vital Signs Vital signs: Vital Signs Temp 97.7 F 03/16/18 07:00 Pulse 79 03/16/18 07:00 Resp 18 03/16/18 07:00 BP 154/96 03/16/18 07:00 Pulse Ox 92 L 03/16/18 07:00 Intake & Output 03/15/18 03/16/18 03/16/18 18:59 06:59 18:59 Other: Voiding Method Urinal Urinal Incontinent Incontinent # Voids 2 - Exam GENERAL: This is a 77-year-old male who is lethargic and confused at the time of examination. HEENT: Head is atraumatic, normocephalic. Pupils are equal, round, and reactive to light. Mucus membranes of the mouth are moist. Neck is supple. RESPIRATORY: Clear to ausculation. No wheezes, rales, or rhonchi. No use of accessory muscles. Patient maintaining oxygen saturation greater than 92%. No chest wall tenderness is noted on palpation or with deep breathing. CARDIOVASCULAR: Regular rate and rhythm. S1 and S2 noted. No JVD noted. No S3 or S4 noted. GASTROINTESTINAL: No distention noted. Abdomen soft and round. Normal active bowel sounds auscultated x 4 quadrants. No pain or tenderness noted upon palpation. INTEGUMENTARY: No cyanosis. No jaundice. No rashes noted. No cellulitis noted. EXTREMITIES: 2+ peripheral pulses. No evidence of peripheral edema. No calf tenderness noted. NEUROLOGIC: Unable to thoroughly evaluate secondary to altered mentation. Patient able to follow simple commands. Hand grasps equal bilaterally PSYCHIATRIC: Lethargic. Oriented x 2-3 but also appears confused. Speech is difficult to understand. - Labs CBC & Chem 7: 03/14/18 13:20 03/14/18 13:20 Labs: Abnormal Lab Results - Last 24 Hours (Table) 03/15/18 03/15/18 Range/Units 11:27 17:05 POC Glucose (mg/dL) 111 H 104 H (75-99) mg/dL Microbiology - Last 24 Hours (Table) 03/14/18 14:43 Urine Culture - Preliminary Urine,Voided Group D Enterococcus 03/14/18 13:20 Blood Culture - Preliminary Blood No Growth after 24 hours Assessment and Plan Plan: ASSESSMENT: Urinary tract infection, present on admission, culture reveals group D enterococcus Encephalopathy, suspect secondary to above Recent diagnosis of herpes zoster of the left eye, patient completed full course of valacyclovir History of coronary artery bypass graft 2 MICHEL to LAD and saphenous vein graft to RCA with mitral valve repair, October 2017 Diabetes mellitus, type II Hyperlipidemia Hypertension History of original cancer with radiation therapy, 2009 COPD, no evidence of acute exacerbation History of BPH Hospitalization in December 2017 secondary to syncopal episode possibly related to orthostatic hypotension and dehydration with subsequent left frontal scalp hematoma PLAN: Consult neurology, Dr. Ward, to evaluate patient. Patient was previously seen outpatient by Dr. Larsen but would like another opinion Discontinue Ativan and Haldol secondary to lethargy Await sensitivity report of urine culture Continue Rocephin 1 g daily Increase hydralazine to TID dosing from BID dosing Discontinue proscar per Dr. Lynn Home meds as appropriate Monitor labs GI prophylaxis: Protonix 40 mg PO Daily DVT prophylaxis: SCDs to bilateral LE Monitor vital signs and address as appropriate Discharge planning: Patient to return home when stable if able. Will consult PT/ OT when mental status improves for evaluation. Further recommendations pending patient's course Nurse practitioner note has been reviewed by physician. Signing provider agrees with the documented findings, assessment, and plan of care.
[2018-03-16 12:01] VITALS: BMI 23.3
[2018-03-16 12:27] LABS: Glucose,Whole Blood 149 mg/dL (75-99)
[2018-03-16 17:17] LABS: Glucose,Whole Blood 114 mg/dL (75-99)
--- NOTE | 2018-03-16 19:55 | P.CNNES ---
History of Present Illness Consult date: 03/16/18 Reason for Consult: Patient admitted with acute confusion and delerium. History of Present Illness: This patient is a 77-year-old right-handed white male who was admitted to [facility] on 03/14/2018 after being evaluated by Dr. Baird in the outpatient medical clinic. Neurology was consulted today due to altered mental status and agitation with hallucinations of recent onset. History was obtained from the patient's daughter and son were at bedside today and gave a very detailed history of this patient's overall condition in the past several months. According to the daughter the patient underwent a mitral valve replacement and two-vessel bypass on 10/25/2017. His was performed at [facility] by Dr. Wall Patient underwent a very successful surgical procedure and made a very good recovery. Apparently on December 09 patient had evidence of severe hypotension and suffered a fall at home which she had mild closed head injury hitting his head on some cement. He was taken to the emergency room where he underwent a computed tomography scan of the brain for immediate evaluation and this was reported negative and he was able to be discharged home that same day. In January the patient began experiencing episodes of recurrent slurred speech and TIA like symptoms. The symptoms recurred again in February and his neurologist Dr. Larsen ordered MRI of the brain and MRA [place]. These were both completed on 02/27/2018. MRI of the brain revealed no evidence of recent stroke. There was moderate diffuse cerebral atrophy and chronic small vessel ischemic changes noted. Note was made of a small 4 mm lacunar infarct involving the left frontal lobe. MRA of the brain revealed no evidence of aneurysm and the [place]. Patient was told these results were all negative and he continued to do fairly well up until 3 weeks ago. According to the daughter the patient developed sudden onset of shingles involving the left side of his face and his left cornea and I area. He was immediately started on Valtrex by his primary care physician Dr. Baird and was referred to [employer] Dr. Syed for immediate attention. The patient was placed on Valtrex and steroids and was also given some eyedrops. He slowly has been showing slight improvement however over the last 1 week the patient has been having acute mental status changes with visual hallucinations and agitation. When he went to see Dr. Baird it was advised the patient should be admitted to hospital for further evaluation. He was admitted as noted above on 03/14/2018. Due to his ongoing symptoms of severe confusion and agitation and hallucinations neurology was consulted today for further evaluation and recommendations. He underwent urinalysis which did come back positive with cultures for group D antral coccus. He is on antibiotic coverage for this. As noted he did undergo a complete course of Valtrex for about 10 days according to the daughter. The daughter has been very concerned as the patient did seem to deteriorate on his initial admission to the hospital this past Thursday. He was very confused and delirious. He has not shown any evidence of high-grade fever during his admission at this time. He digits seem to come around today for the first time according to the daughter and was able to answer some very simple questions. He seems appropriate and not agitated at this time. We reviewed this patient's overall history especially with his recent bout of shingles and have expressed concern for possibility of encephalitis for this patient. Patient's daughter and son were also concerned that this may be a possibility given his sudden change in mental status. We have recommended the patient undergo a lumbar puncture tomorrow morning for immediate evaluation and to rule out possibility of herpes zoster encephalitis for this patient. We have also recommended to obtain an infectious disease consultation with Dr. Osuna for further management of his urinary tract infection and to review spinal fluid results. We will also request consultation from Dr. Syed to evaluate his left eyelid. Patient is scheduled to see him in the outpatient clinic in one week. We have discussed all of her findings in detail today with the patient as well as his 2 children at bedside. All their questions were answered. Daughter feels very comfortable now as they have been concerned that there may be some other factors involved the size status urinary tract infection producing his mental status changes. We will continue close neurological follow-up for this patient during this admission. So overall prognosis at this time remains guarded. Review of Systems Constitutional: Denies chills, Denies fever Eyes: left decreased vision, left irritation, denies blurred vision, denies pain Ears, nose, mouth and throat: Denies headache, Denies sore throat Cardiovascular: Denies chest pain, Denies shortness of breath Respiratory: Denies cough Gastrointestinal: Denies abdominal pain, Denies diarrhea, Denies nausea, Denies vomiting Musculoskeletal: Denies myalgias Integumentary: Denies pruritus, Denies rash Neurological: Reports change in mentation, Reports confusion, Reports head injury, Reports memory loss, Denies numbness, Denies weakness Psychiatric: Reports confusion, Reports irritability, Denies anxiety, Denies depression Endocrine: Denies fatigue, Denies weight change Past Medical History Past Medical History: Coronary Artery Disease (CAD), Cancer, Diabetes Mellitus, GERD/Reflux, Hyperlipidemia, Hypertension Additional Past Medical History / Comment(s): 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 Mitral valve repair and left atrial appendage clip ligation on 10/26/2017. Past Anesthesia/Blood Transfusion Reactions: Previous Problems w/ Anesthesia Additional Past Anesthesia/Blood Transfusion Reaction / Comment(s): Patient has had violence when coming out of anesthesia Past Psychological History: No Psychological Hx Reported Smoking Status: Former smoker Past Alcohol Use History: Rare Past Drug Use History: None Reported - Past Family History Mother Family Medical History: Dementia, Myocardial Infarction ([place]) Additional Family Medical History / Comment(s): passed at 71 Medications and Allergies Home Medications Medication Instructions Recorded Confirmed Type Atorvastatin [Lipitor] 40 mg PO HS@209909/02/16 03/14/18 History Finasteride [Proscar] 5 mg PO DAILY@89907/15/17 03/14/18 History metFORMIN HCL [Glucophage] 500 mg PO BID@07/15/17 03/14/18 History Cholecalciferol [Vitamin D3] 1,000 unit PO DAILY@89912/09/17 03/14/18 History Doxazosin [Cardura] 2 mg PO HS@209912/09/17 03/14/18 History Aspirin 162 mg PO DAILY@89903/14/18 03/14/18 History Metoprolol Succinate (ER) [Toprol 50 mg PO DAILY@89903/14/18 03/14/18 History XL] Allergies Allergy/AdvReac Type Severity Reaction Status Date / Time shellfish derived [Shrimp] Allergy Unknown Rash/Hives Verified 03/14/18 17:27 Physical Examination - Vital Signs Vital Signs: Vital Signs Temp Pulse Resp BP Pulse Ox 03/16/18 15:00 98.5 F 82 20 189/93 97 03/16/18 07:00 97.7 F 79 18 154/96 92 L 03/15/18 23:00 97.7 F 83 20 153/84 97 Intake and Output 03/16/18 03/16/18 03/16/18 06:59 14:59 22:59 Other: # Voids 2 # Bowel Movements 0 Weight 84.822 kg - Constitutional General appearance: average body habitus, cooperative - EENT EENT: PERRL, mucous membranes moist - Respiratory Respiratory: lungs clear, normal breath sounds - Cardiovascular Cardiovascular: regular rate, normal S1, normal S2 Extremities: no peripheral edema bilaterally - Gastrointestinal Gastrointestinal: normoactive bowel sounds - Integumentary Integumentary: normal - Neurologic Cranial nerve examination: PERRL, EOMI, VFF, ptosis (Patient has slight ptosis of the left eyelid.), face symmetric, tongue midline, intact gag reflex, intact corneal reflex, normal palatal elevation Speech examination: intact Sensorimotor examination: intact Motor examination - right side: 4/5: biceps, triceps, wrist flexion, wrist extension, community placement worker, hip flexors, knee extensors, dorsiflexion, toe extension (EHL) , plantarflexion Motor examination - left side: 4/5: biceps, triceps, wrist flexion, wrist extension, community placement worker, hip flexors, knee extensors, dorsiflexion, toe extension (EHL) , plantarflexion Detailed sensory examination: intact Reflex and gait examination: intact Reflexes: 1+: ankle, bicep, knee, tricep - Musculoskeletal Musculoskeletal: no pain - Psychiatric Psychiatric: mood/affect appropriate, cooperative Results - Laboratory Findings CBC and BMP: 03/14/18 13:20 03/14/18 13:20 Abnormal Lab Findings: Abnormal Labs 03/14/18 03/14/18 03/14/18 13:20 13:20 13:50 Glucose 102 H POC Glucose (mg/dL) 107 H AST 12 L ALT 20 L Total Creatine Kinase 26 L Urine Protein Ur Leukocyte Esterase Urine WBC Urine WBC Clumps Urine Mucus 03/14/18 03/14/18 03/15/18 14:43 21:00 07:36 Glucose POC Glucose (mg/dL) 103 H 100 H AST ALT Total Creatine Kinase Urine Protein 1+ H Ur Leukocyte Esterase Large H Urine WBC 83 H Urine WBC Clumps Few H Urine Mucus Rare H 03/15/18 03/15/18 03/16/18 11:27 17:05 12:07 Glucose POC Glucose (mg/dL) 111 H 104 H 149 H AST ALT Total Creatine Kinase Urine Protein Ur Leukocyte Esterase Urine WBC Urine WBC Clumps Urine Mucus 03/16/18 16:55 Glucose POC Glucose (mg/dL) 114 H AST ALT Total Creatine Kinase Urine Protein Ur Leukocyte Esterase Urine WBC Urine WBC Clumps Urine Mucus Assessment and Plan (1) Acute metabolic encephalopathy Current Visit: Yes Status: Acute Code(s): G93.41 - METABOLIC ENCEPHALOPATHY SNOMED Code(s): 22409110 (2) Herpes zoster ophthalmicus of left eye Current Visit: No Status: Acute Code(s): B02.30 - ZOSTER OCULAR DISEASE, UNSPECIFIED SNOMED Code(s): 68772036 (3) Zoster Current Visit: No Status: Acute Code(s): B02.9 - ZOSTER WITHOUT COMPLICATIONS SNOMED Code(s): 6904321 (4) Urinary tract infection Current Visit: Yes Status: Acute Code(s): N39.0 - URINARY TRACT INFECTION, SITE NOT SPECIFIED SNOMED Code(s): 54925188 (5) History of mitral valve repair Current Visit: No Status: Chronic Code(s): Z98.890 - OTHER SPECIFIED POSTPROCEDURAL STATES SNOMED Code(s): 352910874 Plan: This patient is a pleasant 77-year-old right-handed white male who was admitted to [facility] on 03/14/2018 with symptoms of worsening confusion and agitation at home. Symptoms have been progressive over 3 weeks. He was recently diagnosed with shingles and was treated for this condition in the outpatient setting. He also recently underwent mitral valve replacement back in October 2017. He was doing well until late February when he developed slurred speech. He was seen by Dr. Larsen were ordered MRI/MRA of the brain on 02/27/2018 results which are noted above. No evidence for acute stroke was identified on the MRI of the brain. Patient subsequently showed significant change in mental status last week with agitation and hallucinations. This has been ongoing for almost a week according to the daughter who is at bedside. The patient seems to be doing better today for the first time and was able to answer questions fairly appropriate for his age. Given his recent history of shingles and herpes zoster infection we have recommended the patient undergo a lumbar puncture to rule out any possibility of herpes encephalitis. We will obtain lumbar puncture and appropriate testing to be done to rule this out as soon as possible. We have also consulted infectious disease with Dr. Osuna as well as a follow-up with Dr. Syed for recent herpes zoster ophthalmicus involving the left eye. The patient is being treated for underlying urinary tract infection with positive urine cultures for group D enterococcus. He should continue on current antibiotic coverage. We will await further recommendations from Dr. Osuna pending his spinal fluid results as well. We have discussed all of these findings in detail today with the patient and his 2 children who are at bedside. All of their questions were answered. They're aware of his guarded condition. We will continue close neurological follow-up with this patient during this admission. His overall prognosis at this time remains guarded. Time with Patient: Greater than 30
[2018-03-16 20:42] LABS: Glucose,Whole Blood 100 mg/dL (75-99)
[2018-03-16] MEDS: DOXAZOSIN 2 MG TAB PO SCH (20:54)
[2018-03-16] MEDS: QUEtiapine 25 MG TAB PO SCH (20:54)
[2018-03-16] MEDS: ATORVASTATIN 40 MG TAB PO SCH (20:54)
[2018-03-17] MEDS: INSULIN ASPART 100 UNIT/ML 1 ML 10 ML VIAL SQ SCH ×4 (07:52→21:19)
[2018-03-17 07:56] LABS: Glucose,Whole Blood 92 mg/dL (75-99)
[2018-03-17] MEDS: ASPIRIN 81 MG PO SCH ×2 (08:36→15:24)
[2018-03-17] MEDS: hydrALAZINE HCL 10 MG TAB PO SCH ×3 (08:38→22:20)
[2018-03-17] MEDS: cefTRIAXone IN SWFI 1,000 MG/10 ML SYRINGE IVP SCH (08:38)
[2018-03-17] MEDS: METOPROLOL SUCCINATE (ER) 50 MG TAB.ER.24H PO SCH ×2 (08:38→20:13)
[2018-03-17] MEDS: PANTOPRAZOLE 40 MG TABLET PO SCH (08:39)
[2018-03-17] MEDS: CHOLECALCIFEROL 1,000 UNIT TAB PO SCH (08:48)
[2018-03-17 09:52] LABS: INR 1.1 (<1.2); Partial Thromboplastin Time 26.3 sec (22.0-30.0)
--- NOTE | 2018-03-17 11:18 | P.PCN ---
Date of Procedure: 03/17/18 Procedure(s) Performed: Preoperative diagnosis: Altered mental status Post operative diagnoses: Altered mental status Anesthesia local infiltration with lidocaine 1% 2 mL. Condition: Guarded. Complication: none. Description of the procedure procedure risk and benefits discussed with the patient and family, consent signed. Patient and the procedure area placed in lateral position back prepped with chlorhexidine 3 times been local infiltration of the skin and subcutaneous tissue with lidocaine 1% 2 mL for skin and subcu interstitial frustrations at L4 5 levels then 22-gauge Quincke- type needle advanced slowly at L4- 5 interlaminar space there was positive cerebrospinal fluid which was clear, no heme, no paresthesia ,total of 9 ML of clear cerebrospinal fluid collected in 4 different tubes 2-2-1/2 mL in each, then the needle removed and a Band-Aid applied and patient tolerated the procedure well without any complications.
[2018-03-17 11:40] LABS: Glucose,Whole Blood 108 mg/dL (75-99)
[2018-03-17 13:53] LABS: Appearance,CSF Clear; CSF Tube Number 1; CSF Tube Volume 1.4
[2018-03-17 13:54] LABS: Appearance,CSF Clear; CSF Tube Number 2; CSF Tube Volume 1.8
[2018-03-17] MEDS ORDERED: AMPICILLIN-SULBACTAM 3 GM in SODIUM CHLORIDE 0.9% 100 ML IVPB SCH (14:15)
[2018-03-17 14:32] LABS: Red Blood Cell,CSF 20 u/L (0-10)
[2018-03-17 14:33] LABS: Nucleated Cells, CSF 4 u/L (0-5)
[2018-03-17 14:34] LABS: Red Blood Cell, CSF Fresh 100 %
[2018-03-17 14:37] LABS: Nucleated Cells, CSF 5 u/L (0-5); Red Blood Cell,CSF 25 u/L (0-10)
[2018-03-17 14:39] LABS: Red Blood Cell, CSF Fresh 100 %
[2018-03-17] MEDS: AMPICILLIN-SULBACTAM 3 GM in SODIUM CHLORIDE 0.9% 100 ML IVPB SCH ×2 (15:22→22:21)
[2018-03-17 17:25] LABS: Glucose,CSF 51 mg/dL (40-70); Total Protein,CSF 114 mg/dL (12-60)
[2018-03-17 17:36] LABS: Glucose,Whole Blood 117 mg/dL (75-99)
[2018-03-17] MEDS: SODIUM CHLORIDE 0.9% 1,000 ML IV SCH (18:54)
--- NOTE | 2018-03-17 20:08 | P.PN ---
Subjective Progress Note Date: 03/17/18 03/15/2018: Per Dr. Lynn 77-year-old male presented to the emergency department at [facility] at my request. Past medical history significant for recent mitral valve replacement subsequent to that he had fallen and hit his head CT was within normal limits. About 3 weeks ago he developed shingles of the left thigh patient was placed on valacyclovir and steroids was seen by Dr. Castanon ophthalmology. Approximately 3 or 4 days ago patient started having slurred speech and became weak MRI of the head was performed at that time continued with singles treatment. Family states now over the last couple days he is beginning more confused at night it was thought he might be own however upon presentation to the emergency room he was confused and hallucinating all day seeing spiders patient also complained of a mild headache. There is been no recent fever chills the recent cough no complaints of stiffness was seen in the office a urine was performed and found to be within normal limits however a urine specimen was then performed in the emergency room and patient was found to have a urinary tract infection 03/16/2018 Patient seen and examined at the bedside. Patient is able to state the correct location, his name, and the year. Patient thinks it is November. Despite answering questions correctly, patient remains extremely confused. He appears to be hallucinating and reaching for things in mid air. Patients speech is garbled and difficult to understand. Nursing has been unable to get in touch with Dr. Larsen to notifiy him of consult. Patients at the bedside and spoke in depth with . Patients states they saw Dr. Larsen outpatient a few weeks ago. She states he had an MRI completed which showed evidence of an old stroke. EEG was also completed by unsure of results but does state it was negative for seizures. states she does not want to see Dr. Larsen anymore and would like a different neurologist to evaluate patient. Urine culture is positive for group D enterococcus. Patient remains on Rocephin daily. Sensitivity is currently pending. 03/17/2018 Patient seen and examined at the bedside. Patients daughter present. Patients overall mentation is significantly improved since yesterday. Patient able to correctly state his full name, the month, year, and location. Patient is more awake today and is conversing with provider. Patient still occasionally having visual hallucinations and reaching for things in the air, but improved from yesterday. Patient was evaluated by neurology yesterday and is scheduled for LP today to rule out herpes zoster encephalitis. Infectious disease is also on consult. Patients urine culture is positive for enterococcus faecalis. Blood cultures are negative at 48 hour gio. Objective - Vital Signs Vital signs: Vital Signs Temp 96.9 F L 03/17/18 06:38 Pulse 85 03/17/18 06:38 Resp 24 03/16/18 23:00 BP 168/98 03/17/18 06:38 Pulse Ox 95 03/17/18 06:38 Intake & Output 03/16/18 03/17/18 03/17/18 18:59 06:59 18:59 Weight 84.822 kg 84.822 kg Other: Voiding Method Urinal Urinal Incontinent Incontinent # Voids 2 2 # Bowel Movements 0 0 - Exam GENERAL: This is a 77-year-old male who is no acute distress at the time of examination. HEENT: Head is atraumatic, normocephalic. Pupils are equal, round, and reactive to light. Mucus membranes of the mouth are moist. Neck is supple. RESPIRATORY: Clear to ausculation. No wheezes, rales, or rhonchi. No use of accessory muscles. Patient maintaining oxygen saturation greater than 92%. No chest wall tenderness is noted on palpation or with deep breathing. CARDIOVASCULAR: Regular rate and rhythm. S1 and S2 noted. No JVD noted. No S3 or S4 noted. GASTROINTESTINAL: No distention noted. Abdomen soft and round. Normal active bowel sounds auscultated x 4 quadrants. No pain or tenderness noted upon palpation. INTEGUMENTARY: No cyanosis. No jaundice. No rashes noted. No cellulitis noted. EXTREMITIES: 2+ peripheral pulses. No evidence of peripheral edema. No calf tenderness noted. NEUROLOGIC: Patient able to follow simple commands. Hand grasps equal bilaterally. Speech clear. PSYCHIATRIC: Awake and alert. Oriented x 3. - Labs CBC & Chem 7: 03/14/18 13:20 03/14/18 13:20 Labs: Abnormal Lab Results - Last 24 Hours (Table) 03/16/18 03/16/18 03/16/18 Range/Units 12:07 16:55 20:40 POC Glucose (mg/dL) 149 H 114 H 100 H (75-99) mg/dL Microbiology - Last 24 Hours (Table) 03/14/18 14:43 Urine Culture - Final Urine,Voided Enterococcus faecalis 03/14/18 13:20 Blood Culture - Preliminary Blood No Growth after 48 hours Assessment and Plan Plan: ASSESSMENT: Urinary tract infection, present on admission, culture reveals enterococcus faecalis Encephalopathy, suspect secondary to above, however can not rule out herpes zoster encephalitis Recent diagnosis of herpes zoster of the left eye, patient completed full course of valacyclovir History of coronary artery bypass graft 2 MICHEL to LAD and saphenous vein graft to RCA with mitral valve repair, October 2017 Diabetes mellitus, type II Hyperlipidemia Hypertension History of original cancer with radiation therapy, 2009 COPD, no evidence of acute exacerbation History of BPH Hospitalization in December 2017 secondary to syncopal episode possibly related to orthostatic hypotension and dehydration with subsequent left frontal scalp hematoma PLAN: Dr. Ward on consult. Appreciate recommendations and input Patient to undergo LP today Dr. Syed on consult. Await further recommendations and input Infectious disease on consult. Antibiotics per ID. Home meds as appropriate Monitor labs GI prophylaxis: Protonix 40 mg PO Daily DVT prophylaxis: SCDs to bilateral LE Monitor vital signs and address as appropriate Discharge planning: Patient to return home when stable if able. Will consult PT/ OT for evaluation. Further recommendations pending patient's course Nurse practitioner note has been reviewed by physician. Signing provider agrees with the documented findings, assessment, and plan of care.
[2018-03-17] MEDS: QUEtiapine 25 MG TAB PO SCH (20:14)
[2018-03-17] MEDS: DOXAZOSIN 2 MG TAB PO SCH (20:14)
[2018-03-17] MEDS: ATORVASTATIN 40 MG TAB PO SCH (20:14)
[2018-03-17 20:43] LABS: Glucose,Whole Blood 175 mg/dL (75-99)
--- NOTE | 2018-03-17 23:52 | P.CONS ---
History of Present Illness - Reason for Consult Consult date: 03/17/18 - Chief Complaint altered mental status - History of Present Illness 77-year-old male who has a very extensive recent past medical history , beginning in October he was having difficulties with cardiovascular disease. 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 He has relatively slow recovery since that point in time. The family was present relates that up to that time he was quite vigorous and independent is having great difficulties with this protracted illness. He has been chronically weak and has had some falls. The patient suffered a fall and a closed head injury which partially was not severe. He however has been slowly recovering. The patient has had some difficulties and then recently had shingles on his face and possibly of the eye. He was seen by ophthalmology and there is no notation of any serious involvement of the eye. The patient has been treated with a course of Valtrex with resolution of the shingles rash. He developed significant alteration of his mental status with confusion and some hallucinations family was concerned he was brought to hospital. He has been seen by neurology and lumbar puncture has been performed. With these concerns the infectious diseases consultation was requested. It is noted the patient has had difficulties with BPH and several urinary tract infections so far this year. The available data reveals the last 2 infections or enterococcus similar to current infection. At the time the consult was called the patient's antimicrobial therapy was altered from Rocephin to Unasyn for enhance coverage of the enterococcus. At this time with fluids and antibiotic therapy the patient is more cognizant and interactive and less agitated. Family is present and have several questions. 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 Mitral valve repair and left atrial appendage clip ligation on 10/26/2017. Past Anesthesia/Blood Transfusion Reactions: Previous Problems w/ Anesthesia Additional Past Anesthesia/Blood Transfusion Reaction / Comm: Patient has had violence when coming out of anesthesia Past Psychological History: No Psychological Hx Reported Additional Psychological History / Comment(s): and lives in the family home with the . Adult children are engaged in his care. no current tobaco or alcohol Smoking Status: Former smoker Past Alcohol Use History: Rare Past Drug Use History: None Reported - Past Family History Mother Family Medical History: Dementia, Myocardial Infarction (NM) Additional Family Medical History / Comment(s): passed at 71 Medications and Allergies Home Medications Medication Instructions Recorded Confirmed Type Atorvastatin [Lipitor] 40 mg PO HS@209909/02/16 03/14/18 History Finasteride [Proscar] 5 mg PO DAILY@89907/15/17 03/14/18 History metFORMIN HCL [Glucophage] 500 mg PO BID@07/15/17 03/14/18 History Cholecalciferol [Vitamin D3] 1,000 unit PO DAILY@89912/09/17 03/14/18 History Doxazosin [Cardura] 2 mg PO HS@209912/09/17 03/14/18 History Aspirin 162 mg PO DAILY@89903/14/18 03/14/18 History Metoprolol Succinate (ER) [Toprol 50 mg PO DAILY@89903/14/18 03/14/18 History XL] Allergies Allergy/AdvReac Type Severity Reaction Status Date / Time shellfish derived [Shrimp] Allergy Unknown Rash/Hives Verified 03/14/18 17:27 Physical Exam Vitals: Vital Signs Temp Pulse Resp BP Pulse Ox 03/17/18 22:20 134/84 03/17/18 15:00 97.6 F 70 18 161/89 95 03/17/18 06:38 96.9 F L 85 168/98 95 Intake and Output 03/17/18 03/17/18 03/18/18 14:59 22:59 06:59 Intake Total 400 100 Output Total 450 200 Balance -50 -100 Intake: Intake, IV Titration 100 Amount Ampicillin-Sulbactam 3 gm 100 In Sodium Chloride 0.9% 100 ml @ 100 mls/hr IVPB Q6H [facility] Rx#:[id number] Oral 400 Output: Urine 450 200 Other: Voiding Method Urinal Urinal Incontinent Incontinent # Bowel Movements 0 cooperative 77-year-old male who still has diminished cognitive function, is able to answer some questions and is aware that his daughter and friend are present. HEENT: Anicteric conjunctiva are pink and moist nasal mucosa grossly intact without significant lesions, there is no thrush.oral cavity is dry Neck: The neck is supple without significant lymphadenopathy or thyromegaly. Lungs: Good bilateral air entry without significant crackles or wheezing. There is no significant bronchial sounds. There is no egophony or dullness. Heart: Regular rate and rhythm with an audible S1-S2, no S3 no S4. There is no significant murmur click or rub, PMI was nondisplaced. Abdomen: Positive bowel sounds soft and nontender without palpable masses or organomegaly. There was no guarding or rebound. Extremities: The upper extremities have excellent pulses they are symmetric, no significant petechiae or telangiectasia. No splinter hemorrhages were noted. The lower extremities are free from significant edema. The peripheral pulses were 2+ and symmetric. Neuro: patient is arousable upon entry. Difficulty following commands. Still somewhat encephalopathic. Results CBC & Chem 7: 03/14/18 13:20 03/14/18 13:20 Labs: Abnormal Lab Results - Last 24 Hours (Table) 03/17/18 03/17/18 03/17/18 Range/Units 10:55 10:55 11:31 POC Glucose (mg/dL) 108 H (75-99) mg/dL CSF RBC 20 H 25 H (0-10) u/L CSF Total Protein 114 H (12-60) mg/dL 03/17/18 03/17/18 Range/Units 17:29 20:41 POC Glucose (mg/dL) 117 H 175 H (75-99) mg/dL CSF RBC (0-10) u/L CSF Total Protein (12-60) mg/dL Microbiology - Last 24 Hours (Table) 03/14/18 13:20 Blood Culture - Preliminary Blood No Growth after 72 hours 03/17/18 10:55 CSF Gram Stain - Preliminary Cerebral Spinal Fluid 03/14/18 14:43 Urine Culture - Final Urine,Voided Enterococcus faecalis Microbiology 03/14/18 13:20 Blood Blood Culture - Preliminary No Growth after 72 hours 03/17/18 10:55 Cerebral Spinal Fluid CSF Gram Stain - Preliminary 03/14/18 14:43 Urine,Voided Urine Culture - Final Enterococcus faecalis CT Scan - head: report reviewed (improved but has a chronic white matter mcneill) Assessment and Plan (1) Urinary tract infection Current Visit: Yes Status: Acute Code(s): N39.0 - URINARY TRACT INFECTION, SITE NOT SPECIFIED SNOMED Code(s): 80298312 (2) Septic encephalopathy Narrative/Plan: 77-year-old male who was in relatively good health until October of this year where he underwent cardiovascular surgery and valve replacement. Since that time there is been overall declining of his status. Most recently he has the acute change of his mental status. Her presentation there is evidence of fever leukocytosis and abnormal urinalysis. Review of the data reveals this is his third. Tract infection since October of this year, there is a known history of BPH. A postvoid residual bladder scan has been requested. This will further characterize if his urinary retention as part of this recurrent urinary infection. If obstructions occurring renal ultrasound may be helpful. The patient's urine culture has come back as enterococcus in the antibiotic therapy was altered from Rocephin to Unasyn. Patient receiving his first dose. With hydration his mentation is improved but is nowhere near yet at baseline. His of the patient's urinary pH is high at 6.5. When he has resolved his urinary tract infection he will do well to go onto a urinary acidify her to help lower his urinary pH and hopefully reduce the risk of recurrent urinary infections. The patient's family's his questions are answered. Lumbar puncture was performed with a clear colorless fluid was found. Very few white cells and many red cells were seen. No evidence of any significant viral or bacterial infection at this time. Cultures are pending. In May further help direct antibiotic therapy as he is readied for is discharged back to rehab. It appears that the underlying sepsis is cause septic encephalopathy we will continue to rapidly improve as he receiving adequate nutrition. Expect with antimicrobial therapy driven by cultures will expect rapid improvement. Current Visit: Yes Status: Acute Code(s): G93.41 - METABOLIC ENCEPHALOPATHY SNOMED Code(s): 230834176 (3) Abnormal urine findings Current Visit: Yes Status: Acute Code(s): R82.90 - UNSPECIFIED ABNORMAL FINDINGS IN URINE SNOMED Code(s): 251971576
[2018-03-18] MEDS: SODIUM CHLORIDE 0.9% 1,000 ML IV SCH (04:58)
[2018-03-18] MEDS: AMPICILLIN-SULBACTAM 3 GM in SODIUM CHLORIDE 0.9% 100 ML IVPB SCH ×4 (04:59→21:13)
[2018-03-18 07:37] LABS: Glucose,Whole Blood 110 mg/dL (75-99)
[2018-03-18] MEDS: CHOLECALCIFEROL 1,000 UNIT TAB PO SCH (07:55)
[2018-03-18] MEDS: hydrALAZINE HCL 10 MG TAB PO SCH ×3 (07:55→21:13)
[2018-03-18] MEDS: PANTOPRAZOLE 40 MG TABLET PO SCH (07:55)
[2018-03-18] MEDS: INSULIN ASPART 100 UNIT/ML 1 ML 10 ML VIAL SQ SCH ×4 (07:56→21:13)
[2018-03-18] MEDS: METOPROLOL SUCCINATE (ER) 50 MG TAB.ER.24H PO SCH ×2 (07:56→20:31)
[2018-03-18] MEDS: ASPIRIN 81 MG PO SCH (07:56)
[2018-03-18 10:12] LABS: Varicella zoster Virus by PCR Not detected (Not detected)
--- NOTE | 2018-03-18 11:15 | P.PN ---
Subjective Progress Note Date: 03/18/18 03/15/2018: Per Dr. Lynn 77-year-old male presented to the emergency department at [facility] at my request. Past medical history significant for recent mitral valve replacement subsequent to that he had fallen and hit his head CT was within normal limits. About 3 weeks ago he developed shingles of the left thigh patient was placed on valacyclovir and steroids was seen by Dr. Castanon ophthalmology. Approximately 3 or 4 days ago patient started having slurred speech and became weak MRI of the head was performed at that time continued with singles treatment. Family states now over the last couple days he is beginning more confused at night it was thought he might be own however upon presentation to the emergency room he was confused and hallucinating all day seeing spiders patient also complained of a mild headache. There is been no recent fever chills the recent cough no complaints of stiffness was seen in the office a urine was performed and found to be within normal limits however a urine specimen was then performed in the emergency room and patient was found to have a urinary tract infection 03/16/2018 Patient seen and examined at the bedside. Patient is able to state the correct location, his name, and the year. Patient thinks it is November. Despite answering questions correctly, patient remains extremely confused. He appears to be hallucinating and reaching for things in mid air. Patients speech is garbled and difficult to understand. Nursing has been unable to get in touch with Dr. Larsen to notifiy him of consult. Patients at the bedside and spoke in depth with . Patients states they saw Dr. Larsen outpatient a few weeks ago. She states he had an MRI completed which showed evidence of an old stroke. EEG was also completed by unsure of results but does state it was negative for seizures. states she does not want to see Dr. Larsen anymore and would like a different neurologist to evaluate patient. Urine culture is positive for group D enterococcus. Patient remains on Rocephin daily. Sensitivity is currently pending. 03/17/2018 Patient seen and examined at the bedside. Patients daughter present. Patients overall mentation is significantly improved since yesterday. Patient able to correctly state his full name, the month, year, and location. Patient is more awake today and is conversing with provider. Patient still occasionally having visual hallucinations and reaching for things in the air, but improved from yesterday. Patient was evaluated by neurology yesterday and is scheduled for LP today to rule out herpes zoster encephalitis. Infectious disease is also on consult. Patients urine culture is positive for enterococcus faecalis. Blood cultures are negative at 48 hour gio. 03/18/2018 Patient seen and examined at the bedside. Patient underwent LP yesterday. Results pending. Patient was evaluated by Dr. Osuna. His antibiotics were changed to Unasyn. His mentation continues to improve each day. He is engaging in conversation with provider and family members at the bedside. Patient worked with PT this morning and ambulated in the hallway. Objective - Vital Signs Vital signs: Vital Signs Temp 97.2 F L 03/18/18 06:20 Pulse 84 03/18/18 06:20 Resp 18 03/18/18 06:20 BP 171/95 03/18/18 06:20 Pulse Ox 97 03/18/18 06:20 Intake & Output 03/17/18 03/18/18 03/18/18 18:59 06:59 18:59 Intake Total 500 Output Total 650 150 Balance -150 -150 Intake: Intake, IV Titration 100 Amount Ampicillin-Sulbactam 3 gm 100 In Sodium Chloride 0.9% 100 ml @ 100 mls/hr IVPB Q6H [facility] Rx#:[id number] Oral 400 Output: Urine 650 150 Other: Voiding Method Urinal Urinal Incontinent Incontinent # Voids 3 1 # Bowel Movements 0 - Exam GENERAL: This is a 77-year-old male who is no acute distress at the time of examination. HEENT: Head is atraumatic, normocephalic. Pupils are equal, round, and reactive to light. Mucus membranes of the mouth are moist. Neck is supple. RESPIRATORY: Clear to ausculation. No wheezes, rales, or rhonchi. No use of accessory muscles. Patient maintaining oxygen saturation greater than 92%. No chest wall tenderness is noted on palpation or with deep breathing. CARDIOVASCULAR: Regular rate and rhythm. S1 and S2 noted. No JVD noted. No S3 or S4 noted. GASTROINTESTINAL: No distention noted. Abdomen soft and round. Normal active bowel sounds auscultated x 4 quadrants. No pain or tenderness noted upon palpation. INTEGUMENTARY: No cyanosis. No jaundice. No rashes noted. No cellulitis noted. EXTREMITIES: 2+ peripheral pulses. No evidence of peripheral edema. No calf tenderness noted. NEUROLOGIC: Patient able to follow simple commands. Hand grasps equal bilaterally. Speech clear. PSYCHIATRIC: Awake and alert. Oriented x 2-3. - Labs CBC & Chem 7: 03/14/18 13:20 03/14/18 13:20 Labs: Abnormal Lab Results - Last 24 Hours (Table) 03/17/18 03/17/18 03/17/18 Range/Units 10:55 10:55 11:31 POC Glucose (mg/dL) 108 H (75-99) mg/dL CSF RBC 20 H 25 H (0-10) u/L CSF Total Protein 114 H (12-60) mg/dL 03/17/18 03/17/18 03/18/18 Range/Units 17:29 20:41 07:34 POC Glucose (mg/dL) 117 H 175 H 110 H (75-99) mg/dL CSF RBC (0-10) u/L CSF Total Protein (12-60) mg/dL Microbiology - Last 24 Hours (Table) 03/17/18 10:55 CSF Gram Stain - Preliminary Cerebral Spinal Fluid 03/14/18 13:20 Blood Culture - Preliminary Blood No Growth after 72 hours Assessment and Plan Plan: ASSESSMENT: Urinary tract infection, present on admission, culture reveals enterococcus faecalis Encephalopathy, suspect secondary to above, however can not rule out herpes zoster encephalitis Recent diagnosis of herpes zoster of the left eye, patient completed full course of valacyclovir History of coronary artery bypass graft 2 MICHEL to LAD and saphenous vein graft to RCA with mitral valve repair, October 2017 Diabetes mellitus, type II Hyperlipidemia Hypertension History of original cancer with radiation therapy, 2009 COPD, no evidence of acute exacerbation History of BPH Hospitalization in December 2017 secondary to syncopal episode possibly related to orthostatic hypotension and dehydration with subsequent left frontal scalp hematoma PLAN: Dr. Ward on consult. Appreciate recommendations and input Await results of LP Dr. Syed on consult. Await further recommendations and input Infectious disease on consult. Antibiotics per ID. Currently on Unasyn. Home meds as appropriate Monitor labs GI prophylaxis: Protonix 40 mg PO Daily DVT prophylaxis: SCDs to bilateral LE Monitor vital signs and address as appropriate PT/OT Discharge planning: Patient likely to need PACO at discharge. Family requesting [place]. Further recommendations pending patient's course Nurse practitioner note has been reviewed by physician. Signing provider agrees with the documented findings, assessment, and plan of care.
[2018-03-18 12:09] LABS: Glucose,Whole Blood 99 mg/dL (75-99)
[2018-03-18] MEDS: RIVASTIGMINE 4.6MG/24HR PATCH TRANSDERM SCH (14:58)
[2018-03-18 17:38] LABS: Glucose,Whole Blood 96 mg/dL (75-99)
[2018-03-18] MEDS: ATORVASTATIN 40 MG TAB PO SCH (20:30)
[2018-03-18] MEDS: DOXAZOSIN 2 MG TAB PO SCH (20:31)
[2018-03-18] MEDS: QUEtiapine 50 MG TAB PO SCH (20:32)
[2018-03-18 21:15] LABS: Glucose,Whole Blood 105 mg/dL (75-99)
[2018-03-19] MEDS: AMPICILLIN-SULBACTAM 3 GM in SODIUM CHLORIDE 0.9% 100 ML IVPB SCH ×4 (04:12→21:54)
[2018-03-19 07:19] LABS: Glucose,Whole Blood 91 mg/dL (75-99)
[2018-03-19] MEDS: INSULIN ASPART 100 UNIT/ML 1 ML 10 ML VIAL SQ SCH ×5 (09:19→21:57)
[2018-03-19] MEDS: CHOLECALCIFEROL 1,000 UNIT TAB PO SCH (09:22)
[2018-03-19] MEDS: hydrALAZINE HCL 10 MG TAB PO SCH ×3 (09:23→21:53)
[2018-03-19] MEDS: PANTOPRAZOLE 40 MG TABLET PO SCH (09:23)
[2018-03-19] MEDS: ASPIRIN 81 MG PO SCH (09:23)
[2018-03-19] MEDS: METOPROLOL SUCCINATE (ER) 50 MG TAB.ER.24H PO SCH ×2 (09:23→21:53)
--- NOTE | 2018-03-19 09:54 | P.PN ---
Subjective Progress Note Date: 03/19/18 03/15/2018: Per Dr. Lynn 77-year-old male presented to the emergency department at [facility] at my request. Past medical history significant for recent mitral valve replacement subsequent to that he had fallen and hit his head CT was within normal limits. About 3 weeks ago he developed shingles of the left thigh patient was placed on valacyclovir and steroids was seen by Dr. Castanon ophthalmology. Approximately 3 or 4 days ago patient started having slurred speech and became weak MRI of the head was performed at that time continued with singles treatment. Family states now over the last couple days he is beginning more confused at night it was thought he might be own however upon presentation to the emergency room he was confused and hallucinating all day seeing spiders patient also complained of a mild headache. There is been no recent fever chills the recent cough no complaints of stiffness was seen in the office a urine was performed and found to be within normal limits however a urine specimen was then performed in the emergency room and patient was found to have a urinary tract infection 03/16/2018 Patient seen and examined at the bedside. Patient is able to state the correct location, his name, and the year. Patient thinks it is November. Despite answering questions correctly, patient remains extremely confused. He appears to be hallucinating and reaching for things in mid air. Patients speech is garbled and difficult to understand. Nursing has been unable to get in touch with Dr. Larsen to notifiy him of consult. Patients at the bedside and spoke in depth with . Patients states they saw Dr. Larsen outpatient a few weeks ago. She states he had an MRI completed which showed evidence of an old stroke. EEG was also completed by unsure of results but does state it was negative for seizures. states she does not want to see Dr. Larsen anymore and would like a different neurologist to evaluate patient. Urine culture is positive for group D enterococcus. Patient remains on Rocephin daily. Sensitivity is currently pending. 03/17/2018 Patient seen and examined at the bedside. Patients daughter present. Patients overall mentation is significantly improved since yesterday. Patient able to correctly state his full name, the month, year, and location. Patient is more awake today and is conversing with provider. Patient still occasionally having visual hallucinations and reaching for things in the air, but improved from yesterday. Patient was evaluated by neurology yesterday and is scheduled for LP today to rule out herpes zoster encephalitis. Infectious disease is also on consult. Patients urine culture is positive for enterococcus faecalis. Blood cultures are negative at 48 hour gio. 03/18/2018 Patient seen and examined at the bedside. Patient underwent LP yesterday. Results pending. Patient was evaluated by Dr. Osuna. His antibiotics were changed to Unasyn. His mentation continues to improve each day. He is engaging in conversation with provider and family members at the bedside. Patient worked with PT this morning and ambulated in the hallway. 03/19/2018 Patient seen and examined at the bedside. Patient awake and alert. Patient is oriented x 3 during examination. His confusion seems to be improving. Patient ate a majority of his breakfast. He was encouraged to drink fluids. Per nursing , patient slept well throughout the night. CSF fluid is negative for herpes zoster encephalitis. Objective - Vital Signs Vital signs: Vital Signs Temp 98.0 F 03/19/18 06:34 Pulse 67 03/19/18 06:34 Resp 20 03/19/18 06:34 BP 142/76 03/19/18 06:34 Pulse Ox 96 03/19/18 06:34 Intake & Output 03/18/18 03/19/18 03/19/18 18:59 06:59 18:59 Intake Total 490 500 200 Output Total 350 Balance 140 500 200 Weight 84.822 kg Intake: Intake, IV Titration 200 Amount Ampicillin-Sulbactam 3 gm 200 In Sodium Chloride 0.9% 100 ml @ 100 mls/hr IVPB Q6H [facility] Rx#:[id number] Oral 290 500 200 Output: Urine 350 Other: Voiding Method Toilet Toilet # Voids 1 3 # Bowel Movements 1 - Exam GENERAL: This is a 77-year-old male who is no acute distress at the time of examination. HEENT: Head is atraumatic, normocephalic. Pupils are equal, round, and reactive to light. Mucus membranes of the mouth are moist. Neck is supple. RESPIRATORY: Clear to ausculation. No wheezes, rales, or rhonchi. No use of accessory muscles. Patient maintaining oxygen saturation greater than 92%. No chest wall tenderness is noted on palpation or with deep breathing. CARDIOVASCULAR: Regular rate and rhythm. S1 and S2 noted. No JVD noted. No S3 or S4 noted. GASTROINTESTINAL: No distention noted. Abdomen soft and round. Normal active bowel sounds auscultated x 4 quadrants. No pain or tenderness noted upon palpation. INTEGUMENTARY: No cyanosis. No jaundice. No rashes noted. No cellulitis noted. EXTREMITIES: 2+ peripheral pulses. No evidence of peripheral edema. No calf tenderness noted. NEUROLOGIC: Patient able to follow simple commands. Hand grasps equal bilaterally. Speech clear. PSYCHIATRIC: Awake and alert. Oriented x 3. - Labs CBC & Chem 7: 03/14/18 13:20 03/14/18 13:20 Labs: Abnormal Lab Results - Last 24 Hours (Table) 03/18/18 Range/Units 21:13 POC Glucose (mg/dL) 105 H (75-99) mg/dL Microbiology - Last 24 Hours (Table) 03/14/18 13:20 Blood Culture - Preliminary Blood No Growth after 96 hours 03/17/18 10:55 CSF Gram Stain - Preliminary Cerebral Spinal Fluid CSF Culture - Preliminary Assessment and Plan Plan: ASSESSMENT: Urinary tract infection, present on admission, culture reveals enterococcus faecalis Encephalopathy, secondary to above, herpes zoster encephalitis ruled out Recent diagnosis of herpes zoster of the left eye, patient completed full course of valacyclovir 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 Ward on consult. Appreciate recommendations and input Dr. Syed on consult. Await further recommendations and input Infectious disease on consult. Antibiotics per ID. Currently on Unasyn. Home meds as appropriate Monitor labs GI prophylaxis: Protonix 40 mg PO Daily DVT prophylaxis: SCDs to bilateral LE Monitor vital signs and address as appropriate PT/OT Discharge planning: PACO at discharge. Family requesting [facility]. Possible discharge early next week. Dr. Lynn also suggesting possibility of inpatient rehab at [facility]. Patients and children stated they will think about it. Further recommendations pending patient's course Nurse practitioner note has been reviewed by physician. Signing provider agrees with the documented findings, assessment, and plan of care.
[2018-03-19 11:53] LABS: Glucose,Whole Blood 109 mg/dL (75-99)
--- NOTE | 2018-03-19 15:07 | P.PN ---
Subjective Progress Note Date: 03/18/18 77-year-old male who has a very extensive recent past medical history , beginning in October he was having difficulties with cardiovascular disease. 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 He has relatively slow recovery since that point in time. The family was present relates that up to that time he was quite vigorous and independent is having great difficulties with this protracted illness. He has been chronically weak and has had some falls. The patient suffered a fall and a closed head injury which partially was not severe. He however has been slowly recovering. The patient has had some difficulties and then recently had shingles on his face and possibly of the eye. He was seen by ophthalmology and there is no notation of any serious involvement of the eye. The patient has been treated with a course of Valtrex with resolution of the shingles rash. He developed significant alteration of his mental status with confusion and some hallucinations family was concerned he was brought to hospital. He has been seen by neurology and lumbar puncture has been performed. With these concerns the infectious diseases consultation was requested. It is noted the patient has had difficulties with BPH and several urinary tract infections so far this year. The available data reveals the last 2 infections or enterococcus similar to current infection. At the time the consult was called the patient's antimicrobial therapy was altered from Rocephin to Unasyn for enhance coverage of the enterococcus. At this time with fluids and antibiotic therapy the patient is more cognizant and interactive and less agitated. Family is present and have several questions. 03/18/2018 the patient is comfortable. He is arousable and answers a few questions. It is most relating he is tired and is ready for bed. Nursing staff relates that he's been cooperative without new complaints. Objective - Vital Signs Vital signs: Vital Signs Temp 97.6 F 03/18/18 15:00 Pulse 78 03/18/18 15:00 Resp 18 03/18/18 18:37 BP 128/71 03/18/18 15:00 Pulse Ox 96 03/18/18 15:00 Intake & Output 03/18/18 03/18/18 03/19/18 06:59 18:59 06:59 Intake Total 490 500 Output Total 350 Balance 140 500 Weight 84.822 kg Intake: Intake, IV Titration 200 Amount Ampicillin-Sulbactam 3 gm 200 In Sodium Chloride 0.9% 100 ml @ 100 mls/hr IVPB Q6H [facility] Rx#:[id number] Oral 290 500 Output: Urine 350 Other: Voiding Method Urinal Toilet Toilet Incontinent # Voids 3 1 2 # Bowel Movements 1 - Exam cooperative 77-year-old male who still has diminished cognitive function, is able to answer some questions and is aware that his daughter and friend are present. HEENT: Anicteric conjunctiva are pink and moist nasal mucosa grossly intact without significant lesions, there is no thrush.oral cavity is dry Neck: The neck is supple without significant lymphadenopathy or thyromegaly. Lungs: Good bilateral air entry without significant crackles or wheezing. There is no significant bronchial sounds. There is no egophony or dullness. Heart: Regular rate and rhythm with an audible S1-S2, no S3 no S4. There is no significant murmur click or rub, PMI was nondisplaced. Abdomen: Positive bowel sounds soft and nontender without palpable masses or organomegaly. There was no guarding or rebound. Extremities: The upper extremities have excellent pulses they are symmetric, no significant petechiae or telangiectasia. No splinter hemorrhages were noted. The lower extremities are free from significant edema. The peripheral pulses were 2+ and symmetric. Neuro: patient is arousable upon entry. He opens eyes communicates and moves his arms upon command. Seems comfortable. - Labs CBC & Chem 7: 03/14/18 13:20 03/14/18 13:20 Labs: Abnormal Lab Results - Last 24 Hours (Table) 03/18/18 03/18/18 Range/Units 07:34 21:13 POC Glucose (mg/dL) 110 H 105 H (75-99) mg/dL Microbiology - Last 24 Hours (Table) 03/14/18 13:20 Blood Culture - Preliminary Blood No Growth after 96 hours 03/17/18 10:55 CSF Gram Stain - Preliminary Cerebral Spinal Fluid CSF Culture - Preliminary Laboratory Results WBC 9.7 k/uL (3.8-10.6) 03/14/18 13:20 RBC 4.62 m/uL (4.30-5.90) 03/14/18 13:20 Hgb 14.4 gm/dL (13.0-17.5) 03/14/18 13:20 Hct 43.1 % (39.0-53.0) 03/14/18 13:20 MCV 93.2 fL (80.0-100.0) 03/14/18 13:20 MCH 31.2 pg (25.0-35.0) 03/14/18 13:20 MCHC 33.5 g/dL (31.0-37.0) 03/14/18 13:20 RDW 14.9 % (11.5-15.5) 03/14/18 13:20 Plt Count 298 k/uL (150-450) 03/14/18 13:20 Neutrophils % 75 % 03/14/18 13:20 Lymphocytes % 12 % 03/14/18 13:20 Monocytes % 6 % 03/14/18 13:20 Eosinophils % 2 % 03/14/18 13:20 Basophils % 1 % 03/14/18 13:20 Neutrophils # 7.3 k/uL (1.3-7.7) 03/14/18 13:20 Lymphocytes # 1.2 k/uL (1.0-4.8) 03/14/18 13:20 Monocytes # 0.6 k/uL (0-1.0) 03/14/18 13:20 Eosinophils # 0.2 k/uL (0-0.7) 03/14/18 13:20 Basophils # 0.0 k/uL (0-0.2) 03/14/18 13:20 PT 11.0 sec (9.0-12.0) 03/17/18 08:58 INR 1.1 (<1.2) 03/17/18 08:58 APTT 26.3 sec (22.0-30.0) 03/17/18 08:58 Sodium 137 mmol/L (137-145) 03/14/18 13:20 Potassium 4.4 mmol/L (3.5-5.1) 03/14/18 13:20 Chloride 98 mmol/L (98-107) 03/14/18 13:20 Carbon Dioxide 28 mmol/L (22-30) 03/14/18 13:20 Anion Gap 11 mmol/L 03/14/18 13:20 BUN 18 mg/dL (9-20) 03/14/18 13:20 Creatinine 1.09 mg/dL (0.66-1.25) 03/14/18 13:20 Est GFR (CKD-EPI)AfAm 74 (>60 ml/min/1.73 sqM) 03/14/18 13:20 Est GFR (CKD-EPI)NonAf 64 (>60 ml/min/1.73 sqM) 03/14/18 13:20 Glucose 102 mg/dL (74-99) H 03/14/18 13:20 POC Glucose (mg/dL) 105 mg/dL (75-99) H 03/18/18 21:13 POC Glu [employer] Professor ID [place] 03/18/18 21:[address] Glu mg/dL 126 03/14/18 13:20 Hemoglobin A1c 6.0 % (4.0-6.0) 03/14/18 13:20 Plasma Lactic Acid Naman 0.7 mmol/L (0.7-2.0) 03/16/18 01:24 Calcium 9.3 mg/dL (8.4-10.2) 03/14/18 13:20 Total Bilirubin 1.3 mg/dL (0.2-1.3) 03/14/18 13:20 AST 12 U/L (17-59) L 03/14/18 13:20 ALT 20 U/L (21-72) L 03/14/18 13:20 Alkaline Phosphatase 58 U/L (38-126) 03/14/18 13:20 Total Creatine Kinase 26 U/L (55-170) L 03/14/18 13:20 CK-MB (CK-2) 0.4 ng/mL (0.0-2.4) 03/14/18 13:20 CK-MB (CK-2) Rel Index 1.5 03/14/18 13:20 Troponin I <0.012 ng/mL (0.000-0.034) 03/14/18 13:20 Total Protein 6.3 g/dL (6.3-8.2) 03/14/18 13:20 Albumin 3.7 g/dL (3.5-5.0) 03/14/18 13:20 Urine Color Yellow 03/14/18 14:43 Urine Appearance Clear (Clear) 03/14/18 14:43 Urine pH 6.5 (5.0-8.0) 03/14/18 14:43 Ur Specific [place] 1.017 (1.001-1.035) 03/14/18 14:43 Urine Protein 1+ (Negative) H 03/14/18 14:43 Urine Glucose (UA) Negative (Negative) 03/14/18 14:43 Urine Ketones Negative (Negative) 03/14/18 14:43 Urine Blood Negative (Negative) 03/14/18 14:43 Urine Nitrite Negative (Negative) 03/14/18 14:43 Urine Bilirubin Negative (Negative) 03/14/18 14:43 Urine Urobilinogen 2.0 mg/dL (<2.0) 03/14/18 14:43 Ur Leukocyte Esterase Large (Negative) H 03/14/18 14:43 Urine RBC 1 /hpf (0-5) 03/14/18 14:43 Urine WBC 83 /hpf (0-5) H 03/14/18 14:43 Urine WBC Clumps Few /hpf (None) H 03/14/18 14:43 Ur Squamous Epith Cells <1 /hpf (0-4) 03/14/18 14:43 Urine Mucus Rare /hpf (None) H 03/14/18 14:43 CSF Tube Number 2 03/17/18 10:55 CSF Volume 1.8 03/17/18 10:55 CSF Appearance Clear 03/17/18 10:55 CSF Color Colorless 03/17/18 10:55 CSF RBC 25 u/L (0-10) H 03/17/18 10:55 CSF Tot Nucleated Cells 5 u/L (0-5) 03/17/18 10:55 CSF Fresh RBCs 100 % 03/17/18 10:55 CSF Glucose 51 mg/dL (40-70) 03/17/18 10:55 CSF Total Protein 114 mg/dL (12-60) H 03/17/18 10:55 Urine Opiates Screen Not Detected (NotDetected) 03/14/18 14:43 Ur Oxycodone Screen Not Detected (NotDetected) 03/14/18 14:43 Urine Methadone Screen Not Detected (NotDetected) 03/14/18 14:43 Ur Propoxyphene Screen Not Detected (NotDetected) 03/14/18 14:43 Ur Barbiturates Screen Not Detected (NotDetected) 03/14/18 14:43 U Tricyclic Antidepress Not Detected (NotDetected) 03/14/18 14:43 Ur Phencyclidine Scrn Not Detected (NotDetected) 03/14/18 14:43 Ur Amphetamines Screen Not Detected (NotDetected) 03/14/18 14:43 U Methamphetamines Scrn Not Detected (NotDetected) 03/14/18 14:43 U Benzodiazepines Scrn Not Detected (NotDetected) 03/14/18 14:43 Urine Cocaine Screen Not Detected (NotDetected) 03/14/18 14:43 U Marijuana (THC) Screen Not Detected (NotDetected) 03/14/18 14:43 HSV I DNA PCR Not detected (Not detected) 03/17/18 10:55 HSV II DNA PCR Not detected (Not detected) 03/17/18 10:55 HSV (PCR) Source 03/17/18 10:55 Varicella-Zoster Source 03/17/18 10:55 VZV DNA (PCR) Not detected (Not detected) 03/17/18 10:55 Microbiology 03/14/18 13:20 Blood Blood Culture - Preliminary No Growth after 96 hours 03/17/18 10:55 Cerebral Spinal Fluid CSF Gram Stain - Preliminary 03/17/18 10:55 Cerebral Spinal Fluid CSF Culture - Preliminary 03/14/18 14:43 Urine,Voided Urine Culture - Final Enterococcus faecalis Assessment and Plan (1) Urinary tract infection Current Visit: Yes Status: Acute Code(s): N39.0 - URINARY TRACT INFECTION, SITE NOT SPECIFIED SNOMED Code(s): 76560319 (2) Septic encephalopathy Narrative/Plan: 77-year-old male who was in relatively good health until October of this year where he underwent cardiovascular surgery and valve replacement. Since that time there is been overall declining of his status. Most recently he has the acute change of his mental status. Her presentation there is evidence of fever leukocytosis and abnormal urinalysis. Review of the data reveals this is his third. Tract infection since October of this year, there is a known history of BPH. A postvoid residual bladder scan has been requested. This will further characterize if his urinary retention as part of this recurrent urinary infection. If obstructions occurring renal ultrasound may be helpful. The patient's urine culture has come back as enterococcus in the antibiotic therapy was altered from Rocephin to Unasyn. Patient receiving his first dose. With hydration his mentation is improved but is nowhere near yet at baseline. His of the patient's urinary pH is high at 6.5. When he has resolved his urinary tract infection he will do well to go onto a urinary acidify her to help lower his urinary pH and hopefully reduce the risk of recurrent urinary infections. The patient's family's his questions are answered. Lumbar puncture was performed with a clear colorless fluid was found. Very few white cells and many red cells were seen. No evidence of any significant viral or bacterial infection at this time. Cultures are pending. In May further help direct antibiotic therapy as he is readied for is discharged back to rehab. It appears that the underlying sepsis is cause septic encephalopathy we will continue to rapidly improve as he receiving adequate nutrition. Expect with antimicrobial therapy driven by cultures will expect rapid improvement. 03/18/2018 some improvement, CSF cultures negative, CSF viral studies negative, only elevated total protein was noted which is possible after the recent closed head injury and small vessel disease. Enterococcous UTI on unasyn continue, message left for daughter. Current Visit: Yes Status: Acute Code(s): G93.41 - METABOLIC ENCEPHALOPATHY SNOMED Code(s): 033109252 (3) Abnormal urine findings Current Visit: Yes Status: Acute Code(s): R82.90 - UNSPECIFIED ABNORMAL FINDINGS IN URINE SNOMED Code(s): 733995192
--- NOTE | 2018-03-19 16:41 | P.PN ---
Subjective Progress Note Date: 03/19/18 This patient is a 77-year-old right-handed white male who was initially evaluated for neurological consultation regarding altered mental status and delirium. Patient recently was admitted to Hospital for treatment of urinary tract infection and sepsis. He was started initially on IV antibiotic therapy until he was seen by Dr. Osuna. His antibiotic was changed to Unasyn and he was showing some good improvement in his overall mental status in the last few days. The patient also had a recent history of exposure to shingles. He had developed shingles involving the left side of his face and also involvement of the eye. There was concern that the patient may have some degree of herpes encephalitis due to herpes zoster infection with the shingles. He underwent a lumbar puncture for further evaluation. His spinal fluid results were reviewed today and did come back negative for herpes simplex virus as well as herpes zoster virus. We reviewed these results today with the patient and his daughter was at bedside. There were happy to find that all of the test results of combat negative for any evidence of viral infection producing his acute delirium. The patient showed improvement yesterday and was able to ambulate in the hallway. Today he continues to show significant improvement in his mental status. He was once again able to ambulate in the hallway. According to his daughter who was at bedside they have noted a significant improvement in his overall mental status. He is awaiting possible discharge to [facility] for some subacute rehabilitation. The patient does show significant improvement in his day-to-day functioning in his mental status today. We will continue close neurological follow-up for the patient. We reviewed all of the test results today in detail with the patient and his daughter at bedside. There is no evidence at this time to suggest that he may have had any evidence for an acute encephalitis secondary to herpes zoster or herpes simplex virus. We will continue to follow his progress closely during this admission. He is awaiting transferred to [facility] possibly tomorrow or early next week. His overall prognosis at this time remains guarded. Objective - Vital Signs Vital signs: Vital Signs Temp 98.0 F 03/19/18 06:34 Pulse 67 03/19/18 06:34 Resp 20 03/19/18 06:34 BP 142/76 03/19/18 06:34 Pulse Ox 96 03/19/18 06:34 Intake & Output 03/18/18 03/19/18 03/19/18 18:59 06:59 18:59 Intake Total 490 500 300 Output Total 350 Balance 140 500 300 Weight 84.822 kg Intake: Intake, IV Titration 200 100 Amount Ampicillin-Sulbactam 3 gm 200 100 In Sodium Chloride 0.9% 100 ml @ 100 mls/hr IVPB Q6H ON LICENSE OF [facility] Rx#:[id number] Oral 290 500 200 Output: Urine 350 Other: Voiding Method Toilet Toilet # Voids 1 3 # Bowel Movements 1 - Exam Physical examination: PHYSICAL EXAMINATION: Patient is resting comfortably in bed. VITAL SIGNS: Blood pressure is [142/76]. Heart rate is [67]. Respiration is [20] . Temperature is [98.0]. HEENT: Head is atraumatic, neck is supple, there were no carotid bruits. CHEST: Lungs are clear to auscultation and percussion. CARDIAC: S1, S2 normal rate and rhythm. There is no murmur. ABDOMEN: Soft and nontender. Bowel sounds are present. EXTREMITIES: There is no pedal edema. Peripheral pulses are present. Neurological examination: Neurological examination reveals the patient to be awake alert and oriented 3. He is answering all questions appropriately. His memory and intellectual functions are appropriate for his age. Cranial nerves II through XII are grossly intact. Motor examination: Patient has no evidence of any focal motor deficit on exam. Deep tendon reflexes: The DTRs are 1+ and symmetric. Plantar responses flexor bilaterally. Coordination and gait cannot be assessed in this patient at this time. - Labs CBC & Chem 7: 03/14/18 13:20 03/14/18 13:20 Labs: Abnormal Lab Results - Last 24 Hours (Table) 03/18/18 03/19/18 Range/Units 21:13 11:52 POC Glucose (mg/dL) 105 H 109 H (75-99) mg/dL Microbiology - Last 24 Hours (Table) 03/14/18 13:20 Blood Culture - Preliminary Blood No Growth after 120 hours 03/17/18 10:55 CSF Gram Stain - Preliminary Cerebral Spinal Fluid CSF Culture - Preliminary Assessment and Plan (1) Acute metabolic encephalopathy Current Visit: Yes Status: Acute Code(s): G93.41 - METABOLIC ENCEPHALOPATHY SNOMED Code(s): 12187850 (2) Herpes zoster ophthalmicus of left eye Current Visit: No Status: Acute Code(s): B02.30 - ZOSTER OCULAR DISEASE, UNSPECIFIED SNOMED Code(s): 07095005 (3) Zoster Current Visit: No Status: Acute Code(s): B02.9 - ZOSTER WITHOUT COMPLICATIONS SNOMED Code(s): 9436619 (4) Urinary tract infection Current Visit: Yes Status: Acute Code(s): N39.0 - URINARY TRACT INFECTION, SITE NOT SPECIFIED SNOMED Code(s): 96186229 (5) History of mitral valve repair Current Visit: No Status: Chronic Code(s): Z98.890 - OTHER SPECIFIED POSTPROCEDURAL STATES SNOMED Code(s): 295999572 Plan: This patient is a 77-year-old right-handed white male who was initially admitted to the hospital with evidence of severe mental status changes and acute delirium. He was found to have evidence of a urinary tract infection which she has had multiple times in the past. He was very delirious over the weekend and when he was admitted was very combative and disoriented and argumentative. There was concern that the patient may have had some form of encephalitis as he was recently treated for shingles. We've recommended the patient undergo lumbar puncture for further evaluation. His spinal fluid results were reviewed today and did come back negative for any evidence of herpes zoster virus and/or herpes simplex virus. There is no evidence to indicate any type of herpes encephalitis for this patient to explain his sudden mental status changes. The patient is responding well to his current antibiotic which is Unison for treatment of his urinary tract infection. This most likely was a cause for his acute metabolic encephalopathy. He seems to be doing much better today in terms of his mental status and is much more appropriate than more awake and alert. We've reviewed all of his test results today in detail with the patient and his daughter who is at bedside. All of their questions were answered. He is awaiting possible transfer to [facility] for a short subacute rehabilitation. The patient's overall prognosis at this time remains guarded. We will continue to follow his progress closely during this admission. He may be discharged to the [facility] either tomorrow or early next week. Once again he seems to be doing much better today in terms of his mental status. We will await further recommendations from Dr. Osuna in terms of antibiotic management. His overall prognosis at this time remains guarded. We will continue to follow his neurological progress closely during this admission.
[2018-03-19] MEDS: RIVASTIGMINE 4.6MG/24HR PATCH TRANSDERM SCH (17:05)
[2018-03-19 17:42] LABS: Glucose,Whole Blood 169 mg/dL (75-99)
[2018-03-19] MEDS ORDERED: MD COMMUNICATION TO PHARMACY 1 EACH MISC PO PRN (20:09)
--- NOTE | 2018-03-19 20:15 | P.PN ---
Subjective Progress Note Date: 03/19/18 77-year-old male who has a very extensive recent past medical history , beginning in October he was having difficulties with cardiovascular disease. 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 He has relatively slow recovery since that point in time. The family was present relates that up to that time he was quite vigorous and independent is having great difficulties with this protracted illness. He has been chronically weak and has had some falls. The patient suffered a fall and a closed head injury which partially was not severe. He however has been slowly recovering. The patient has had some difficulties and then recently had shingles on his face and possibly of the eye. He was seen by ophthalmology and there is no notation of any serious involvement of the eye. The patient has been treated with a course of Valtrex with resolution of the shingles rash. He developed significant alteration of his mental status with confusion and some hallucinations family was concerned he was brought to hospital. He has been seen by neurology and lumbar puncture has been performed. With these concerns the infectious diseases consultation was requested. It is noted the patient has had difficulties with BPH and several urinary tract infections so far this year. The available data reveals the last 2 infections or enterococcus similar to current infection. At the time the consult was called the patient's antimicrobial therapy was altered from Rocephin to Unasyn for enhance coverage of the enterococcus. At this time with fluids and antibiotic therapy the patient is more cognizant and interactive and less agitated. Family is present and have several questions. 03/18/2018 the patient is comfortable. He is arousable and answers a few questions. It is most relating he is tired and is ready for bed. Nursing staff relates that he's been cooperative without new complaints. March 19, 2018 patient is now considerably improved. But arriving to the room he is walking back from the bathroom with his IV pole unassisted. 2 daughters are present and are pleased with his marked improvement. There are plans for the patient to go to rehabilitation hopefully as of tomorrow to complete a course of rehabilitation. The data is reviewed with the daughters and that the CSF was normal with no evidence of any infection bacterial or viral. He over did have enterococcal urinary tract infection as etiology for sepsis which worsened his mental status. Objective - Vital Signs Vital signs: Vital Signs Temp 97.2 F L 03/19/18 15:00 Pulse 67 03/19/18 15:00 Resp 16 03/19/18 15:00 BP 140/77 03/19/18 15:00 Pulse Ox 100 03/19/18 15:00 Intake & Output 03/19/18 03/19/18 03/20/18 06:59 18:59 06:59 Intake Total 500 300 Balance 500 300 Intake: Intake, IV Titration 100 Amount Ampicillin-Sulbactam 3 gm 100 In Sodium Chloride 0.9% 100 ml @ 100 mls/hr IVPB Q6H [facility] Rx#:[id number] Oral 500 200 Other: Voiding Method Toilet Toilet # Voids 3 - Exam cooperative 77-year-old male who is now markedly improved HEENT: Anicteric conjunctiva are pink and moist nasal mucosa grossly intact without significant lesions, there is no thrush.oral cavity is dry Neck: The neck is supple without significant lymphadenopathy or thyromegaly. Lungs: Good bilateral air entry without significant crackles or wheezing. There is no significant bronchial sounds. There is no egophony or dullness. Heart: Regular rate and rhythm with an audible S1-S2, no S3 no S4. There is no significant murmur click or rub, PMI was nondisplaced. Abdomen: Positive bowel sounds soft and nontender without palpable masses or organomegaly. There was no guarding or rebound. Extremities: The upper extremities have excellent pulses they are symmetric, no significant petechiae or telangiectasia. No splinter hemorrhages were noted. The lower extremities are free from significant edema. The peripheral pulses were 2+ and symmetric. Neuro: patient is awake alert and cooperative. Able to ambulate without difficulties still is having some minimal memory difficulties. - Labs CBC & Chem 7: 03/14/18 13:20 03/14/18 13:20 Labs: Abnormal Lab Results - Last 24 Hours (Table) 03/18/18 03/19/18 03/19/18 Range/Units 21:13 11:52 17:20 POC Glucose (mg/dL) 105 H 109 H 169 H (75-99) mg/dL Microbiology - Last 24 Hours (Table) 03/14/18 13:20 Blood Culture - Preliminary Blood No Growth after 120 hours 03/17/18 10:55 CSF Gram Stain - Preliminary Cerebral Spinal Fluid CSF Culture - Preliminary Laboratory Results WBC 9.7 k/uL (3.8-10.6) 03/14/18 13:20 RBC 4.62 m/uL (4.30-5.90) 03/14/18 13:20 Hgb 14.4 gm/dL (13.0-17.5) 03/14/18 13:20 Hct 43.1 % (39.0-53.0) 03/14/18 13:20 MCV 93.2 fL (80.0-100.0) 03/14/18 13:20 MCH 31.2 pg (25.0-35.0) 03/14/18 13:20 MCHC 33.5 g/dL (31.0-37.0) 03/14/18 13:20 RDW 14.9 % (11.5-15.5) 03/14/18 13:20 Plt Count 298 k/uL (150-450) 03/14/18 13:20 Neutrophils % 75 % 03/14/18 13:20 Lymphocytes % 12 % 03/14/18 13:20 Monocytes % 6 % 03/14/18 13:20 Eosinophils % 2 % 03/14/18 13:20 Basophils % 1 % 03/14/18 13:20 Neutrophils # 7.3 k/uL (1.3-7.7) 03/14/18 13:20 Lymphocytes # 1.2 k/uL (1.0-4.8) 03/14/18 13:20 Monocytes # 0.6 k/uL (0-1.0) 03/14/18 13:20 Eosinophils # 0.2 k/uL (0-0.7) 03/14/18 13:20 Basophils # 0.0 k/uL (0-0.2) 03/14/18 13:20 PT 11.0 sec (9.0-12.0) 03/17/18 08:58 INR 1.1 (<1.2) 03/17/18 08:58 APTT 26.3 sec (22.0-30.0) 03/17/18 08:58 Sodium 137 mmol/L (137-145) 03/14/18 13:20 Potassium 4.4 mmol/L (3.5-5.1) 03/14/18 13:20 Chloride 98 mmol/L (98-107) 03/14/18 13:20 Carbon Dioxide 28 mmol/L (22-30) 03/14/18 13:20 Anion Gap 11 mmol/L 03/14/18 13:20 BUN 18 mg/dL (9-20) 03/14/18 13:20 Creatinine 1.09 mg/dL (0.66-1.25) 03/14/18 13:20 Est GFR (CKD-EPI)AfAm 74 (>60 ml/min/1.73 sqM) 03/14/18 13:20 Est GFR (CKD-EPI)NonAf 64 (>60 ml/min/1.73 sqM) 03/14/18 13:20 Glucose 102 mg/dL (74-99) H 03/14/18 13:20 POC Glucose (mg/dL) 169 mg/dL (75-99) H 03/19/18 17:20 POC Glu Family [facility] Md ID Laurie Hayes 03/19/18 17:[address] Glu mg/dL 126 03/14/18 13:20 Hemoglobin A1c 6.0 % (4.0-6.0) 03/14/18 13:20 Plasma Lactic Acid [place] 0.7 mmol/L (0.7-2.0) 03/16/18 01:24 Calcium 9.3 mg/dL (8.4-10.2) 03/14/18 13:20 Total Bilirubin 1.3 mg/dL (0.2-1.3) 03/14/18 13:20 AST 12 U/L (17-59) L 03/14/18 13:20 ALT 20 U/L (21-72) L 03/14/18 13:20 Alkaline Phosphatase 58 U/L (38-126) 03/14/18 13:20 Total Creatine Kinase 26 U/L (55-170) L 03/14/18 13:20 CK-MB (CK-2) 0.4 ng/mL (0.0-2.4) 03/14/18 13:20 CK-MB (CK-2) Rel Index 1.5 03/14/18 13:20 Troponin I <0.012 ng/mL (0.000-0.034) 03/14/18 13:20 Total Protein 6.3 g/dL (6.3-8.2) 03/14/18 13:20 Albumin 3.7 g/dL (3.5-5.0) 03/14/18 13:20 Urine Color Yellow 03/14/18 14:43 Urine Appearance Clear (Clear) 03/14/18 14:43 Urine pH 6.5 (5.0-8.0) 03/14/18 14:43 Ur Specific [place] 1.017 (1.001-1.035) 03/14/18 14:43 Urine Protein 1+ (Negative) H 03/14/18 14:43 Urine Glucose (UA) Negative (Negative) 03/14/18 14:43 Urine Ketones Negative (Negative) 03/14/18 14:43 Urine Blood Negative (Negative) 03/14/18 14:43 Urine Nitrite Negative (Negative) 03/14/18 14:43 Urine Bilirubin Negative (Negative) 03/14/18 14:43 Urine Urobilinogen 2.0 mg/dL (<2.0) 03/14/18 14:43 Ur Leukocyte Esterase Large (Negative) H 03/14/18 14:43 Urine RBC 1 /hpf (0-5) 03/14/18 14:43 Urine WBC 83 /hpf (0-5) H 03/14/18 14:43 Urine WBC Clumps Few /hpf (None) H 03/14/18 14:43 Ur Squamous Epith Cells <1 /hpf (0-4) 03/14/18 14:43 Urine Mucus Rare /hpf (None) H 03/14/18 14:43 CSF Tube Number 2 03/17/18 10:55 CSF Volume 1.8 03/17/18 10:55 CSF Appearance Clear 03/17/18 10:55 CSF Color Colorless 03/17/18 10:55 CSF RBC 25 u/L (0-10) H 03/17/18 10:55 CSF Tot Nucleated Cells 5 u/L (0-5) 03/17/18 10:55 CSF Fresh RBCs 100 % 03/17/18 10:55 CSF Glucose 51 mg/dL (40-70) 03/17/18 10:55 CSF Total Protein 114 mg/dL (12-60) H 03/17/18 10:55 Urine Opiates Screen Not Detected (NotDetected) 03/14/18 14:43 Ur Oxycodone Screen Not Detected (NotDetected) 03/14/18 14:43 Urine Methadone Screen Not Detected (NotDetected) 03/14/18 14:43 Ur Propoxyphene Screen Not Detected (NotDetected) 03/14/18 14:43 Ur Barbiturates Screen Not Detected (NotDetected) 03/14/18 14:43 U Tricyclic Antidepress Not Detected (NotDetected) 03/14/18 14:43 Ur Phencyclidine Scrn Not Detected (NotDetected) 03/14/18 14:43 Ur Amphetamines Screen Not Detected (NotDetected) 03/14/18 14:43 U Methamphetamines Scrn Not Detected (NotDetected) 03/14/18 14:43 U Benzodiazepines Scrn Not Detected (NotDetected) 03/14/18 14:43 Urine Cocaine Screen Not Detected (NotDetected) 03/14/18 14:43 U Marijuana (THC) Screen Not Detected (NotDetected) 03/14/18 14:43 HSV I DNA PCR Not detected (Not detected) 03/17/18 10:55 HSV II DNA PCR Not detected (Not detected) 03/17/18 10:55 HSV (PCR) Source 03/17/18 10:55 Varicella-Zoster Source 03/17/18 10:55 VZV DNA (PCR) Not detected (Not detected) 03/17/18 10:55 Microbiology 03/14/18 13:20 Blood Blood Culture - Preliminary No Growth after 120 hours 03/17/18 10:55 Cerebral Spinal Fluid CSF Gram Stain - Preliminary 03/17/18 10:55 Cerebral Spinal Fluid CSF Culture - Preliminary 03/14/18 14:43 Urine,Voided Urine Culture - Final Enterococcus faecalis Assessment and Plan (1) Urinary tract infection Current Visit: Yes Status: Acute Code(s): N39.0 - URINARY TRACT INFECTION, SITE NOT SPECIFIED SNOMED Code(s): 59597876 (2) Septic encephalopathy Narrative/Plan: 77-year-old male who was in relatively good health until October of this year where he underwent cardiovascular surgery and valve replacement. Since that time there is been overall declining of his status. Most recently he has the acute change of his mental status. Her presentation there is evidence of fever leukocytosis and abnormal urinalysis. Review of the data reveals this is his third. Tract infection since October of this year, there is a known history of BPH. A postvoid residual bladder scan has been requested. This will further characterize if his urinary retention as part of this recurrent urinary infection. If obstructions occurring renal ultrasound may be helpful. The patient's urine culture has come back as enterococcus in the antibiotic therapy was altered from Rocephin to Unasyn. Patient receiving his first dose. With hydration his mentation is improved but is nowhere near yet at baseline. His of the patient's urinary pH is high at 6.5. When he has resolved his urinary tract infection he will do well to go onto a urinary acidify her to help lower his urinary pH and hopefully reduce the risk of recurrent urinary infections. The patient's family's his questions are answered. Lumbar puncture was performed with a clear colorless fluid was found. Very few white cells and many red cells were seen. No evidence of any significant viral or bacterial infection at this time. Cultures are pending. In May further help direct antibiotic therapy as he is readied for is discharged back to rehab. It appears that the underlying sepsis is cause septic encephalopathy we will continue to rapidly improve as he receiving adequate nutrition. Expect with antimicrobial therapy driven by cultures will expect rapid improvement. 03/18/2018 some improvement, CSF cultures negative, CSF viral studies negative, only elevated total protein was noted which is possible after the recent closed head injury and small vessel disease. Enterococcous UTI on unasyn continue, message left for daughter. March 19, 2018 finds the patient now to be considerably improved. Urine culture is positive for enterococcus and blood cultures are negative. CSF cultures are all negative. The patient had altered mental status from his urinary tract infection with enterococcus. In the morning we'll transition from Unasyn to Augmentin suspension to complete 21 days of therapy for his complex unit tract infection likely with some prostatitis as the etiology. When the patient has recovered would like him to follow the office so we can work on urinary acidification to hopefully prevent further urinary infections. Incentive spirometry is requested to try to improve his pulmonary function All this data is reviewed with the family and they are pleased and look forward to him transferring to rehabilitation to regain his independence. Current Visit: Yes Status: Acute Code(s): G93.41 - METABOLIC ENCEPHALOPATHY SNOMED Code(s): 841751345 (3) Abnormal urine findings Current Visit: Yes Status: Acute Code(s): R82.90 - UNSPECIFIED ABNORMAL FINDINGS IN URINE SNOMED Code(s): 405879508
[2018-03-19 21:36] LABS: Glucose,Whole Blood 121 mg/dL (75-99)
[2018-03-19] MEDS: QUEtiapine 50 MG TAB PO SCH (21:53)
[2018-03-19] MEDS: DOXAZOSIN 2 MG TAB PO SCH (21:53)
[2018-03-19] MEDS: ATORVASTATIN 40 MG TAB PO SCH (21:53)
[2018-03-20 00:52] VITALS: RESP 20
[2018-03-20] MEDS: AMPICILLIN-SULBACTAM 3 GM in SODIUM CHLORIDE 0.9% 100 ML IVPB SCH (04:24)
[2018-03-20 07:30] LABS: Glucose,Whole Blood 97 mg/dL (75-99)
[2018-03-20 07:38] VITALS: BP 159/75; PULSE 65; TEMP 97.9
[2018-03-20] MEDS: INSULIN ASPART 100 UNIT/ML 1 ML 10 ML VIAL SQ SCH (07:42)
[2018-03-20] MEDS: hydrALAZINE HCL 10 MG TAB PO SCH (07:44)
[2018-03-20] MEDS: ASPIRIN 81 MG PO SCH (07:45)
[2018-03-20] MEDS: METOPROLOL SUCCINATE (ER) 50 MG TAB.ER.24H PO SCH (07:45)
[2018-03-20] MEDS: PANTOPRAZOLE 40 MG TABLET PO SCH (07:45)
[2018-03-20] MEDS: CHOLECALCIFEROL 1,000 UNIT TAB PO SCH (07:45)
[2018-03-20] MEDS ORDERED: AMOXIC-POT CLAV 250-62.5MG/5ML 75 ML BOTTLE PO SCH (08:00)
--- NOTE | 2018-03-20 10:30 | P.DS ---
Providers Date of admission: 03/16/18 20:09 Expected date of discharge: 03/20/18 Attending physician: Chris Lynn Consults: 03/16/18 10:22 Consult Physician Urgent Consulting Provider: Gigi Ward Consult Reason/Comments: delrium, confusion Do you want consulting provider notified?: Yes 03/17/18 07:00 Consult to Anesthesia Routine Consulting Provider: Anesthesia,Services Consult Reason/Comments: Lumbar puncture to rule out encephalitis. Urgent LP. 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 Do you want consulting provider notified?: Yes Consult Physician Urgent Consulting Provider: Nam Osuna Consult Reason/Comments: Possible herpes encephalitis with recent shingles. Do you want consulting provider notified?: Yes Primary care physician: Chris Lynn - Discharge Diagnosis(es) (1) Altered mental status General: [Patient awake, alert and oriented times 3. Patient in no acute distress.] HEENT: [PERRL. EOMI. No pharyngeal erythema or exudate.] Neck: [No adenopathy.] Cardiac: [Heart regular in rate and rhythm. No S3. No S4. No clicks, rubs. No murmur.] Lungs: [Clear to auscultation bilaterally.] Abdomen: [No mass. No organomegaly. Bowel sounds presnt and normoactive in all 4 quadrants.] Extremes: [No edema no cyanosis no claudication normal pulses] : [] Musculoskeletal: [No joint erythema, edema or tenderness.] Skin: [No rash.] Neurologic: [No lateralizing deficits. CN II - XII grossly intact.] Lymphatic: [No adenopathy.] Current Visit: Yes Status: Acute (2) Urinary tract infection Resolving patient underwent 5 days of IV antibiotics has been changed to Augmentin liquid as patient has some difficulty swallowing large pills Current Visit: Yes Status: Acute (3) Herpes zoster ophthalmicus of left eye Patient was treated with Valtrex 1000 mg 3 times a day 7 days completed total therapy approximately a week and a half prior to being admitted to the hospital Current Visit: No Status: Acute Procedures: IV antibiotic therapy Patient Condition at Discharge: Fair Plan - Discharge Summary Discharge Rx Participant: Yes New Discharge Prescriptions: New Ascorbic Acid [Vitamin C] 1,000 mg PO DAILY #30 tablet hydrALAZINE HCL [Apresoline] 20 mg PO TID tab Metoprolol Succinate (ER) [Toprol XL] 50 mg PO BID #0 tab.er.24h QUEtiapine [SEROquel] 50 mg PO HS tab Rivastigmine 4.6MG/24Hr Patch [Exelon 4.6MG/24Hr Patch] 1 patch TRANSDERM Q24H #0 patch Amoxic-Pot Clav 600-42.9MG/5Ml [Augmentin 600-42.9 mg/5 ml Liquid] 10 ml PO Q12H #90 ml Continue Atorvastatin [Lipitor] 40 mg PO HS@2100 Doxazosin [Cardura] 2 mg PO HS@2100 Cholecalciferol [Vitamin D3] 1,000 unit PO DAILY@0900 Aspirin 162 mg PO DAILY@0900 Discontinued Finasteride [Proscar] 5 mg PO DAILY@899 metFORMIN HCL [Glucophage] 500 mg PO BID@ Metoprolol Succinate (ER) [Toprol XL] 50 mg PO DAILY@09 Discharge Medication List Atorvastatin [Lipitor] 40 mg PO HS@209909/02/16 [History] Cholecalciferol [Vitamin D3] 1,000 unit PO DAILY@0900 12/09/17 [History] Doxazosin [Cardura] 2 mg PO HS@2100 12/09/17 [History] Aspirin 162 mg PO DAILY@0900 03/14/18 [History] Ascorbic Acid [Vitamin C] 1,000 mg PO DAILY #30 tablet 03/19/18 [Rx] Metoprolol Succinate (ER) [Toprol XL] 50 mg PO BID #0 tab.er.24h 03/19/18 [Rx] QUEtiapine [SEROquel] 50 mg PO HS tab 03/19/18 [Rx] Rivastigmine 4.6MG/24Hr Patch [Exelon 4.6MG/24Hr Patch] 1 patch TRANSDERM Q24H # 0 patch 03/19/18 [Rx] hydrALAZINE HCL [Apresoline] 20 mg PO TID tab 03/19/18 [Rx] Amoxic-Pot Clav 600-42.9MG/5Ml [Augmentin 600-42.9 mg/5 ml Liquid] 10 ml PO Q12H #90 ml 03/20/18 [Rx] Follow up Appointment(s)/Referral(s): Gigi Ward MD [STAFF PHYSICIAN] - 2 Weeks Chris Lynn Jr, DO [Primary Care Provider] - 1 Week Nam Osuna MD [STAFF PHYSICIAN] - 1 Week Patient Instructions/Handouts: Urinary Tract Infection in Men (DC), Shingles ( DC), Type 2 Diabetes in the Older Adult (DC) Activity/Diet/Wound Care/Special Instructions: Cardiac, diabetic diet. Activity as tolerated. Fall precautions. Care Plan Goals (MU): Patient being transferred to [facility] for inpatient rehab physical therapy , occupational therapy and speech therapy for cognitive assessment and progress Discharge Disposition: TRANSFER TO SNF/ECF
--- NOTE | 2018-03-23 09:56 | CDI ---
Last Revision, June 2017 Documentation Clarification Form Date: 03/23/18 From: Mindy Esparza Phone: If you have a question , please contact Jen Mitchell at [phone] between 8am and 5pm. Admit Date: 03/16/2018 Patient Name: Nick Anguiano Visit Number: [id number] Discharge Date: 03/20/18 ATTENTION: The Clinical Documentation Specialists (CDI) and [facility] Coding Staff appreciate your assistance in clarifying documentation. Please respond to the clarification below the line at the bottom and electronically sign. The CDI & [facility] Coding staff will review the response and follow-up if needed. Please note: Queries are made part of the Legal Health Record. If you have any questions, please contact the author of this message via ITS. Dr. PRITCHARD, Sepsis & septic encephalopathy documented in Dr. Osuna consult note & progress notes on 03/18 and 03/19. History/Risk Factors: Patient was admitted with a UTI and has recently been diagnosed with shingles of the left eye. Clinical Indicators: altered mental status WBC/Left Shift: 9.7/7.3 Lactic acid: 1.9 Vitals signs on admission: T. 97.3, P. 80, R. 16, BP 124/78 Antibiotics: IV Rocephin, PO Augmentin In your professional opinion, please clarify if these findings signify one of the following conditions, whether the condition was Present on Admission Sepsis ruled out Sepsis due to Other, please specify Unable to determine PRESENT ON ADMISSION: yes or no MTDD
--- NOTE | 2018-04-26 13:32 | CDI ---
Last Revision, June 2017 Documentation Clarification Form Date: 04/26/18 From: Mindy Esparza Phone: If you have a question regarding this query, please contact Jen Mitchell at [phone] between 8am and 5pm. Admit Date: 03/16/2018 8:09:00 PM Patient Name: Nick Anguiano Visit Number: [id number] Discharge Date: 03/20/18 ATTENTION: The Clinical Documentation Specialists (CDI) and [facility] Coding Staff appreciate your assistance in clarifying documentation. Please respond to the clarification below the line at the bottom and electronically sign. The CDI & [facility] Coding staff will review the response and follow-up if needed. Please note: Queries are made part of the Legal Health Record. If you have any questions, please contact the author of this message via ITS. Chris Corado , Thank you for signing your previous query. Please document a response before signing this query. Sepsis and septic encephalopathy is documented in Dr. Osuna consult note and progress notes on 03/18 and 03/19. History/Risk Factors: Patient was admitted with a UTI and has recently been diagnosed with shingles of the left eye. Clinical Indicators: altered mental status WBC/Left Shift: 9.7/7.3 Lactic acid: 1.9 Blood cultures: No growth. Vitals signs on admission: T. 97.3, P. 80, R. 16, BP 124/78 Antibiotics: IV Rocephin, PO Augmentin IV Bolus: 500 mls @ 999 mls/hr In your professional opinion, please clarify if these findings signify one of the following conditions, whether the condition is POA, and cause, if known: Sepsis ruled out Sepsis due to Other, please specify Unable to determine due to urinary tract infection MTDD
== END 2018-03-20 12:07 | DRG 871 ==
LOC: EC 12:57 → 4MS4W 15:24 → OBSVTOIN 03-16 20:09
PROVIDERS: ADMIT Family Medicine; ATTEND Family Medicine
PROC: 009U3ZX Drainage of Spinal Canal, Percutaneous Approach, Diagnostic (ICD-10-PCS; principal; 2018-03-17 09:15)
DX: A41.81 Sepsis due to Enterococcus (principal); G93.41 Metabolic encephalopathy; N39.0 Urinary tract infection, site not specified; B02.30 Zoster ocular disease, unspecified; B95.2 Enterococcus as the cause of diseases classified elsewhere; E11.51 Type 2 diabetes mellitus with diabetic peripheral angiopathy without gangrene; E78.5 Hyperlipidemia, unspecified; H02.402 Unspecified ptosis of left eyelid; I10 Essential (primary) hypertension; I25.10 Atherosclerotic heart disease of native coronary artery without angina pectoris; I25.2 Old myocardial infarction; J44.9 Chronic obstructive pulmonary disease, unspecified; K21.9 Gastro-esophageal reflux disease without esophagitis; N40.0 Benign prostatic hyperplasia without lower urinary tract symptoms; K44.9 Diaphragmatic hernia without obstruction or gangrene; N41.9 Inflammatory disease of prostate, unspecified; R32 Unspecified urinary incontinence; Z79.84 Long term (current) use of oral hypoglycemic drugs; Z79.82 Long term (current) use of aspirin; Z96.1 Presence of intraocular lens; Z95.2 Presence of prosthetic heart valve; Z95.1 Presence of aortocoronary bypass graft; Z87.891 Personal history of nicotine dependence; Z87.442 Personal history of urinary calculi; Z86.73 Personal history of transient ischemic attack (TIA), and cerebral infarction without residual deficits; Z85.21 Personal history of malignant neoplasm of larynx; Z92.3 Personal history of irradiation; Z82.49 Family history of ischemic heart disease and other diseases of the circulatory system
CPT/HCPCS: 36415; 62270; 70450; 71046; 80053; 80306; 81001; 82550; 82553; 82945; 83036; 83605; 84157; 84484; 85025; 85610; 85730; 87040; 87070; 87077; 87086; 87186; 87205; 87529; 87798; 88108; 89050; 93005; 96361; 96374; 99285

== ENCOUNTER 2018-12-25 12:57 | Emergency (ER) | payer MEDICARE, BC ==
[2018-12-25 13:03] VITALS: BP 152/80; PULSE 74; TEMP 97.9
--- NOTE | 2018-12-25 13:40 | XR ---
EXAMINATION TYPE: XR chest 2V DATE OF EXAM: 12/25/2018 HISTORY: Cough/pain. REFERENCE: Previous study dated 03/14/2018. FINDINGS: There has been a midline sternotomy. There is atelectasis or scarring at both lung bases. Lungs otherwise clear. Pleural space are clear. The heart is not enlarged. IMPRESSION: ATELECTASIS VERSUS SCARRING BOTH LUNG BASES.
--- NOTE | 2018-12-25 13:46 | ED ---
URI HPI - General Source: patient, RN notes reviewed Mode of arrival: ambulatory Limitations: no limitations <Dereck Menjivar - Last Filed: 12/25/18 13:41> <Estevan Nguyen - Last Filed: 12/25/18 13:57> - General Chief Complaint: Upper Respiratory Infection Stated Complaint: CHEST CONGESTION Time Seen by Provider: 12/25/18 13:10 - History of Present Illness Initial Comments: 78-year-old male presents emergency Department with chief complaint of cough congestion. Patient states symptoms started today. Patient states that a productive cough this morning that has resolved. Patient states that he was just concerned has he been 150s had open-heart surgery if he has any infection that he should be evaluated for pneumonia. Patient states that he believes he does have a cold if anything. Patient reports no fevers or chills denies any chest pain, headache, dizziness, nausea vomiting diarrhea constipation. Patient states he has mild seasonal ALLERGY issues. (Dereck Menjivar) - Related Data Home Medications Medication Instructions Recorded Confirmed Atorvastatin [Lipitor] 40 mg PO HS@2100 09/02/16 03/14/18 Cholecalciferol [Vitamin D3 (25 1,000 unit PO DAILY@89912/09/17 03/14/18 Mcg = 1000 Iu)] Doxazosin [Cardura] 2 mg PO HS@209912/09/17 03/14/18 Aspirin 162 mg PO DAILY@0900 03/14/18 03/14/18 Previous Rx's Medication Instructions Recorded Ascorbic Acid [Vitamin C] 1,000 mg PO DAILY #30 tablet 03/19/18 Metoprolol Succinate (ER) [Toprol 50 mg PO BID #0 tab.er.24h 03/19/18 XL] QUEtiapine [SEROquel] 50 mg PO HS tab 03/19/18 Rivastigmine 4.6MG/24Hr Patch 1 patch TRANSDERM Q24H #0 patch 03/19/18 [Exelon 4.6MG/24Hr Patch] hydrALAZINE HCL [Apresoline] 20 mg PO TID tab 03/19/18 Amoxic-Pot Clav 600-42.9MG/5Ml 10 ml PO Q12H #90 ml 03/20/18 [Augmentin 600-42.9 mg/5 ml Liquid] Allergies Allergy/AdvReac Type Severity Reaction Status Date / Time shellfish derived [Shrimp] Allergy Unknown Rash/Hives Verified 03/14/18 17:27 Review of Systems ROS Other: All systems not noted in ROS Statement are negative. <Dereck Menjivar - Last Filed: 12/25/18 13:41> ROS Other: All systems not noted in ROS Statement are negative. <Estevan Nguyen - Last Filed: 12/25/18 13:57> ROS Statement: Those systems with pertinent positive or pertinent negative responses have been documented in the HPI. 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 Mitral valve repair and left atrial appendage clip ligation on 10/26/2017. Past Anesthesia/Blood Transfusion Reactions: Previous Problems w/ Anesthesia Additional Past Anesthesia/Blood Transfusion Reaction / Comment(s): Patient has had violence when coming out of anesthesia Past Psychological History: No Psychological Hx Reported Smoking Status: Former smoker Past Alcohol Use History: Rare Past Drug Use History: None Reported - Past Family History Mother Family Medical History: Dementia, Myocardial Infarction ([place]) Additional Family Medical History / Comment(s): passed at 71 <Dereck Menjivar - Last Filed: 12/25/18 13:41> General Exam Limitations: no limitations General appearance: alert, in no apparent distress Head exam: Present: atraumatic, normocephalic, normal inspection Eye exam: Present: normal appearance, PERRL, EOMI. Absent: scleral icterus, conjunctival injection, periorbital swelling ENT exam: Present: normal exam, normal oropharynx, mucous membranes moist, TM's normal bilaterally Neck exam: Present: normal inspection, full ROM. Absent: tenderness, meningismus, lymphadenopathy Respiratory exam: Present: normal lung sounds bilaterally. Absent: respiratory distress, wheezes, rales, rhonchi, stridor Cardiovascular Exam: Present: regular rate, normal rhythm, normal heart sounds. Absent: systolic murmur, diastolic murmur, rubs, gallop, clicks Back exam: Absent: CVA tenderness (R), CVA tenderness (L) Neurological exam: Present: alert, oriented X3, CN II-XII intact Skin exam: Present: warm, dry, intact, normal color. Absent: rash <Dereck Menjivar - Last Filed: 12/25/18 13:41> Course <Estevan Nguyen - Last Filed: 12/25/18 13:57> Vital Signs 12/25/18 13:00 Temperature 97.9 F Pulse Rate 74 Respiratory 18 Rate Blood Pressure 152/80 O2 Sat by Pulse 98 Oximetry - Reevaluation(s) Reevaluation #1: 12/25/18 13:56 PA supervision: I proceed evaluate this case and a [id number] evaluation patient presents with complaints of upper aspect of her symptoms he was instructed to get evaluated because of his prior history of open-heart surgery. X-rays are unremarkable patient demonstrates no extremity. I do agree with the assessment and plan he will be discharged with outpatient follow-up. (Estevan Nguyen) Medical Decision Making <Dereck Menjivar - Last Filed: 12/25/18 13:41> - Medical Decision Making 6-year-old male presented for cough. Patient symptoms started today and have improved throughout the day. Chest x-ray reviewed no acute abnormality. Vitals are stable. Patient follow-up with PCP and Thursday and return for any worsening symptoms. Patient has a viral URI. (Dereck Menjivar) Disposition Is patient prescribed a controlled substance at d/c from ED?: No Time of Disposition: 13:46 <Dereck Menjivar - Last Filed: 12/25/18 13:41> <Estevan Nguyen - Last Filed: 12/25/18 13:57> Clinical Impression: Upper respiratory infection Disposition: HOME SELF-CARE Condition: Stable Instructions (If sedation given, give patient instructions): Upper Respiratory Infection (ED) Additional Instructions: Please return to the Emergency Department if symptoms worsen or any other concerns. Referrals: Chris Lynn Jr, [Primary Care Provider] - 1-2 days
[2018-12-25 14:11] VITALS: RESP 20
== END 2018-12-25 14:00 | disposition home or self-care (01) ==
LOC: EC 12:57
DX: J06.9 Acute upper respiratory infection, unspecified (principal); I25.10 Atherosclerotic heart disease of native coronary artery without angina pectoris; E78.5 Hyperlipidemia, unspecified; I10 Essential (primary) hypertension; N40.0 Benign prostatic hyperplasia without lower urinary tract symptoms; Z87.09 Personal history of other diseases of the respiratory system; Z85.21 Personal history of malignant neoplasm of larynx; Z95.1 Presence of aortocoronary bypass graft; Z87.891 Personal history of nicotine dependence; Z79.82 Long term (current) use of aspirin; Z79.899 Other long term (current) drug therapy; Z91.013 Allergy to seafood
CPT/HCPCS: 71046; 99283

== ENCOUNTER → 2019-03-15 | Outpatient (CLI) | payer MEDICARE, BC ==
[2019-03-15 17:41] LABS: African American GFR (CKD) 54.6 (60.0-200.0); Albumin 4.2 g/dL (3.80-4.90); Albumin/Globulin Ratio 2.33 (1.60-3.17); Anion Gap 5.4 mmol/L (4.00-12.00); Calcium 9.1 mg/dL (8.7-10.3); Carbon Dioxide 24.6 mmol/L (21.6-31.8); Chol/HDL Ratio 2.51; Globulin 1.8 g/dL (1.6-3.3); LDL Cholesterol,Calculated 44.8 mg/dL (0.0-131.0); Potassium 4.7 mmol/L (3.5-5.5); Total Bilirubin 0.8 mg/dL (0.3-1.2); VLDL Calculation 17.2 mg/dL (5.00-40.00)
[2019-03-15 19:01] LABS: Hemoglobin A1C 6.2 % (4.0-6.0)
== END ==
LOC: LABWHC1 09:04
PROVIDERS: ATTEND Internal Medicine Endocrinology, Diabetes & Metabolism
DX: E11.9 Type 2 diabetes mellitus without complications (principal)
CPT/HCPCS: 36415; 80053; 80061; 82043; 82570; 83036; 84443

== ENCOUNTER 2019-04-05 00:40 | Emergency (ER) | payer MEDICARE, BC ==
[2019-04-05] MEDS ORDERED: ASPIRIN 81 MG PO STA (01:03)
--- NOTE | 2019-04-05 01:21 | ED ---
Chest Pain HPI - General Chief Complaint: Chest Pain Stated Complaint: Diff Breathing Time Seen by Provider: 04/05/19 01:03 Source: patient, family Mode of arrival: ambulatory Limitations: no limitations - History of Present Illness Initial Comments: Nick is a pleasant 78yo male who presents to the ER today for evaluation of burning pain in his chest and throat and a sour taste in his mouth. Patient reports that his acid reflux, he takes PPIs daily. Patient reports that he ate sweet and sour chicken for dinner around 5 PM, when he lay down to go to bed he felt burning from his stomach into his throat. Patient reports he feels a burning sensation in his back of his throat. Patient states he tried taking Tums but didn't have any relief so he decided to come to the ER for further evaluation. Patient does have an extensive cardiac history and did have a CABG years ago, he has not been experiencing any exertional chest pain, palpitations, shortness of breath. The discomfort he is experiencing this evening began after eating a large meal and laying down to bed. It is not relieved with rest. It somewhat better now that he sitting straight up. - Related Data Home Medications Medication Instructions Recorded Confirmed Atorvastatin [Lipitor] 40 mg PO HS@2100 09/02/16 03/14/18 Cholecalciferol [Vitamin D3 (25 1,000 unit PO DAILY@89912/09/17 03/14/18 Mcg = 1000 Iu)] Doxazosin [Cardura] 2 mg PO HS@2100 12/09/17 03/14/18 Aspirin 162 mg PO DAILY@89903/14/18 03/14/18 Previous Rx's Medication Instructions Recorded Ascorbic Acid [Vitamin C] 1,000 mg PO DAILY #30 tablet 03/19/18 Metoprolol Succinate (ER) [Toprol 50 mg PO BID #0 tab.er.24h 03/19/18 XL] QUEtiapine [SEROquel] 50 mg PO HS tab 03/19/18 Rivastigmine 4.6MG/24Hr Patch 1 patch TRANSDERM Q24H #0 patch 03/19/18 [Exelon 4.6MG/24Hr Patch] hydrALAZINE HCL [Apresoline] 20 mg PO TID tab 03/19/18 Amoxic-Pot Clav 600-42.9MG/5Ml 10 ml PO Q12H #90 ml 03/20/18 [Augmentin 600-42.9 mg/5 ml Liquid] Allergies Allergy/AdvReac Type Severity Reaction Status Date / Time shellfish derived [Shrimp] Allergy Unknown Rash/Hives Verified 04/05/19 00:47 Review of Systems ROS Statement: Those systems with pertinent positive or pertinent negative responses have been documented in the HPI. ROS Other: All systems not noted in ROS Statement are negative. EKG Findings - EKG Comments: EKG Findings:: EKG was obtained due to complaint of chest pain, EKG obtained at 12:55 AM, rate of 60 rhythm is sinus tach normal axis are normal intervals NC 188, QRS 88, QTC 446 there are no acute ST elevations or depressions no evidence of acute ischemia or infarction. 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 Mitral valve repair and left atrial appendage clip ligation on 10/26/2017. Past Anesthesia/Blood Transfusion Reactions: Previous Problems w/ Anesthesia Additional Past Anesthesia/Blood Transfusion Reaction / Comment(s): Patient has had violence when coming out of anesthesia Past Psychological History: No Psychological Hx Reported Smoking Status: Former smoker Past Alcohol Use History: Rare Past Drug Use History: None Reported - Past Family History Mother Family Medical History: Dementia, Myocardial Infarction ([place]) Additional Family Medical History / Comment(s): passed at 71 General Exam - General Exam Comments Initial Comments: Physical Exam GENERAL: Patient is well-developed and well-nourished. Patient is nontoxic and well- hydrated and is in no distress. HENT: Normocephalic, Atraumatic. Normal oropharynx, no uvular edema EYES: PERRL, EOMI PULMONARY: Unlabored respirations. No audible rales rhonchi or wheezing was noted. CARDIOVASCULAR: There is a regular rate and rhythm without any murmurs gallops or rubs. Well-healed sternotomy scar ABDOMEN: Soft and nontender with normal bowel sounds. No epigastric tenderness to palpation SKIN: Skin is clear with no lesions or rashes and otherwise unremarkable. : Deferred NEUROLOGIC: Patient is alert and oriented x3. Moving all extremities spontaneously MUSCULOSKELETAL: Normal extremities with adequate strength and full range of motion. No lower extremity swelling or edema. No calf tenderness. PSYCHIATRIC: Normal psychiatric evaluation. Limitations: no limitations Course Vital Signs 04/05/19 04/05/19 04/05/19 00:44 01:56 02:44 Temperature 97.6 F 98.6 F Pulse Rate 72 64 Respiratory 22 18 Rate Blood Pressure 177/88 140/82 128/82 O2 Sat by Pulse 96 98 100 Oximetry Chest Pain MDM - MDM Patient was seen and evaluated history is obtained from patient and at bedside History and physical exam sound very much like GERD however given the patient's advanced age and cardiac history EKG and troponins were obtained Patient has been experiencing this for a number of hours. He was given aspirin as well as GI cocktail EKG non-ischemic, chest x-ray and troponin were unremarkable. Patient did have significant improvement in the burning in his chest after GI cocktail he did still have some sore throat but no other complaints. I offered to keep the patient in observation for further evaluation and serial troponins and evaluation by cardiology. Patient declined stating that he like to be discharged home. Patient comp of that this is acid reflux and not related to his heart. Patient and would like to be discharged home. Aftercare decision making decision was made to allow the patient discharged home with close return parameters and follow-up. Disposition Clinical Impression: Atypical chest pain, Acid reflux Disposition: HOME SELF-CARE Condition: Stable Instructions (If sedation given, give patient instructions): Gastroesophageal Reflux Disease in Children (ED) Is patient prescribed a controlled substance at d/c from ED?: No Referrals: Chris Lynn Jr, [Primary Care Provider] - 1-2 days
[2019-04-05 01:26] LABS: Basophils # (A) 0.1 k/uL (0-0.2); Basophils % (A) 1 %; Eosinophils # (A) 0.3 k/uL (0-0.7); Eosinophils % (A) 5 %; HGB 14.8 gm/dL (13.0-17.5); Lymphocytes # (A) 1.9 k/uL (1.0-4.8); Lymphocytes % (A) 27 %; MCH 31.1 pg (25.0-35.0); MCHC 32.8 g/dL (31.0-37.0); MCV 94.8 fL (80.0-100.0); Mean Platelet Volume 8.2; Monocytes # (A) 0.6 k/uL (0-1.0); Monocytes % (A) 8 %; Neutrophils # (A) 3.8 k/uL (1.3-7.7); Neutrophils % (A) 55 %; Platelet Count 233 k/uL (150-450); RBC 4.75 m/uL (4.30-5.90); RDW 13.7 % (11.5-15.5); WBC 6.9 k/uL (3.8-10.6)
--- NOTE | 2019-04-05 01:32 | XR ---
EXAMINATION TYPE: XR chest 2V DATE OF EXAM: 04/05/2019 COMPARISON: 12/25/2018 HISTORY: Difficulty breathing TECHNIQUE: Frontal and lateral views of the chest are obtained. FINDINGS: Heart is normal. Lungs are clear of infiltrate. There are sternal wires. There is spurring in the thoracic spine. There are no hilar masses. Bony thorax is intact. IMPRESSION: No active cardiopulmonary disease. Atheromatous aorta. No change.
[2019-04-05 01:34] LABS: Prothrombin Time 10.3 sec (9.0-12.0)
[2019-04-05] MEDS ORDERED: FAMOTIDINE 20 MG/2 ML VIAL IV STA (01:35)
[2019-04-05] MEDS ORDERED: MAG HYDROX/AL HYDROX/SIMETH 30 ML, HYOSCYAMINE ELIXIR 10 ML, CIMETIDINE HCL 300 MG, LID... PO STA ×4 (01:35)
[2019-04-05 01:40] LABS: Albumin 3.9 g/dL (3.5-5.0); Calcium 9.1 mg/dL (8.4-10.2); Magnesium 1.9 mg/dL (1.6-2.3); Potassium 4.1 mmol/L (3.5-5.1); Total Bilirubin 0.5 mg/dL (0.2-1.3); Total Protein 6.5 g/dL (6.3-8.2)
[2019-04-05 02:45] VITALS: BP 128/82; PULSE 64; RESP 18; TEMP 98.6
== END 2019-04-05 02:42 | disposition home or self-care (01) ==
LOC: EC 00:40
DX: K21.9 Gastro-esophageal reflux disease without esophagitis (principal); I25.10 Atherosclerotic heart disease of native coronary artery without angina pectoris; E78.5 Hyperlipidemia, unspecified; I10 Essential (primary) hypertension; N40.0 Benign prostatic hyperplasia without lower urinary tract symptoms; I34.0 Nonrheumatic mitral (valve) insufficiency; Z87.09 Personal history of other diseases of the respiratory system; Z85.21 Personal history of malignant neoplasm of larynx; Z98.890 Other specified postprocedural states; Z95.1 Presence of aortocoronary bypass graft; Z87.891 Personal history of nicotine dependence; Z82.49 Family history of ischemic heart disease and other diseases of the circulatory system; Z79.82 Long term (current) use of aspirin; Z79.899 Other long term (current) drug therapy; Z91.013 Allergy to seafood; Z53.29 Procedure and treatment not carried out because of patient's decision for other reasons
CPT/HCPCS: 36415; 71046; 80053; 83735; 83880; 84484; 85025; 85610; 85730; 93005; 96374; 99285

== ENCOUNTER → 2020-01-04 | Outpatient (CLI) | payer MEDICARE, BC ==
[2020-01-04 16:25] LABS: African American GFR (CKD) 49.9 (60.0-200.0); Albumin 4.1 g/dL (3.80-4.90); Albumin/Globulin Ratio 2.16 (1.60-3.17); Anion Gap 5.9 mmol/L (4.00-12.00); Calcium 9.3 mg/dL (8.7-10.3); Carbon Dioxide 27.1 mmol/L (21.6-31.8); Chol/HDL Ratio 2.72; Globulin 1.9 g/dL (1.6-3.3); LDL Cholesterol,Calculated 50.4 mg/dL (0.0-131.0); Potassium 4.3 mmol/L (3.5-5.5); Total Bilirubin 0.8 mg/dL (0.2-1.2); VLDL Calculation 16.6 mg/dL (5.00-40.00)
[2020-01-04 18:11] LABS: Hemoglobin A1C 6.7 % (4.0-6.0)
== END | disposition home or self-care (01) ==
LOC: LABWHC1 07:56
PROVIDERS: ATTEND Internal Medicine Endocrinology, Diabetes & Metabolism
DX: E11.65 Type 2 diabetes mellitus with hyperglycemia (principal)
CPT/HCPCS: 36415; 80053; 80061; 82043; 82570; 83036; 84443

== ENCOUNTER → 2021-03-06 | Outpatient (CLI) | payer MEDICARE, BC ==
--- NOTE | 2021-03-06 11:08 | XR ---
EXAMINATION TYPE: XR chest 2V DATE OF EXAM: 03/06/2021 COMPARISON: 04/05/19 HISTORY: Shortness of breath TECHNIQUE: Frontal and lateral views of the chest are obtained. FINDINGS: Scattered senescent parenchymal changes noted. Hyperinflation compatible with COPD. No evidence for infiltrate. No evidence for atelectasis. Heart size is stable. Mediastinal structures are stable and grossly unremarkable. No evidence for hilar prominence. Degenerative changes dorsal spine. IMPRESSION: 1. No evidence for acute pulmonary disease.
== END | disposition home or self-care (01) ==
LOC: RADXRMAIN 09:48
PROVIDERS: ATTEND Family Medicine
DX: R06.02 Shortness of breath (principal)
CPT/HCPCS: 71046

== ENCOUNTER → 2021-10-01 | Outpatient (CLI) | payer MEDICARE ==
--- NOTE | 2021-10-01 11:27 | CT ---
EXAMINATION TYPE: CT angio chest DATE OF EXAM: 10/01/2021 COMPARISON: CT dated 11/05/2010 HISTORY: Aortic Ectasia CT DLP: 640 mGy.cm. Automated Exposure Control for Dose Reduction was Utilized. TECHNIQUE AND CONTRAST: CTA scan of the thorax is performed without and with IV Contrast, patient injected with 80 mL of Isov ue 370, CT aortogram protocol. MIP and 3-D Images are created on an independent workstation and rev iewed. FINDINGS: The aortic annulus measures 2.6 cm. The sinus of Valsalva measures 3.[address] junction measures 3 .2 cm. Dilated ascending aorta measuring up to 4.4 cm. Focal nipple-like projection is seen at the ri ght anterolateral aspect of the ascending aorta. The aortic arch measures up to 3.3 cm. The descendin g thoracic aorta measures 3.6 cm. The upper abdominal aorta measures 2.8 cm. Scattered arterial atherosclerotic calcification with atheromatous plaques (with some ulcerated plaqu es) mainly seen involving the descending thoracic aorta. Patent major mediastinal arteries. No centra l or major pulmonary embolism. No gross cardiomegaly. No pericardial effusion. Coronary arterial athe rosclerotic calcifications with sternotomy sutures and suspected previous CABG. Large right-sided pleural effusion with adjacent subsegmental pulmonary atelectasis. Minimal bilatera l apical pulmonary fibrotic changes. Grossly unremarkable lungs otherwise. No left-sided pleural effu rosas. No nodules larger than 5 mm. Patent trachea and main bronchi. 13 mm precarinal lymph node with 11 mm subcarinal lymph node. Subcentimeter bilateral hilar lymph nodes, nonspecific. No other pathologically enlarged lymph nodes in the chest. Suspected cholelithiasis. Bilateral perine phric fat stranding, nonspecific. 2 mm nonobstructing calculus at the upper pole of the left kidney. Atrophic pancreas. Degenerative changes of the thoracic spine. Suspected chronic fracture of the infe rior aspect of the sternum. IMPRESSION: Ascending aortic aneurysm as described above, for cardiothoracic surgery consultation. Other incident al findings as detailed above.
== END | disposition home or self-care (01) ==
LOC: RADCTMAIN 08:46
PROVIDERS: ATTEND Internal Medicine Interventional Cardiology
DX: I71.2 Thoracic aortic aneurysm, without rupture (principal)
CPT/HCPCS: 82565; 84520; 71275; 36415; Q9967

== ENCOUNTER → 2021-10-10 | Day surgery (SDC) | payer MEDICARE ==
[~2021-10-10] MED LIST changes: -ALBUMIN HUMAN 25% 50 ML IV PRN; -ALBUMIN HUMAN 5% 500 ML IVPB PRN; -ASPIRIN 325 MG TAB PO PRN; -ATORVASTATIN 10 MG TAB PO PRN; -CALCIUM CHLORIDE 100 MG/ML 10 ML SYRINGE IV PRN; -CHLORHEXIDINE GLUCONATE 15 ML CUP MUCOUS MEM PRN; -CLEVIDIPINE BUTYRATE 25 MG in EMPTY BAG 1 BAG IV PRN; -DEXTROSE 5% IN WATER 1,000 ML with POTASSIUM CHLORIDE 110 MEQ, MAGNESIUM SULFATE 16 MEQ... IV PRN; -DEXTROSE 5% IN WATER 1,000 ML with POTASSIUM CHLORIDE 25 MEQ, SODIUM CHLORIDE 2.5MEQ/ML... IV PRN; -HEPARIN SODIUM 1,000 UN/ML (10ML VL) IV PRN; -HEPARIN SODIUM,PORCINE 5,000 UNIT in SODIUM CHLORIDE 0.9% 500 ML IV PRN; -HEPARIN SODIUM,PORCINE 5,000 UNIT/ML 1 ML VIAL SQ PRN; -INSULIN REGULAR 100 UNIT in SODIUM CHLORIDE 0.9% 100 ML IV PRN; -LACTATED RINGERS 1,000 ML IV PRN; -MAGNESIUM SULFATE MG 500 MG/ML VIAL IV PRN; -MANNITOL 25% 12.5 GM/50 ML VIAL IV PRN; -METOPROLOL TARTRATE 12.5 MG TAB PO PRN; -MUPIROCIN 2% OINT 22 GM TUBE NASAL PRN; -NITROGLYCERIN-D5W PMX 25 MG/250 ML BTL IV PRN; -NITROGLYCERIN-D5W PMX 50 MG in DEXTROSE/WATER 1 250ML.BAG IV PRN; -NOREPINEPHRIN 4 MG-0.9% NS PMX 4 MG/250 ML ML IV PRN; -PAPAVERINE 360 MG in SODIUM CHLORIDE 0.9% 90 ML IV PRN; -PHENYLEPHRINE 40 MG in SODIUM CHLORIDE 0.9% 250 ML IV PRN; -PHENYLEPHRINE-0.9% NACL SYG 1 MG/10 ML SYRINGE IV PRN; -PROPOFOL 1,000 MG/100 ML VIAL IV PRN; -PROTAMINE SULFATE 10 MG/ML 25 ML VIAL IV PRN; -PROTAMINE SULFATE 250 MG in EMPTY BAG 1 BAG IV PRN; -SODIUM BICARB 8.4% 50 ML SYR (1 MEQ/ML) IV PRN; -SODIUM CHLORIDE 0.9% 1,000 ML IV PRN; +SODIUM CHLORIDE 0.9% 500 ML 500 ML in EMPTY BAG 1 BAG IV PRN; -TRANEXAMIC ACID 2,000 MG in SODIUM CHLORIDE 0.9% 180 ML IV PRN; -ceFAZolin 1,000 MG in SODIUM CHLORIDE 0.9% IRRIGATIO 1,000 ML IRRIGATION PRN; -ceFAZolin 2,000 MG in SODIUM CHLORIDE 0.9% 30 ML IVPB PRN
[2021-10-10 11:46] VITALS: TEMP 98.1
[2021-10-10 11:51] VITALS: PULSE 83
--- NOTE | 2021-10-10 13:09 | PCN ---
PROCEDURE NOTE PREOP DIAGNOSIS: Right-sided pleural effusion. POSTOP DIAGNOSIS: Right sided pleural effusion. Indication Pleural effusion. A time-out was completed verifying correct patient, procedure, site, positioning , and implant (s) or special equipment if applicable. Ultrasound guidance was/was not used and appropriate fluid pocket was identified and marked. Patient was positioned, prepped and draped in usual sterile fashion. Lidocaine was used to anesthetize the area. A Thoracentesis catheter was introduced into the pleural space and fluid was removed. Blood loss was none. A chest x-ray was ordered to evaluate for pneumothorax. Total Fluid Removed: 850 mL Color of Fluid: Turbid dark yellow. Fluid was/was not sent for appropriate laboratory tests. Patient tolerated the procedure well and there were no complications. This was done on the right side. This was done without ultrasound markings. Total amount of fluid was 850 mL and the fluid was turbid dark yellowish in color. No complications. Chest x-rays to follow. No ultrasound markings. MMODL / IJN: [id number] /
[2021-10-10 13:13] VITALS: BP 161/91; RESP 18
--- NOTE | 2021-10-10 13:13 | XR ---
EXAMINATION TYPE: XR chest 1V portable DATE OF EXAM: 10/10/2021 Comparison: 03/06/2021, CT 10/01/2021 Clinical History: 81-year-old male post right thoracentesis Findings: Median sternotomy wires are present. Heart upper limits of normal in size. Hyperinflation. Residual s mall right pleural effusion. Patchy opacity right lower lung. More linear densities at the left base suggesting scarring or atelectasis. No appreciable pneumothorax. Impression: Borderline heart size and COPD. Residual small right pleural effusion with adjacent atelectasis and/o r consolidation.
[2021-10-11 00:13] LABS: LDH, Body Fluid Source Thoracentesis Fluid; T. Protein, Body Fluid Source Thoracentesis Fluid; Total Protein, Body Fluid 3760 mg/dL
[2021-10-11 00:14] LABS: Glucose, BF Source Thoracentesis Fluid; Glucose, Body Fluid 111 mg/dL
[2021-10-11 00:46] LABS: Appearance,BF Blood Tinged
== END ==
LOC: PROCWHC3 11:00
PROVIDERS: ATTEND Internal Medicine Critical Care Medicine
DX: J90 Pleural effusion, not elsewhere classified (principal)
CPT/HCPCS: 32554; 71045; 82945; 83615; 84157; 87070; 87075; 87116; 87205; 87206; 88108; 88305; 89050

== ENCOUNTER → 2022-02-17 | Outpatient (CLI) | payer MEDICARE ==
--- NOTE | 2022-02-17 16:07 | CT ---
EXAMINATION TYPE: CT chest wo con CT DLP: 825.60 mGycm, Automated exposure control for dose reduction was used. DATE OF EXAM: 02/17/2022 3:29 PM Reason for study: Pleural effusion COMPARISON: CTA chest 10/01/2021. TECHNIQUE: Multiple thin axial images were obtained through the chest at selected intervals. Prone and supine in spiratory were submitted for review. Please note that due to interval acquisition images as defined b y high-resolution CT protocol the entire lung parenchyma is not evaluated, therefore small nodular de nsities may not be visualized. Evaluation of vascular structures, viscera and lymphatics is limited due to lack of intravenous contrast administration. FINDINGS: LUNGS: There is no evidence of interstitial thickening, significant groundglass opacity, honeycombing or architectural distortion in the lungs. No bronchiectasis. Lingular and right upper lobe scarring. No acute area of infiltrative or consolidative change. LARGE AIRWAYS: Central airways are patent. PLEURA: No pneumothorax. Trace right pleural effusion extending into the right major fissure with natan ear atelectasis. HEART AND PERICARDIUM: Heart is normal in size. There is no pericardial effusion. Coronary artery rey cifications and/or stents. Mitral annulus and aortic valvular calcifications. MEDIASTINUM AND PRITESH: No mediastinal or hilar lymphadenopathy or soft tissue mass. Post surgical mcneill ges. VESSELS: Ascending thoracic aorta measures up to 4.4 cm which is stable. Atherosclerotic calcificati on of the aorta. CHEST WALL AND DIAPHRAGM: Asymmetric left chest wall gynecomastia. LOWER NECK: Normal. UPPER ABDOMEN: Nonobstructive bilateral renal calculi measuring up to 3 mm on the left. Cholelithiasi s. MUSCULOSKELETAL: No acute fracture. Multilevel degenerative changes of the visualized spine. Median sternotomy wires. IMPRESSION: 1. No evidence for interstitial lung disease. 2. Trace right pleural effusion which is decreased from prior examination. 3. Stable ascending thoracic aortic aneurysm. 4. Nonobstructive bilateral renal calculi. 5. Cholelithiasis.
== END | disposition home or self-care (01) ==
LOC: RADCTMAIN 14:53
PROVIDERS: ATTEND Internal Medicine Critical Care Medicine
DX: J90 Pleural effusion, not elsewhere classified (principal)
CPT/HCPCS: 71250

== ENCOUNTER → 2022-10-01 | Outpatient (CLI) | payer MEDICARE ==
--- NOTE | 2022-10-01 14:54 | CT ---
EXAMINATION TYPE: CT angio chest DATE OF EXAM: 10/01/2022 2:22 PM COMPARISON: 02/17/2022, 10/01/2021 HISTORY: Thoracic aortic aneurysm without rupture. CT DLP: 671.7 mGycm Automated exposure control for dose reduction was used. CONTRAST: CTA scan of the thorax is performed without and with IV Contrast, patient injected with 80ml mL of Is ovue 370, pulmonary embolism protocol. . FINDINGS: LUNGS: 2 mm nodule right upper lobe axial image 34. 1 mm subpleural nodule axial image 31.. Biapical pleural effusion with small right pleural effusion and subsegmental consolidation. There is nodular p leural-based thickening within the right upper lobe measuring 1.4 cm. There is mild emphysematous james nges. Biapical pleural thickening. MEDIASTINUM: A 1.3 cm pretracheal lymph node is stable. Coronary artery calcification seen. Atrial ch alcon enlargement suspected. Aortic valvular calcification noted. Sternotomy changes noted. AORTA: The aortic annulus measures 2.6 cm. The sinus of Valsalva measures 3.[address] junction me asures 3.2 cm. Dilated ascending aorta measuring up to 4.4 cm. Focal nipple-like projection is seen a t the right anterolateral aspect of the ascending aorta. The aortic arch measures up to 3.3 cm. The d escending thoracic aorta measures 3.6 cm. The upper abdominal aorta measures 2.8 cm. OTHER: Bilateral nonspecific perinephric edema with punctate nonobstructing renal calculi. Numerous tiny gallstones suspected. Hypertrophic and degenerative changes of the spine. Subcentimeter right th yroid nodule stable. There is a small hiatal hernia. IMPRESSION: 1. Stable ascending thoracic aortic aneurysm measuring 4.4 cm in greatest dimension 2. There is a nodular area of pleural-based density measuring 1.4 cm but measures 1 Hounsfield units and therefore felt to be benign. Finding is slightly more prominent than on prior exam. Short-term fo llow-up CT scan could be obtained to confirm stability and approximately 3 months. 3. Sub-5mm pulmonary nodules have benign appearance. 4. Small right pleural effusion 5. Cholelithiasis 6. Nonobstructing punctate left renal calculus.
== END | disposition home or self-care (01) ==
LOC: RADCTMAIN 12:55
PROVIDERS: ATTEND Thoracic Surgery (Cardiothoracic Vascular Surgery)
DX: I71.21 Aneurysm of the ascending aorta, without rupture (principal); J90 Pleural effusion, not elsewhere classified; K80.20 Calculus of gallbladder without cholecystitis without obstruction; N20.0 Calculus of kidney; J43.9 Emphysema, unspecified; I25.10 Atherosclerotic heart disease of native coronary artery without angina pectoris; K44.9 Diaphragmatic hernia without obstruction or gangrene; R91.8 Other nonspecific abnormal finding of lung field
CPT/HCPCS: 82565; 84520; 71275; 36415; Q9967

== ENCOUNTER 2023-01-05 11:38 | Observation (INO) | payer MEDICARE ==
[2023-01-05] MEDS ORDERED: SODIUM CHLORIDE 0.9% 500 ML 500 ML IV STA (12:41)
--- NOTE | 2023-01-05 12:44 | ED ---
General Adult HPI - General Chief complaint: Neuro Symptoms/Deficit Stated complaint: abn speech Time Seen by Provider: 01/05/23 12:25 Source: patient, EMS, RN notes reviewed, old records reviewed Mode of arrival: EMS Limitations: no limitations - History of Present Illness Initial comments: This is an 82-year-old male who presents emergency department with past medical history significant for diabetes mitral valve replacement hypertension high cholesterol. Patient also had a long-standing history of smoking but he hasn't smoked in years. Patient comes in today because when he was coming back from working out at the gym he felt his vision was a little off he did not feel like he was going to pass out he did not feel like things were moving he just felt like it was a little bit off. Patient states when he got home his noticed that his speech was slurred and it lasted about 20-30 minutes. Patient had no drooping face had no weakness patient currently has no symptoms whatsoever and family is in agreement patient never expressed any chest pain difficult breathing shortest breath patient had no fever chills or cough - Related Data Home Medications Medication Instructions Recorded Confirmed Atorvastatin [Lipitor] 10 mg PO HS 09/02/16 01/05/23 Doxazosin [Cardura] 2 mg PO HS 12/09/17 01/05/23 Aspirin 81 mg PO DAILY 03/14/18 01/05/23 Albuterol Sulfate [Proair Hfa] 1 puff INHALATION RT-Q4H PRN 10/10/21 01/05/23 carvediloL [Coreg] 3.125 mg PO BID 10/10/21 01/05/23 Allergies Allergy/AdvReac Type Severity Reaction Status Date / Time shellfish derived [Shrimp] Allergy Unknown Rash/Hives Verified 01/05/23 16:37 cat dander Allergy Unknown Verified 01/05/23 16:37 Review of Systems ROS Statement: Those systems with pertinent positive or pertinent negative responses have been documented in the HPI. ROS Other: All systems not noted in ROS Statement are negative. 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 PLEURAL EFFUSIONS. History of Any Multi-Drug Resistant Organisms: None Reported Past Surgical History: Cardiac Valve Replacement, Coronary Bypass/CABG, Hernia Repair, Orthopedic Surgery Additional Past Surgical History / Comment(s): right rotator cuff, lithotrpsy kim, right side inguinal hernia repair, kim lens implants. Mitral valve repair and left atrial appendage clip ligation on 10/26/2017. Past Anesthesia/Blood Transfusion Reactions: Previous Problems w/ Anesthesia Additional Past Anesthesia/Blood Transfusion Reaction / Comment(s): Patient has had episodes violence when coming out of anesthesia Past Psychological History: No Psychological Hx Reported Smoking Status: Former smoker Past Alcohol Use History: Rare Past Drug Use History: None Reported - Past Family History Mother Family Medical History: Dementia, Myocardial Infarction ([place]) Additional Family Medical History / Comment(s): passed at 71 General Exam - General Exam Comments Initial Comments: GENERAL: Patient is well-developed and well-nourished. Patient is nontoxic and well- hydrated and is in no acute distress. ENT: Neck is soft and supple. No significant lymphadenopathy is noted. Oropharynx is clear. Moist mucous membranes. Neck has full range of motion without eliciting any pain. EYES: The sclera were anicteric and conjunctiva were pink and moist. Extraocular movements were intact and pupils were equal round and reactive to light. Eyelids were unremarkable. PULMONARY: Unlabored respirations. Good breath sounds bilaterally. No audible rales rhonc hi or wheezing was noted. CARDIOVASCULAR: There is a regular rate and rhythm without any murmurs gallops or rubs. ABDOMEN: 1 area of slight tenderness on the left lower quadrant. SKIN: Skin is clear with no lesions or rashes and otherwise unremarkable. NEUROLOGIC: Patient is alert and oriented x3. Cranial nerves II through XII are grossly intact. Motor and sensory are also intact. Normal speech, volume and content. Symmetrical smile. MUSCULOSKELETAL: Normal extremities with adequate strength and full range of motion. No lower extremity swelling or edema. No calf tenderness. LYMPHATICS: No significant lymphadenopathy is noted PSYCHIATRIC: Normal psychiatric evaluation. Limitations: no limitations Course Vital Signs 01/05/23 01/05/23 01/05/23 11:53 11:57 12:30 Temperature 98.1 F Pulse Rate 76 74 72 Respiratory 16 16 13 Rate Blood Pressure 158/108 158/108 157/98 O2 Sat by Pulse 95 96 96 Oximetry 01/05/23 01/05/23 01/05/23 13:00 13:30 14:00 Temperature Pulse Rate 82 80 Respiratory 18 20 4 L Rate Blood Pressure 175/106 150/93 164/101 O2 Sat by Pulse Oximetry 01/05/23 01/05/23 01/05/23 14:30 15:00 15:30 Temperature Pulse Rate 84 78 Respiratory 20 13 Rate Blood Pressure 172/107 159/96 O2 Sat by Pulse 94 L Oximetry 01/05/23 01/05/23 01/05/23 16:00 16:30 17:00 Temperature Pulse Rate 76 75 72 Respiratory 12 20 22 Rate Blood Pressure 158/95 162/121 167/105 O2 Sat by Pulse 96 Oximetry Medical Decision Making - Medical Decision Making EKG was interpreted by myself shows a sinus rhythm with occasional PAC at 70 bpm WA interval 157 QRS is 84 QT interval 35 QTC is 418. Patient's EKG shows no ST segment elevation or depression. Was pt. sent in by a medical professional or institution (, PA, BUILDING ECONOMIST, urgent care, hospital, or custodial...) When possible be specific @ No Did you speak to anyone other than the patient for history (EMS, parent, family, police, friend...)? What history was obtained from this source @ - was there and gave quite a bit of the history of today's events Did you review nursing and triage notes (agree or disagree)? Why? @ -I reviewed and agree with nursing and triage notes Were old charts reviewed (outside hosp., previous admission, EMS record, old EKG, old radiological studies, urgent care reports/EKG's, custodial records)? Report findings @ -I reviewed prior charts in prior laboratory on this patient Differential Diagnosis (chest pain, altered mental status, abdominal pain women, abdominal pain men, vaginal bleeding, weakness, fever, dyspnea, syncope, headache, dizziness, GI bleed, back pain, seizure, CVA, palpatations, mental health, musculoskeletal)? @ -Differential CVA Ischemic stroke, hemorrhagic stroke, brain tumor, atypical migraine, Wernicke's encephalopathy, seizure, multiple sclerosis, meningitis, encephalitis, hypoglycemia, Guillain-Erwin, electrolytes disturbance, myasthenia gravis.... This is not meant to be an all-inclusive list EKG interpreted by me (3pts min.). @ -As above X-rays interpreted by me (1pt min.). @ -Chest x-ray shows no acute abnormality CT interpreted by me (1pt min.). @ -CT of the brain shows no acute abnormality CT angiogram of the head and neck show no acute abnormality U/S interpreted by me (1pt. min.). @ -None done What testing was considered but not performed or refused? (CT, X-rays, U/S, labs)? Why? @ -None What meds were considered but not given or refused? Why? @ -None Did you discuss the management of the patient with other professionals (professionals i.e. , PA, BUILDING ECONOMIST, lab, RT, psych nurse, case management social worker, tool and die repairer, teacher, sba business development officer, case operator)? Give summary @ -I spoke with Dr. Lynn he agreed to admit the patient admitted the patient I consulted Dr. Nguyen per Dr. Lynn's request I consulted neurology Was smoking cessation discussed for >3mins.? @ -No Was critical care preformed (if so, how long)? @ -No Were there social determinants of health that impacted care today? How? (Homelessness, low income, unemployed, alcoholism, drug addiction, transportation, low edu. Level, literacy, decrease access to med. care, fdc, rehab)? @ -No Was there de-escalation of care discussed even if they declined (Discuss DNR or withdrawal of care, Hospice)? DNR status @ -No What co-morbidities impacted this encounter? (DM, HTN, Smoking, COPD, CAD, Cancer, CVA, ARF, Chemo, Hep., AIDS, mental health diagnosis, sleep apnea, morbid obesity)? @ -None Was patient admitted / discharged? Hospital course, mention meds given and route, prescriptions, significant lab abnormalities, going to OR and other pertinent info. @ -Patient remained asymptomatic felt his ED course. Patient had a normal CT and a normal CT angiogram of the head and neck. Patient's lab work was essentially normal. I spoke with Dr. Lynn we will admit him and consult Dr. Reid and Dr. Gutierrez Undiagnosed new problem with uncertain prognosis? @ -No Drug Therapy requiring intensive monitoring for toxicity (Heparin, Nitro, Insulin, Cardizem)? @ -No Were any procedures done? @ -No Diagnosis/symptom? @ -TIA Acute, or Chronic, or Acute on Chronic? @ -Acute Uncomplicated (without systemic symptoms) or Complicated (systemic symptoms)? @ -Complicated Side effects of treatment? @ -No Exacerbation, Progression, or Severe Exacerbation? @ -No Poses a threat to life or bodily function? How? (Chest pain, [place], [place], pneumonia, PE, COPD, DKA, ARF, appy, cholecystitis, CVA, Diverticulitis, Homicidal, Suicidal, threat to staff... and all critical care pts) @ -Yes this can lead to a stroke and significant morbidity mortality - Lab Data Result diagrams: 01/05/23 12:41 01/05/23 12:41 Lab Results 01/05/23 01/05/23 01/05/23 Range/Units 12:41 12:41 12:41 WBC 7.2 (3.8-10.6) k/uL RBC 4.88 (4.30-5.90) m/uL Hgb 15.1 (13.0-17.5) gm/dL Hct 45.7 (39.0-53.0) % MCV 93.5 (80.0-100.0) fL MCH 30.9 (25.0-35.0) pg MCHC 33.0 (31.0-37.0) g/dL RDW 12.8 (11.5-15.5) % Plt Count 272 (150-450) k/uL MPV 9.7 Neutrophils % 68 % Lymphocytes % 17 % Monocytes % 8 % Eosinophils % 4 % Basophils % 1 % Neutrophils # 4.9 (1.3-7.7) k/uL Lymphocytes # 1.3 (1.0-4.8) k/uL Monocytes # 0.6 (0-1.0) k/uL Eosinophils # 0.3 (0-0.7) k/uL Basophils # 0.0 (0-0.2) k/uL PT 10.9 (9.0-12.0) sec INR 1.0 (<1.2) APTT 24.5 (22.0-30.0) sec Sodium 137 (137-145) mmol/L Potassium 4.5 (3.5-5.1) mmol/L Chloride 101 (98-107) mmol/L Carbon Dioxide 29 (22-30) mmol/L Anion Gap 7 mmol/L BUN 20 (9-20) mg/dL Creatinine 1.47 H (0.66-1.25) mg/dL Est GFR (CKD-EPI)AfAm 50 (>60 ml/min/1.73 sqM) Est GFR (CKD-EPI)NonAf 43 (>60 ml/min/1.73 sqM) Glucose 95 (74-99) mg/dL Calcium 8.9 (8.4-10.2) mg/dL Total Bilirubin 1.3 (0.2-1.3) mg/dL AST 19 (17-59) U/L ALT 17 (4-49) U/L Alkaline Phosphatase 74 (38-126) U/L Creatine Kinase 54 L (55-170) U/L Troponin I (0.000-0.034) ng/mL Total Protein 6.6 (6.3-8.2) g/dL Albumin 4.0 (3.5-5.0) g/dL Urine Color Urine Appearance (Clear) Urine pH (5.0-8.0) Ur Specific [place] (1.001-1.035) Urine Protein (Negative) Urine Glucose (UA) (Negative) Urine Ketones (Negative) Urine Blood (Negative) Urine Nitrite (Negative) Urine Bilirubin (Negative) Urine Urobilinogen (<2.0) mg/dL Ur Leukocyte Esterase (Negative) 01/05/23 01/05/23 Range/Units 12:41 14:55 WBC (3.8-10.6) k/uL RBC (4.30-5.90) m/uL Hgb (13.0-17.5) gm/dL Hct (39.0-53.0) % MCV (80.0-100.0) fL MCH (25.0-35.0) pg MCHC (31.0-37.0) g/dL RDW (11.5-15.5) % Plt Count (150-450) k/uL MPV Neutrophils % % Lymphocytes % % Monocytes % % Eosinophils % % Basophils % % Neutrophils # (1.3-7.7) k/uL Lymphocytes # (1.0-4.8) k/uL Monocytes # (0-1.0) k/uL Eosinophils # (0-0.7) k/uL Basophils # (0-0.2) k/uL PT (9.0-12.0) sec INR (<1.2) APTT (22.0-30.0) sec Sodium (137-145) mmol/L Potassium (3.5-5.1) mmol/L Chloride (98-107) mmol/L Carbon Dioxide (22-30) mmol/L Anion Gap mmol/L BUN (9-20) mg/dL Creatinine (0.66-1.25) mg/dL Est GFR (CKD-EPI)AfAm (>60 ml/min/1.73 sqM) Est GFR (CKD-EPI)NonAf (>60 ml/min/1.73 sqM) Glucose (74-99) mg/dL Calcium (8.4-10.2) mg/dL Total Bilirubin (0.2-1.3) mg/dL AST (17-59) U/L ALT (4-49) U/L Alkaline Phosphatase (38-126) U/L Creatine Kinase (55-170) U/L Troponin I <0.012 (0.000-0.034) ng/mL Total Protein (6.3-8.2) g/dL Albumin (3.5-5.0) g/dL Urine Color Light Yellow Urine Appearance Clear (Clear) Urine pH 7.5 (5.0-8.0) Ur Specific [place] 1.012 (1.001-1.035) Urine Protein Trace H (Negative) Urine Glucose (UA) Negative (Negative) Urine Ketones Negative (Negative) Urine Blood Negative (Negative) Urine Nitrite Negative (Negative) Urine Bilirubin Negative (Negative) Urine Urobilinogen <2.0 (<2.0) mg/dL Ur Leukocyte Esterase Negative (Negative) Disposition Clinical Impression: Transient cerebral ischemia Disposition: ADMITTED IP TO THIS HOSP Referrals: Chris Lynn Jr, [Primary Care Provider] - 1-2 days Time of Disposition: 17:14
[2023-01-05 13:15] LABS: Basophils % (A) 1 %; Eosinophils # (A) 0.3 k/uL (0-0.7); Eosinophils % (A) 4 %; HCT 45.7 % (39.0-53.0); HGB 15.1 gm/dL (13.0-17.5); Lymphocytes # (A) 1.3 k/uL (1.0-4.8); Lymphocytes % (A) 17 %; MCH 30.9 pg (25.0-35.0); MCV 93.5 fL (80.0-100.0); Mean Platelet Volume 9.7; Monocytes # (A) 0.6 k/uL (0-1.0); Monocytes % (A) 8 %; Neutrophils # (A) 4.9 k/uL (1.3-7.7); Neutrophils % (A) 68 %; Platelet Count 272 k/uL (150-450); RBC 4.88 m/uL (4.30-5.90); RDW 12.8 % (11.5-15.5); WBC 7.2 k/uL (3.8-10.6)
[2023-01-05 13:23] LABS: Partial Thromboplastin Time 24.5 sec (22.0-30.0); Prothrombin Time 10.9 sec (9.0-12.0)
[2023-01-05 13:24] LABS: ALT 17 U/L (4-49); AST 19 U/L (17-59); African American GFR (CKD) 50 (>60 ml/min/1.73 sqM); Alkaline Phosphatase 74 U/L (38-126); Anion Gap 7 mmol/L; Blood Urea Nitrogen 20 mg/dL (9-20); Calcium 8.9 mg/dL (8.4-10.2); Carbon Dioxide 29 mmol/L (22-30); Chloride 101 mmol/L (98-107); Creatine Kinase 54 U/L (55-170); Glucose 95 mg/dL (74-99); Non-African American GFR(CKD) 43 (>60 ml/min/1.73 sqM); Potassium 4.5 mmol/L (3.5-5.1); Sodium 137 mmol/L (137-145); Total Bilirubin 1.3 mg/dL (0.2-1.3); Total Protein 6.6 g/dL (6.3-8.2)
[2023-01-05 15:17] LABS: Appearance,Urine Clear (Clear); Bilirubin,Urine Negative (Negative); Blood,Urine Negative (Negative); Color,Urine Light Yellow; Glucose,Urine (UA) Negative (Negative); Ketones,Urine Negative (Negative); Leukocyte Esterase,Urine Negative (Negative); Nitrite,Urine Negative (Negative); PH, Urine 7.5 (5.0-8.0); Protein,Urine Trace (Negative); Specific Gravity,Urine 1.012 (1.001-1.035); Urobilinogen,Urine <2.0 mg/dL (<2.0)
--- NOTE | 2023-01-05 15:39 | CT ---
EXAMINATION TYPE: CT brain wo con DATE OF EXAM: 01/05/2023 COMPARISON: 03/14/2018 INDICATION: Neuro deficits, slurred speech. Family states he may have had TIAs in the past. DLP: 1310.6 mGycm, Automated exposure control for dose reduction was used. CONTRAST: None CT of the brain is performed utilizing 3 mm thick sections through the posterior fossa and 3 mm thick sections through the remaining calvarium. Study is performed within 24 hours of arrival to the hosp [place]. No abnormal hyperdensity is present to suggest an acute intracranial hemorrhage. No mass lesion is evident. No acute infarcts are evident. There are scattered periventricular white matter hypodensities, likely on the basis of chronic white matter ischemic changes. Ventricles and sulci are mildly prominent for the patient age. Paranasal sinuses and mastoid air cells within the [id number] are clear. IMPRESSIONS: 1. Atrophy with mild chronic appearing periventricular white matter ischemic changes.
--- NOTE | 2023-01-05 15:45 | XR ---
EXAMINATION TYPE: XR chest 2V DATE OF EXAM: 01/05/2023 3:41 PM COMPARISON: Chest radiographs from 10/10/2021 TECHNIQUE: XR chest 2V Frontal and lateral views of the chest. CLINICAL INDICATION:Male, 82 years old with history of altered mental status; FINDINGS: Lungs/Pleura: There is flattening of the diaphragm with increased lucency of the lungs. No evidence o f pneumothorax, pleural effusion or focal consolidation. Chronic senescent parenchymal change. Pulmonary vascularity: Unremarkable. Heart/mediastinum: Cardiomediastinal silhouette is unremarkable. Atherosclerotic calcifications are seen in the aorta. Left atrial appendage occlusion devices present. Musculoskeletal: No acute osseous pathology. Midline sternotomy wires are noted and stable. Degenerat isrrael changes of the visualized spine. IMPRESSION: Background COPD changes without evidence for acute process.
--- NOTE | 2023-01-05 15:46 | CT ---
EXAMINATION TYPE: CT angio head neck DATE OF EXAM: 01/05/2023 HISTORY: Neuro deficits, slurred speech. Family states he may have had TIAs in the past. COMPARISON: None CT DLP: 514.5 mGycm. Automated Exposure Control for Dose Reduction was Utilized. TECHNIQUE: CTA scan of the neck is performed with IV Contrast, patient injected with 65 mL of Isovue 370, axial images are obtained, coronal and sagittal reformatted images are reviewed. Three-D recons tructed images are created on an independent workstation and reviewed. Source images are reviewed. FINDINGS: Carotid/Vascular Structures: There is a three-vessel arch. Vertebral arteries are codominant. Vascula r calcifications at the carotid bifurcations. Significant flow-limiting stenosis is not identified. T here is some mild tortuosity the more proximal common carotid arteries bilaterally. Internal carotid arteries are patent to the skull base. Cervical of [place]: Vertebral basilar system appears normal. Posterior cerebral vasculature is unrema rkable. Internal carotid arteries bifurcate normally into A1 and M1 segments. A2 segments are normal. The anterior communicating artery is patent. Left Posterior communicating artery is absent. Right po sterior communicating artery is patent. IMPRESSION: 1. No flow-limiting stenosis bilateral carotid bifurcations. 2. Normal [place] of [place] NASCET criteria was used in interpretation of this exam?
[2023-01-05] MEDS ORDERED: ASPIRIN 325 MG TAB PO STA (17:14)
[2023-01-05] MEDS ORDERED: ACETAMINOPHEN TAB 325 MG TAB PO PRN (21:51)
[2023-01-05] MEDS ORDERED: CALCIUM CARBONATE 500 MG CHEWABLE PO PRN (21:51)
[2023-01-05] MEDS ORDERED: ALBUTEROL NEBULIZED 2.5 MG/3 ML INHALATION PRN (21:51)
[2023-01-05] MEDS: carvediloL 3.125 MG TAB PO SCH (23:19)
[2023-01-05] MEDS: DOXAZOSIN 2 MG TAB PO SCH (23:19)
[2023-01-05] MEDS: ATORVASTATIN 10 MG TAB PO SCH (23:21)
[2023-01-06 08:43] LABS: Chol/HDL Ratio 3.18 Ratio; LDL Cholesterol,Calculated 61.8 mg/dL (0.0-131.0)
[2023-01-06] MEDS: carvediloL 3.125 MG TAB PO SCH ×2 (08:57→20:42)
[2023-01-06] MEDS ORDERED: ASPIRIN 81 MG PO SCH (09:00)
[2023-01-06] MEDS ORDERED: ASPIRIN 325 MG TAB PO SCH ×2 (09:00→15:45)
[2023-01-06] MEDS ORDERED: DEXTROSE 50% SYRINGE 50 ML IVP PRN ×2 (09:31)
[2023-01-06] MEDS ORDERED: IPRATROPIUM-ALBUTEROL 3 ML NEB INHALATION PRN (09:35)
[2023-01-06] MEDS ORDERED: INSULIN ASPART (NovoLOG) 100 UNIT/ML VIAL SQ SCH (09:45)
[2023-01-06] MEDS ORDERED: hydrALAZINE HCL 25 MG TAB PO SCH (09:45)
[2023-01-06] MEDS: PANTOPRAZOLE 40 MG/10 ML VIAL IVP SCH (10:16)
--- NOTE | 2023-01-06 11:09 | P.GSCN ---
History of Present Illness Consult date: 01/06/23 History of present illness: CHIEF COMPLAINT: Vision changes HISTORY OF PRESENT ILLNESS: This is a 82-year-old male who presented to the hospital with complaints of vision changes and slurred speech for about 20-30 minutes. He is diagnosed with a TIA. Patient has a questionable prior history of stroke. Patient's symptoms have resolved. He denies any lateral weakness. Currently no evidence of slurred speech. Patient was scheduled outpatient for EGD for evaluation of possible esophageal stricture. Patient has been having evidence of dysphagia with solid foods. He reports that the food gets stuck in the esophagus and he has to self induce vomiting to remove the food. Patient is able to tolerate liquids and soft foods easier. Patient also history of lar yngeal cancer in 2010 and had undergone radiation treatment. His last EGD was several years ago. PAST MEDICAL HISTORY: See below PAST SURGICAL HISTORY: See below MEDICATIONS: See below ALLERGIES: See below SOCIAL HISTORY: No illicit drug use. REVIEW OF SYSTEMS: CONSTITUTIONAL: Denies fever or chills. HEENT: Denies blurred vision, vision changes, or eye pain. Denies hemoptysis CARDIOVASCULAR: Denies chest pain or pressure. RESPIRATORY: No shortness of breath. GASTROINTESTINAL: See HPI for pertinent findings HEMATOLOGIC: Denies bleeding disorders. GENITOURINARY: Denies any blood in urine or increased urinary frequency. SKIN: Denies pruitis. Denies rash. PHYSICAL EXAM: VITAL SIGNS: Reviewed GENERAL: Well-developed in no acute distress. HEENT: No sclera icterus. Extraocular movements grossly intact. Moist buccal mucosa. Head is atraumatic, normocephalic. No nasal drainage. ABDOMEN: Soft. Nondistended. Nontender NEUROLOGIC: Alert and oriented. Cranial nerves II through XII grossly intact. No facial droop or slurred speech noted. Hand glass selector and lower extremity strength equal bilaterally. LABORATORY DATA: WBC is 7.2 Hgb 15.1 and platelets 272 Sodium is 137 potassium 4.5 creatinine 1.47 LFTs normal Urinalysis negative for infection IMAGING: Computed tomography scan brain atrophy with mild chronic appearing periventricular white matter ischemic changes ASSESSMENT: 1. Dysphagia 2. Possible esophageal stricture 3. TIA PLAN: -Patient scheduled for EGD today with Dr. Reid -Keep NPO -Medicine service has given clearance to proceed with EGD today Physician Scrap Metal Collector note has been reviewed by physician. Signing provider agrees with the documented findings, assessment, and plan of care. I have personally seen and examined the patient, reviewed the ECONOMIC ANALYST /PAs history, exam and MDM and agree with the assessment and plan as written. Based on total visit time, I have performed more than 50% of the visit. As above: Patient with dysphagia and intermittent vomiting. Patient was scheduled for EGD. Neurology recommendations noted. We'll tentatively reschedule for 2-3 weeks from now. 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 PLEURAL EFFUSIONS. septic uti 2017 History of Any Multi-Drug Resistant Organisms: None Reported Past Surgical History: Adenoidectomy, Coronary Bypass/CABG, Hernia Repair, Orthopedic Surgery, Tonsillectomy Additional Past Surgical History / Comment(s): right rotator cuff, lithotrpsy kim, right side inguinal hernia repair, kim lens implants. Mitral valve repair and left atrial appendage clip ligation on 10/26/2017. Past Anesthesia/Blood Transfusion Reactions: Previous Problems w/ Anesthesia Additional Past Anesthesia/Blood Transfusion Reaction / Comm: Patient has had episodes of cofusion and aggressiveness when coming out of anesthesia Past Psychological History: No Psychological Hx Reported Additional Psychological History / Comment(s): and lives in the family h ome with the . Adult children are engaged in his care. no current tobaco or alcohol Smoking Status: Former smoker Past Alcohol Use History: Rare Additional Past Alcohol Use History / Comment(s): quit smoking 15 yrs. ago, smoked few cigs/month for several years, @heaviest up to 1ppd on & off 30 yrs. Past Drug Use History: None Reported - Past Family History Mother Family Medical History: Dementia, Myocardial Infarction ([place]) Additional Family Medical History / Comment(s): passed at 71 Medications and Allergies Home Medications Medication Instructions Recorded Confirmed Type Atorvastatin [Lipitor] 10 mg PO HS 09/02/01/05/23 History Doxazosin [Cardura] 2 mg PO HS 12/09/17 01/05/23 History Aspirin 81 mg PO DAILY 03/14/18 01/05/23 History Albuterol Sulfate [Proair Hfa] 1 puff INHALATION RT-Q4H PRN 10/10/21 01/05/23 History carvediloL [Coreg] 3.125 mg PO BID 10/10/21 01/05/23 History Acetaminophen Tab [Tylenol] 650 mg PO Q6H PRN 01/05/23 01/05/23 History Calcium Carbonate [Tums] 500 mg PO TID PRN 01/05/23 01/05/23 History Allergies Allergy/AdvReac Type Severity Reaction Status Date / Time shellfish derived [Shrimp] Allergy Unknown Rash/Hives Verified 01/05/23 16:37 cat dander Allergy Unknown Verified 01/05/23 16:37 Surgical - Exam Vital Signs Pulse Resp BP Pulse Ox 76 16 158/108 95 01/05/23 11:53 01/05/23 11:53 01/05/23 11:53 01/05/23 11:53 Results - Labs 01/05/23 12:41 01/05/23 12:41 Abnormal Lab Results - Last 24 Hours (Table) 01/05/23 01/05/23 01/06/23 Range/Units 12:41 14:55 05:41 Creatinine 1.47 H (0.66-1.25) mg/dL Creatine Kinase 54 L (55-170) U/L HDL Cholesterol 37.40 L (40.00-60.00) mg/dL Urine Protein Trace H (Negative) Diabetes panel 01/05/23 01/06/23 Range/Units 12:41 05:41 Sodium 137 (137-145) mmol/L Potassium 4.5 (3.5-5.1) mmol/L Chloride 101 (98-107) mmol/L Carbon Dioxide 29 (22-30) mmol/L BUN 20 (9-20) mg/dL Creatinine 1.47 H (0.66-1.25) mg/dL Glucose 95 (74-99) mg/dL Calcium 8.9 (8.4-10.2) mg/dL AST 19 (17-59) U/L ALT 17 (4-49) U/L Alkaline Phosphatase 74 (38-126) U/L Total Protein 6.6 (6.3-8.2) g/dL Albumin 4.0 (3.5-5.0) g/dL Triglycerides 99.00 (0.00-149.00) mg/dL HDL Cholesterol 37.40 L (40.00-60.00) mg/dL Calcium panel 01/05/23 Range/Units 12:41 Calcium 8.9 (8.4-10.2) mg/dL Albumin 4.0 (3.5-5.0) g/dL Pituitary panel 01/05/23 Range/Units 12:41 Sodium 137 (137-145) mmol/L Potassium 4.5 (3.5-5.1) mmol/L Chloride 101 (98-107) mmol/L Carbon Dioxide 29 (22-30) mmol/L BUN 20 (9-20) mg/dL Creatinine 1.47 H (0.66-1.25) mg/dL Glucose 95 (74-99) mg/dL Calcium 8.9 (8.4-10.2) mg/dL Adrenal panel 01/05/23 Range/Units 12:41 Sodium 137 (137-145) mmol/L Potassium 4.5 (3.5-5.1) mmol/L Chloride 101 (98-107) mmol/L Carbon Dioxide 29 (22-30) mmol/L BUN 20 (9-20) mg/dL Creatinine 1.47 H (0.66-1.25) mg/dL Glucose 95 (74-99) mg/dL Calcium 8.9 (8.4-10.2) mg/dL Total Bilirubin 1.3 (0.2-1.3) mg/dL AST 19 (17-59) U/L ALT 17 (4-49) U/L Alkaline Phosphatase 74 (38-126) U/L Total Protein 6.6 (6.3-8.2) g/dL Albumin 4.0 (3.5-5.0) g/dL
[2023-01-06 12:14] LABS: Glucose,Whole Blood 102 mg/dL (70-110)
[2023-01-06] MEDS: SYMBICORT 80-4.5 MCG INHALER INHALATION SCH ×2 (12:22→20:25)
[2023-01-06] MEDS: IPRATROPIUM-ALBUTEROL 3 ML NEB INHALATION SCH ×3 (12:23→20:25)
--- NOTE | 2023-01-06 12:45 | P.CNNES ---
History of Present Illness Consult date: 01/06/23 Requesting physician: Davon Johnson Reason for Consult: TIA History of Present Illness: Patient is a 82-year-old right-handed male with history of hypertension, diabetes, X tobacco use, came to the hospital by ambulance yesterday at 11:38 AM for possible TIA. Patient states that he works out about 3 times a week. He did work out yesterday, and was driving back home which is only 3 miles away, within he started noting some visual disturbance described as tunnel vision but he did not lose his vision. He was talking to his on the phone been she noticed that he was slurring his speech. Patient also notices some paresthesias of the hands bilaterally, but that is not unusual, and he gets intermittent numbness of the hands, off and on for last 2 years, suggestive of possible carpal tunnel. He does not believe that the hand numbness was anything worse than his usual symptoms. There was no facial droop, focal weakness, paralysis. He has been suffering from headaches for about 2 days, very light headache. He does not usually get headache. Family called EMS and by the time EMS arrived, his symptoms are almost gone. Overall they believe that the symptoms lasted for about 5 minutes. As per EMS flow sheet, they were called for patient complaining of abnormal speech. Patient was alert and oriented 4. Patient says that he was working out and on his drive home, started to feel strange. Patient states when he got home, was talking with his , who pointed out that his speech was slurred sl ightly. When EMS arrived, patient's speech was back to normal. Stroke scale was negative. No other complaints. No chest pain, difficulty breathing abdominal pain nausea vomiting. Patient's vitals at the scene was blood pressure 168/97, pulse rate 81, respirations 16 saturation 97%, blood sugar 130. Vital signs arrival blood pressure 158/108, pulse rate 76 and temperature 98.1.. Blood test shows normal CBC, PT/PTT normal CMP. UA negative. CT head revealed atrophy with mild chronic-appearing periventricular white matter ischemic changes. Patient has been taking aspirin for long time, which he stopped taking 10 days ago for preparation for his upcoming endoscopy, which was scheduled today. Patient says that he was getting endoscopy, because he feels dysphagia, and the food get stuck in the esophagus for years. 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 He may have it about 3-4 times a month and then none 4 months. Each of these spells starts with tunnel vision that lasts for about 20 minutes and then goes away. Patient has history of smoking cigarettes less than one pack per day for 40 years, quit in 2009. He was diagnosed with stage I laryngeal cancer in 2009 for which he underwent 35 radiation treatment. No surgery was needed. Patient has history of hypertension, diabetes type 2 and hyperlipidemia, controlled. Review of Systems Constitutional: Denies chills, Denies fever Eyes: bilateral blurred vision, bilateral tunnel vision/blind spots, denies decreased vision, denies diplopia Ears: bilateral: decreased hearing, deny: earache Ears, nose, mouth and throat: Reports headache, Denies sore throat Cardiovascular: Denies chest pain, Denies shortness of breath Respiratory: Denies cough, Denies excessive sputum Gastrointestinal: Reports indigestion, Denies abdominal pain, Denies diarrhea, Denies nausea, Denies vomiting Musculoskeletal: Denies limitation of motion, Denies myalgias Integumentary: Denies pruritus, Denies rash Neurological: Reports as per HPI Psychiatric: Denies anxiety, Denies depression Endocrine: Denies fatigue, Denies weight change Past Medical History Past Medical History: Asthma, Coronary Artery Disease (CAD), Cancer, Diabetes Mellitus, GERD/Reflux, Hyperlipidemia, Hypertension, Respiratory Disorder Additional Past Medical History / Comment(s): Laryngeal cancer treated by radiation therapy back in 2009, coronary artery disease, mitral valve regurgitation severe, COPD mild with an FEV1 of 74% of predicted at baseline, diabetes mellitu, hyperlipidemia, hypertension, BPH, small hiatal hernia, hist ory of nephrolithiasis, shingles left eye, FALL NOVEMBER 2017 at home. PLEURAL EFFUSIONS. septic uti 2018 History of Any Multi-Drug Resistant Organisms: None Reported Past Surgical History: Adenoidectomy, Coronary Bypass/CABG, Hernia Repair, Orthopedic Surgery, Tonsillectomy Additional Past Surgical History / Comment(s): right rotator cuff, lithotrpsy kim, right side inguinal hernia repair, kim lens implants. Mitral valve repair and left atrial appendage clip ligation on 10/26/2017. Past Anesthesia/Blood Transfusion Reactions: Previous Problems w/ Anesthesia Additional Past Anesthesia/Blood Transfusion Reaction / Comment(s): Patient has had episodes of cofusion and aggressiveness when coming out of anesthesia Past Psychological History: No Psychological Hx Reported Additional Psychological History / Comment(s): and lives in the family home with the . Adult children are engaged in his care. no current tobaco or alcohol Smoking Status: Former smoker Past Alcohol Use History: Rare Additional Past Alcohol Use History / Comment(s): quit smoking 15 yrs. ago, smoked few cigs/month for several years, @heaviest up to 1ppd on & off 30 yrs. Past Drug Use History: None Reported - Past Family History Mother Family Medical History: Dementia, Myocardial Infarction ([place]) Additional Family Medical History / Comment(s): passed at 71 Medications and Allergies Home Medications Medication Instructions Recorded Confirmed Type Atorvastatin [Lipitor] 10 mg PO HS 09/02/16 01/05/23 History Doxazosin [Cardura] 2 mg PO HS 12/09/17 01/05/23 History Aspirin 81 mg PO DAILY 03/14/18 01/05/23 History Albuterol Sulfate [Proair Hfa] 1 puff INHALATION RT-Q4H PRN 10/10/21 01/05/23 History carvediloL [Coreg] 3.125 mg PO BID 10/10/21 01/05/23 History Acetaminophen Tab [Tylenol] 650 mg PO Q6H PRN 01/05/23 01/05/23 History Calcium Carbonate [Tums] 500 mg PO TID PRN 01/05/23 01/05/23 History Allergies Allergy/AdvReac Type Severity Reaction Status Date / Time shellfish derived [Shrimp] Allergy Unknown Rash/Hives Verified 01/05/23 16:37 cat dander Allergy Unknown Verified 01/05/23 16:37 Physical Examination - Vital Signs Vital Signs: Vital Signs Temp Pulse Pulse Resp BP BP Pulse Ox 01/06/23 10:07 69 167/89 01/06/23 08:13 94 L 01/06/23 06:55 97.3 F L 75 16 177/94 95 01/06/23 02:00 97.7 F 66 14 141/81 97 01/06/23 00:19 95 01/05/23 20:25 97.5 F L 83 14 147/81 95 01/05/23 19:30 71 19 164/89 01/05/23 19:00 74 16 163/98 96 01/05/23 18:30 75 6 L 153/95 96 01/05/23 18:00 98.9 F 78 16 153/95 98 01/05/23 17:30 169/114 01/05/23 17:00 72 22 167/105 01/05/23 16:30 75 20 162/121 01/05/23 16:00 76 12 158/95 96 01/05/23 15:30 78 13 159/96 01/05/23 15:00 84 20 94 L 01/05/23 14:30 172/107 01/05/23 14:00 80 4 L 164/101 01/05/23 13:30 20 150/93 01/05/23 13:00 82 18 175/106 01/05/23 12:30 72 13 157/98 96 01/05/23 11:57 98.1 F 74 16 158/108 96 01/05/23 11:53 76 16 158/108 95 FiO2 01/06/23 10:07 01/06/23 08:13 01/06/23 06:55 01/06/23 02:00 01/06/23 00:19 21 01/05/23 20:25 01/05/23 19:30 01/05/23 19:00 01/05/23 18:30 01/05/23 18:00 01/05/23 17:30 01/05/23 17:00 01/05/23 16:30 01/05/23 16:00 01/05/23 15:30 01/05/23 15:00 01/05/23 14:30 01/05/23 14:00 01/05/23 13:30 01/05/23 13:00 01/05/23 12:30 01/05/23 11:57 01/05/23 11:53 Intake and Output 01/05/23 01/06/23 01/06/23 22:59 06:59 14:59 Output Total 300 Balance -300 Output: Urine 300 Other: # Voids 3 Weight 89.811 kg Patient is an elderly male, very pleasant in no acute distress. Patient is alert awake oriented to time place and person. Speech and language functions are normal. Patient can name and repeat very well. No aphasia or dysarthria. Attention, concentration and fund of knowledge is adequate. On cranial nerve examination, pupils are small, 3 mm, equal, round and reacting to light, visual robb are full on confrontation, with no neglect on double simultaneous stimulation. Extraocular muscles are intact with no nystagmus. Face is symmetric, tongue protrudes to the midline. Palatal elevation and sensation normal, hearing is moderately decreased, uses hearing aids and shoulder shrug normal, facial sensation normal. On muscle strength testing, there is no pronator drift and the strength is normal in arms and legs distally and proximally. Deep tendon reflexes are symmetric 1+ and plantars downgoing bilaterally. Sensory to touch is equal with no neglect on double simultaneous stimulation. Cerebellar function showed no ataxia for [id number] testing. No dysdiadoc hokinesia. No ataxia for [id number] testing on either side. Tone and bulk of muscles normal. Gait deferred.. On general examination, there is no carotid bruit or murmur, S1-S2 audible. Chest is clear on consultation. Abdomen is soft nontender. No organomegaly, bowel sounds present. Peripheral pulses are present. No edema. Results - Laboratory Findings CBC and BMP: 01/05/23 12:41 01/05/23 12:41 Abnormal Lab Findings: Abnormal Labs 01/05/23 01/05/23 01/06/23 12:41 14:55 05:41 Creatinine 1.47 H Creatine Kinase 54 L HDL Cholesterol 37.40 L Urine Protein Trace H Assessment and Plan Assessment: * TIA, manifesting with transient slurred speech and tunnel vision, that resolved in 5 minutes. Symptoms likely occurred, as patient has stopped aspirin for 10 days, in preparation for his upcoming EGD. * Hypertension * Diabetes * Hyperlipidemia * Dysphagia * History of laryngeal cancer, in remission * X tobacco use * History of retinal migraines. Plan: * Patient had a TIA, and the symptoms have resolved. Current NIH stroke scale is 0. Patient not a candidate for TPA. * Patient has been off his aspirin for last 10 days. After the TIA yesterday, patient did receive aspirin 325 mg in the ER. Suggest placing on dual antiplatelet medication for 21 days and then continue aspirin 81 mg indefinitely. If cannot take Plavix due to upcoming EGD, then recommend increase aspirin dose to 325 mg daily. * 2-D echo with bubble study to rule out PFO * CTA head and neck showed: No flow-limiting stenosis of bilateral carotid bifurcation. Normal [place]. * Fasting a.m. lipid panel cholesterol 119, LDL 61, HDL 37, triglycerides 99. Continue Lipitor 10 mg daily. * Hemoglobin A1c * Optimize control of blood pressure. Avoid hypotension. * Telemetry monitoring rule out any arrhythmia * DVT prophylaxis: Heparin 5000 units subcu every 8 hours * From neurology standpoint, ideally holding off on EGD for 2 weeks due to this TIA may be preferable, however if the procedure is to be done urgently/necessary, then neurologically will be clear for EGD. if the 2-D echo comes back normal. * Neurology will continue to follow. Discussed with primary team. * Dr. Orestes Mahan will cover neurology service tomorrow on Thursday. * Thank you for the consult.
--- NOTE | 2023-01-06 14:49 | P.HPIM ---
History of Present Illness H&P Date: 01/06/23 Chief Complaint: Tunnel vision, slurred speech, This is a pleasant 82-year-old gentleman with past medical history significant for CAD, CABG with MVR, hypertension, hyperlipidemia, diabetes mellitus, nicotine dependence 40 years, asthma, COPD-mild, laryngeal cancer post ra diation therapy 2009, gastroesophageal reflux disease ,BPH and multiple other medical issues presented to the ER with complaints of vision changes, slurred speech, numbness and tingling of bilateral upper extremities. Patient stated upon driving back home, from working out at cardiac rehab., developed tunnel vision. Once home, his noticed that he had slurred speech, without a facial droop, lasting approximately 5-6 minutes. Patient stated he understood everything anxiety and just had difficulty with his words. Reports mild drooling. Also reported developing numbness and tingling starting at fingertips traveling up bilateral arms. Denies lightheadedness, dizziness. Denies headach e. Reports no prior TIAs or CVAs. Symptoms had resolved prior to arrival in ER. Patient was initially scheduled outpatient for EGD for evaluation of possible esophageal stricture. Reports food getting stuck in his esophagus requiring self inducing vomiting. Denies abdominal pain. Denies weight change. Evaluated by speech therapy, recommendations pending. Denies nausea or diarrhea. Denies chest pain, palpitations or shortness of breath. EKG reported sinus, troponin negative 1. Brain CT reported atrophy with mild chronic-appearing. Ventricular white matter ischemic changes, no abnormal hyperdensity to suggest acute intracranial hemorrhage, no mass lesions evident, no acute infarcts evident. CTA of head/ neck reported no flow-limiting stenosis bilateral carotid bifurcations, normal [place]. Chest x-ray reported background COPD changes without evidence for acute process. Afebrile, labs unremarkable with the exception of creatinine 1.47. Triglycerides 99, cholesterol 119, LDL 61.8, HDL 37.4. Review of Systems ROS Statement: Those systems with pertinent positive or pertinent negative responses have been documented in the HPI. ROS Other: All systems not noted in ROS Statement are negative. 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 PLEURAL EFFUSIONS. septic uti 2017 History of Any Multi-Drug Resistant Organisms: None Reported Past Surgical History: Adenoidectomy, Coronary Bypass/CABG, Hernia Repair, Orthopedic Surgery, Tonsillectomy Additional Past Surgical History / Comment(s): right rotator cuff, lithotrpsy kim, right side inguinal hernia repair, kim lens implants. Mitral valve repair and left atrial appendage clip ligation on 10/26/2017. Past Anesthesia/Blood Transfusion Reactions: Previous Problems w/ Anesthesia Additional Past Anesthesia/Blood Transfusion Reaction / Comment(s): Patient has had episodes of cofusion and aggressiveness when coming out of anesthesia Past Psychological History: No Psychological Hx Reported Additional Psychological History / Comment(s): and lives in the family home with the . Adult children are engaged in his care. no current tobaco or alcohol Smoking Status: Former smoker Past Alcohol Use History: Rare Additional Past Alcohol Use History / Comment(s): quit smoking 15 yrs. ago, smoked few cigs/month for several years, @heaviest up to 1ppd on & off 30 yrs. Past Drug Use History: None Reported - Past Family History Mother Family Medical History: Dementia, Myocardial Infarction ([place]) Additional Family Medical History / Comment(s): passed at 71 Medications and Allergies Home Medications Medication Instructions Recorded Confirmed Type Atorvastatin [Lipitor] 10 mg PO HS 09/02/16 01/05/23 History Doxazosin [Cardura] 2 mg PO HS 12/09/17 01/05/23 History Aspirin 81 mg PO DAILY 03/14/18 01/05/23 History Albuterol Sulfate [Proair Hfa] 1 puff INHALATION RT-Q4H PRN 10/10/21 01/05/23 History carvediloL [Coreg] 3.125 mg PO BID 10/10/21 01/05/23 History Acetaminophen Tab [Tylenol] 650 mg PO Q6H PRN 01/05/23 01/05/23 History Calcium Carbonate [Tums] 500 mg PO TID PRN 01/05/23 01/05/23 History Allergies Allergy/AdvReac Type Severity Reaction Status Date / Time shellfish derived [Shrimp] Allergy Unknown Rash/Hives Verified 01/05/23 16:37 cat dander Allergy Unknown Verified 01/05/23 16:37 Physical Exam Vitals: Vital Signs Temp Pulse Pulse Resp BP BP Pulse Ox 01/06/23 10:07 69 167/89 01/06/23 08:13 94 L 01/06/23 06:55 97.3 F L 75 16 177/94 95 01/06/23 02:00 97.7 F 66 14 141/81 97 01/06/23 00:19 95 01/05/23 20:25 97.5 F L 83 14 147/81 95 01/05/23 19:30 71 19 164/89 01/05/23 19:00 74 16 163/98 96 01/05/23 18:30 75 6 L 153/95 96 01/05/23 18:00 98.9 F 78 16 153/95 98 01/05/23 17:30 169/114 01/05/23 17:00 72 22 167/105 01/05/23 16:30 75 20 162/121 01/05/23 16:00 76 12 158/95 96 01/05/23 15:30 78 13 159/96 01/05/23 15:00 84 20 94 L 01/05/23 14:30 172/107 01/05/23 14:00 80 4 L 164/101 01/05/23 13:30 20 150/93 01/05/23 13:00 82 18 175/106 01/05/23 12:30 72 13 157/98 96 01/05/23 11:57 98.1 F 74 16 158/108 96 01/05/23 11:53 76 16 158/108 95 FiO2 01/06/23 10:07 01/06/23 08:13 01/06/23 06:55 01/06/23 02:00 01/06/23 00:19 21 01/05/23 20:25 01/05/23 19:30 01/05/23 19:00 01/05/23 18:30 01/05/23 18:00 01/05/23 17:30 01/05/23 17:00 01/05/23 16:30 01/05/23 16:00 01/05/23 15:30 01/05/23 15:00 01/05/23 14:30 01/05/23 14:00 01/05/23 13:30 01/05/23 13:00 01/05/23 12:30 01/05/23 11:57 01/05/23 11:53 Intake and Output 01/05/23 01/06/23 01/06/23 22:59 06:59 14:59 Output Total 300 Balance -300 Output: Urine 300 Other: # Voids 3 Weight 89.811 kg PHYSICAL EXAM: VITAL SIGNS: [As above] GENERAL: Sitting up in bed, no acute distress, conversing appropriately HEENT: Normocephalic, atraumatic, Conjunctivae normal. eyes normal. Tongue midline. NECK: Supple, No JVD. No thyroid enlargement. No LNs CARDIOVASCULAR: S1, S2 regular. No murmur. Regular rate and rhythm. RESPIRATION: Unlabored, bilateral equal air entry , essentially clear. Bilateral bases diminished. No rhonchi or crackles. No bronchial breathing. ABDOMEN: Soft, nondistended, nontender . No guarding. no masses palpable. No ascites, No hepatosplenomegaly.Bowel sounds heard. LEGS: No edema. no swelling PSYCHIATRY: Alert and oriented X3, mood and affect normal. NERVOUS SYSTEM: Cranial N 2-12 grossly normal. Moves all 4 limbs. No focal deficits. Strength and sensation grossly intact.. Skin: Warm and dry, no rash Results CBC & Chem 7: 01/05/23 12:41 01/05/23 12:41 Labs: Abnormal Lab Results - Last 24 Hours (Table) 01/05/23 01/05/23 01/06/23 Range/Units 12:41 14:55 05:41 Creatinine 1.47 H (0.66-1.25) mg/dL Creatine Kinase 54 L (55-170) U/L HDL Cholesterol 37.40 L (40.00-60.00) mg/dL Urine Protein Trace H (Negative) Thrombosis Risk Factor Assmnt - Choose All That Apply Any of the Below Risk Factors Present?: Yes Each Factor Represents 1 point: Abnormal pulmonary function (COPD) Other Risk Factors: Yes Each Risk Factor Represents 2 Points: Malignancy Each Risk Factor Represents 3 Points: Age 75 years or older Other congenital or acquired thrombophilia - If yes, enter type in comment: Yes Thrombosis Risk Factor Assessment Total Risk Factor Score: 6 Thrombosis Risk Factor Assessment Level: High Risk Assessment and Plan Assessment: TIA, symptoms resolved in 5 minutes, in a patient off of aspirin 10 days for upcoming EGD. Acute renal injury Dysphagia Laryngeal cancer post radiation therapy 2009 Gastroesophageal reflux disease History of CAD, CABG with MVR COPD Asthma, childhood, ALLERGY induced Diabetes mellitus Hypertension Hyperlipidemia BPH History of nephrolithiasis, requiring lithotripsy History of migraines Plan: Continue on current medication regime ,monitoring and symptomatic treatment. PCP, Dr. Lynn's discussed with Dr. Reid last night, patient is scheduled to proceed with EGD today. Neurology consult in place, recommendations and clearance pending. Echo pending. Hemoglobin A1c ordered. Remote telemetry, close monitoring for arrhythmias. The impression and plan of care has been dictated as directed. : I performed a history and examination of this patient, discussed the same with the dictator. I agree with the dictator's note ,documented as a scribe. Any additional findings or plans will be noted.
[2023-01-06 17:35] LABS: Glucose,Whole Blood 182 mg/dL (70-110)
[2023-01-06] MEDS: INSULIN ASPART (NovoLOG) 100 UNIT/ML VIAL SQ SCH (19:32)
[2023-01-06 20:20] LABS: Glucose,Whole Blood 128 mg/dL (70-110)
[2023-01-06] MEDS: DOXAZOSIN 2 MG TAB PO SCH (20:42)
[2023-01-06] MEDS: ATORVASTATIN 10 MG TAB PO SCH (20:42)
[2023-01-06] MEDS ORDERED: ATORVASTATIN 10 MG TAB PO SCH (21:00)
[2023-01-07 00:22] LABS: Glucose,Whole Blood 95 mg/dL (70-110)
[2023-01-07] MEDS: INSULIN ASPART (NovoLOG) 100 UNIT/ML VIAL SQ SCH ×2 (00:32→06:16)
[2023-01-07 06:07] LABS: Glucose,Whole Blood 114 mg/dL (70-110)
[2023-01-07 07:34] VITALS: BP 141/62; PULSE 73; RESP 15; TEMP 97.7
[2023-01-07] MEDS: SYMBICORT 80-4.5 MCG INHALER INHALATION SCH (07:46)
[2023-01-07] MEDS: IPRATROPIUM-ALBUTEROL 3 ML NEB INHALATION SCH ×2 (07:46→11:06)
[2023-01-07] MEDS ORDERED: ASPIRIN 81 MG PO SCH (09:00)
[2023-01-07] MEDS ORDERED: CLOPIDOGREL 75 MG TAB PO SCH (09:00)
[2023-01-07] MEDS: carvediloL 3.125 MG TAB PO SCH (09:29)
[2023-01-07] MEDS: PANTOPRAZOLE 40 MG/10 ML VIAL IVP SCH (09:29)
--- NOTE | 2023-01-07 09:47 | CA ---
Transthoracic Echo Report Name: Nick Anguiano Age: 82 Gender: M : 1940 Exam Date: 01/06/2023 12:32 Exam Location: [place] [facility] Ht (in): 75 Wt (lb): 198 Ordering Physician: Ethel Barajas Attending/Referring Phys: Sap Specialist Mariola Ford [facility] Procedure CPT: Indications: TIA. With bubble study Cardiac Hx: Technical Quality: Fair Contrast 1: Agitated Saline Total Dose (mL): 10 Contrast 2: Total Dose (mL): MEASUREMENTS (Male / Female) Normal Values 2D ECHO LV Diastolic Diameter PLAX 3.4 cm 4.2 - 5.9 / 3.9 - 5.3 cm LV Systolic Diameter PLAX 2.4 cm IVS Diastolic Thickness 1.2 cm 0.6 - 1.0 / 0.6 - 0.9 cm LVPW Diastolic Thickness 1.0 cm 0.6 - 1.0 / 0.6 - 0.9 cm LV Relative Wall Thickness 0.6 LVOT Diameter 2.0 cm Ascending Aorta Diameter 4.0 cm M-MODE Aortic Root Diameter MM 3.4 cm LA Systolic Diameter MM 4.0 cm LA Ao Ratio MM 1.2 AV Cusp Separation MM 1.1 cm DOPPLER AV Peak Velocity 103.4 cm/s AV Peak Gradient 4.3 mmHg AV Mean Velocity 82.4 cm/s AV Mean Gradient 2.9 mmHg AV Velocity Time Integral 24.5 cm LVOT Peak Velocity 96.9 cm/s LVOT Peak Gradient 3.8 mmHg LVOT Velocity Time Integral 26.2 cm LVOT Stroke Volume 84.2 cm??? LVOT Stroke Volume Index 38.5 ml/m??? LVOT Cardiac Index 2775.2 cm???/min???m??? AV Area Cont Eq vti 3.4 cm??? AV Area Cont Eq pk 3.0 cm??? MV Peak Velocity 146.1 cm/s MV Peak Gradient 8.5 mmHg MV Mean Velocity 112.4 cm/s MV Mean Gradient 5.3 mmHg MV Velocity Time Integral 54.5 cm MV Area PHT 2.4 cm??? Mitral E Point Velocity 129.3 cm/s Mitral A Point Velocity 142.8 cm/s Mitral E to A Ratio 0.9 MV Deceleration Time 383.5 ms LV E' Lateral Velocity 10.4 cm/s Mitral E to LV E' Lateral Ratio 12.5 LV E' Septal Velocity 7.2 cm/s Mitral E to LV E' Septal Ratio 18.0 Right Atrial Pressure 3.0 mmHg FINDINGS Left Ventricle Normal Left ventricular size, systolic function with no obvious regional wall motion abnormalities. Mildly increased left ventricular wall thickness. Mild concentric left ventricular hypertrophy. Left ventricular ejection fraction is estimated at 55-60%. Right Ventricle Normal right ventricular size and function. Right Atrium Normal right atrial size. Negative agitated saline bubble study for right to left shunt. Left Atrium Normal left atrial size. Mitral Valve S/P mitral valve repair. Mitral valve thickened. Trace mitral regurgitation. Aortic Valve Trileaflet aortic valve. Mild aortic regurgitation. Diffuse thickening of the aortic valve cusps with reduced excursion. Aortic valve sclerosis. Tricuspid Valve Structurally normal tricuspid valve. No tricuspid regurgitation. Pulmonic Valve Structurally normal pulmonic valve. Trace pulmonic regurgitation. Pericardium No pericardial effusion. Aorta Normal size aortic root. Mildly dilated proximal ascending aorta (tube). CONCLUSIONS Normal LV size and systolic function with mild concentric LVH. Atypical septal motion noted. Mitral valve repair is evident with some restriction of angina mitral leaflet mild regurgitation [place] minimal stenosis. Aortic valve sclerosis without significant restriction no pericardial effusion no significant pulmonary hypertension. Bubble study was negative. There is no shunt. Previewed by: Dr. Sohail Simpson MD (Electronically Signed) Final Date: 07 January 2023 09:46
--- NOTE | 2023-01-07 10:31 | P.DS ---
Providers Date of admission: 01/05/23 17:17 Expected date of discharge: 01/07/23 Attending physician: Chris Lynn Consults: 01/05/23 17:15 Consult Physician Urgent Consulting Provider: Yoel Gloria Consult Reason/Comments: TIA Do you want consulting provider notified?: Yes 01/05/23 17:16 Consult Physician Urgent Consulting Provider: Angel Reid Consult Reason/Comments: Esophageal stricture Do you want consulting provider notified?: Yes 01/06/23 13:12 Consult Physician Routine Consulting Provider: Sohail Simpson Consult Reason/Comments: TIA, history of CABG and valve repair Do you want consulting provider notified?: Yes Primary care physician: [facility] Course: Final Diagnoses: TIA, symptoms resolved in 5 minutes, in a patient off of aspirin 10 days for upcoming EGD. Acute renal injury Dysphagia Laryngeal cancer post radiation therapy 2009 Gastroesophageal reflux disease History of CAD, CABG with MVR COPD Asthma, childhood, ALLERGY induced Diabetes mellitus, hemoglobin A1c 6.8, further follow-up outpatient with diabetic education in clinic with PCP. Hypertension Hyperlipidemia BPH History of nephrolithiasis, requiring lithotripsy History of migraines Hospital course:This is a pleasant 82-year-old gentleman with past medical history significant for CAD, CABG with MVR, hypertension, hyperlipidemia, diabetes mellitus, nicotine dependence 40 years, asthma, COPD-mild, laryngeal cancer post radiation therapy 2009, gastroesophageal reflux disease ,BPH and multiple other medical issues presented to the ER with complaints of vision changes, slurred speech, numbness and tingling of bilateral upper extremities. Patient stated upon driving back home, from working out at cardiac rehab., developed tunnel vision. Once home, his noticed that he had slurred speech, without a facial droop, lasting approximately 5-6 minutes. Patient stated he understood everything anxiety and just had difficulty with his words. Reports mild drooling. Also reported developing numbness and tingling starting at fingertips traveling up bilateral arms. Denies lightheadedness, dizziness. Denies headache. Reports no prior TIAs or CVAs. Symptoms had resolved prior to arrival in ER. Patient was initially scheduled outpatient for EGD for evaluation of possible esophageal stricture. Reports food getting stuck in his esophagus requiring self inducing vomiting. Denies abdominal pain. Denies weight change. Evaluated by speech therapy, recommendations pending. Denies nausea or diarrhea. Denies chest pain, palpitations or shortness of breath. EKG reported sinus, troponin negative 1. Brain CT reported atrophy with mild chronic-appearing. Ventricular white matter ischemic changes, no abnormal hyperdensity to suggest acute intracranial hemorrhage, no mass lesions evident, no acute infarcts evident. CTA of head/ neck reported no flow-limiting stenosis bilateral carotid bifurcations, normal [place]. Chest x-ray reported background COPD changes without evidence for acute process. Afebrile, labs unremarkable with the exception of creatinine 1.47. Triglycerides 99, cholesterol 119, LDL 61.8, HDL 37.4. Significant clinical improvement . Denies chest pain, palpitations or shortness of breath. Denies lightheadedness, dizziness or focal deficits. No further tunnel vision, slurred speech, numbness tingling or weakness .Denies any new symptoms .Evaluated by neurology, recommended heating echocardiogram, ideally holding off on EGD 2 weeks, and placed on Plavix for 21 days in addition to aspirin. Echocardiogram completed, report pending. Evaluated by cardiology, recommendations pending, including potential event monitor at DC. Patient will be discharged home today in stable condition with guarded prognosis pending echo report, final DC recommendations and clearance as per cardiology and neurology. The impression and plan of care has been dictated as directed. : I performed a history and examination of this patient, discussed the same with the dictator. I agree with the dictator's note ,documented as a scribe. Any additional findings or plans will be noted. Patient Condition at Discharge: Stable Plan - Discharge Summary New Discharge Prescriptions: New Clopidogrel [Plavix] 75 mg PO DAILY #21 tab Pantoprazole [Protonix] 40 mg PO DAILY #30 tab Continue Atorvastatin [Lipitor] 10 mg PO HS Doxazosin [Cardura] 2 mg PO HS Aspirin 81 mg PO DAILY carvediloL [Coreg] 3.125 mg PO BID Albuterol Sulfate [Proair Hfa] 1 puff INHALATION RT-Q4H PRN PRN Reason: Shortness Of Breath Calcium Carbonate [Tums] 500 mg PO TID PRN PRN Reason: Indigestion Acetaminophen Tab [Tylenol] 650 mg PO Q6H PRN PRN Reason: Pain Discharge Medication List Atorvastatin [Lipitor] 10 mg PO HS 09/02/16 [History] Doxazosin [Cardura] 2 mg PO HS 12/09/17 [History] Aspirin 81 mg PO DAILY 03/14/18 [History] Albuterol Sulfate [Proair Hfa] 1 puff INHALATION RT-Q4H PRN 10/10/21 [History] carvediloL [Coreg] 3.125 mg PO BID 10/10/21 [History] Acetaminophen Tab [Tylenol] 650 mg PO Q6H PRN 01/05/23 [History] Calcium Carbonate [Tums] 500 mg PO TID PRN 01/05/23 [History] Clopidogrel [Plavix] 75 mg PO DAILY #21 tab 01/07/23 [Rx] Pantoprazole [Protonix] 40 mg PO DAILY #30 tab 01/07/23 [Rx] Follow up Appointment(s)/Referral(s): Sohail Simpson MD [STAFF PHYSICIAN] - 02/03/23 2:15 pm (Appointment made at the [facility] ) Chris Lynn Jr, DO [Primary Care Provider] - 1-2 days Activity/Diet/Wound Care/Special Instructions: Event monitor at ut as per Cardiology. Confirm cardiology follow-up appointment per to discharge. Neurology recommending holding off on EGD 2 weeks
[2023-01-07 11:18] LABS: African American GFR (CKD) 50 (>60 ml/min/1.73 sqM); Anion Gap 9 mmol/L; Blood Urea Nitrogen 23 mg/dL (9-20); Calcium 8.8 mg/dL (8.4-10.2); Carbon Dioxide 24 mmol/L (22-30); Chloride 103 mmol/L (98-107); Glucose 115 mg/dL (74-99); Non-African American GFR(CKD) 44 (>60 ml/min/1.73 sqM); Potassium 4.2 mmol/L (3.5-5.1); Sodium 136 mmol/L (137-145)
[2023-01-07 11:46] LABS: Glucose,Whole Blood 181 mg/dL (70-110)
--- NOTE | 2023-01-07 12:06 | CONS ---
CONSULTATION HISTORY OF PRESENT ILLNESS: Mr. Nick Anguiano is an 82-year-old gentleman with a known history of CAD, prior bypass surgery and mitral valve repair that was performed in September 2017. He also has hypertension, hyperlipidemia, and diet-controlled diabetes mellitus. Ascending aortic dilatation was noted, not significant, followed noninvasively. He presented to the hospital on the of this month with complaints of having an episode of what he felt was a slurring of speech. He was coming back from working over at the gym. He felt little bit of a tunnel vision-like feeling, which he feels from time to time without good explanation. Then, once he got home, his noticed that his speech was slurred, lasted about 5 to 6 minutes. He did not have any weakness. He did not have any confusion, and he came into the emergency room, was seen by the ER doctor and also seen by neurologist, and the neurologist felt this may have been a TIA. CT scan of the brain as well as CT angio did not reveal any significant abnormalities. EKG revealed sinus rhythm, no acute changes. The patient has not had any chest discomfort to suggest angina. He is resting comfortably at the time of my evaluation. He had an echocardiogram today with a bubble study, and the echo revealed good systolic function, stable mitral valve repair, no pulmonary hypertension, and no evidence of any shunt on the bubble study. He is asymptomatic at the time of my evaluation. This patient was advised to be on Lipitor, but he has chosen to cut the dose down to only 10 mg daily. He was supposed to be on 40 mg. He has also stopped aspirin according to the chart for nearly 10 days in preparation for an upper endoscopy by Dr. Reid for evaluation of some dysphagia. He really has no dysphagia. He is eating well here, but apparently for some solid food items, he does have some dysphagia. As part of this workup, he was asked to hold the aspirin or the patient chose to hold the aspirin for 10 days. He has not had similar episodes of lightheadedness in the past. PAST MEDICAL HISTORY: 1. CAD with prior bypass surgery and mitral valve repair in September 2017. 2. Hypertension. 3. Diet-controlled diabetes mellitus. 4. Hyperlipidemia. 5. No evidence of any atrial fibrillation in the past. MEDICATIONS AT HOME: Include: 1. Carvedilol 3.125 mg b.i.d. 2. Cardura 2 mg at bedtime. 3. Lipitor 10 mg daily. 4. Aspirin 81 mg daily, which he has been holding since the . 5. He takes Protonix 40 mg daily. PHYSICAL EXAMINATION: VITAL SIGNS: Blood pressure is 128/72. Pulse rate is 68 per minute, regular. HEENT: Unremarkable. Fundus was not examined by me. NECK: Supple. No JVD. I do not hear a carotid bruit. There is no thyromegaly. HEART: Reveals S1 and S2 heard normally. There is a soft systolic murmur, 1/6 at the apex. LUNGS: Reveal decent air entry. ABDOMEN: Soft and nontender. EXTREMITIES: Lower extremities reveal normal pulses. No edema. CENTRAL NERVOUS SYSTEM: Grossly within normal limits. IMPRESSION: 1. Questionable transient ischemic attack. 2. Coronary artery disease with prior bypass surgery and mitral valve repair. 3. Hypertension. 4. Hyperlipidemia. 5. Diet-controlled diabetes mellitus. RECOMMENDATIONS: I have reviewed the Neurology consult. We will place the patient on aspirin and Plavix combination for 3 weeks and then aspirin only. Advised to cancel the upper endoscopy for the time being and perform this after 3 weeks. I am recommending that endoscopy be performed while the patient is on aspirin, which is currently an acceptable standard of care. This note will go to Dr. Reid. I have advised the patient that we will do an event monitor and place him on dual-antiplatelet therapy. On reviewing the rhythm strips, there is no evidence of atrial fibrillation, but we will do an event monitor for 2 weeks, and I will see him in 3 weeks in the office. I discussed my thoughts in detail with the patient as well as his . Thank you very much for the consult. MMODL / IJN: [id number] /
--- NOTE | 2023-01-07 16:40 | P.PN ---
Subjective Progress Note Date: 01/07/23 CHIEF COMPLAINT: TIA HISTORY OF PRESENT ILLNESS: Patient presented to the hospital with evidence of a TIA. His symptoms have resolved. Patient evaluated by both neuro and cardiology service. Cardiology is recommending that endoscopy be performed while the patient is on aspirin. They have cleared patient for discharge. Neurology recommendations noted to hold off on the EGD for 2-3 weeks. Patient i s tolerating a soft diet. His dysphagia is intermittent. He may have a [place] issues 1-2 times a month. PHYSICAL EXAM: VITAL SIGNS: Reviewed. GENERAL: Well-developed in no acute distress. ABDOMEN: Soft. Nondistended. Nontender. NEUROLOGIC: Alert and oriented. Cranial nerves II through XII grossly intact. ASSESSMENT: 1. Dysphagia 2. TIA PLAN: -We'll reschedule EGD in 2-3 weeks -Continue a soft diet -Continue aspirin -Patient scheduled for discharge today Physician Alcoholism Worker note has been reviewed by physician. Signing provider agrees with the documented findings, assessment, and plan of care. Objective - Vital Signs Vital signs: Vital Signs Temp 97.7 F 01/07/23 07:00 Pulse 73 01/07/23 07:00 Resp 15 01/07/23 07:00 BP 141/62 01/07/23 07:00 Pulse Ox 96 01/07/23 07:46 FiO2 21 01/06/23 00:19 Intake & Output 01/06/23 01/07/23 01/07/23 18:59 06:59 18:59 Intake Total 240 Balance 240 Intake: Oral 240 Other: # Voids 2 1 - Labs CBC & Chem 7: 01/05/23 12:41 01/07/23 05:59 Labs: Abnormal Lab Results - Last 24 Hours (Table) 01/06/23 01/06/23 01/07/23 Range/Units 17:34 20:19 05:59 Sodium (137-145) mmol/L BUN (9-20) mg/dL Creatinine (0.66-1.25) mg/dL Glucose (74-99) mg/dL POC Glucose (mg/dL) 182 H 128 H (70-110) mg/dL Hemoglobin A1c 6.8 H (<=6.0) % 01/07/23 01/07/23 Range/Units 05:59 06:05 Sodium 136 L (137-145) mmol/L BUN 23 H (9-20) mg/dL Creatinine 1.46 H (0.66-1.25) mg/dL Glucose 115 H (74-99) mg/dL POC Glucose (mg/dL) 114 H (70-110) mg/dL Hemoglobin A1c (<=6.0) %
== END 2023-01-07 12:37 ==
LOC: EC 11:38 → 6NMEDSUR 17:17
PROVIDERS: ADMIT Family Medicine; ATTEND Family Medicine
DX: R47.81 Slurred speech (principal); R13.10 Dysphagia, unspecified; N17.9 Acute kidney failure, unspecified; K22.2 Esophageal obstruction; I10 Essential (primary) hypertension; I25.10 Atherosclerotic heart disease of native coronary artery without angina pectoris; K21.9 Gastro-esophageal reflux disease without esophagitis; J44.9 Chronic obstructive pulmonary disease, unspecified; N40.0 Benign prostatic hyperplasia without lower urinary tract symptoms; I34.0 Nonrheumatic mitral (valve) insufficiency; B02.9 Zoster without complications; K44.9 Diaphragmatic hernia without obstruction or gangrene; E78.00 Pure hypercholesterolemia, unspecified; I77.1 Stricture of artery; I70.0 Atherosclerosis of aorta; I35.8 Other nonrheumatic aortic valve disorders; I37.1 Nonrheumatic pulmonary valve insufficiency; E11.9 Type 2 diabetes mellitus without complications; Z95.2 Presence of prosthetic heart valve; Z79.899 Other long term (current) drug therapy; Z79.82 Long term (current) use of aspirin; Z85.21 Personal history of malignant neoplasm of larynx; Z95.1 Presence of aortocoronary bypass graft; Z87.891 Personal history of nicotine dependence; Z96.1 Presence of intraocular lens; Z82.49 Family history of ischemic heart disease and other diseases of the circulatory system; Z63.4 Disappearance and death of family member; Z92.3 Personal history of irradiation
CPT/HCPCS: 96376; 96374; 99285; 36415; 94760 ×2; 93005; 93306; 93270; 97161; 97165; 92522; 80061; 80053; 80048; 82550; 84484; 85025; 85610; 85730; 81003; 83036; 71046; 70496; 70450; 70498; G0378 ×3; C9113 ×2; Q9967

== ENCOUNTER → 2023-02-04 | Outpatient (CLI) | payer MEDICARE ==
--- NOTE | 2023-02-04 13:06 | MR ---
EXAMINATION TYPE: MR angio head wo con DATE OF EXAM: 02/04/2023 12:46 PM CLINICAL INDICATION:Male, 82 years old with history of H50.011, R42,H53.2; COMPARISON: 02/27/2018. Technical: 3-D [id number] Axial with MIP reconstruction created on a separate workstation.. IV Contrast: None Findings: Vertebral arteries: The vertebral arteries are patent. Vertebral arteries are: Codominant. Basilar artery: The basilar artery is intact. The basilar artery bifurcation is normal. Internal Carotid arteries: The cervical, petrous, cavernous and supraclinoid segments are normal. SATINDER: Patent with no evidence of aneurysm. ACOM: Present without evidence of aneurysm. MCA: Patent with no evidence of aneurysm. TALENT ACQUISITION OPERATIONS MANAGER: Patent with no evidence of aneurysm. PCOM: Hypoplastic bilaterally. IMPRESSION: 1. No evidence of aneurysm or significant stenosis. 2. Increased signal within the left sigmoid sinus series 301 image 1. Consider follow up left neck u ltrasound for internal jugular vein flow. This is similar to 2018.
--- NOTE | 2023-02-04 13:06 | MR ---
EXAMINATION TYPE: MR brain wo con DATE OF EXAM: 02/04/2023 12:47 PM COMPARISON: 02/27/2018. CLINICAL INDICATION:Male, 82 years old with history of H50.011, R42,H53.2; PHH, TECHNIQUE: Multi planar, multi sequence imaging was performed through the brain including: T1, T2, In version recovery, Diffusion weighted imaging, and gradient echo imaging. No gadolinium was given. FINDINGS: Ventricular dilation proportion to cerebral atrophy. Scattered foci of high T2 signal intensity are seen within the periventricular white matter. Midline structures show no abnormality. Asymmetric incr eased signal within the left transverse sinus and visualized portion of the left and internal jugular vein on left similar to 2018. Diffusion-weighted imaging shows no evidence of restricted diffusion. The susceptibility weighted images do not reveal any evidence for micro-hemorrhage. There is suscepti bility artifact in left frontal lobe compatible with developmental venous anomaly. The bone marrow signal is within normal limits. Paranasal sinuses and mastoid air cells: No significant paranasal sinus disease. Visualized orbits: Bilateral aphakia. Large pannus posterior to C2 which mildly impresses the spinal cord. IMPRESSION: 1. No evidence of intracranial mass or acute/subacute infarct. 2. Nonspecific white matter changes, likely secondary to small vessel ischemic disease. 3. Left frontal lobe developmental venous anomaly. 4. Increased signal within the left sigmoid sinus. 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 This is similar to 2018.
== END | disposition home or self-care (01) ==
LOC: RADMRIMAIN 11:47
PROVIDERS: ATTEND Ophthalmology
DX: H50.011 Monocular esotropia, right eye (principal); H53.2 Diplopia; R42 Dizziness and giddiness; G93.89 Other specified disorders of brain; R90.82 White matter disease, unspecified
CPT/HCPCS: 70544; 70551

== ENCOUNTER → 2023-10-07 | Outpatient (CLI) | payer MEDICARE ==
[2023-10-07 14:30] LABS: African American GFR (CKD) 56 (>60 ml/min/1.73 sqM); Blood Urea Nitrogen 18 mg/dL (9-20); Non-African American GFR(CKD) 49 (>60 ml/min/1.73 sqM)
--- NOTE | 2023-10-09 10:50 | CT ---
EXAMINATION TYPE: CT angio chest CT DLP: 774.2 mGycm, Automated exposure control for dose reduction was used. DATE OF EXAM: 10/07/2023 3:09 PM COMPARISON: Chest radiograph from same day. CT angiogram chest 10/01/2022. CLINICAL INDICATION:Male, 83 years old with history of I71.20 thoracic aortic aneurysm; Thoracic aort ic aneurysm w/o rupture. TECHNIQUE/CONTRAST: CTA scan of the thorax is performed with IV Contrast, patient injected with 80 mL of Isovue 370, MIP images are created and reviewed these are created on a separate workstation.. FINDINGS: LUNGS: No sizable (greater than 4 mm) pulmonary parenchymal nodules. No pleural effusions. There is nodular pleural-based thickening within the right upper lobe measuring 1.4 cm, stable. 3.4 cm L pleural-based mass is stable in the right lower hemithorax, right lower l obe. There Is mild emphysematous changes. Biapical pleural thickening. MEDIASTINUM: A 1.3 cm pretracheal lymph node is stable. Moderately pronounced Coronary artery calcification seen. Atrial chamber enlargement suspected. Aortic valvular calcification noted. Sternotomy changes noted. AORTA: The aortic annulus measures 2.6 cm. The sinus of Valsalva measures 3.[address] junction me asures 3.2 cm. Dilated ascending aorta measuring up to 4.4 cm. Focal nipple-like projection is seen a t the right anterolateral aspect of the ascending aorta. The aortic arch measures up to 3.3 cm. The d escending thoracic aorta measures 3.6 cm. The upper abdominal aorta measures 2.8 cm. OTHER: Subcentimeter right thyroid nodule stable. There is a small hiatal hernia. Sternotomy wires a nd bypass grafts IMPRESSION: 1. Stable ascending thoracic aortic aneurysm measuring 4.4 cm in greatest dimension Coronary artery disease with stigmata of bypass surgery
== END | disposition home or self-care (01) ==
LOC: RADCTMAIN 13:57
PROVIDERS: ATTEND Thoracic Surgery (Cardiothoracic Vascular Surgery)
DX: I71.21 Aneurysm of the ascending aorta, without rupture (principal); I25.10 Atherosclerotic heart disease of native coronary artery without angina pectoris
CPT/HCPCS: 82565; 84520; 71275; 36415; Q9967

== ENCOUNTER 2023-10-10 15:22 | Emergency (ER) | payer MEDICARE ==
[2023-10-10] MEDS: SODIUM CHLORIDE 0.9% 1,000 ML IV STA (16:02)
--- NOTE | 2023-10-10 16:24 | ED ---
General Adult HPI - General Chief complaint: Neuro Symptoms/Deficit Stated complaint: Neuro Symptoms, Time Seen by Provider: 10/10/23 15:40 Source: patient, RN notes reviewed, old records reviewed Mode of arrival: ambulatory Limitations: no limitations - History of Present Illness Initial comments: Patient is an 83-year-old male who presents emergency department complaining of dizziness for the last 3 days as well as 1 hour of slurred speech earlier this morning. Patient presents this afternoon for further evaluation. Patient's medical history includes diabetes, hypertension, prior laryngeal cancer treated with radiation therapy, as well as a ascending thoracic aneurysm that is being observed, and recently had imaging this week and showed it was stable and unchanged. Patient denies any chest pain, shortness of breath, abdominal pain, nausea, vomiting. Does have a history of UTIs which did cause him to act differently, and patient's is curious if this was the cause of it. Patient otherwise has no symptoms at this time. States that the dizziness seems to be coming go and worse when he initially stands up. Currently has no symptoms. No history of strokes. Is not on blood thinners. No head trauma. Presents for further evaluation at this time. - Related Data Home Medications Medication Instructions Recorded Confirmed Doxazosin [Cardura] 2 mg PO HS 12/09/17 10/10/23 Aspirin 81 mg PO DAILY 03/14/18 10/10/23 Albuterol Sulfate [Proair Hfa] 2 puff INHALATION RT-Q4H PRN 10/10/21 10/10/23 carvediloL [Coreg] 3.125 mg PO BID 10/10/21 10/10/23 Cholecalciferol (Vitamin D3) 50 mcg PO DAILY 10/10/23 10/10/23 [Vitamin D3 (50 Mcg = 2000 Iu)] Doxazosin [Cardura] 4 mg PO DIRECTED 10/10/23 10/10/23 Esomeprazole Magnesium [NexIUM] 40 mg PO AC-SUPPER 10/10/23 10/10/23 Rosuvastatin [Crestor] 10 mg PO HS 10/10/23 10/10/23 Previous Rx's Medication Instructions Recorded Cephalexin [Keflex] 500 mg PO Q12HR 5 Days #10 cap 10/10/23 Allergies Allergy/AdvReac Type Severity Reaction Status Date / Time shellfish derived [Shrimp] Allergy Unknown Rash/Hives Verified 10/10/23 16:37 cat dander Allergy Unknown Verified 10/10/23 16:37 Review of Systems ROS Statement: Those systems with pertinent positive or pertinent negative responses have been documented in the HPI. Review of Systems: CONST: Denies fever EYES: Denies blurry vision ENT: Denies nasal congestion C/V: Denies Chest pain RESP: Denies shortness of breath GI: Denies abdominal pain : Denies dysuria SKIN: Denies rash. MSK: Denies joint pain. NEURO: Denies headache ROS Other: All systems not noted in ROS Statement are negative. 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 PLEURAL EFFUSIONS. septic uti 2017 History of Any Multi-Drug Resistant Organisms: None Reported Past Surgical History: Adenoidectomy, Coronary Bypass/CABG, Hernia Repair, Orthopedic Surgery, Tonsillectomy Additional Past Surgical History / Comment(s): right rotator cuff, lithotrpsy kim, right side inguinal hernia repair, kim lens implants. Mitral valve repair and left atrial appendage clip ligation on 10/26/2017. Past Anesthesia/Blood Transfusion Reactions: Previous Problems w/ Anesthesia Additional Past Anesthesia/Blood Transfusion Reaction / Comment(s): Patient has had episodes of cofusion and aggressiveness when coming out of anesthesia Past Psychological History: No Psychological Hx Reported Smoking Status: Former smoker Past Alcohol Use History: Rare Past Drug Use History: None Reported - Past Family History Mother Family Medical History: Dementia, Myocardial Infarction ([place]) Additional Family Medical History / Comment(s): passed at 71 General Exam - General Exam Comments Initial Comments: General: Appears in no acute distress. HEAD: Normal with no signs of head trauma. EYES: PERRLA, EOMI, conjunctiva normal, no discharge. Pupils are 3 mm and equal bilaterally. ENT: Hearing grossly intact, normal oropharynx. RESPIRATORY: Clear breath sounds bilaterally. No wheezes, rales, or rhonchi. C/V: Regular rate and rhythm. S1 and S2 auscultated, no edema, peripheral pulses 2+ and intact throughout ABD: Abd is soft, nontender, nondistended EXT: Normal range of motion, no obvious deformity SKIN: No rashes or lesions observed on exposed skin. NEURO: Alert and oriented x 4. Cranial nerves II-XII intact. No focal sensory or strength deficits. GCS of 15. NIH of 0. Normal cerebellar function as evident by normal finger-nose testing, [id number] testing, absence of dysdiadochokinesia. Patient patient can stand and ambulate without difficulty. Limitations: no limitations Course Vital Signs 10/10/23 10/10/23 10/10/23 15:25 18:52 20:37 Temperature 98.3 F 98.7 F Pulse Rate 75 79 72 Respiratory 18 16 18 Rate Blood Pressure 118/79 170/96 138/91 O2 Sat by Pulse 97 98 95 Oximetry Medical Decision Making - Medical Decision Making Was pt. sent in by a medical professional or institution (, PA, ELECTRO MECHANICAL SOLAR TECHNICIAN, urgent care, hospital, or fdc...) When possible be specific @ -No Did you speak to anyone other than the patient for history (EMS, parent, family, police, friend...)? What history was obtained from this source @ -Spoke with patient's who confirms the slurred speech earlier today and states that patient is currently at his baseline. Did you review nursing and triage notes (agree or disagree)? Why? @ -I reviewed and agree with nursing and triage notes Were old charts reviewed (outside hosp., previous admission, EMS record, old EKG, old radiological studies, urgent care reports/EKG's, fdc records)? Report findings @ -Old charts reviewed Differential Diagnosis (chest pain, altered mental status, abdominal pain women, abdominal pain men, vaginal bleeding, weakness, fever, dyspnea, syncope, headache, dizziness, GI bleed, back pain, seizure, CVA, palpatations, mental health, musculoskeletal)? @ -Differential Dizziness: Benign paroxysmal positional Vertigo, Menieres disease, otitis media, acoustic neuroma, vertebrobasilar insufficiency, cerebellar stroke, encephalitis, hyp ovolemic, arrhythmia, coronary artery syndrome, anemia, this is not meant to be an all-inclusive list EKG interpreted by me (3pts min.). @ -As above X-rays interpreted by me (1pt min.). @ -Chest x-ray revealed no obvious acute cardiopulmonary process. CT interpreted by me (1pt min.). @ -CT brain, CT angiogram head and neck reveals no obvious acute process or stroke. Chronic aneurysmal findings present of the thoracic aorta. U/S interpreted by me (1pt. min.). @ -None done What testing was considered but not performed or refused? (CT, X-rays, U/S, labs)? Why? @ -None What meds were considered but not given or refused? Why? @ -None Did you discuss the management of the patient with other professionals (professionals i.e. Dr., PA, ELECTRO MECHANICAL SOLAR TECHNICIAN, lab, RT, psych nurse, adoption social worker, intellectual property manager, teacher, weapons officer, welfare case worker)? Give summary @ -No Was smoking cessation discussed for >3mins.? @ -No Was critical care preformed (if so, how long)? @ -No Were there social determinants of health that impacted care today? How? (Homelessness, low income, unemployed, alcoholism, drug addiction, transportation, low edu. Level, literacy, decrease access to med. care, long-term, rehab)? @ -No Was there de-escalation of care discussed even if they declined (Discuss DNR or withdrawal of care, Hospice)? DNR status @ -No What co-morbidities impacted this encounter? (DM, HTN, Smoking, COPD, CAD, Canc er, CVA, ARF, Chemo, Hep., AIDS, mental health diagnosis, sleep apnea, morbid obesity)? @ -None Was patient admitted / discharged? Hospital course, mention meds given and route, prescriptions, significant lab abnormalities, going to OR and other pertinent info. @ -Based on the patient's presentation and physical exam, presents with lightheadedness dizziness as well as an episode of slurred speech that occurred this morning. Currently is asymptomatic. NIH is 0. Does not meet criteria for stroke activation. Is not a candidate for tPA as patient has no strokelike symptoms and risks for outweigh the benefits. Patient is currently asymptomatic. However due to the slurred speech which is atypical for the patient as well as a strange lightheadedness, we did discuss imaging possibilities and they were in agreement with obtaining stroke workup in addition to infectious workup. Screen EKG will also be obtained. Patient has no other acute complaints at this time. He will be given a 1 L fluid bolus. Patient was in agreement this plan. EKG shows no signs of acute ischemia.Patient's laboratory studies returned remarkable for an elevated white blood cell count in the urine. No other evidence of UTI. Viral swabs negative. Patient does have evidence of CKD. He did just receive contrast 2 days ago. His creatinine is slightly worse than his baseline which is typically between 1.4 and 1.5. Is currently 1.6. GFR slightly worse as well, as it is normally between 40 and 50 and is currently 39. I did discuss this at length with the patient as well as his and we believe that benefits outweigh risks of obtaining CT angiogram at this time. We will further treat the patient with a bolus of 500 cc fluids and obtain a CT with contrast. They were in agreement this plan. There was a long delay in obtaining CT imaging results. This included me contacting multiple radiologist to read the imaging. Finally it was completed, and revealed no obvious acute cranial process. Patient remains asymptomatic at this time. We did discuss his results and due to the possible early UTI, patient will be placed on Keflex. Patient was in agreement this plan. Urine culture obtained and sent as well. Patient discharged home at this time. He was given 325 mg of aspirin I recommended he continue taking his statin as well as aspirin and Plavix. No clear etiology for the patient's symptoms that occurred earlier today but he has been asymptomatic throughout his stay here. Recommended follow-up with his PCP. I did offer admission for neurology evaluation however they declined. Patient will be discharged home at this time. I will provide the patient with a prescription for Keflex. I instructed the patient to follow up with their PCP in the next 1-3 days.. I explained that the patient should return to the emergency department if they experience any worsening symptoms. Strict return precautions were discussed with the patient. The patient expressed understanding of these instructions. I answered all questions that the patient had. The patient was discharged home in good condition with their prescriptions and follow up information. Undiagnosed new problem with uncertain prognosis? @ -No Drug Therapy requiring intensive monitoring for toxicity (Heparin, Nitro, I nsulin, Cardizem)? @ -No Were any procedures done? @ -No Diagnosis/symptom? @ -Lightheadedness, UTI, possible TIA Acute, or Chronic, or Acute on Chronic? @ -Acute Uncomplicated (without systemic symptoms) or Complicated (systemic symptoms)? @ -Complicated Side effects of treatment? @ -None Exacerbation, Progression, or Severe Exacerbation] @ -No Poses a threat to life or bodily function? @ -Unlikely - Lab Data Result diagrams: 10/10/23 16:01 10/10/23 16:01 Lab Results 10/10/23 10/10/23 10/10/23 Range/Units 16:01 16:01 16:01 WBC 7.5 (3.8-10.6) k/uL RBC 5.07 (4.30-5.90) m/uL Hgb 16.1 (13.0-17.5) gm/dL Hct 47.9 (39.0-53.0) % MCV 94.6 (80.0-100.0) fL MCH 31.8 (25.0-35.0) pg MCHC 33.6 (31.0-37.0) g/dL RDW 12.6 (11.5-15.5) % Plt Count 263 (150-450) k/uL MPV 8.9 Neutrophils % 66 % Lymphocytes % 19 % Monocytes % 7 % Eosinophils % 4 % Basophils % 1 % Neutrophils # 4.9 (1.3-7.7) k/uL Lymphocytes # 1.4 (1.0-4.8) k/uL Monocytes # 0.5 (0-1.0) k/uL Eosinophils # 0.3 (0-0.7) k/uL Basophils # 0.0 (0-0.2) k/uL PT 10.9 (10.0-12.5) sec INR 1.0 (<1.2) APTT 25.2 (22.0-30.0) sec Sodium (137-145) mmol/L Potassium (3.5-5.1) mmol/L Chloride (98-107) mmol/L Carbon Dioxide (22-30) mmol/L Anion Gap mmol/L BUN (9-20) mg/dL Creatinine (0.66-1.25) mg/dL Est GFR (CKD-EPI)AfAm (>60 ml/min/1.73 sqM) Est GFR (CKD-EPI)NonAf (>60 ml/min/1.73 sqM) Glucose (74-99) mg/dL Calcium (8.4-10.2) mg/dL Magnesium (1.6-2.3) mg/dL Total Bilirubin (0.2-1.3) mg/dL AST (17-59) U/L ALT (4-49) U/L Alkaline Phosphatase (38-126) U/L Total Protein (6.3-8.2) g/dL Albumin (3.5-5.0) g/dL Urine Color Yellow Urine Appearance Clear (Clear) Urine pH 5.5 (5.0-8.0) Ur Specific [place] 1.022 (1.001-1.035) Urine Protein 1+ H (Negative) Urine Glucose (UA) Negative (Negative) Urine Ketones Negative (Negative) Urine Blood Negative (Negative) Urine Nitrite Negative (Negative) Urine Bilirubin Negative (Negative) Urine Urobilinogen <2.0 (<2.0) mg/dL Ur Leukocyte Esterase Trace H (Negative) Urine RBC 1 (0-5) /hpf Urine WBC 12 H (0-5) /hpf Ur Squamous Epith Cells <1 (0-4) /hpf Urine Mucus Rare H (None) /hpf Influenza Type A (PCR) (Not Detectd) Influenza Type B (PCR) (Not Detectd) RSV (PCR) (Not Detectd) SARS-CoV-2 (PCR) (Not Detectd) 10/10/23 10/10/23 Range/Units 16:01 16:01 WBC (3.8-10.6) k/uL RBC (4.30-5.90) m/uL Hgb (13.0-17.5) gm/dL Hct (39.0-53.0) % MCV (80.0-100.0) fL MCH (25.0-35.0) pg MCHC (31.0-37.0) g/dL RDW (11.5-15.5) % Plt Count (150-450) k/uL MPV Neutrophils % % Lymphocytes % % Monocytes % % Eosinophils % % Basophils % % Neutrophils # (1.3-7.7) k/uL Lymphocytes # (1.0-4.8) k/uL Monocytes # (0-1.0) k/uL Eosinophils # (0-0.7) k/uL Basophils # (0-0.2) k/uL PT (10.0-12.5) sec INR (<1.2) APTT (22.0-30.0) sec Sodium 139 (137-145) mmol/L Potassium 4.1 (3.5-5.1) mmol/L Chloride 101 (98-107) mmol/L Carbon Dioxide 30 (22-30) mmol/L Anion Gap 8 mmol/L BUN 25 H (9-20) mg/dL Creatinine 1.60 H (0.66-1.25) mg/dL Est GFR (CKD-EPI)AfAm 45 (>60 ml/min/1.73 sqM) Est GFR (CKD-EPI)NonAf 39 (>60 ml/min/1.73 sqM) Glucose 152 H (74-99) mg/dL Calcium 9.7 (8.4-10.2) mg/dL Magnesium 1.6 (1.6-2.3) mg/dL Total Bilirubin 0.9 (0.2-1.3) mg/dL AST 19 (17-59) U/L ALT 17 (4-49) U/L Alkaline Phosphatase 77 (38-126) U/L Total Protein 7.0 (6.3-8.2) g/dL Albumin 4.3 (3.5-5.0) g/dL Urine Color Urine Appearance (Clear) Urine pH (5.0-8.0) Ur Specific [place] (1.001-1.035) Urine Protein (Negative) Urine Glucose (UA) (Negative) Urine Ketones (Negative) Urine Blood (Negative) Urine Nitrite (Negative) Urine Bilirubin (Negative) Urine Urobilinogen (<2.0) mg/dL Ur Leukocyte Esterase (Negative) Urine RBC (0-5) /hpf Urine WBC (0-5) /hpf Ur Squamous Epith Cells (0-4) /hpf Urine Mucus (None) /hpf Influenza Type A (PCR) Not Detected (Not Detectd) Influenza Type B (PCR) Not Detected (Not Detectd) RSV (PCR) Not Detected (Not Detectd) SARS-CoV-2 (PCR) Not Detected (Not Detectd) - EKG Data -: EKG Interpreted by Me EKG Comments: 12-lead Electrocardiogram Interpretation Note EKG was reviewed and interpreted by myself. 12-lead ECG performed at 1608 is interpreted by me as revealing normal sinus rhythm at a rate of 75 beats per minute. [place] is normal. ND interval is 158 ms, QRS duration is 86 ms, QTc is 423 ms.. There were no ST or T wave abnormalities to suggest myocardial ischemia or injury. R wave progression across the precordium was satisfactory. By my interpretation this EKG is non-diagnostic for acute ischemia. Disposition Clinical Impression: UTI (urinary tract infection), Lightheadedness Disposition: HOME SELF-CARE Condition: Good Prescriptions: Cephalexin [Keflex] 500 mg PO Q12HR 5 Days #10 cap Is patient prescribed a controlled substance at d/c from ED?: No Referrals: Chris Lynn Jr, [Primary Care Provider] - 1-2 days Time of Disposition: 20:10
[2023-10-10 16:48] LABS: Basophils % (A) 1 %; Eosinophils # (A) 0.3 k/uL (0-0.7); Eosinophils % (A) 4 %; HCT 47.9 % (39.0-53.0); HGB 16.1 gm/dL (13.0-17.5); Lymphocytes # (A) 1.4 k/uL (1.0-4.8); Lymphocytes % (A) 19 %; MCH 31.8 pg (25.0-35.0); MCHC 33.6 g/dL (31.0-37.0); MCV 94.6 fL (80.0-100.0); Mean Platelet Volume 8.9; Monocytes # (A) 0.5 k/uL (0-1.0); Monocytes % (A) 7 %; Neutrophils # (A) 4.9 k/uL (1.3-7.7); Neutrophils % (A) 66 %; Partial Thromboplastin Time 25.2 sec (22.0-30.0); Platelet Count 263 k/uL (150-450); Prothrombin Time 10.9 sec (10.0-12.5); RBC 5.07 m/uL (4.30-5.90); RDW 12.6 % (11.5-15.5); WBC 7.5 k/uL (3.8-10.6)
[2023-10-10 16:49] LABS: ALT 17 U/L (4-49); AST 19 U/L (17-59); African American GFR (CKD) 45 (>60 ml/min/1.73 sqM); Albumin 4.3 g/dL (3.5-5.0); Alkaline Phosphatase 77 U/L (38-126); Anion Gap 8 mmol/L; Blood Urea Nitrogen 25 mg/dL (9-20); Calcium 9.7 mg/dL (8.4-10.2); Carbon Dioxide 30 mmol/L (22-30); Chloride 101 mmol/L (98-107); Glucose 152 mg/dL (74-99); Magnesium 1.6 mg/dL (1.6-2.3); Non-African American GFR(CKD) 39 (>60 ml/min/1.73 sqM); Potassium 4.1 mmol/L (3.5-5.1); Sodium 139 mmol/L (137-145); Total Bilirubin 0.9 mg/dL (0.2-1.3)
[2023-10-10 16:50] LABS: Appearance,Urine Clear (Clear); Bilirubin,Urine Negative (Negative); Blood,Urine Negative (Negative); Color,Urine Yellow; Glucose,Urine (UA) Negative (Negative); Ketones,Urine Negative (Negative); Leukocyte Esterase,Urine Trace (Negative); Mucus,Urine Rare /hpf; Nitrite,Urine Negative (Negative); PH, Urine 5.5 (5.0-8.0); Protein,Urine 1+ (Negative); RBC,Urine 1 /hpf (0-5); Specific Gravity,Urine 1.022 (1.001-1.035); Squamous Epithelial Cell,Urine <1 /hpf (0-4); Urobilinogen,Urine <2.0 mg/dL (<2.0); WBC,Urine 12 /hpf (0-5)
[2023-10-10] MEDS: SODIUM CHLORIDE 0.9% 500 ML 500 ML IV STA (17:23)
[2023-10-10 19:20] VITALS: TEMP 98.7
--- NOTE | 2023-10-10 19:36 | CT ---
EXAMINATION TYPE: CT brain wo con DATE OF EXAM: 10/10/2023 COMPARISON: 01/05/2023 INDICATION: Pt states feeling dizzy for 3 days, headache and states hard slurred speech for about 1 h our today. DLP: Combined DLP of 1624.7 mGycm, Automated exposure control for dose reduction was used. CONTRAST: None CT of the brain is performed utilizing 3 mm thick sections through the posterior fossa and 3 mm thick sections through the remaining calvarium. Study is performed within 24 hours of arrival to the hosp ital. No abnormal hyperdensity is present to suggest an acute intracranial hemorrhage. No mass lesion is evident. No acute infarcts are evident. There is mild periventricular white matter hypodensity, likely on the basis of white matter ischemic change. Findings appear stable from comparison. Ventricles and sulci are appropriate for the patient age. Paranasal sinuses and mastoid air cells within the [id number] are clear. IMPRESSION: 1. No acute intracranial process. Follow-up MRI can be performed as clinically indicated. 2. Mild periventricular white matter ischemic-type changes.
--- NOTE | 2023-10-10 20:04 | CT ---
EXAMINATION TYPE: CT angio head neck DATE OF EXAM: 10/10/2023 5:20 PM COMPARISON: Correlation with same day CT head. Other prior studies, including multiple prior CTA and CT chest exams. CLINICAL INDICATION:Male, 83 years old with history of dizzy, episode of dysarthria earlier; PHH, Pt states feeling dizzy for 3 days, headache and states hard slurred speech for about 1 hour today. TECHNIQUE: Axially acquired helical CT angiogram of the head and neck was obtained with contrast. Mul tiplanar reformats were generated. NASCET criteria used. Contrast used: 65 mL of Isovue 370 with IV Contrast, Oral contrast used: None. CT DLP: Combined DLP of 1624.7 mGycm, Automated exposure control for dose reduction was used. FINDINGS: CTA Neck: Visualized distal ascending aorta measures 4.1 cm, patient has a known aneurysm. There is no evidence of dissection along the arch. There is moderate atherosclerotic calcification. Conventional 3 vessel branch pattern without significant narrowing of the proximal branch vessels. Right common carotid is patent with mild tortuosity and atherosclerotic calcification. Scattered calc ifications and some additional soft plaque distally without significant stenosis. Bifurcation is aguilar nt. There is mixed atherosclerotic disease in the proximal right ICA without hemodynamically signific ant stenosis. The ECA is patent. ICA is patent to the skull base. The left common carotid has scattered mild atherosclerotic calcification. Bifurcation is patent with mild disease in the proximal ECA and ICA without significant stenosis. The ICA is then patent to the skull base. There is mixed atherosclerotic disease suggested at the origin of the left vertebral artery. Evaluati on of the proximal vertebral is limited by surrounding dense contrast within venous structures, howev er a hemodynamically significant stenosis is not believed to be present. Some calcified plaque near t he origin of the right vertebral artery without significant stenosis. Vertebral arteries otherwise ap pear patent throughout the neck. The left is dominant. Other: Visualized neck soft tissues show no concerning abnormality. 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 This indents the ante rior thecal sac without clear CT evidence to suggest cord compression or thinning. No suggestion of a n acute bony abnormality. Findings could be correlated with dedicated cervical spine CT and/or MRI as clinically warranted. The visualized upper chest shows sternotomy wires and some mediastinal clips, probably from previous CABG. Mild scarring in the lung apices and a small nonspecific subpleural groundglass opacity posterolatera lly on the left image 29 which measures approximately 11 x 7 mm. This appears unchanged compared to CT and 10/01/2022 CT, but appears slightly smaller about 8 x 5.5 mm on the 10/01/2021 CT. This does not appear present on remote CT 11/05/2010. No definite consolidation or evidence of pneumothora x. CTA Head: There are some calcifications of the cavernous portions of the ICAs without significant stenosis. On the right, carotid terminus is patent. Right MCA and visible distal branches appear patent. SATINDER is patent. Anterior communicating artery is not definitely visualized. There is a patent right posterio r communicating artery. On the left, the carotid terminus is patent. SATINDER and MCA appear normally patent. There seems to be a tiny opacified posterior communicating artery. In the posterior circulation, the intracranial vertebral arteries are patent, the left is dominant. D istal left V4 segment is tortuous. Basilar artery is patent and of normal caliber. The terminal bifur cation is patent, the visualized proximal sander and buffer are patent. There is no evidence of aneurysm. The dural venous sinuses appear grossly patent without evidence of thrombosis. Other: Please refer to same-day CT head report for further description of findings. IMPRESSION: CTA neck: 1. Atherosclerotic disease along the aortic arch with partially imaged aneurysmal dilatation of the d istal ascending aorta. No dissection. 2. Mild to moderate atherosclerotic disease is present, without evidence of hemodynamically significa nt stenosis, dissection, or pseudoaneurysm in the carotid or vertebral arteries in the neck. 3. Small subpleural focus of groundglass attenuation in the left upper lobe of the lung, nonspecific but appears to have enlarged slightly over time since 09/2021. Slow growing neoplasm remains to be exc luded. Pulmonology consultation and close follow-up recommended. CTA head: 1. Patent CTA head. 2. No intracranial large vessel occlusion, significant stenosis, or sizable aneurysm detected in the limits of CTA.
--- NOTE | 2023-10-10 20:11 | XR ---
EXAMINATION TYPE: XR chest 2V DATE OF EXAM: 10/10/2023 4:25 PM CLINICAL INDICATION:Male, 83 years old with history of Weakness; PHH COMPARISON: X-ray 08/07/2023 TECHNIQUE: XR chest 2V. Frontal and lateral views of the chest.. FINDINGS: Hyperinflated lungs with interstitial coarsening and mild biapical pleural thickening, this can be se en with COPD. Presumed scarring at the right lung base is stable. No acute consolidation, pleural effusion, or pneu mothorax is demonstrated. Cardiomediastinal silhouette is unchanged. Heart size is normal. Aorta is tortuous. Left atrial appen dage occlusion device again noted. Sternotomy wires and clips likely from CABG. Mildly prominent vascular shadows in the hilar regions, likely arterial and this appearance can be se en with pulmonary hypertension. No acute bony abnormality. Degenerative changes of the shoulders and spine. IMPRESSION: 1. Chronic changes, which may be related to COPD. 2. No evidence of acute superimposed cardiopulmonary process.
[2023-10-10] MEDS: CEPHALEXIN 500 MG CAP PO STA (20:36)
[2023-10-10] MEDS: ASPIRIN 325 MG TAB PO STA (20:36)
[2023-10-10 21:00] VITALS: BP 138/91; PULSE 72; RESP 18
== END 2023-10-10 20:37 | disposition home or self-care (01) ==
LOC: EC 15:22
DX: N39.0 Urinary tract infection, site not specified (principal); R42 Dizziness and giddiness; E11.9 Type 2 diabetes mellitus without complications; I10 Essential (primary) hypertension; Z87.891 Personal history of nicotine dependence; Z91.013 Allergy to seafood; Z88.8 Allergy status to other drugs, medicaments and biological substances; Z79.899 Other long term (current) drug therapy
CPT/HCPCS: 80053; 83735; 85025; 85610; 85730; 87086; 87636; 71046; 70496; 70450; 70498; 99285; 96360; 96361; Q9967; 36415; 81001

== ENCOUNTER → 2023-10-30 | Outpatient (CLI) | payer MEDICARE ==
--- NOTE | 2023-10-31 10:49 | US ---
EXAMINATION TYPE: US carotid duplex BILAT DATE OF EXAM: 10/30/2023 COMPARISON: 05/18/2017 CLINICAL INDICATION: Male, 83 years old with history of G45.3 AMAUROSIS FUGAX; Patient states he gets this done every few years. No new symtpoms. TECHNIQUE: Carotid duplex ultrasound examination. Indirect Doppler criteria was utilized. FINDINGS: EXAM MEASUREMENTS: RIGHT: Peak Systolic Velocity (PSV) cm/sec ----- Right CCA: 61.9 ----- Right ICA: 59.2 ----- Right ECA: 50.5 ICA/CCA ratio: 1.0 RIGHT: End Diastole cm/sec ----- Right CCA: 14.7 ----- Right ICA: 18.2 ----- Right ECA: 8.6 LEFT: Peak Systolic Velocity (PSV) cm/sec ----- Left CCA: 50.5 ----- Left ICA: 61.9 ----- Left ECA: 94.3 ICA/CCA ratio: 1.2 LEFT: End Diastole cm/sec ----- Left CCA: 12.0 ----- Left ICA: 20.0 ----- Left ECA: 11.5 VERTEBRALS (direction of flow): Right Vertebral: Antegrade Left Vertebral: Antegrade Rhythm: Normal INSULATION INSPECTOR NOTES: Plaque seen throughout the CCA and bulb bilaterally. No elevated velocities see n today. IMPRESSION: 1. Mild calcified plaque in the common carotid and carotid bifurcations bilaterally. 2. Based on color and grayscale imaging as well as peak systolic velocities and ratios, there is no h emodynamically significant stenosis. 3. No significant interval change compared to previous. Criteria for Assigning % of Stenosis / Diameter reduction (Estimation based on the indirect measurements of the internal carotid artery velocities (ICA PSV). 1. Normal (no stenosis)=ICA PSV < 125 cm/s: ratio < 2.0: ICA EDV<40 cm/s. 2. Less than 50% stenosis=ICA PSV < 125 cm/s: ratio < 2.0: ICA EDV<40 cm/s. 3. 50 to 69% stenosis=ICA PSV of 125 to 230 cm/s: ration 2.0 ? 4.0: ICA EDV 40-100 cm/s. 4. Greater than 70% stenosis to near occlusion= ICA PSV > 230 cm/s: ratio > 4.0: ICA EDV > 100 cm/s. 5. Near occlusion= ICA PSV velocities may be low or undetectable: variable ratio and ICA EDV. 6. Total occlusion=unable to detect flow.
== END | disposition home or self-care (01) ==
LOC: RADUSWWP 14:25
PROVIDERS: ATTEND Family Medicine
DX: I65.23 Occlusion and stenosis of bilateral carotid arteries (principal)
CPT/HCPCS: 93880

== ENCOUNTER 2024-05-04 06:00 | Emergency (ER) | payer MEDICARE ==
[2024-05-04 06:09] VITALS: RESP 18
--- NOTE | 2024-05-04 06:38 | ED ---
Male Urogenital HPI - General Chief complaint: Urogenital Stated complaint: Renal issues Time Seen by Provider: 05/04/24 06:02 Source: patient, EMS, RN notes reviewed Mode of arrival: EMS Limitations: no limitations - History of Present Illness Initial comments: This is an 83-year-old male who presents to the emergency department for urinary retention. Patient states that last night when he tried to use the bathroom he only had some dribbling. Earlier that day he had some burning with urination and thought that he may have been developing a UTI, which he does have a history of. Since last night he has been unable to urinate and reports increasing suprapubic discomfort. Denies a history of problems with urinary retention. The only time he required a Griggs catheter was when he had kidney stones several years ago. Denies any pain in his back. He was recently treated with Paxlovid for COVID-19. - Related Data Home Medications Medication Instructions Recorded Confirmed Doxazosin [Cardura] 2 mg PO HS 12/09/17 10/10/23 Aspirin 81 mg PO DAILY 03/14/18 10/10/23 Albuterol Sulfate [Proair Hfa] 2 puff INHALATION RT-Q4H PRN 10/10/21 10/10/23 carvediloL [Coreg] 3.125 mg PO BID 10/10/21 10/10/23 Cholecalciferol (Vitamin D3) 50 mcg PO DAILY 10/10/23 10/10/23 [Vitamin D3 (50 Mcg = 2000 Iu)] Doxazosin [Cardura] 4 mg PO DIRECTED 10/10/23 10/10/23 Esomeprazole Magnesium [NexIUM] 40 mg PO AC-SUPPER 10/10/23 10/10/23 Rosuvastatin [Crestor] 10 mg PO HS 10/10/23 10/10/23 Previous Rx's Medication Instructions Recorded Cephalexin [Keflex] 500 mg PO Q12HR 5 Days #10 cap 10/10/23 Ciprofloxacin HCl [Cipro] 500 mg PO Q12HR 7 Days #14 tab 05/04/24 Tamsulosin [Flomax] 0.4 mg PO DAILY #30 cap 05/04/24 Allergies Allergy/AdvReac Type Severity Reaction Status Date / Time shellfish derived [Shrimp] Allergy Unknown Rash/Hives Verified 10/10/23 16:37 cat dander Allergy Unknown Verified 10/10/23 16:37 Review of Systems ROS Statement: Those systems with pertinent positive or pertinent negative responses have been documented in the HPI. ROS Other: All systems not noted in ROS Statement are negative. 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 PLEURAL EFFUSIONS. septic uti 2017 History of Any Multi-Drug Resistant Organisms: None Reported Past Surgical History: Adenoidectomy, Coronary Bypass/CABG, Hernia Repair, Orthopedic Surgery, Tonsillectomy Additional Past Surgical History / Comment(s): right rotator cuff, lithotrpsy kim, right side inguinal hernia repair, kim lens implants. Mitral valve repair and left atrial appendage clip ligation on 10/26/2017. Past Anesthesia/Blood Transfusion Reactions: Previous Problems w/ Anesthesia Additional Past Anesthesia/Blood Transfusion Reaction / Comment(s): Patient has had episodes of cofusion and aggressiveness when coming out of anesthesia Past Psychological History: No Psychological Hx Reported Smoking Status: Former smoker Past Alcohol Use History: Rare Past Drug Use History: None Reported - Past Family History Mother Family Medical History: Dementia, Myocardial Infarction ([place]) Additional Family Medical History / Comment(s): passed at 71 General Exam Limitations: no limitations General appearance: alert, in no apparent distress Head exam: Present: atraumatic, normocephalic, normal inspection Respiratory exam: Present: normal lung sounds bilaterally. Absent: respiratory distress, wheezes, rales, rhonchi, stridor Cardiovascular Exam: Present: regular rate, normal rhythm, normal heart sounds. Absent: systolic murmur, diastolic murmur, rubs, gallop, clicks GI/Abdominal exam: Present: soft, normal bowel sounds. Absent: distended, tenderness, guarding, rebound, rigid Back exam: Absent: CVA tenderness (R), CVA tenderness (L) Neurological exam: Present: alert, oriented X3, CN II-XII intact Psychiatric exam: Present: normal affect, normal mood Skin exam: Present: warm, dry, intact, normal color. Absent: rash Course Vital Signs 05/04/24 05/04/24 05/04/24 06:03 07:27 08:28 Temperature 96.9 F L 97.9 F 98.2 F Pulse Rate 78 75 76 Respiratory 18 18 18 Rate Blood Pressure 175/109 166/106 144/84 O2 Sat by Pulse 95 96 95 Oximetry Medical Decision Making - Medical Decision Making This is an 83 year old male who presents to the emergency department for urinary retention. Was pt. sent in by a medical professional or institution? @ -No Did you speak to anyone other than the patient for history? @ -No Did you review nursing and triage notes? @ -Yes, and I agree, it is accurate with regards to the patient's symptoms. Were old charts reviewed? @ -No Differential Diagnosis? @ -UTI, electrolyte abnormality, neurological issue, BPH, this is not meant to be an all-inclusive list. EKG interpreted by me (3pts min.)? @ -Not obtained X-rays interpreted by me (1pt min.)? @ -Not obtained CT interpreted by me (1pt min.)? @ -Not obtained U/S interpreted by me (1pt. min.)? @ -Ultrasound of the kidneys, ureters, and bladder obtained. My interpretation identifies no hydronephrosis. What testing was considered but not performed? (CT, X-rays, U/S, labs)? Why? @ -None What meds were considered but not given? Why? @ -None Did you discuss the management of the patient with other professionals? @ -No Did you reconcile home meds? @ -No Was smoking cessation discussed for >3mins.? @ -No Was critical care preformed (if so, how long)? @ -No Were there social determinants of health that impacted care today? How? (Homelessness, low income, unemployed, alcoholism, drug addiction, transportation, low edu. Level, literacy, decrease access to med. care, alf, rehab)? @ -No Was there de-escalation of care discussed even if they declined? (Discuss DNR or withdrawal of care, Hospice)? @ -No What co-morbidities impacted this encounter? (DM, HTN, Smoking, COPD, CAD, Cancer, CVA, Hep., AIDS, mental health diagnosis, sleep apnea, morbid obesity)? @ -DM Was patient admitted / discharged? @ -Discharged. Lab work unremarkable. Renal function is improved when compared with prior. Bladder scan performed demonstrating approximately 383 mL of urine. Griggs catheter inserted and greater than 400 mL of urine was drained initially. Patient had substantial relief in symptoms afterwards. Urinalysis is potentially suggestive of infection with large leukocyte esterase and 25 WBCs. Rare bacteria noted. Urine sent for culture. Ultrasound of the kidneys, ureters, and bladder obtained revealing no acute process. Findings reviewed with the patient. At the time of reevaluation the catheter bag had approximately 1200 mL of urine in it. Patient continued to report significant relief in symptoms. Prescription for ciprofloxacin provided for possible UTI as well as Flomax for the urinary retention. Information for urology follow-up provided. He is advised to contact them for a follow-up appointment. Patient was given a leg bag for the Griggs catheter and nursing staff educated the patient and his on use. Patient discharged home in stable condition. Case discussed with ED attending Dr. Sherwood. Return precautions reviewed in depth, the patient is instructed to return to the emergency department with any new, worsening, or concerning symptoms. Patient verbalized understanding. Undiagnosed new problem with uncertain prognosis? @ -None Drug Therapy requiring intensive monitoring for toxicity (Heparin, Nitro, Insulin, Cardizem)? @ -None Were any procedures done? @ -None Diagnosis/symptom? @ -Urinary retention, UTI Acute, or Chronic, or Acute on Chronic? @ -Acute Uncomplicated (without systemic symptoms) or Complicated (systemic symptoms)? @ -Uncomplicated Side effects of treatment? @ -None Exacerbation, Progression, or Severe Exacerbation] @ -Not applicable Poses a threat to life or bodily function? @ -No - Lab Data Result diagrams: 05/04/24 06:35 05/04/24 06:35 Lab Results 05/04/24 05/04/24 05/04/24 Range/Units 06:17 06:35 06:35 WBC 6.9 (3.8-10.6) k/uL RBC 4.99 (4.30-5.90) m/uL Hgb 15.7 (13.0-17.5) gm/dL Hct 46.0 (39.0-53.0) % MCV 92.2 (80.0-100.0) fL MCH 31.5 (25.0-35.0) pg MCHC 34.2 (31.0-37.0) g/dL RDW 13.2 (11.5-15.5) % Plt Count 296 (150-450) k/uL MPV 9.3 Neutrophils % 68 % Lymphocytes % 17 % Monocytes % 7 % Eosinophils % 5 % Basophils % 0 % Neutrophils # 4.7 (1.3-7.7) k/uL Lymphocytes # 1.2 (1.0-4.8) k/uL Monocytes # 0.5 (0-1.0) k/uL Eosinophils # 0.4 (0-0.7) k/uL Basophils # 0.0 (0-0.2) k/uL Sodium 137 (137-145) mmol/L Potassium 4.5 (3.5-5.1) mmol/L Chloride 104 (98-107) mmol/L Carbon Dioxide 26 (22-30) mmol/L Anion Gap 7 mmol/L BUN 18 (9-20) mg/dL Creatinine 1.29 H (0.66-1.25) mg/dL Est GFR (CKD-EPI)AfAm 58 (>60 ml/min/1.73 sqM) Est GFR (CKD-EPI)NonAf 50 (>60 ml/min/1.73 sqM) Glucose 136 H (74-99) mg/dL Calcium 9.1 (8.4-10.2) mg/dL Total Bilirubin 0.8 (0.2-1.3) mg/dL AST 21 (17-59) U/L ALT 16 (4-49) U/L Alkaline Phosphatase 73 (38-126) U/L Total Protein 7.0 (6.3-8.2) g/dL Albumin 4.3 (3.5-5.0) g/dL Urine Color Colorless Urine Appearance Clear (Clear) Urine pH 6.5 (5.0-8.0) Ur Specific [place] 1.005 (1.001-1.035) Urine Protein Trace H (Negative) Urine Glucose (UA) Negative (Negative) Urine Ketones Negative (Negative) Urine Blood Small H (Negative) Urine Nitrite Negative (Negative) Urine Bilirubin Negative (Negative) Urine Urobilinogen <2.0 (<2.0) mg/dL Ur Leukocyte Esterase Large H (Negative) Urine RBC 8 H (0-5) /hpf Urine WBC 25 H (0-5) /hpf Ur Squamous Epith Cells <1 (0-4) /hpf Urine Bacteria Rare H (None) /hpf Hyaline Casts 1 (0-2) /lpf - Radiology Data Radiology results: report reviewed, image reviewed Disposition Clinical Impression: Urinary retention, UTI (urinary tract infection) Disposition: HOME SELF-CARE Instructions (If sedation given, give patient instructions): Urinary Retention in Men (ED), Urinary Tract Infection in Men (ED), Griggs Catheter Placement and Care (ED), How to Change a Catheter Drainage Bag (DC) Additional Instructions: Return to the emergency department with any new, worsening, or concerning symptoms. Take the antibiotic as prescribed for 7 days. Take the Flomax once daily. Contact the urology office listed below for a follow-up appointment or follow up with a urologist of your choice. Let them know that you were seen in the emergency department for urinary retention and had a Griggs catheter placed. Follow up with your primary care provider in 1-2 days. Prescriptions: Ciprofloxacin HCl [Cipro] 500 mg PO Q12HR 7 Days #14 tab Tamsulosin [Flomax] 0.4 mg PO DAILY #30 cap Is patient prescribed a controlled substance at d/c from ED?: No Referrals: Chris Lynn Jr, DO [Primary Care Provider] - 1-2 days Brian Hernandez MD [STAFF PHYSICIAN] - 1-2 days Time of Disposition: 08:20
[2024-05-04 06:56] LABS: ALT 16 U/L (4-49); AST 21 U/L (17-59); African American GFR (CKD) 58 (>60 ml/min/1.73 sqM); Albumin 4.3 g/dL (3.5-5.0); Alkaline Phosphatase 73 U/L (38-126); Anion Gap 7 mmol/L; Basophils % (A) 0 %; Blood Urea Nitrogen 18 mg/dL (9-20); Calcium 9.1 mg/dL (8.4-10.2); Carbon Dioxide 26 mmol/L (22-30); Chloride 104 mmol/L (98-107); Eosinophils # (A) 0.4 k/uL (0-0.7); Eosinophils % (A) 5 %; Glucose 136 mg/dL (74-99); HGB 15.7 gm/dL (13.0-17.5); Lymphocytes # (A) 1.2 k/uL (1.0-4.8); Lymphocytes % (A) 17 %; MCH 31.5 pg (25.0-35.0); MCHC 34.2 g/dL (31.0-37.0); MCV 92.2 fL (80.0-100.0); Mean Platelet Volume 9.3; Monocytes # (A) 0.5 k/uL (0-1.0); Monocytes % (A) 7 %; Neutrophils # (A) 4.7 k/uL (1.3-7.7); Neutrophils % (A) 68 %; Non-African American GFR(CKD) 50 (>60 ml/min/1.73 sqM); Platelet Count 296 k/uL (150-450); Potassium 4.5 mmol/L (3.5-5.1); RBC 4.99 m/uL (4.30-5.90); RDW 13.2 % (11.5-15.5); Sodium 137 mmol/L (137-145); Total Bilirubin 0.8 mg/dL (0.2-1.3); WBC 6.9 k/uL (3.8-10.6)
[2024-05-04 07:28] LABS: Appearance,Urine Clear (Clear); Bacteria,Urine Rare /hpf; Bilirubin,Urine Negative (Negative); Blood,Urine Small (Negative); Color,Urine Colorless; Glucose,Urine (UA) Negative (Negative); Hyaline Casts,Urine 1 /lpf (0-2); Ketones,Urine Negative (Negative); Leukocyte Esterase,Urine Large (Negative); Nitrite,Urine Negative (Negative); PH, Urine 6.5 (5.0-8.0); Protein,Urine Trace (Negative); RBC,Urine 8 /hpf (0-5); Specific Gravity,Urine 1.005 (1.001-1.035); Squamous Epithelial Cell,Urine <1 /hpf (0-4); Urobilinogen,Urine <2.0 mg/dL (<2.0); WBC,Urine 25 /hpf (0-5)
--- NOTE | 2024-05-04 08:00 | US ---
EXAMINATION TYPE: US kidneys/renal and bladder DATE OF EXAM: 05/04/2024 COMPARISON: NONE CLINICAL INDICATION: Male, 83 years old with history of Urinary retention; urinary retention TECHNIQUE: Grayscale and color Doppler imaging of the bilateral kidneys and urinary bladder: FINDINGS: EXAM MEASUREMENTS: Right Kidney: 11.9 x 5.2 x 5.8 cm Left Kidney: 12.1 x 5.0 x 5.7 cm Right Kidney: No hydronephrosis or masses seen Left Kidney: No hydronephrosis or masses seen Bladder: not seen due to bowel gas and luns[place] in place Bilateral Jets seen: No There is no evidence for hydronephrosis at this point in time. No nephrolithiasis is seen. No darling s are identified. The urinary bladder is anechoic. IMPRESSION: No discrete abnormality. [facility], , 05/04/2024 7:58 AM
[2024-05-04 08:32] VITALS: BP 144/84; PULSE 76; TEMP 98.2
== END 2024-05-04 08:48 | disposition home or self-care (01) ==
LOC: EC 06:00
CPT/HCPCS: 36415; 51702; 51798; 76770; 80053; 81001; 85025; 87086; 99285

== ENCOUNTER 2024-09-20 09:58 | Emergency (ER) | payer MEDICARE ==
[2024-09-20 10:04] VITALS: PULSE 71; RESP 18
[2024-09-20 10:29] LABS: Basophils % (A) 1 %; Eosinophils # (A) 0.3 k/uL (0-0.7); Eosinophils % (A) 5 %; HCT 44.7 % (39.0-53.0); HGB 14.4 gm/dL (13.0-17.5); Lymphocytes # (A) 1.2 k/uL (1.0-4.8); Lymphocytes % (A) 20 %; MCH 30.4 pg (25.0-35.0); MCHC 32.2 g/dL (31.0-37.0); MCV 94.4 fL (80.0-100.0); Mean Platelet Volume 8.7; Monocytes # (A) 0.5 k/uL (0-1.0); Monocytes % (A) 8 %; Neutrophils # (A) 3.8 k/uL (1.3-7.7); Neutrophils % (A) 63 %; Platelet Count 265 k/uL (150-450); RBC 4.74 m/uL (4.30-5.90); RDW 13.1 % (11.5-15.5); WBC 6.1 k/uL (3.8-10.6)
[2024-09-20 10:38] LABS: ALT 15 U/L (4-49); AST 17 U/L (17-59); African American GFR (CKD) 52 (>60 ml/min/1.73 sqM); Albumin 3.9 g/dL (3.5-5.0); Alkaline Phosphatase 63 U/L (38-126); Anion Gap 5 mmol/L; Blood Urea Nitrogen 20 mg/dL (9-20); Calcium 9.1 mg/dL (8.4-10.2); Carbon Dioxide 30 mmol/L (22-30); Chloride 103 mmol/L (98-107); Glucose 130 mg/dL (74-99); Magnesium 1.7 mg/dL (1.6-2.3); Non-African American GFR(CKD) 45 (>60 ml/min/1.73 sqM); Potassium 4.5 mmol/L (3.5-5.1); Sodium 138 mmol/L (137-145); Total Bilirubin 0.8 mg/dL (0.2-1.3); Total Protein 6.4 g/dL (6.3-8.2)
--- NOTE | 2024-09-20 10:52 | ED ---
Chest Pain HPI - General Source: patient, RN notes reviewed Mode of arrival: ambulatory Limitations: no limitations <Susan Cortes - Last Filed: 09/20/24 10:50> <Davon Johnson - Last Filed: 09/20/24 13:23> - General Chief Complaint: Chest Pain Stated Complaint: Chest pain Time Seen by Provider: 09/20/24 10:50 - History of Present Illness Initial Comments: Quick [id number] male with history of hyperlipidemia, hypertension, diabetes, CABG presenting to the ER for chief complaint of chest pain x 3 days. Reports an intermittent chest tightness and associated shortness of breath. Pain is worse with inspiration. He takes baby aspirin, denies blood thinners. (Susan Cortes) This is an 84-year-old male who presents to the emergency department with a history of diabetes bypass surgery hypertension high cholesterol. Patient states he has had chest pain for the last 3 days. Patient states it is very sharp in nature and only occurs when he takes a deep breath. Patient states it lasts only for 1 to 2 seconds and then goes away. Patient states to be states at rest and does not take a deep breath he has no pain. Patient denies any shortness of breath. Patient denies any fever chills or cough. Patient denies any back pain patient denies any arm pain patient denies any numbness weakness. Patient denies any abdominal pain. (Davon Johnson) - Related Data Home Medications Medication Instructions Recorded Confirmed Doxazosin [Cardura] 2 mg PO HS 12/09/17 10/10/23 Aspirin 81 mg PO DAILY 03/14/18 10/10/23 Albuterol Sulfate [Proair Hfa] 2 puff INHALATION RT-Q4H PRN 10/10/21 10/10/23 carvediloL [Coreg] 3.125 mg PO BID 10/10/21 10/10/23 Cholecalciferol (Vitamin D3) 50 mcg PO DAILY 10/10/23 10/10/23 [Vitamin D3 (50 Mcg = 2000 Iu)] Doxazosin [Cardura] 4 mg PO DIRECTED 10/10/23 10/10/23 Esomeprazole Magnesium [NexIUM] 40 mg PO AC-SUPPER 10/10/23 10/10/23 Rosuvastatin [Crestor] 10 mg PO HS 10/10/23 10/10/23 Previous Rx's Medication Instructions Recorded Cephalexin [Keflex] 500 mg PO Q12HR 5 Days #10 cap 10/10/23 Ciprofloxacin HCl [Cipro] 500 mg PO Q12HR 7 Days #14 tab 05/04/24 Tamsulosin [Flomax] 0.4 mg PO DAILY #30 cap 05/04/24 Allergies Allergy/AdvReac Type Severity Reaction Status Date / Time shellfish derived [Shrimp] Allergy Unknown Rash/Hives Verified 09/20/24 10:04 cat dander Allergy Unknown Verified 09/20/24 10:04 Review of Systems ROS Other: All systems not noted in ROS Statement are negative. <Susan Cortes - Last Filed: 09/20/24 10:50> ROS Other: All systems not noted in ROS Statement are negative. <Davon Johnson - Last Filed: 09/20/24 13:23> ROS Statement: Those systems with pertinent positive or pertinent negative responses have been documented in the HPI. 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 PLEURAL EFFUSIONS. septic uti 2017 History of Any Multi-Drug Resistant Organisms: None Reported Past Surgical History: Adenoidectomy, Coronary Bypass/CABG, Hernia Repair, Orthopedic Surgery, Tonsillectomy Additional Past Surgical History / Comment(s): right rotator cuff, lithotrpsy kim, right side inguinal hernia repair, kim lens implants. Mitral valve repair and left atrial appendage clip ligation on 10/26/2017. Past Anesthesia/Blood Transfusion Reactions: Previous Problems w/ Anesthesia Additional Past Anesthesia/Blood Transfusion Reaction / Comment(s): Patient has had episodes of cofusion and aggressiveness when coming out of anesthesia Past Psychological History: No Psychological Hx Reported Smoking Status: Former smoker Past Alcohol Use History: Rare Past Drug Use History: None Reported - Past Family History Mother Family Medical History: Dementia, Myocardial Infarction ([place]) Additional Family Medical History / Comment(s): passed at 71 <Susan Cortes - Last Filed: 09/20/24 10:50> General Exam Limitations: no limitations <Susan Cortes - Last Filed: 09/20/24 10:50> <Davon Johnson - Last Filed: 09/20/24 13:23> - General Exam Comments Initial Comments: Visual Physical Exam Vital signs reviewed General: Well-appearing, nontoxic, no acute distress. Head: Normocephalic, atraumatic Eyes: PERRLA, EOMI ENT: Airway patent Chest: Nonlabored breathing Skin: No visual rash, normal skin tone Neuro: Alert and oriented 3 Musculoskeletal: No gross abnormalities (SebastianSusan) GENERAL: Patient is well-developed and well-nourished. Patient is nontoxic and well- hydrated and is in no acute distress. ENT: Neck is soft and supple. No significant lymphadenopathy is noted. Oropharynx is clear. Moist mucous membranes. Neck has full range of motion without eliciting any pain. EYES: The sclera were anicteric and conjunctiva were pink and moist. Extraocular movements were intact and pupils were equal round and reactive to light. Eyelids were unremarkable. PULMONARY: Unlabored respirations. Good breath sounds bilaterally. No audible rales rhonchi or wheezing was noted. CARDIOVASCULAR: There is a regular rate and rhythm without any murmurs gallops or rubs. ABDOMEN: Soft and nontender with normal bowel sounds. SKIN: Skin is clear with no lesions or rashes and otherwise unremarkable. NEUROLOGIC: Patient is alert and oriented x3. Cranial nerves II through XII are grossly intact. Motor and sensory are also intact. Normal speech, volume and content. Symmetrical smile. MUSCULOSKELETAL: Normal extremities with adequate strength and full range of motion. LYMPHATICS: No significant lymphadenopathy is noted PSYCHIATRIC: Normal psychiatric evaluation. (Davon Johnson) Course Vital Signs 09/20/24 10:00 Temperature 97.4 F L Pulse Rate 71 Respiratory 18 Rate Blood Pressure 165/85 O2 Sat by Pulse 98 Oximetry Chest Pain MDM <Susan Cortes - Last Filed: 09/20/24 10:50> <Davon Johnson - Last Filed: 09/20/24 13:23> - MDM I completed the quick note portion of this chart signed Susan Cortes PA-C ([facility]) EKG is interpreted by myself but EKG shows a sinus rhythm at 60 bpm ME 147 QRS of 75 QT interval 377 QTc is 394. Patient's EKG shows no ST segment ovation or depression. Was pt. sent in by a medical professional or institution (HERIBERTO Roy, FULL TIME BABYSITTER, urgent care, hospital, or usp...) When possible be specific @ -No Did you speak to anyone other than the patient for history (EMS, parent, family, police, friend...)? What history was obtained from this source @ -No Did you review nursing and triage notes (agree or disagree)? Why? @ -I reviewed and agree with nursing and triage notes Were old charts reviewed (outside hosp., previous admission, EMS record, old EKG, old radiological studies, urgent care reports/EKG's, usp records)? Report findings @ -No old charts were reviewed Differential Diagnosis? @ -Differential Chest Pain: Stable Angina, Unstable Angina, STEMI, NSTEMI Aortic Dissection, Pneumothorax, Musculoskeletal, Esophageal Spasm GERD, Cholecystitis, Pancreatitis, Zoster, this is not meant to be an all-inclusive list. EKG interpreted by me (3pts min.). @ -As above X-rays interpreted by me (1pt min.). @ -Chest x-ray shows no acute abnormality CT interpreted by me (1pt min.). @ -None done U/S interpreted by me (1pt. min.). @ -None done What testing was considered but not performed or refused? (CT, X-rays, U/S, labs)? Why? @ -None What meds were considered but not given or refused? Why? @ -None Did you discuss the management of the patient with other professionals (professionals i.e. HERIBERTO Roy, F[employer] TIME BABYSITTER, lab, RT, psych nurse, director of social services, slot host, teacher, account officer, skilled nursing case manager)? Give summary @ -No Was smoking cessation discussed for >3mins.? @ -No Was critical care preformed (if so, how long)? @ -No Were there social determinants of health that impacted care today? How? (Homelessness, low income, unemployed, alcoholism, drug addiction, transportation, low edu. Level, literacy, decrease access to med. care, [facility], rehab)? @ -No Was there de-escalation of care discussed even if they declined (Discuss DNR or withdrawal of care, Hospice)? DNR status @ -No What co-morbidities impacted this encounter? (DM, HTN, Smoking, COPD, CAD, Cancer, CVA, ARF, Chemo, Hep., AIDS, mental health diagnosis, sleep apnea, morbid obesity)? @ -None Was patient admitted / discharged? Hospital course, mention meds given and route, prescriptions, significant lab abnormalities, going to OR and other pertinent info. @ -Patient was not experiencing any chest pain while sitting in the emergency department he only experienced that if he took a deep breath. Patient's lab work showed no acute normality. Patient's EKG was normal. Patient's chest x- ray showed no acute dramality. Undiagnosed new problem with uncertain prognosis? @ -No Drug Therapy requiring intensive monitoring for toxicity (Heparin, Nitro, Insulin, Cardizem)? @ -No Were any procedures done? @ -No Diagnosis/symptom? @ -Pleural chest pain Acute, or Chronic, or Acute on Chronic? @ -Acute Uncomplicated (without systemic symptoms) or Complicated (systemic symptoms)? @ -Complicated Side effects of treatment? @ -No Exacerbation, Progression, or Severe Exacerbation? @ -No Poses a threat to life or bodily function? How? (Chest pain, [place], [place], pneumonia, PE, COPD, DKA, ARF, appy, cholecystitis, CVA, Diverticulitis, Homicidal, Suicidal, threat to staff... and all critical care pts) @ -No (Davon Johnson) Disposition <Susan Cortes - Last Filed: 09/20/24 10:50> Is patient prescribed a controlled substance at d/c from ED?: No Time of Disposition: 13:23 <Davon Johnson - Last Filed: 09/20/24 13:23> Clinical Impression: Pleuritic chest pain Disposition: HOME SELF-CARE Condition: Good Instructions (If sedation given, give patient instructions): Pleurisy (ED) Referrals: Chris Lynn Jr, [Primary Care Provider] - 1-2 days
[2024-09-20 11:04] LABS: Partial Thromboplastin Time 24.8 sec (22.0-30.0); Prothrombin Time 11.3 sec (10.0-12.5)
--- NOTE | 2024-09-20 11:16 | XR ---
EXAMINATION TYPE: XR chest 2V DATE OF EXAM: 09/20/2024 11:11 AM COMPARISON: Chest radiographs from 10/10/2023 CLINICAL INDICATION: Male, 84 years old with history of Chest Pain; TECHNIQUE: XR chest 2V Frontal and lateral views of the chest. FINDINGS: Lungs/Pleura: There is flattening of the diaphragm with increased lucency of the lungs. No evidence o f pneumothorax, pleural effusion or focal consolidation. Pulmonary vascularity: Unremarkable. Heart/mediastinum: Cardiomediastinal silhouette is unremarkable. Atherosclerotic calcifications are seen in the aorta. Left atrial appendage occlusion device is present. Musculoskeletal: No acute osseous pathology. IMPRESSION: 1. No acute cardiopulmonary disease process. 2. COPD changes. [facility], , 09/20/2024 11:13 AM
[2024-09-20 13:53] VITALS: BP 171/87; TEMP 98.3
== END 2024-09-20 13:53 | disposition home or self-care (01) ==
LOC: EC 09:58
DX: R07.81 Pleurodynia (principal); Z87.891 Personal history of nicotine dependence
CPT/HCPCS: 36415; 71046; 80053; 83735; 84484; 85025; 85379; 85610; 85730; 93005; 99285

== ENCOUNTER → 2024-10-05 | Outpatient (CLI) | payer MEDICARE ==
[2024-10-05 10:59] LABS: African American GFR (CKD) 54 (>60 ml/min/1.73 sqM); Blood Urea Nitrogen 23 mg/dL (9-20); Non-African American GFR(CKD) 46 (>60 ml/min/1.73 sqM)
--- NOTE | 2024-10-05 15:13 | CT ---
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 3D reconstructed images are created on an independent workstation and r [employer]. CT DLP: 924.20 mGycm. Automated Exposure Control for Dose Reduction was Utilized. FINDINGS: LUNGS: Stable mild linear scarring in the lingula. Stable focal posterior scarring in the right lower lobe with round atelectasis along the posterior aspect. Stable tiny right pleural effusion. HEART: Size within normal limits. Severe chitina coronary artery calcifications. Post-CABG changes are redemonstrated. Left atrial appendage clip is redemonstrated. Surgical changes of left mitral valve is redemonstrated. MEDIASTINUM: The ascending aorta measures 3.9 cm at the root coronal image 56. Ascending aorta measur es 4.3 cm coronal image 50 at mid ascending portion similar to prior . Normal three-vessel origin is seen without significant stenosis.. There is [id number] mixed peripheral plaque in the ascendin g aorta. There are stable prominent lymph nodes. No pericardial effusion is seen. OTHER: Dependent gallstones are seen. IMPRESSION: Stable ascending aortic aneurysm measured up to 4.3 cm on today's study. [facility], , 10/05/2024 3:10 PM
== END | disposition home or self-care (01) ==
LOC: RADCTMAIN 10:14
PROVIDERS: ATTEND Thoracic Surgery (Cardiothoracic Vascular Surgery)
DX: I71.21 Aneurysm of the ascending aorta, without rupture (principal); J90 Pleural effusion, not elsewhere classified; J98.11 Atelectasis
CPT/HCPCS: 82565; 84520; 71275; 36415; Q9967